=== PATIENT | female | born 1940 | race American Indian/Alaskan Native ===

== ENCOUNTER 2017-11-15 15:38 | Inpatient (IN) | payer MEDICARE ==
--- NOTE | 2017-11-15 16:57 | Emergency Department Report ---
ED General Adult HPI - General Chief complaint: Tube Replacement Stated complaint: DAMAGED CENTRAL LINE Time Seen by Provider: 11/15/17 16:44 Source: patient, family, EMS (ems notes not available at time of chart dictation), RN notes reviewed Mode of arrival: Ambulatory Limitations: Altered Mental Status, Physical Limitation, Other (patient is demented. Patient is a poor historian) - History of Present Illness Initial comments: This is a 77-year-old female who was previously unknown to this provider, apparently gets dialysis Saturday, Saturday, Saturday, also has a history of dementia, sent to the ER by her instrumental music teacher, Dr. Simental, for malfunctioning right-sided thoracic permacath. As for her instrumental music teacher, patient received 2 hours of dialysis today, and then the permacath began to bleed from the arterial port. It was clamped and tied off. It is currently not bleeding. The patient is demented and cannot offer any additional history. No additional information is available at this time. Patient is demented, and can therefore not describe exacerbating or relieving factors, radiation oncology of symptoms. -: Sudden Severity scale (0 -10): 0 Quality: other Improves with: other Worsens with: other Associated Symptoms: other - Related Data Home Medications Medication Instructions Recorded Confirmed Last Taken Amlodipine Besylate/Benazepril 1 PO DAILY 06/22/14 06/22/14 06/22/14 [amLODIPine-Benazepril 5/40 mg] Aspirin EC [Aspirin Enteric Coated 325 mg PO DAILY 06/22/14 06/22/14 06/22/14 TAB] Cyproheptadine [Periactin] 4 mg PO TID 06/22/14 06/22/14 Unknown Sennosides/Docusate Sodium [Stool PRN 06/22/14 06/22/14 Unknown Softener Tablet] Vit A and D3 in Cod Liver Oil [Cod 1 PO DAILY 06/22/14 06/22/14 06/22/14 Liver Oil Softgel] glipiZIDE [glipiZIDE ER] 5 mg PO QAM 06/22/14 06/22/14 Unknown Allergies Allergy/AdvReac Type Severity Reaction Status Date / Time No Known Allergies Allergy Unverified 06/22/14 16:57 ED Review of Systems ROS: Stated complaint: DAMAGED CENTRAL LINE Other details as noted in HPI Comment: Unobtainable due to pts medical conditions ED Past Medical Hx - Past Medical History Previous Medical History?: Yes Hx Hypertension: Yes Hx CVA: No Hx Heart Attack/AMI: No Hx Congestive Heart Failure: No Hx Diabetes: Yes Hx Deep Vein Thrombosis: No Hx Pulmonary Embolism: No Hx GERD: No Hx Liver Disease: No Hx Renal Disease: No Hx of Cancer: No Hx Sickle Cell Disease: No Hx Arthritis: No Hx Headaches / Migraines: No Hx Seizures: No Hx Kidney Stones: No Hx Psychiatric Treatment: No Hx Asthma: No Hx COPD: No Hx Tuberculosis: No Hx Dementia: No (Daughter in law states possibly) Hx HIV: No - Surgical History Past Surgical History?: Yes Hx Coronary Stent: No Hx Open Heart Surgery: No Hx Pacemaker: No Hx Internal Defibrillator: No Hx Cholecystectomy: No Hx Appendectomy: No Hx Breast Surgery: No Additional Surgical History: Hysterectomy - Social History Smoking Status: Never Smoker Substance Use Type: None - Medications Home Medications: Home Medications Medication Instructions Recorded Confirmed Last Taken Type Amlodipine Besylate/Benazepril 1 PO DAILY 06/22/14 06/22/14 06/22/14 History [amLODIPine-Benazepril 5/40 mg] Aspirin EC [Aspirin Enteric Coated 325 mg PO DAILY 06/22/14 06/22/14 06/22/14 History TAB] Cyproheptadine [Periactin] 4 mg PO TID 06/22/14 06/22/14 Unknown History Sennosides/Docusate Sodium [Stool PRN 06/22/14 06/22/14 Unknown History Softener Tablet] Vit A and D3 in Cod Liver Oil [Cod 1 PO DAILY 06/22/14 06/22/14 06/22/14 History Liver Oil Softgel] glipiZIDE [glipiZIDE ER] 5 mg PO QAM 06/22/14 06/22/14 Unknown History ED Physical Exam - General Limitations: Other (patient is demented. Patient is a poor historian) General appearance: alert, in no apparent distress - Head Head exam: Present: atraumatic, normocephalic - Eye Eye exam: Present: normal appearance - ENT ENT exam: Present: normal exam, mucous membranes moist - Neck Neck exam: Present: normal inspection, full ROM. Absent: tenderness, meningismus - Respiratory Respiratory exam: Present: normal lung sounds bilaterally, other (there is right sided thoracic wall permacath noted. There is no redness, pus or streaking. There is no active bleeding at this time). Absent: respiratory distress, chest wall tenderness - Cardiovascular Cardiovascular Exam: Present: normal rhythm, tachycardia, normal heart sounds. Absent: bradycardia, irregular rhythm, systolic murmur, diastolic murmur, rubs, gallop - GI/Abdominal GI/Abdominal exam: Present: soft, normal bowel sounds. Absent: distended, tenderness, guarding, rebound, rigid, pulsatile mass - Extremities Exam Extremities exam: Present: normal inspection, pedal edema. Absent: calf tenderness - Back Exam Back exam: Present: normal inspection, full ROM. Absent: tenderness, CVA tenderness (R), paraspinal tenderness, vertebral tenderness - Neurological Exam Neurological exam: Present: alert, other (Extraocular movements intact. Tongue midline. No facial droop. Facial sensation intact to light touch in the V1, V2 , V3 distribution bilaterally. 5 and 5 strength in 4 extremities.. Sensation is intact to light touch in 4 extremities.). Absent: motor sensory deficit - Psychiatric Psychiatric exam: Present: normal affect, normal mood - Skin Skin exam: Present: warm, dry, intact, normal color. Absent: rash ED Course Vital Signs 11/15/17 11/15/17 11/15/17 15:55 17:20 17:30 Temperature 98.5 F Pulse Rate 104 H 92 H 97 H Respiratory 18 22 19 Rate Blood Pressure 159/75 171/75 Blood Pressure 159/75 [Right] O2 Sat by Pulse 98 81 L 100 Oximetry 11/15/17 11/15/17 11/15/17 19:00 19:30 19:36 Temperature 98.1 F Pulse Rate 100 H 103 H 98 H Respiratory 18 23 16 Rate Blood Pressure 167/71 179/64 Blood Pressure 179/64 [Right] O2 Sat by Pulse 99 100 99 Oximetry 11/15/17 11/15/17 11/15/17 20:00 20:30 21:00 Temperature Pulse Rate 105 H 106 H 105 H Respiratory 19 20 26 H Rate Blood Pressure 171/55 171/55 170/71 Blood Pressure [Right] O2 Sat by Pulse 99 97 98 Oximetry - Reevaluation(s) Reevaluation #1: 11/15/17 17:26 Differential diagnosis, including not limited to: Malfunctioning permacath, vascular access malfunction, end-stage renal disease Assessment and plan: 77-year-old female who was sent to the ER for evaluation of malfunctioning permacath. Discussed with Dr. Simental, she will follow in consultation. Discussed with Dr. Tavera of vascular surgery, his group will see the patient in the morning. Patient will be nothing by mouth after midnight. We will check basic laboratory studies, EKG. Extensive discussion had with family. Patient is demented, and may require sedation, for her protection and for staff protection, family has verbally consented to. They are also amenable to soft restraints if necessary. Reevaluation #2: 11/15/17 21:35 Dr. Tomas accepted the patient to the medical service. ED Medical Decision Making - Lab Data Result diagrams: 11/15/17 17:28 11/15/17 17:28 Vital Signs 11/15/17 15:55 Temperature 98.5 F Pulse Rate 104 H Respiratory 18 Rate Blood Pressure 159/75 Blood Pressure 159/75 [Right] O2 Sat by Pulse 98 Oximetry - EKG Data -: EKG Interpreted by Me EKG shows normal: sinus rhythm - EKG Data When compared to previous EKG there are: previous EKG unavailable 11/15/17 17:44 Normal sinus, 95 bpm, left axis deviation, left anterior fascicular block, abnormal EKG, QTC prolonged, not morphologically consistent with a STEMI - Radiology Data Radiology results: image reviewed interpreted by me: X-ray of the chest, interpreted by me: No acute disease, calcified aortic arch, right-sided vascular access catheter noted, cardiomegaly Critical care attestation.: If time is entered above; I have spent that time in minutes in the direct care of this critically ill patient, excluding procedure time. ED Disposition Clinical Impression: Hemodialysis catheter malfunction, End stage renal disease Disposition: OP ADMIT IP TO THIS HOSP Is pt being admited?: Yes Condition: Good
[2017-11-15 17:35] LABS: Hematocrit 30.9 % (30.3-42.9); Hemoglobin 9.9 gm/dl (10.1-14.3); Mean Corpuscular HGB Conc 32 % (30-34); Mean Corpuscular Hemoglobin 29 pg (28-32); Mean Corpuscular Volume 92 fl (79-97); Platelet Count 345 K/mm3 (140-440); Red Blood Count 3.38 M/mm3 (3.65-5.03); Red Cell Distribution Width 17.3 % (13.2-15.2)
[2017-11-15 17:46] LABS: Calcium 8.2 mg/dL (8.4-10.2); INR 0.89 (0.87-1.13)
--- NOTE | 2017-11-15 18:34 | XRay Report ---
FINAL REPORT PROCEDURE: XR CHEST 1V AP TECHNIQUE: A portable AP chest radiograph was obtained at 11/15/2017 20:57 (GMT) . CPT 83658 HISTORY: Vascular access. Catheter malfunction. COMPARISON: No prior studies are available for comparison. FINDINGS: Heart: Mild cardiomegaly. Mediastinum/Vessels: Aortic calcification and tortuosity. Right hilar prominence due to patient rotation. Lungs/Pleural space: Left lower lobe linear opacities. Bony thorax: Mild osteopenia. Mild multilevel degenerative changes of the spine and shoulders. Right 4th and 7th rib fractures. Life support devices: Dialysis catheter tip at the cavoatrial junction. IMPRESSION: Dialysis catheter tip at the cavoatrial junction. No pneumothorax on limited portable exam. Mild cardiomegaly. Aortic calcification and tortuosity. Left lower lobe linear opacities, likely scarring/atelectasis.
--- NOTE | 2017-11-15 23:24 | History and Physical Report ---
History of Present Illness Date of examination: 11/15/17 History of present illness: 77-year-old woman with a history of dementia, end-stage renal disease on dialysis Saturday and Saturday was sent to the emergency room from dialysis because his per permacath started bleeding from the arterial site. The patient is unable to give a history, unable to reach family, review of system is unobtainable PAST MEDICAL HISTORY: dementia, end-stage renal disease on dialysis PAST SURGICAL HISTORY: Unknown SOCIAL HISTORY: Unknown FAMILY HISTORY: Unknown Medications and Allergies Allergies Allergy/AdvReac Type Severity Reaction Status Date / Time No Known Allergies Allergy Unverified 06/22/14 16:57 Home Medications Medication Instructions Recorded Confirmed Last Taken Type Amlodipine Besylate/Benazepril 1 PO DAILY 06/22/14 06/22/14 06/22/14 History [amLODIPine-Benazepril 5/40 mg] Aspirin EC [Aspirin Enteric Coated 325 mg PO DAILY 06/22/14 06/22/14 06/22/14 History TAB] Cyproheptadine [Periactin] 4 mg PO TID 06/22/14 06/22/14 Unknown History Sennosides/Docusate Sodium [Stool PRN 06/22/14 06/22/14 Unknown History Softener Tablet] Vit A and D3 in Cod Liver Oil [Cod 1 PO DAILY 06/22/14 06/22/14 06/22/14 History Liver Oil Softgel] glipiZIDE [glipiZIDE ER] 5 mg PO QAM 06/22/14 06/22/14 Unknown History Exam - Physical Exam Narrative exam: Gen. appearance: Patient lying in bed, no apparent distress HEENT: Normocephalic, atraumatic, pupils equally round and reactive to light, extraocular movement intact, and no sclericterus,. No JVD or thyromegaly or nodule,neck supple, no carotid bruit ,mucous membranes moist, no exudate or erythema Heart: S1, S2, regular rate and rhythm Lungs: Clear to auscultation bilaterally, breathing comfortable Abdomen: Positive bowel sounds, nontender, nondistended, no organomegaly Extremity: No edema, cyanosis, clubbing Skin: No rash, nodules, warm, dry Neuro: Oriented 3, cranial nerves II-12 intact, speech is fluent, motor and sensory intact - Constitutional Vitals: Temp Pulse Resp BP Pulse Ox 98.1 F 102 H 14 170/70 99 11/15/17 19:36 11/15/17 21:42 11/15/17 21:42 11/15/17 21:42 11/15/17 21:42 Results - Labs CBC & Chem 7: 11/15/17 17:28 11/15/17 17:28 Labs: Abnormal lab results 11/15/17 11/15/17 Range/Units 17:28 17:28 RBC 3.38 L (3.65-5.03) M/mm3 Hgb 9.9 L (10.1-14.3) gm/dl RDW 17.3 H (13.2-15.2) % Sodium 131 L (137-145) mmol/L Potassium 3.4 L (3.6-5.0) mmol/L Chloride 93.2 L (98-107) mmol/L Creatinine 2.8 H (0.7-1.2) mg/dL Glucose 213 H (65-100) mg/dL Calcium 8.2 L (8.4-10.2) mg/dL - Imaging and Cardiology EKG: image reviewed Chest x-ray: image reviewed Assessment and Plan Assessment Malfunction of permacath for dialysis End-stage renal disease on dialysis Dementia Plan Admit to medicine Consult vascular, renal DVT prophylaxis
[2017-11-15] MEDS ORDERED: ZOFRAN IV PRN (23:47)
[2017-11-15] MEDS ORDERED: TYLENOL PO PRN (23:47)
[2017-11-15] MEDS ORDERED: SODIUM CHLORIDE FLUSH SYRINGE 10 ML IV PRN (23:47)
[2017-11-16] MEDS: SODIUM CHLORIDE FLUSH SYRINGE 10 ML IV SCH ×2 (09:32→22:54)
[2017-11-16 09:51] LABS: Calcium 8.6 mg/dL (8.4-10.2)
--- NOTE | 2017-11-16 10:39 | Progress Note ---
Assessment and Plan Assessment and plan: 77-year-old woman with a history of dementia, end-stage renal disease on dialysis Saturday and Saturday was sent to the emergency room from dialysis because his per permacath started bleeding from the arterial site. The patient is unable to give a history, unable to reach family, review of system is unobtainable Assessment/Plan Malfunction of permacath for dialysis; vasc sx consulted for replacement End-stage renal disease on dialysis; HD per nephrology Dementia; supportive care htn urgency; resume home meds, hydralazine prn DM; resume glipizide, SSI, check a1c History Interval history: Review of systems Constitutional: No fevers, no malaise, no joint pains CVS: No chest pain, no orthopnea, no dyspnea on exertion, no pedal edema GI: No abdominal pain, no diarrhea, no vomiting, no constipation Respiratory: No shortness of breath, no wheezing, no coughing Hospitalist Physical - Physical exam Narrative exam: General.: Appears well, no distress, nontoxic HEENT: Moist mucous membranes, extraocular muscles intact, no lymphadenopathy Neck: supple Cardiac: S1-S2 heard Lungs: clear to auscultation bilaterally Abdomen: soft , nontender, nondistended, bowel sounds positive Extremities: no edema clubbing or cyanosis Skin: no rash or lesions Neurologic: no gross focal deficits, oriented to person, knows she in a hospital , thinks its 2021; Psych: appropriate behavior, appropriate mood, demented - Constitutional Vitals: Temp Pulse Resp BP Pulse Ox 98.0 F 97 H 18 172/80 98 11/16/17 07:32 11/16/17 07:32 11/16/17 07:32 11/16/17 07:32 11/16/17 07:32 Results - Labs CBC & Chem 7: 11/15/17 17:28 11/16/17 06:54 Labs: Laboratory Last Values WBC 8.9 K/mm3 (4.5-11.0) 11/15/17 17:28 RBC 3.38 M/mm3 (3.65-5.03) L 11/15/17 17:28 Hgb 9.9 gm/dl (10.1-14.3) L 11/15/17 17:28 Hct 30.9 % (30.3-42.9) 11/15/17 17:28 MCV 92 fl (79-97) 11/15/17 17:28 MCH 29 pg (28-32) 11/15/17 17:28 MCHC 32 % (30-34) 11/15/17 17:28 RDW 17.3 % (13.2-15.2) H 11/15/17 17:28 Plt Count 345 K/mm3 (140-440) 11/15/17 17:28 PT 12.5 Sec. (12.2-14.9) 11/15/17 17:28 INR 0.89 (0.87-1.13) 11/15/17 17:28 Sodium 136 mmol/L (137-145) L 11/16/17 06:54 Potassium 3.9 mmol/L (3.6-5.0) 11/16/17 06:54 Chloride 97.6 mmol/L (98-107) L 11/16/17 06:54 Carbon Dioxide 23 mmol/L (22-30) 11/16/17 06:54 Anion Gap 19 mmol/L 11/16/17 06:54 BUN 18 mg/dL (7-17) H 11/16/17 06:54 Creatinine 3.7 mg/dL (0.7-1.2) H 11/16/17 06:54 Estimated GFR 14 ml/min 11/16/17 06:54 BUN/Creatinine Ratio 5 % 11/16/17 06:54 Glucose 186 mg/dL (65-100) H 11/16/17 06:54 Calcium 8.6 mg/dL (8.4-10.2) 11/16/17 06:54
[2017-11-16] MEDS ORDERED: D50W (25GM) Syringe IV PRN (10:40)
[2017-11-16] MEDS ORDERED: APRESOLINE IV PRN (10:40)
--- NOTE | 2017-11-16 11:40 | Consultation ---
History of Present Illness - Reason for Consult Consult date: 11/16/17 Permcath malfunction - History of Present Illness 77-year-old -Chinese female with end-stage renal disease, dementia, diabetes, and hypertension who presents with right internal jugular tunneled dialysis catheter malfunction. I contacted Dr. Simental who told me that the catheter was oozing from a puncture in the arterial port. This occurred after being on dialysis for 2 hours. The patient is pleasantly demented and denies any acute distress. She denies any bleeding overnight. She cannot tell me how long she has been on dialysis, but is right handed and has never had a graft or fistula attempted. Physical exam demonstrates a right internal jugular tunneled hemodialysis catheter with some blood in the tubing with midportion clamps. I adjusted the clamps to make them as proximal as possible. No bleeding. Past History Past Medical History: diabetes, dialysis, ESRD, hypertension, other (dementia) Past Surgical History: Other (unknown, patient cannot report surgical history) Social history: other (unknown, patient cannot report social history) Family history: other (unknown, patient cannot report family history) Medications and Allergies Allergies Allergy/AdvReac Type Severity Reaction Status Date / Time No Known Allergies Allergy Unverified 06/22/14 16:57 Home Medications Medication Instructions Recorded Confirmed Last Taken Type Amlodipine Besylate/Benazepril 1 mg PO DAILY 06/22/14 11/16/17 06/22/14 History [amLODIPine-Benazepril 5/40 mg] Aspirin EC [Aspirin Enteric Coated 325 mg PO DAILY 06/22/14 11/16/17 06/22/14 History TAB] Cyproheptadine [Periactin] 4 mg PO TID 06/22/14 11/16/17 Unknown History Sennosides/Docusate Sodium [Stool 10 mg PO PRN PRN 06/22/14 11/16/17 Unknown History Softener Tablet] Vit A and D3 in Cod Liver Oil [Cod 1 mg PO DAILY 06/22/14 11/16/17 06/22/14 History Liver Oil Softgel] glipiZIDE [glipiZIDE ER] 5 mg PO QAM 06/22/14 11/16/17 Unknown History Active Meds: Active Medications Acetaminophen (Tylenol) 650 mg PO Q4H PRN PRN Reason: Pain MILD(1-3)/Fever >100.5/LEDEZMA Amlodipine Besylate (Norvasc) 5 mg PO QDAY [facility] Aspirin (Ecotrin) 325 mg PO DAILY [facility] Cyproheptadine HCl (Periactin) 4 mg PO TID [facility] Dextrose (D50w (25gm) Syringe) 50 ml IV PRN PRN PRN Reason: Hypoglycemia Glipizide (Glucotrol Xl) 5 mg PO QAMDIAB [facility] Hydralazine HCl (Apresoline) 10 mg IV Q4HR PRN PRN Reason: BP >160/100 Insulin Human Lispro (Humalog) 0 unit SUB-Q ACHS [facility]; Protocol Lisinopril (Zestril) 40 mg PO QDAY [facility] Ondansetron HCl (Zofran) 4 mg IV Q8H PRN PRN Reason: Nausea And Vomiting Senna/Docusate Sodium (Senokot S) 1 tab PO PRN PRN PRN Reason: constipation Sodium Chloride (Sodium Chloride Flush Syringe 10 Ml) 10 ml IV BID [facility] Last Admin: 11/16/17 09:32 Dose: 10 ml Sodium Chloride (Sodium Chloride Flush Syringe 10 Ml) 10 ml IV PRN PRN PRN Reason: LINE FLUSH Review of Systems ROS unobtainable: due to mental status (demented) Exam - Constitutional Vitals: Temp Pulse Resp BP Pulse Ox 98.0 F 97 H 18 172/80 98 11/16/17 07:32 18 07:32 11/16/17 07:32 11/16/17 07:32 11/16/17 11:07 General appearance: Present: no acute distress - EENT Eyes: Present: EOM intact ENT: hearing intact - Neck Neck: Present: other (please see history of present illness for catheter exam) - Respiratory Respiratory effort: normal - Extremities Extremities: normal temperature, normal color - Abdominal General gastrointestinal: Present: soft - Psychiatric Psychiatric: no memory intact, cooperative, other (pleasantly demented) - Neurologic Neurologic: moves all extremities Results - Labs CBC & Chem 7: 11/15/17 17:28 11/16/17 06:54 Labs: Abnormal lab results 11/15/17 11/15/17 11/16/17 Range/Units 17:28 17:28 06:54 RBC 3.38 L (3.65-5.03) M/mm3 Hgb 9.9 L (10.1-14.3) gm/dl RDW 17.3 H (13.2-15.2) % Sodium 131 L 136 L (137-145) mmol/L Potassium 3.4 L (3.6-5.0) mmol/L Chloride 93.2 L 97.6 L (98-107) mmol/L BUN 18 H (7-17) mg/dL Creatinine 2.8 H 3.7 H (0.7-1.2) mg/dL Glucose 213 H 186 H (65-100) mg/dL Calcium 8.2 L (8.4-10.2) mg/dL Assessment and Plan 77-year-old female with end-stage renal disease who presents with catheter malfunction. The catheter is not bleeding currently, and the patient is in no acute distress, nor is she hyperkalemic. Plan for permcath exchange on Saturday. Vein mapping. Follow-up in clinic for probable graft placement. Avoid venipunctures, blood pressure cuffs, and IVs in the left upper extremity.
[2017-11-16] MEDS ORDERED: SENOKOT S PO PRN (12:00)
[2017-11-16] MEDS: HumaLOG SUB-Q SCH ×3 (12:30→23:31)
[2017-11-16] MEDS ORDERED: NACL 0.9% 100 ML IV PRN (13:13)
[2017-11-16] MEDS ORDERED: PROCRIT IV PRN (13:13)
[2017-11-16] MEDS ORDERED: HEPARIN IV PRN (13:13)
[2017-11-16] MEDS ORDERED: HEPARIN 10,000 UNITS/10 ML IV PRN (13:13)
--- NOTE | 2017-11-16 13:17 | Consultation ---
History of Present Illness - Reason for Consult Consult date: 11/16/17 end stage renal disease - History of Present Illness Patient is a 77yo with ESRD on HD MWF who was sent to the ED from her outpatient dialysis clinic due to malfunctioning permcath. Per dialysis clinic , appx 2 hours into her treatment, patient was noted to have a hole in her arterial port. Treatment was discontinued. Patient recently transferred to [facility] from [facility]. She has yet to establish care with a vascular surgeon. Past History Past Medical History: diabetes, dialysis, ESRD, hypertension, other (dementia) Past Surgical History: Other (unknown, patient cannot report surgical history) Social history: other (unknown, patient cannot report social history) Family history: other (unknown, patient cannot report family history) Medications and Allergies Allergies Allergy/AdvReac Type Severity Reaction Status Date / Time No Known Allergies Allergy Unverified 06/22/14 16:57 Home Medications Medication Instructions Recorded Confirmed Last Taken Type Amlodipine Besylate/Benazepril 1 mg PO DAILY 06/22/14 11/16/17 06/22/14 History [amLODIPine-Benazepril 5/40 mg] Aspirin EC [Aspirin Enteric Coated 325 mg PO DAILY 06/22/14 11/16/17 06/22/14 History TAB] Cyproheptadine [Periactin] 4 mg PO TID 06/22/14 11/16/17 Unknown History Sennosides/Docusate Sodium [Stool 10 mg PO PRN PRN 06/22/14 11/16/17 Unknown History Softener Tablet] Vit A and D3 in Cod Liver Oil [Cod 1 mg PO DAILY 06/22/14 11/16/17 06/22/14 History Liver Oil Softgel] glipiZIDE [glipiZIDE ER] 5 mg PO QAM 06/22/14 11/16/17 Unknown History Active Meds: Active Medications Acetaminophen (Tylenol) 650 mg PO Q4H PRN PRN Reason: Pain MILD(1-3)/Fever >100.5/LEDEZMA Amlodipine Besylate (Norvasc) 5 mg PO QDAY [facility] Aspirin (Ecotrin) 325 mg PO DAILY [facility] Cyproheptadine HCl (Periactin) 4 mg PO TID [facility] Dextrose (D50w (25gm) Syringe) 50 ml IV PRN PRN PRN Reason: Hypoglycemia Glipizide (Glucotrol Xl) 5 mg PO QAMDIAB [facility] Hydralazine HCl (Apresoline) 10 mg IV Q4HR PRN PRN Reason: BP >160/100 Insulin Human Lispro (Humalog) 0 unit SUB-Q ACHS [facility]; Protocol Last Admin: 11/16/17 12:30 Dose: 1 unit Lisinopril (Zestril) 40 mg PO QDAY [facility] Ondansetron HCl (Zofran) 4 mg IV Q8H PRN PRN Reason: Nausea And Vomiting Senna/Docusate Sodium (Senokot S) 1 tab PO PRN PRN PRN Reason: constipation Sodium Chloride (Sodium Chloride Flush Syringe 10 Ml) 10 ml IV BID [facility] Last Admin: 11/16/17 09:32 Dose: 10 ml Sodium Chloride (Sodium Chloride Flush Syringe 10 Ml) 10 ml IV PRN PRN PRN Reason: LINE FLUSH Review of Systems All systems: negative Exam - Vital Signs Vital signs: Vital Signs Temp Pulse Resp BP Pulse Ox 98.5 F 104 H 18 159/75 98 11/15/17 15:55 11/15/17 15:55 11/15/17 15:55 11/15/17 15:55 11/15/17 15:55 - General Appearance General appearance: well-developed, well-nourished EENT: ATNC Neck: Present: Other (RIJ permcath bandaged) Respiratory: Clear to Ascultation Heart: regular, S1S2 Gastrointestinal: Present: normal. 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 No acute indication for HD today * Will plan for dialysis on Saturday following permcath exchange * IR following * Continue antiHTN medications * Glycemic control per primary team * Renal diet * Epogen TIW prn
[2017-11-16] MEDS: PERIACTIN PO SCH ×2 (14:40→22:54)
[2017-11-17] MEDS: HumaLOG SUB-Q SCH ×4 (08:47→22:50)
[2017-11-17] MEDS: PERIACTIN PO SCH ×3 (09:00→20:44)
[2017-11-17] MEDS: GLUCOTROL XL PO SCH (09:00)
[2017-11-17] MEDS: ZESTRIL PO SCH (09:01)
[2017-11-17] MEDS: ECOTRIN PO SCH (09:01)
[2017-11-17] MEDS: NORVASC PO SCH (09:02)
[2017-11-17] MEDS: SODIUM CHLORIDE FLUSH SYRINGE 10 ML IV SCH ×2 (09:02→22:51)
[2017-11-17] MEDS ORDERED: AMLODIPINE BESYLATE PO SCH (10:00)
[2017-11-17] MEDS ORDERED: BENAZEPRIL PO SCH (10:00)
--- NOTE | 2017-11-17 10:43 | Progress Note ---
Assessment and Plan Impression: * End stage renal disease on HD MWF * Malfunctioning permcath * Anemia secondary to ESRD * Dementia * Hypertension * Type II DM * Hx of MRSA discitis * Hx of PE/DVT, previously on anticoagulation Plan: * Patient is s/p partial dialysis on Saturday. No acute indication for HD today * Will plan for dialysis on Saturday following permcath exchange * IR following * Continue antiHTN medications * Glycemic control per primary team * Renal diet * Epogen TIW prn Subjective Date of service: 11/17/17 Interval history: No acute events overnight. Patient resting comfortably. Objective - Vital Signs Vital signs: Vital Signs - 12hr 11/16/17 11/17/17 11/17/17 22:46 02:39 07:00 Temperature 99.2 F 99.0 F 98.4 F Pulse Rate 102 H 102 H 91 H Respiratory 20 20 20 Rate Blood Pressure 158/76 157/76 Blood Pressure 150/67 [Right] O2 Sat by Pulse 98 98 98 Oximetry 11/17/17 11/17/17 09:01 09:02 Temperature Pulse Rate 91 H 91 H Respiratory Rate Blood Pressure 150/67 150/67 Blood Pressure [Right] O2 Sat by Pulse Oximetry - General Appearance General appearance: well-developed, well-nourished EENT: ATNC Respiratory: Present: Clear to Ascultation Cardiology: regular, S1S2 Gastrointestinal: normal, no tenderness, no distended Musculoskeletal: other (no edema) Psychiatric: cooperative - Lab 11/15/17 17:28 11/16/17 06:54 Most recent lab results Calcium 8.6 mg/dL (8.4-10.2) 11/16/17 06:54
--- NOTE | 2017-11-17 13:39 | Progress Note ---
Assessment and Plan Assessment and plan: 77-year-old woman with a history of dementia, end-stage renal disease on dialysis Saturday and Saturday was sent to the emergency room from dialysis because his per permacath started bleeding from the arterial site. Assessment/Plan Malfunction of permacath for dialysis; vasc sx consulted for replacement End-stage renal disease on dialysis; HD per nephrology Dementia; supportive care htn urgency; resume home meds, hydralazine prn DM; resume glipizide, SSI, check a1c History Interval history: Review of systems Constitutional: No fevers, no malaise, no joint pains CVS: No chest pain, no orthopnea, no dyspnea on exertion, no pedal edema GI: No abdominal pain, no diarrhea, no vomiting, no constipation Respiratory: No shortness of breath, no wheezing, no coughing Hospitalist Physical - Physical exam Narrative exam: General.: Appears well, no distress, nontoxic HEENT: Moist mucous membranes, extraocular muscles intact, no lymphadenopathy Neck: supple Cardiac: S1-S2 heard Lungs: clear to auscultation bilaterally Abdomen: soft , nontender, nondistended, bowel sounds positive Extremities: no edema clubbing or cyanosis Skin: no rash or lesions Neurologic: no gross focal deficits, oriented to person, knows she in a hospital , thinks its 2021; Psych: appropriate behavior, appropriate mood, demented - Constitutional Vitals: Temp Pulse Resp BP Pulse Ox 98.4 F 91 H 20 150/67 98 11/17/17 07:00 11/17/17 09:02 11/17/17 07:00 11/17/17 09:02 11/17/17 07:00 General appearance: Present: no acute distress Results - Labs CBC & Chem 7: 11/19/17 05:37 11/19/17 05:37 Labs: Laboratory Last Values WBC 8.9 K/mm3 (4.5-11.0) 11/15/17 17:28 RBC 3.38 M/mm3 (3.65-5.03) L 11/15/17 17:28 Hgb 9.9 gm/dl (10.1-14.3) L 11/15/17 17:28 Hct 30.9 % (30.3-42.9) 11/15/17 17:28 MCV 92 fl (79-97) 11/15/17 17:28 MCH 29 pg (28-32) 11/15/17 17:28 MCHC 32 % (30-34) 11/15/17 17:28 RDW 17.3 % (13.2-15.2) H 11/15/17 17:28 Plt Count 345 K/mm3 (140-440) 11/15/17 17:28 PT 12.5 Sec. (12.2-14.9) 11/15/17 17:28 INR 0.89 (0.87-1.13) 11/15/17 17:28 Sodium 136 mmol/L (137-145) L 11/16/17 06:54 Potassium 3.9 mmol/L (3.6-5.0) 11/16/17 06:54 Chloride 97.6 mmol/L (98-107) L 11/16/17 06:54 Carbon Dioxide 23 mmol/L (22-30) 11/16/17 06:54 Anion Gap 19 mmol/L 11/16/17 06:54 BUN 18 mg/dL (7-17) H 11/16/17 06:54 Creatinine 3.7 mg/dL (0.7-1.2) H 11/16/17 06:54 Estimated GFR 14 ml/min 11/16/17 06:54 BUN/Creatinine Ratio 5 % 11/16/17 06:54 Glucose 186 mg/dL (65-100) H 11/16/17 06:54 POC Glucose 148 (70-105) H 11/17/17 11:49 Hemoglobin A1c 5.5 % (4-6) 11/17/17 05:01 Calcium 8.6 mg/dL (8.4-10.2) 11/16/17 06:54
[2017-11-18] MEDS ORDERED: DULCOLAX PR PRN (02:11)
[2017-11-18] MEDS: HumaLOG SUB-Q SCH ×3 (07:30→17:06)
[2017-11-18 07:54] LABS: Calcium 8.1 mg/dL (8.4-10.2)
[2017-11-18] MEDS ORDERED: HEPARIN 10,000 UNITS/10 ML ONE (08:13)
[2017-11-18] MEDS ORDERED: HEPARIN/NS 5000 UNIT/500ML(CATH LAB) 500 ML IR ONE (08:13)
[2017-11-18] MEDS ORDERED: SUBLIMAZE ONE (08:14)
[2017-11-18] MEDS ORDERED: XYLOCAINE 2% INFILTRATI ONE ×2 (08:14→08:48)
[2017-11-18] MEDS ORDERED: VERSED ONE (08:14)
[2017-11-18] MEDS ORDERED: NACL 0.9% 250ML 250 ML ONE (08:37)
[2017-11-18] MEDS ORDERED: VERSED IV ONE (08:40)
[2017-11-18] MEDS ORDERED: HEPARIN 10,000 UNITS/10 ML 2,000 UNIT in NACL 0.9% 500 ML 500 ML IR ONE (08:40)
[2017-11-18] MEDS ORDERED: SUBLIMAZE IV ONE (08:40)
[2017-11-18] MEDS ORDERED: HEPARIN 10,000 UNITS/10 ML IV ONE (08:56)
--- NOTE | 2017-11-18 09:01 | Operative Report ---
Operative Report Operative Report: EXAM: FLUOROSCOPIC GUIDED TUNNELED HEMODIALYSIS CATHETER EXCHANGE CLINICAL INDICATION: PATIENT WITH NONFUNCTIONING HEMODIALYSIS CATHETER DATE: 11/18/2017 PROCEDURE: Following an explanation of the risks, benefits and alternatives; written informed consent was obtained from the patient's next of kin. Patient was brought to the injury graphic suite placed in supine position on the examination table. Initial fluoroscopic images demonstrated appropriate positioning of the previous placed tunneled hemodialysis catheter. A blood was noted to be in the arterial port secondary to catheter Ms. function. The patient's right chest wall and indwelling catheter were prepped and draped in the usual sterile fashion. 1% lidocaine was used for anesthesia at the catheter exit site and along the tunnel tract. Using a combination of sharp and blunt dissection, the catheter cuff was freed. A stiff Glidewire was advanced through the venous lumen and advanced into the IVC under fluoroscopy to document intravenous positioning and to anchor the catheter. The catheter was then removed intact. A new 19 cm glidepath tunneled hemodialysis catheter was then advanced over the guidewire and position with the tip in the proximal right atrium. The guidewire and trocar were removed. Both ports flushed and aspirated easily and were then locked with appropriate volumes of heparin. The catheter exit site was approximated using 3-0 Vicryl suture. A sterile dressing was then applied. The patient tolerated the procedure well. There were no immediate post procedure complications. Conscious sedation was performed under the guidance of radiologic nursing. Continuous cardiopulmonary monitoring was utilized. IMPRESSION: 1) Fluoroscopic guided exchange of tunneled hemodialysis catheter
[2017-11-18 09:13] LABS: Hematocrit 30.4 % (30.3-42.9); Lymphocytes % (Auto) 12.9 % (13.4-35.0); Mean Corpuscular HGB Conc 33 % (30-34); Mean Corpuscular Hemoglobin 30 pg (28-32); Mean Corpuscular Volume 93 fl (79-97); Monocytes % (Auto) 7.6 % (0.0-7.3); Platelet Count 343 K/mm3 (140-440); Red Blood Count 3.29 M/mm3 (3.65-5.03)
[2017-11-18 09:14] LABS: Basophils # (Auto) 0.1 K/mm3 (0.0-0.1); Eosinophils # (Auto) 0.2 K/mm3 (0.0-0.4); Eosinophils % (Auto) 1.7 % (0.0-4.3); Lymphocytes # (Auto) 1.3 K/mm3 (1.2-5.4); Monocytes # (Auto) 0.8 K/mm3 (0.0-0.8)
--- NOTE | 2017-11-18 09:15 | Progress Note ---
Assessment and Plan Assessment and plan: 77-year-old woman with a history of dementia, end-stage renal disease on dialysis Saturday and Saturday was sent to the emergency room from dialysis because his per permacath started bleeding from the arterial site. Assessment/Plan Malfunction of permacath for dialysis; vasc sx consulted for replacement End-stage renal disease on dialysis; HD per nephrology Dementia; supportive care htn urgency; resume home meds, hydralazine prn DM; resume glipizide, SSI, check a1c History Interval history: Review of systems Constitutional: No fevers, no malaise, no joint pains CVS: No chest pain, no orthopnea, no dyspnea on exertion, no pedal edema GI: No abdominal pain, no diarrhea, no vomiting, no constipation Respiratory: No shortness of breath, no wheezing, no coughing Hospitalist Physical - Physical exam Narrative exam: General.: Appears well, no distress, nontoxic HEENT: Moist mucous membranes, extraocular muscles intact, no lymphadenopathy Neck: supple Cardiac: S1-S2 heard Lungs: clear to auscultation bilaterally Abdomen: soft , nontender, nondistended, bowel sounds positive Extremities: no edema clubbing or cyanosis Skin: no rash or lesions Neurologic: no gross focal deficits, oriented to person, knows she in a hospital , thinks its 2021; Psych: appropriate behavior, appropriate mood, demented - Constitutional Vitals: Temp Pulse Resp BP Pulse Ox 98.7 F 110 H 20 145/73 98 11/18/17 07:17 11/18/17 07:17 11/18/17 07:17 11/18/17 07:17 11/18/17 08:19 General appearance: Present: no acute distress Results - Labs CBC & Chem 7: 11/19/17 05:37 11/19/17 05:37 Labs: Laboratory Last Values WBC 10.2 K/mm3 (4.5-11.0) 11/18/17 07:53 RBC 3.29 M/mm3 (3.65-5.03) L 11/18/17 07:53 Hgb 10.0 gm/dl (10.1-14.3) L 11/18/17 07:53 Hct 30.4 % (30.3-42.9) 11/18/17 07:53 MCV 93 fl (79-97) 11/18/17 07:53 MCH 30 pg (28-32) 11/18/17 07:53 MCHC 33 % (30-34) 11/18/17 07:53 RDW 18.0 % (13.2-15.2) H 11/18/17 07:53 Plt Count 343 K/mm3 (140-440) 11/18/17 07:53 Lymph % (Auto) 12.9 % (13.4-35.0) L 11/18/17 07:53 Pitkin % (Auto) 7.6 % (0.0-7.3) H 11/18/17 07:53 Eos % (Auto) 1.7 % (0.0-4.3) 11/18/17 07:53 Baso % (Auto) 1.0 % (0.0-1.8) 11/18/17 07:53 Lymph # 1.3 K/mm3 (1.2-5.4) 11/18/17 07:53 Pitkin # 0.8 K/mm3 (0.0-0.8) 11/18/17 07:53 Eos # 0.2 K/mm3 (0.0-0.4) 11/18/17 07:53 Baso # 0.1 K/mm3 (0.0-0.1) 11/18/17 07:53 Seg Neutrophils % 76.8 % (40.0-70.0) H 11/18/17 07:53 Seg Neutrophils # 7.8 K/mm3 (1.8-7.7) H 11/18/17 07:53 PT 12.5 Sec. (12.2-14.9) 11/15/17 17:28 INR 0.89 (0.87-1.13) 11/15/17 17:28 Sodium 136 mmol/L (137-145) L 11/18/17 07:35 Potassium 5.3 mmol/L (3.6-5.0) H D 11/18/17 07:35 Chloride 99.8 mmol/L (98-107) 11/18/17 07:35 Carbon Dioxide 21 mmol/L (22-30) L 11/18/17 07:35 Anion Gap 21 mmol/L 11/18/17 07:35 BUN 44 mg/dL (7-17) H 11/18/17 07:35 Creatinine 5.5 mg/dL (0.7-1.2) H 11/18/17 07:35 Estimated GFR 9 ml/min 11/18/17 07:35 BUN/Creatinine Ratio 8 % 11/18/17 07:35 Glucose 184 mg/dL (65-100) H 11/18/17 07:35 POC Glucose 237 (70-105) H 11/18/17 06:22 Hemoglobin A1c 5.5 % (4-6) 11/17/17 05:01 Calcium 8.1 mg/dL (8.4-10.2) L 11/18/17 07:35
[2017-11-18] MEDS ORDERED: NACL 0.9 (PRIMING MACHINE ONLY DIALYSIS) MC ONE (10:07)
[2017-11-18] MEDS ORDERED: NACL 0.9% 100 ML IV PRN (11:00)
[2017-11-18 13:21] LABS: Hepatitis A Antibody IgM Non-Reactive (NonReactive); Hepatitis B Core IgM Non-Reactive (NonReactive); Hepatitis B Surface Antigen Non-Reactive (Negative); Hepatitis C Virus Antibody Non-Reactive (NonReactive)
--- NOTE | 2017-11-18 16:29 | Progress Note ---
Subjective Interval history: Patient was seen today for follow-up, on many renal related issues Patient currently denies having any symptoms of chest pain pressure shortness of breath patient underwent permacath exchange today Better aware about renal related issues Interdisciplinary notes were reviewed Vitals labs intake and output medications were reviewed from today Allergies: Reviewed Social history: Reviewed Family history: Reviewed Physical examination HEENT: Oral mucosa moist no pharyngeal erythema Neck: Supple no JVD Chest: Clear to auscultation no crackles rales or wheezes Heart: Regular rate and rhythm S1-S2 heard no S3-S4 Abdomen: Soft nontender no renal bruit no CVA tenderness no suprapubic fullness Extremity: Mild edema dry skin no peripheral cyanosis pulses palpable Neurological: Alert awake Musculoskeletal: No joint effusion noted Assessment and plan End-stage renal disease patient is currently on maintenance hemodialysis 3 times per week, patient will continue to receive her hemodialysis through her catheter Permacath malfunction currently status post exchange/ admitted with bleeding from the arterial port/currently being followed by vascular surgery Anemia and end-stage renal disease currently on erythropoietin 10,000 units with hemodialysis Hypertension: Goal systolic blood pressure under 150 currently on Zestril as well as amlodipine Mild hyponatremia: To follow History of MRSA discitis, DVT and pulmonary embolism used to be on anticoagulation Dementia appears to be moderate Multiple other comorbidities including diabetes, hypertension, dementia Will continue to follow and make recommendation from renal standpoint Objective - Vital Signs Vital signs: Vital Signs - 12hr 11/18/17 11/18/17 11/18/17 07:17 08:19 09:30 Temperature 98.7 F 97.8 F Pulse Rate 110 H 100 H Respiratory 20 16 Rate Blood Pressure 145/73 140/86 O2 Sat by Pulse 100 98 Oximetry 11/18/17 11/18/17 11/18/17 09:38 09:45 10:00 Temperature Pulse Rate 95 H 96 H 100 H Respiratory Rate Blood Pressure 138/70 131/74 122/73 O2 Sat by Pulse Oximetry 11/18/17 11/18/17 11/18/17 10:15 10:30 10:45 Temperature Pulse Rate 100 H 101 H 104 H Respiratory Rate Blood Pressure 143/73 133/74 134/72 O2 Sat by Pulse Oximetry 11/18/17 11/18/17 11/18/17 11:00 11:15 11:30 Temperature Pulse Rate 99 H 102 H 109 H Respiratory Rate Blood Pressure 144/78 136/73 117/69 O2 Sat by Pulse Oximetry 11/18/17 11/18/17 11/18/17 11:45 12:00 12:15 Temperature Pulse Rate 107 H 81 56 L Respiratory Rate Blood Pressure 122/66 116/67 65/40 O2 Sat by Pulse Oximetry 11/18/17 11/18/17 11/18/17 12:19 12:30 12:45 Temperature Pulse Rate 103 H 96 H 101 H Respiratory Rate Blood Pressure 167/90 148/75 142/73 O2 Sat by Pulse Oximetry 11/18/17 11/18/17 11/18/17 13:00 13:13 13:49 Temperature 97.6 F Pulse Rate 97 H 91 H 95 H Respiratory 18 Rate Blood Pressure 132/73 131/70 134/62 O2 Sat by Pulse Oximetry - Lab 11/18/17 07:53 11/18/17 07:35 Most recent lab results Calcium 8.1 mg/dL (8.4-10.2) L 11/18/17 07:35
[2017-11-18] MEDS: PERIACTIN PO SCH ×3 (17:06→21:57)
[2017-11-18] MEDS: NORVASC PO SCH (18:14)
[2017-11-18] MEDS: ECOTRIN PO SCH (18:14)
[2017-11-18] MEDS: ZESTRIL PO SCH (18:14)
[2017-11-18] MEDS: GLUCOTROL XL PO SCH (18:14)
[2017-11-18] MEDS: SODIUM CHLORIDE FLUSH SYRINGE 10 ML IV SCH ×2 (20:44→21:59)
[2017-11-19] MEDS: HumaLOG SUB-Q SCH ×2 (00:48→14:15)
[2017-11-19 06:13] LABS: Basophils # (Auto) 0.1 K/mm3 (0.0-0.1); Basophils % (Auto) 1.4 % (0.0-1.8); Eosinophils # (Auto) 0.3 K/mm3 (0.0-0.4); Eosinophils % (Auto) 3.9 % (0.0-4.3); Hematocrit 30.1 % (30.3-42.9); Lymphocytes # (Auto) 2.2 K/mm3 (1.2-5.4); Lymphocytes % (Auto) 24.9 % (13.4-35.0); Mean Corpuscular HGB Conc 33 % (30-34); Mean Corpuscular Hemoglobin 30 pg (28-32); Mean Corpuscular Volume 91 fl (79-97); Monocytes # (Auto) 0.8 K/mm3 (0.0-0.8); Monocytes % (Auto) 9.4 % (0.0-7.3); Platelet Count 289 K/mm3 (140-440); Red Blood Count 3.31 M/mm3 (3.65-5.03)
[2017-11-19 06:41] LABS: Calcium 8.2 mg/dL (8.4-10.2)
--- NOTE | 2017-11-19 09:19 | Progress Note ---
Subjective Interval history: Patient was seen today for follow-up, on many renal related issues Patient is feeling better no acute complaints today Interdisciplinary notes were reviewed Vitals labs intake and output medications were reviewed from today Allergies: Reviewed Social history: Reviewed Family history: Reviewed Physical examination HEENT: Oral mucosa moist no pharyngeal erythema Neck: Supple no JVD Chest: Clear to auscultation no crackles rales or wheezes Heart: Regular rate and rhythm S1-S2 heard no S3-S4 Abdomen: Soft nontender no renal bruit no CVA tenderness no suprapubic fullness Extremity: Mild edema dry skin no peripheral cyanosis pulses palpable Neurological: Alert awake Musculoskeletal: No joint effusion noted Assessment and plan End-stage renal disease: Patient will continue with hemodialysis 3 times per week Anemia in end-stage renal disease current hemoglobin stable at 10 to monitor and follow erythropoietin subcutaneous would be preferred for better response Hyperkalemia: Potassium is currently 4.0 Diabetes mellitus type 2 poorly controlled needs diet lifestyle changes adjustment of medication Hypertension: Currently stable continue the current medication Tachycardia mild reduce lisinopril introduce beta teresa Status post-permacath exchange/due to bleeding from the arterial port Will monitor dialysis related labs Secondary hyperparathyroidism will check phosphorus and PTH Overall patient is stable from renal standpoint History of MRSA discitis, DVT and pulmonary embolism used to be on anticoagulation Dementia appears to be moderate Multiple other comorbidities including diabetes, hypertension, dementia Will continue to follow and make recommendation from renal standpoint Objective - Vital Signs Vital signs: Vital Signs - 12hr 11/18/17 21:35 Temperature 98.2 F Pulse Rate 109 H Respiratory 18 Rate Blood Pressure 135/58 [Right] O2 Sat by Pulse 97 Oximetry - Lab 11/19/17 05:37 11/19/17 05:37 Most recent lab results Calcium 8.2 mg/dL (8.4-10.2) L 11/19/17 05:37
[2017-11-19] MEDS: ECOTRIN PO SCH (09:46)
[2017-11-19] MEDS: PERIACTIN PO SCH ×2 (09:46→14:16)
[2017-11-19] MEDS: ZESTRIL PO SCH (09:48)
[2017-11-19] MEDS: NORVASC PO SCH (09:48)
[2017-11-19] MEDS: SODIUM CHLORIDE FLUSH SYRINGE 10 ML IV SCH (10:00)
--- NOTE | 2017-11-19 10:59 | Discharge Summary ---
Providers - Providers Date of Admission: 11/15/17 23:47 Date of discharge: 11/19/17 Attending physician: SAUD NAPIER 11/15/17 16:49 Consult to Physician [CONS] Urgent Comment: Dr. Snyder spoke with Dr. Simental Consulting Provider: TEAGAN SIMENTAL Physician Instructions: Reason For Exam: end-stage renal disease, malfunctioning dialysis c 11/15/17 16:56 Consult to Physician [CONS] Urgent Comment: Dr. Snyder spoke with Dr. Galindo Consulting Provider: EDER GALINDO Physician Instructions: Reason For Exam: vas cath replacement Primary care physician: COLE LOPEZ Hospitalization Condition: Good Hospital course: 77-year-old woman with a history of dementia, end-stage renal disease on dialysis Saturday and Saturday was sent to the emergency room from dialysis because his per permacath started bleeding from the arterial site. Patient was admitted to the hospital, vascular surgery was consulted for replacement of the permcath. She tolerated HD well with the new permcath. She was then discharged back to SNF in stable condition. Discharge diagnosis and management: Malfunction of permacath for dialysis; - vasc sx consulted for replacement and procedure was done on 11/18 End-stage renal disease on dialysis; - HD per nephrology, tolerated well with new perm cath Dementia; provided supportive care HTN urgency; resumed home meds and was better controlled, given hydralazine prn if SBP >180, stopped ACEI b/o hyperkalemia and replaced with coreg Hyperkalemia, improved with HD DM; resumed glipizide along with SSI, check a1c 5.5 Hospitalist Physical General.: Appears well, no distress, nontoxic HEENT: Moist mucous membranes, extraocular muscles intact, no lymphadenopathy Neck: supple Cardiac: S1-S2 heard Lungs: clear to auscultation bilaterally Abdomen: soft , nontender, nondistended, bowel sounds positive Extremities: no edema clubbing or cyanosis Skin: no rash or lesions Neurologic: no gross focal deficits, oriented to person, knows she in a hospital , thinks its 2021; Psych: appropriate behavior, appropriate mood, demented Disposition: DC/[place]-03 [facility] Time spent for discharge: 32 minutes Core Measure Documentation - Palliative Care Palliative Care/ Comfort Measures: Not Applicable - Core Measures Any of the following diagnoses?: none Exam - Constitutional Vitals: Temp Pulse Resp BP Pulse Ox 98.7 F 91 H 18 148/70 98 11/19/17 07:45 11/19/17 07:45 11/19/17 07:45 11/19/17 07:45 11/19/17 07:45 Plan Activity: advance as tolerated Weight Bearing Status: Non-Weight Bearing Diet: renal Follow up with: COLE LOPEZ MD [Primary Care Provider] - 3-5 Days Prescriptions: amLODIPine [Norvasc] 10 mg PO QDAY #30 tablet Carvedilol [Coreg] 3.125 mg PO BID #60 tablet
[2017-11-19] MEDS ORDERED: COREG PO SCH (14:00)
[2017-11-19 15:14] VITALS: BP 129/70
--- NOTE | 2017-11-20 15:02 | Vascular Lab Report ---
Upper extremity vein mapping Reason for exam: Preoperative evaluation for hemodialysis access Comments: On the right, the cephalic vein is too small for use from wrist to shoulder. The basilic vein is of marginal caliber of the upper. The brachial and radial arteries are patent. The radial artery is of normal caliber. The right jugular vein is thrombosed. On the left, the cephalic vein is too small for use from wrist to shoulder. The basilic vein is marginal for use in the upper arm. The brachial and radial arteries are patent. The radial artery is of normal caliber. Impression: The right internal jugular vein is thrombosed. Cephalic presentation small for use bilaterally. The basilic veins are potentially usable in the upper arms of the bilateral upper extremities.
== END 2017-11-19 15:00 | disposition home or self-care (01) | DRG 314 ==
LOC: ED 15:38 → 2B-ACE 23:47
PROVIDERS: ADMIT Internal Medicine; ATTEND Internal Medicine
PROC: 02HV33Z Insertion of Infusion Device into Superior Vena Cava, Percutaneous Approach (ICD-10-PCS; principal; 2017-11-18)
PROC: 02PY33Z Removal of Infusion Device from Great Vessel, Percutaneous Approach (ICD-10-PCS; 2017-11-18)
PROC: B5181ZA Fluoroscopy of Superior Vena Cava using Low Osmolar Contrast, Guidance (ICD-10-PCS; 2017-11-18)
PROC: 5A1D70Z Performance of Urinary Filtration, Intermittent, Less than 6 Hours Per Day (ICD-10-PCS; 2017-11-18)
DX: T82.41XA Breakdown (mechanical) of vascular dialysis catheter, initial encounter (principal); N18.6 End stage renal disease; I12.0 Hypertensive chronic kidney disease with stage 5 chronic kidney disease or end stage renal disease; E87.1 Hypo-osmolality and hyponatremia; N25.81 Secondary hyperparathyroidism of renal origin; F03.90 Unspecified dementia, unspecified severity, without behavioral disturbance, psychotic disturbance, mood disturbance, and anxiety; Z79.82 Long term (current) use of aspirin; E11.22 Type 2 diabetes mellitus with diabetic chronic kidney disease; Z99.2 Dependence on renal dialysis; Z90.710 Acquired absence of both cervix and uterus; Y83.8 Other surgical procedures as the cause of abnormal reaction of the patient, or of later complication, without mention of misadventure at the time of the procedure; Y92.89 Other specified places as the place of occurrence of the external cause; I16.0 Hypertensive urgency; D63.1 Anemia in chronic kidney disease; Z86.711 Personal history of pulmonary embolism; E87.5 Hyperkalemia; R00.0 Tachycardia, unspecified
CPT/HCPCS: 36415; 36581; 71045; 77001; 80048; 80074; 82962; 83036; 85025; 85027; 85610; 93005; 93010; 94760; C1750; C1769; J0885; J1644; J1815; J2250; J3010; J7030; J7040; J7050

== ENCOUNTER 2018-08-22 08:13 | Day surgery (SDC) | payer MEDICARE ==
[~2018-08-22 08:13] MED LIST: ANCEF/STERILE WATER 2 GM/20 ML 2 GM/20 ML SYRINGE IV NR; GELFOAM TP ONE; HEPARIN 10,000 UNITS/10 ML ONE; MARCAINE-EPI 0.5%-1:200,000 INFILTRATI ONE; NACL 0.9% 1000 ML 1,000 ML IV SCH; NACL 0.9% 500 ML 500 ML ONE; NITROGLYCERIN SYRINGE 3 ML ONE; PAPAVERINE ONE; PROTAMINE SULFATE ONE; SODIUM BICARBONATE ONE; THROMBIN (BOVINE) TP ONE; XYLOCAINE 1%/ EPI 1:100,000 INFILTRATI ONE
[2018-08-22] MEDS ORDERED: SUBLIMAZE IV PRN (09:36)
[2018-08-22] MEDS ORDERED: ZOFRAN IV PRN (09:36)
--- NOTE | 2018-08-22 09:37 | Anesthesia Day of Surgery ---
Anesthesia Day of Surgery - Day of Surgery Patient Examined: Yes Patient H&P Reviewed: Yes Patient is NPO: Yes Beta Blockers: Yes
--- NOTE | 2018-08-22 09:42 | Anesthesia Consultation ---
Anesthesia Consult and Med Hx Date of service: 08/22/18 - Airway Anesthetic Teeth Evaluation: Edentulous ROM Head & Neck: Adequate Mental/Hyoid Distance: Adequate Mallampati Class: Class I Intubation Access Assessment: Good - Pre-Operative Health Status ASA Pre-Surgery Classification: ASA3 Proposed Anesthetic Plan: General - Pulmonary Hx Asthma: No COPD: No - Cardiovascular System Hx Hypertension: Yes Hx Heart Attack/AMI: No Hx Pacemaker: No Hx Internal Defibrillator: No - Central Nervous System Hx Seizures: No CVA: Yes Hx Psychiatric Problems: No - Endocrine Hx Renal Disease: Yes Hx End Stage Renal Disease: Yes (MWF HD via Perma-cath; last HD Sat) Hx Liver Disease: No - Hematic Hx Sickle Cell Disease: No - Other Systems Hx Alcohol Use: No Hx Cancer: No
[2018-08-22] MEDS ORDERED: NACL 0.9% 1000 ML 1,000 ML IV SCH (10:00)
[2018-08-22] MEDS ORDERED: COREG PO ONE (10:18)
[2018-08-22] MEDS ORDERED: SUBLIMAZE ONE (10:23)
[2018-08-22] MEDS ORDERED: DIPRIVAN 10 MG/ML IV ONE (10:24)
[2018-08-22] MEDS ORDERED: NORVASC PO NR (10:30)
[2018-08-22] MEDS ORDERED: PROTONIX PO SCH (11:00)
[2018-08-22] MEDS ORDERED: COREG PO NR (11:00)
[2018-08-22] MEDS ORDERED: MARCAINE-EPI 0.5%-1:200,000 INFILTRATI ONE (13:24)
[2018-08-22] MEDS ORDERED: THROMBIN (BOVINE) TP ONE (13:24)
[2018-08-22] MEDS ORDERED: NACL 0.9% IR ONE (13:24)
[2018-08-22] MEDS ORDERED: GELFOAM TP ONE (13:25)
[2018-08-22] MEDS ORDERED: HEPARIN 10,000 UNITS/10 ML IV ONE (13:25)
[2018-08-22] MEDS ORDERED: NACL 0.9% 500 ML IRRIGATION ONE (13:26)
[2018-08-22] MEDS ORDERED: NITROGLYCERIN SYRINGE UD ONE (13:31)
--- NOTE | 2018-08-22 14:53 | Short Stay Summary ---
Short Stay Documentation Date of service: 08/22/18 - History H&P: obtained from office - Allergies and Medications Current Medications: Allergies No Known Allergies Allergy (Unverified 06/22/14 16:57) Home Medications Medication Instructions Recorded Confirmed Last Taken Type Cyproheptadine [Periactin] 4 mg PO TID 06/22/14 03/08/18 Unknown History Acetaminophen 650 mg PO Q4H PRN 02/26/18 03/08/18 Unknown History Amlodipine Besylate/Benazepril 1 cap PO QDAY 02/26/18 03/08/18 Unknown History [Lotrel 5-40 mg] AtorvaSTATin [Lipitor] 20 mg PO QHS 02/26/18 03/08/18 Unknown History Benzonatate 200 mg PO Q8H PRN 02/26/18 03/08/18 Unknown History Carvedilol [Coreg] 6.25 mg PO BID 02/26/18 03/08/18 Unknown History Clobetasol Propionate [Clobetasol 1 dose TP Q12H PRN 02/26/18 03/08/18 Unknown History Propionate 0.05%] Docusate Sodium [Colace CAP] 100 mg PO BID 02/26/18 03/08/18 Unknown History Ergocalciferol (Vitamin D2) 50,000 unit PO QWEEK 02/26/18 03/08/18 Unknown History [Drisdol] Ferrous Sulfate [Iron] 325 mg PO BID 02/26/18 03/08/18 Unknown History Magnesium Hydroxide [Milk of 2,400 mg PO QHS 02/26/18 03/08/18 Unknown History Magnesia] Polyethylene Glycol 3350 [Miralax 17 gm PO QDAY PRN 02/26/18 03/08/18 Unknown History 3350] Sennosides [Senna] 2 tab PO QHS 02/26/18 03/08/18 Unknown History Sevelamer Carbonate 1,600 mg PO TID 02/26/18 03/08/18 Unknown History Vit B Comp No.3/Folic/C/Biotin 1 each PO QDAY 02/26/18 03/08/18 Unknown History [Niyah-Jose F Rx Tablet] Cephalexin [Keflex] 500 mg PO BID #12 capsule 03/08/18 03/08/18 Unknown Rx Insulin Regular, Human [Novolin R] 1 dose SQ ACHS PRN #1 vial 03/08/18 Unknown Rx Active Medications Fentanyl (Sublimaze) 50 mcg IV Q5MIN PRN PRN Reason: Pain , Severe (7-10) Stop: 08/22/18 20:00 Cefazolin Sodium (Ancef/Sterile Water 2 Gm/20 Ml) 2 gm in 20 mls @ 80 mls/hr IV PREOP NR; Protocol Stop: 08/22/18 23:00 Sodium Chloride (Nacl 0.9% 1000 Ml) 1,000 mls @ 42 mls/hr IV DIRECT DESHAUN Last Admin: 08/22/18 10:40 Dose: 42 mls/hr Documented by: Ondansetron HCl (Zofran) 4 mg IV ONCE PRN PRN Reason: Nausea And Vomiting Stop: 08/22/18 16:00 - Brief post op/procedure progress note Date of procedure: 08/22/18 Pre-op diagnosis: end-stage renal disease, need for hemodialysis access Post-op diagnosis: same Procedure: Left upper extremity brachial artery to axillary vein bridge graft using 5 mm bovine Banding of left upper extremity arteriovenous graft Anesthesia: other (Gen. with local supplementation using half percent Marcaine with epinephrine) Findings: Vessels were generally small throughout. I had dissected high into the axilla to find a vein of adequate caliber for outflow. The brachial artery was about a 4-5 mm vessel at best. Surgeon: ALFONSO SAUCEDA Medical Staff Specialist: ASHANTI VEGAS Estimated blood loss: 50-100ml Pathology: none Condition: stable - Hospital course Hospital course: Benign - Disposition Condition at discharge: Good Short Stay Discharge Plan Activity: advance as tolerated Diet: advance as tolerated Wound: per your surgeon's advice Follow up with: ALFONSO SAUCEDA MD [Staff Physician] - 14 Days Prescriptions: HYDROcodone/APAP 5-325 [[place] 5/325] 1 each PO Q6HR PRN #30 tablet PRN Reason: Pain
--- NOTE | 2018-08-22 14:57 | Operative Report ---
Operative Report Operative Report: Date of procedure: 08/22/2018 Pre-operative diagnosis: End-stage renal failure Post-operative diagnosis: Same Procedure name(s): Left upper extremity brachial artery to axillary vein bridge graft using 5 mm bovine graft; graft banded with silk during the procedure Surgeon: Jann Virgen MD Informatics Spec: [Eagle Youssef PA-C] Anesthesia: Gen. with local supplementation using half percent Marcaine with epinephrine EBL: Less than 50 mL Operative indication: Patient is a 78-year-old woman with end-stage renal failure and need for long-term hemodialysis access. She has mild contractures involving the left upper extremity Findings: Good thrill in the arteriovenous graft at the end of the procedure. 2+ left radial pulse. Procedure: The patient was placed on the table in the supine position. The arm was prepped with ChloraPrep solution and draped in the usual sterile fashion. Ultrasound interrogation was done of the upper arm. The brachial artery was identified. There was no evidence of a high origin of the radial artery. The brachial artery was small at about 4 mm. The axillary vein was patent and the more proximal aspect of the axilla. The decision was made to proceed with the placement of the graft. Under local anesthesia, an incision was made just above the elbow. Dissection was carried out to identify the brachial artery. The brachial artery was surrounded with Vesseloops proximally and distally. The brachial artery was approximately 4 mm in diameter. A second incision was made in the axilla and dissection was carried out to identify the axillary vein. This vein was largest at about 7 mm in diameter and the most proximal portion of the axilla. Vessel loops were placed proximally and distally. I should note that the wounds were infiltrated with half percent Marcaine and epinephrine prior to incision. The bovine graft was prepped according to the IFU. A tunnel was created in the upper arm between the 2 incisions using a Luana-Wick tunneler. The graft was placed in the tunnel. The graft was anastomosed to the axillary vein in an end to side fashion using running 6-0 Prolene. The arterial anastomosis was completed in an end-to-side fashion. The arteriotomy was approximate 5 mm in length. A Arlyn catheter was used to break the spasm in the brachial artery proximally and distally to the anastomosis. The anastomosis is completed and flow was started into the arteriovenous graft with the development of an immediate and excellent thrill along the body of the graft. The left radial pulse was initially not palpable palpable. Banding was done of the arterial side of the graft just above the arterial anastomosis using 2-0 silk ties. The ties were approximated until there was still a thrill in the graft and a 1-2+ left radial pulse. Meticulous hemostasis was obtained. Closure was done with 3-0 Vicryl on the subcutaneous tissues tissue and 4-0 Monocryl on the subcuticular tissue. Sterile dressings were applied. The patient tolerated the procedure well. There was an easily palpable left radial pulse at the end of the procedure. There was a good thrill in the graft at the end of the procedure. Sponge, needle, and instrument counts were reported as correct. The patient was taken from the operating room to the juni very room in stable condition.
[2018-08-22] MEDS ORDERED: RIFADIN ONE (15:23)
[2018-08-22] MEDS ORDERED: NACL P/F VIAL (10 ML) 10 ML ONE (15:24)
--- NOTE | 2018-08-22 15:37 | Post Anesthesia Evaluation ---
- Post Anesthesia Evaluation Patient Participated: Yes Airway Patent: Yes Stable Respiratory Function: Yes Nausea/Vomiting: No Temp > 96.8F: Yes Pain Manageable: Yes Adequeate Hydration: Yes Anesthesia Complications: No Block Receding Appropriately: Not Applicable Patient on Ventilator: No
[2018-08-22 17:10] VITALS: BP 124/61
== END 2018-08-22 17:35 ==
LOC: OR 08:13
PROVIDERS: ATTEND Surgery Vascular Surgery
DX: I12.0 Hypertensive chronic kidney disease with stage 5 chronic kidney disease or end stage renal disease (principal); N18.6 End stage renal disease; Z79.899 Other long term (current) drug therapy; Z79.4 Long term (current) use of insulin; Z86.73 Personal history of transient ischemic attack (TIA), and cerebral infarction without residual deficits; Z83.3 Family history of diabetes mellitus
CPT/HCPCS: 36830; 82803; 82962; A4649; C1757; C1768; J0690; J1644; J2704; J3010; J3490; J7030; J7040; J2440; J2720

== ENCOUNTER 2018-10-17 10:45 | Day surgery (SDC) | payer MEDICARE ==
[~2018-10-17 10:45] MED LIST changes: -GELFOAM TP ONE; -HEPARIN 10,000 UNITS/10 ML ONE; -MARCAINE-EPI 0.5%-1:200,000 INFILTRATI ONE; -NACL 0.9% 500 ML 500 ML ONE; -NITROGLYCERIN SYRINGE 3 ML ONE; -PAPAVERINE ONE; -PROTAMINE SULFATE ONE; -SODIUM BICARBONATE ONE; -THROMBIN (BOVINE) TP ONE; -XYLOCAINE 1%/ EPI 1:100,000 INFILTRATI ONE
== END 2018-10-17 13:10 ==
LOC: OR 10:45
PROVIDERS: ATTEND Surgery Vascular Surgery
DX: I12.0 Hypertensive chronic kidney disease with stage 5 chronic kidney disease or end stage renal disease (principal); N18.6 End stage renal disease; Z53.8 Procedure and treatment not carried out for other reasons; Z79.899 Other long term (current) drug therapy; Z79.4 Long term (current) use of insulin; Z87.440 Personal history of urinary (tract) infections; Z99.2 Dependence on renal dialysis; Z98.890 Other specified postprocedural states; Z83.3 Family history of diabetes mellitus; Z86.73 Personal history of transient ischemic attack (TIA), and cerebral infarction without residual deficits
CPT/HCPCS: J0690; J7030

== ENCOUNTER 2018-12-09 06:07 | Day surgery (SDC) | payer MEDICARE ==
[2018-12-09] MEDS ORDERED: PROTAMINE SULFATE ONE (07:27)
[2018-12-09] MEDS ORDERED: MARCAINE-EPI 0.5%-1:200,000 INFILTRATI ONE ×3 (07:27→08:51)
[2018-12-09] MEDS ORDERED: XYLOCAINE 1%/ EPI 1:100,000 INFILTRATI ONE (07:28)
[2018-12-09] MEDS ORDERED: NACL P/F VIAL (10 ML) 10 ML ONE (07:28)
[2018-12-09] MEDS ORDERED: HEPARIN 10,000 UNITS/10 ML ONE (07:28)
[2018-12-09] MEDS ORDERED: NACL 0.9% 500 ML 500 ML ONE (07:28)
[2018-12-09] MEDS ORDERED: RIFADIN ONE (07:28)
[2018-12-09] MEDS ORDERED: DIPRIVAN 10 MG/ML IV ONE (07:28)
[2018-12-09] MEDS ORDERED: SUBLIMAZE ONE (07:29)
--- NOTE | 2018-12-09 07:45 | Anesthesia Day of Surgery ---
Anesthesia Day of Surgery - Day of Surgery Patient Examined: Yes Patient H&P Reviewed: Yes Patient is NPO: Yes
--- NOTE | 2018-12-09 07:45 | Anesthesia Consultation ---
Anesthesia Consult and Med Hx Date of service: 12/09/18 - Airway Anesthetic Teeth Evaluation: Edentulous ROM Head & Neck: Adequate Mental/Hyoid Distance: Adequate Mallampati Class: Class III Intubation Access Assessment: Probably Good - Pulmonary Exam CTA: Yes - Cardiac Exam Cardiac Exam: RRR - Pre-Operative Health Status ASA Pre-Surgery Classification: ASA3 Proposed Anesthetic Plan: General (HX of ESRD, HTN, DM , Dementia, right arm swollen and patient too agitated for iv attempt , will access port .) - Cardiovascular System Hx Hypertension: Yes - Central Nervous System CVA: Yes Hx Psychiatric Problems: No - Endocrine Hx Renal Disease: Yes Hx End Stage Renal Disease: Yes - Other Systems Hx Cancer: No
[2018-12-09] MEDS ORDERED: ZOFRAN IV PRN (07:46)
[2018-12-09] MEDS ORDERED: SUBLIMAZE IV PRN (07:46)
[2018-12-09] MEDS ORDERED: NEO SYNEPHRINE/NS Syringe(OR USE) IV ONE (08:22)
[2018-12-09] MEDS ORDERED: XYLOCAINE MPF 2% ONE (08:22)
[2018-12-09] MEDS ORDERED: ZOFRAN ONE (08:22)
[2018-12-09] MEDS ORDERED: NACL 0.9% 250ML 250 ML ONE (08:34)
[2018-12-09] MEDS ORDERED: NACL 0.9% IR ONE (08:55)
[2018-12-09] MEDS ORDERED: HEPARIN 10,000 UNITS/10 ML IV ONE ×2 (08:55→09:10)
[2018-12-09] MEDS ORDERED: ANCEF/STERILE WATER 2 GM/20 ML IV NR (09:00)
[2018-12-09] MEDS ORDERED: NITROGLYCERIN SYRINGE 0 ML ONE (09:02)
[2018-12-09] MEDS ORDERED: RIFADIN IV ONE (09:20)
[2018-12-09] MEDS ORDERED: NITROGLYCERIN SYRINGE UD ONE (09:55)
--- NOTE | 2018-12-09 10:31 | Short Stay Summary ---
Short Stay Documentation Date of service: 12/09/18 - History H&P: obtained from office - Allergies and Medications Current Medications: Allergies No Known Allergies Allergy (Unverified 11/24/18 08:06) Home Medications Medication Instructions Recorded Confirmed Last Taken Type Cyproheptadine [Periactin] 4 mg PO TID 06/22/14 11/24/18 Unknown History Acetaminophen 650 mg PO Q4H PRN 02/26/18 11/24/18 Unknown History Amlodipine Besylate/Benazepril 1 cap PO QDAY 02/26/18 11/24/18 Unknown History [Lotrel 5-40 mg] AtorvaSTATin [Lipitor] 20 mg PO QHS 02/26/18 11/24/18 Unknown History Benzonatate 200 mg PO Q8H PRN 02/26/18 11/24/18 Unknown History Carvedilol [Coreg] 6.25 mg PO BID 02/26/18 11/24/18 Unknown History Clobetasol Propionate [Clobetasol 1 dose TP Q12H PRN 02/26/18 11/24/18 Unknown History Propionate 0.05%] Docusate Sodium [Colace CAP] 100 mg PO BID 02/26/18 11/24/18 Unknown History Ergocalciferol (Vitamin D2) 50,000 unit PO QWEEK 02/26/18 11/24/18 Unknown History [Drisdol] Ferrous Sulfate [Iron 325 MG] 325 mg PO BID 02/26/18 11/24/18 Unknown History Magnesium Hydroxide [Milk of 2,400 mg PO QHS 02/26/18 11/24/18 Unknown History Magnesia] Polyethylene Glycol 3350 [Miralax 17 gm PO QDAY PRN 02/26/18 11/24/18 Unknown History 3350] Sennosides [Senna] 2 tab PO QHS 02/26/18 11/24/18 Unknown History Sevelamer Carbonate 1,600 mg PO TID 02/26/18 11/24/18 Unknown History Vit B Comp No.3/Folic/C/Biotin 1 each PO QDAY 02/26/18 11/24/18 Unknown History [Niyah-Jose F Rx Tablet] Insulin Regular, Human [Novolin R] 1 dose SQ ACHS PRN #1 vial 03/08/18 11/24/18 Unknown Rx HYDROcodone/APAP 5-325 [[place] 1 each PO Q6HR PRN #30 tablet 08/22/18 11/24/18 Unknown Rx 5/325] Active Medications Cefazolin Sodium (Ancef/Sterile Water 2 Gm/20 Ml) 2 gm IV PREOP NR Stop: 12/09/18 20:00 Fentanyl (Sublimaze) 50 mcg IV Q5MIN PRN PRN Reason: Pain , Severe (7-10) Stop: 12/09/18 20:00 Sodium Chloride (Nacl 0.9% 1000 Ml) 1,000 mls @ 42 mls/hr IV DIRECT DESHAUN Last Admin: 12/09/18 07:45 Dose: 42 mls/hr Documented by: Ondansetron HCl (Zofran) 4 mg IV ONCE PRN PRN Reason: Nausea And Vomiting Stop: 12/09/18 20:00 - Brief post op/procedure progress note Date of procedure: 12/09/18 Pre-op diagnosis: ESRD Post-op diagnosis: same Procedure: Left upper arm axillary artery to axillary vein loop graft using 5 mm bovine graft Anesthesia: GETA, local Findings: Good thrill at the end of the case. 2+ left radial pulse. Surgeon: ALFONSO SAUCEDA Frame Fixer: ASHANTI VEGAS Estimated blood loss: minimal Pathology: none Condition: stable - Hospital course Hospital course: Benign - Disposition Condition at discharge: Good Disposition: DC-01 TO HOME OR SELFCARE Short Stay Discharge Plan Activity: advance as tolerated Diet: advance as tolerated Wound: per your surgeon's advice Follow up with: ALFONSO SAUCEDA MD [Staff Physician] - 14 Days Prescriptions: HYDROcodone/APAP 5-325 [[place] 5/325] 1 each PO Q6HR PRN #30 tablet PRN Reason: Pain
--- NOTE | 2018-12-09 10:43 | Operative Report ---
Operative Report Operative Report: LEFT UPPER EXTREMITY AXILLARY ARTERY TO AXILLARY VEIN LOOP GRAFT Date of procedure: 12/09/2018 Pre-operative diagnosis: End-stage renal failure Post-operative diagnosis: Same Procedure name(s): Left upper extremity axillary artery to axillary vein Loop graft using 5 mm bovine graft Surgeon: Jann Virgen MD, FACS, [facility] [employer] Adviser: GLENN Asencio Anesthesia: Local MAC EBL: Less than 50 mL Operative indication: Patient is a 78 yo woman with end-stage renal failure and need for long-term hemodialysis access. Findings: Excellent thrill in the arteriovenous graft at the end of the procedure. And 2+ left radial pulse. Procedure: The patient was placed on the table in the supine position. The arm was prepped with ChloraPrep solution and draped in the usual sterile fashion. Real-time ultrasound guidance was used to identify the axillary artery and axillary vein. Both vessels appeared to be patent and of good caliber. The area over these vessels was infiltrated with half percent Marcaine with epinephrine. A linear incision was made in the axilla and dissection was carried out to identify the axillary artery and the axillary vein. These vessels were surrounded with Vesseloops proximally and distally. A second incision was made distally in the arm just above the antecubital fossa. Dissection was done around the area to make a space for the loop configuration. The Luana-Morgan tunneler was then used to make a tunnel around the upper arm and a 5 mm bovine graft was tunneled through this area. The tunnel area had been anesthetized with half percent Marcaine with epinephrine. The patient was given 2000 units of intravenous heparin at 3 minutes were allowed to pass. The vein was occluded. A venotomy was made of about 12 mm in length. The venous end of the graft which is toward the lateral side of the arm was anastomosed to the vein using running 6-0 Prolene. The anastomosis was not completed at this time. The medial side of the graft was tailored appropriately and anastomosed to the axillary artery. The axillary arteriotomy was about 4-5 mm in length. 6-0 Prolene was used. All vessels were flushed and vented to remove any air or debris. Nitroglycerin had been placed inside the artery prior to the anastomosis. A 2 Arlyn was used to break the spasm around the loops prior to completing the anastomosis. Flow started into the graft with the development of immediate and excellent thrill over the body of the graft. The left radial pulse remained 2+ and palpable. The venous anastomosis was completed. Meticulous hemostasis was obtained. Closure was done of each incision using 3-0 Vicryl subcutaneously and 4-0 subcuticular Monocryl. Sterile dressings were applied. The patient tolerated the procedure well. There was an easily palpable left radial pulse at the end of the procedure. There was a good thrill in the graft at the end of the procedure. Sponge, needle, and instrument counts were reported as correct. The patient was taken from the operating room to the recovery room in stable condition.
[2018-12-09] MEDS ORDERED: NITROGLYCERIN SYRINGE 3 ML ONE (11:01)
[2018-12-09 11:06] VITALS: BP 144/67
[2018-12-09] MEDS ORDERED: HEPARIN ONE (11:42)
[2018-12-09] MEDS ORDERED: FLUSH HEPARIN IV ONE (11:44)
[2018-12-09] MEDS ORDERED: HEPARIN IV PRN (11:50)
== END 2018-12-09 06:08 | disposition home or self-care (01) ==
LOC: OR 06:07
PROVIDERS: ATTEND Surgery Vascular Surgery
DX: I12.0 Hypertensive chronic kidney disease with stage 5 chronic kidney disease or end stage renal disease (principal); N18.6 End stage renal disease; E11.22 Type 2 diabetes mellitus with diabetic chronic kidney disease; Z79.899 Other long term (current) drug therapy; Z87.440 Personal history of urinary (tract) infections; Z98.890 Other specified postprocedural states; Z83.3 Family history of diabetes mellitus; Z79.4 Long term (current) use of insulin; Z86.73 Personal history of transient ischemic attack (TIA), and cerebral infarction without residual deficits
CPT/HCPCS: 36830; 82803; 82962; C1757; C1768; J0690; J1644; J2370; J2405; J2704; J3010; J3490; J7030; J7040; J7050; J2720

== ENCOUNTER 2019-05-14 13:06 | Outpatient (CLI) | payer MEDICARE ==
--- NOTE | 2019-05-14 15:19 | Ultrasound Report ---
COMPLETE RIGHT BREAST ULTRASOUND HISTORY: Palpable right breast mass. Instructions are to evaluate the entire right breast and biopsy the palpable mass and a lymph node if possible. COMPARISON: None. FINDINGS: Complete sonographic evaluation including imaging of the four quadrants and subareolar aspe ct of the right breast demonstrates a solid heterogeneous hypoechoic mass with an irregular margin at 1:00 6 cm from the nipple measuring 5.1 x 3.9 x 5.3 cm. The mass is very near the skin and it correl ates with the palpable mass. No other breast mass identified. Ultrasound of the right axilla demonstr ated several lymph nodes with mild cortical thickening. IMPRESSION: A highly suspicious superficial 5 cm palpable right breast mass at 1:00 6 cm from the nipple. Suspici ous right axillary lymph nodes. BIRADS 5: Highly suggestive of malignancy Signer Name: Irving Garcia MD Signed: 05/14/2019 3:15 PM Workstation Name: [id number]
--- NOTE | 2019-05-14 15:23 | Ultrasound Report ---
ULTRASOUND-GUIDED NEEDLE CORE BIOPSY RIGHT BREAST WITH CLIP PLACEMENT and ULTRASOUND-GUIDED NEEDLE CO RE BIOPSY RIGHT AXILLARY LYMPH NODE WITH CLIP PLACEMENT CLINICAL: A palpable 5 cm right breast mass. FINDINGS: Consent for the procedure was obtained from a relative since the patient is demented. Ultrasound demonstrated the previously identified 5 cm mass at 1:00. I marked the breast with a felt tip marker and a timeout was called. The skin was prepped with Chloro -Prep and anesthetized with 1% lidocaine. A core biopsy of a right axillary lymph node was performed using 1% lidocaine for local anesthesia an d an 18-gauge coaxial Achieve biopsy device. 2 cores were obtained and placed in formalin. A clip was deployed within the lymph node. Needle core biopsy of the palpable 5 cm mass at 1:00 was performed through small dermatotomy using ul trasound guidance, 2% lidocaine with epinephrine for deep anesthesia and a 14-gauge Achieve biopsy de vice. 3 cores were obtained and placed in formalin. A clip was deployed within the mass. The patient tolerated the procedure well and there were no apparent complications. Hemostasis was ach ieved with minimal effort and a sterile dressing was applied. A post procedure mammogram was not performed. The patient left the department by stretcher and instru ctions for wound care and follow-up were given to her gun mechanic. IMPRESSION: Uncomplicated ultrasound guided needle core biopsies with clip placement right breast and right axillary lymph node. Signer Name: Irving Garcia MD Signed: 05/14/2019 3:19 PM Workstation Name: [id number]
== END 2019-05-14 13:07 | disposition home or self-care (01) ==
LOC: SPVWC 13:06
PROVIDERS: ATTEND Surgery
DX: N63.10 Unspecified lump in the right breast, unspecified quadrant (principal); C50.211 Malignant neoplasm of upper-inner quadrant of right female breast; I89.8 Other specified noninfective disorders of lymphatic vessels and lymph nodes; I12.0 Hypertensive chronic kidney disease with stage 5 chronic kidney disease or end stage renal disease; E11.22 Type 2 diabetes mellitus with diabetic chronic kidney disease; N18.6 End stage renal disease; Z87.440 Personal history of urinary (tract) infections; Z79.899 Other long term (current) drug therapy; Z79.4 Long term (current) use of insulin; Z99.2 Dependence on renal dialysis; Z83.3 Family history of diabetes mellitus; Z86.73 Personal history of transient ischemic attack (TIA), and cerebral infarction without residual deficits
CPT/HCPCS: 19083; 38505; 76641; 76942; 88305; 88341; 88342; A4648

== ENCOUNTER 2019-06-09 15:28 | Inpatient (IN) | payer MEDICARE ==
[2019-06-09] MEDS ORDERED: SODIUM CHLORIDE 0.9% 1000 ML 1,000 ML IV SCH ×2 (16:45→19:59)
[2019-06-09] MEDS ORDERED: ACETAMINOPHEN 325 MG TAB PO PRN ×3 (17:54→18:55)
[2019-06-09] MEDS ORDERED: POLYETHYLENE GLYCOL 3350 17 GM POWDER PO PRN (17:54)
[2019-06-09] MEDS ORDERED: HYDROcodone/ACETAMINOPHEN 5-325 MG TAB PO PRN (17:54)
[2019-06-09] MEDS ORDERED: CLOBETASOL PROPIONATE TP PRN (17:54)
[2019-06-09] MEDS ORDERED: BENZONATATE 200 MG PO PRN (17:54)
[2019-06-09] MEDS ORDERED: [UNRECOGNIZED DRUG - REMARK] PO SCH (18:00)
[2019-06-09] MEDS ORDERED: AMLODIPINE BESYLATE PO SCH ×3 (18:00→18:30)
[2019-06-09] MEDS ORDERED: BENAZEPRIL PO SCH ×3 (18:00→18:30)
[2019-06-09] MEDS ORDERED: ONDANSETRON 4 MG/2 ML INJ IV PRN ×2 (18:07→18:55)
[2019-06-09] MEDS ORDERED: oxyCODONE /ACETAMINOPHEN 5-325MG TAB PO PRN (18:07)
[2019-06-09] MEDS ORDERED: HYDROmorphone 1 MG/1 ML INJ IV PRN (18:07)
[2019-06-09 19:05] LABS: Basophils # (Auto) 0.1 K/mm3 (0.0-0.1); Basophils % (Auto) 0.8 % (0.0-1.8); Eosinophils # (Auto) 0.5 K/mm3 (0.0-0.4); Eosinophils % (Auto) 5.7 % (0.0-4.3); Hematocrit 35.3 % (30.3-42.9); Hemoglobin 11.7 gm/dl (10.1-14.3); Lymphocytes # (Auto) 1.2 K/mm3 (1.2-5.4); Lymphocytes % (Auto) 13.5 % (13.4-35.0); Mean Corpuscular HGB Conc 33 % (30-34); Mean Corpuscular Volume 98 fl (79-97); Monocytes # (Auto) 0.9 K/mm3 (0.0-0.8); Monocytes % (Auto) 9.5 % (0.0-7.3); Platelet Count 204 K/mm3 (140-440); Red Blood Count 3.61 M/mm3 (3.65-5.03); Red Cell Distribution Width 15.2 % (13.2-15.2)
[2019-06-09 19:27] LABS: Albumin 3.5 g/dL (3.9-5); Calcium 8.5 mg/dL (8.4-10.2)
--- NOTE | 2019-06-09 19:32 | History and Physical Report ---
History of Present Illness Date of examination: 06/09/19 Date of admission: 06/09/19 16:22 Chief complaint: Chest pain for 3 days History of present illness: 79-year-old -[place] female resident of [facility] sent in for chest pain of 3 days' duration. No shortness of breath. Patient is a very poor historian. Patient also has a right breast mass. Patient has a history of insulin-dependent diabetes moderate dementia dysphagia and severe disease on dialysis. Chest pain is retrosternal and nonradiating. No diaphoresis. No shortness of breath. No recent travel. 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), diabetes (insulin-dependent diabetes), dialysis (end-stage renal disease on hemodialysis), DVT, hypertension (, cataract, history of falling), hyperlipidemia, other (dementia, dysphagia) Past Surgical History: Other (AV fistula, axillary lymph node biopsy on the right side breast biopsy on the right side) Medications and Allergies Allergies Allergy/AdvReac Type Severity Reaction Status Date / Time No Known Allergies Allergy Unverified 11/24/18 08:06 Home Medications Medication Instructions Recorded Confirmed Last Taken Type Cyproheptadine [Periactin] 4 mg PO TID 06/22/14 12/09/18 12/08/18 17:00 History Acetaminophen 650 mg PO Q4H PRN 02/26/18 11/24/18 Unknown History Amlodipine Besylate/Benazepril 1 cap PO QDAY 02/26/18 12/09/18 12/08/18 09:00 History [Lotrel 5-40 mg] AtorvaSTATin [Lipitor] 20 mg PO QHS 02/26/18 12/09/18 12/08/18 19:00 History Benzonatate 200 mg PO Q8H PRN 02/26/18 11/24/18 Unknown History Clobetasol Propionate [Clobetasol 1 dose TP Q12H PRN 02/26/18 11/24/18 Unknown History Propionate 0.05%] Docusate Sodium [Colace CAP] 100 mg PO BID 02/26/18 12/09/18 12/08/18 17:00 History Ergocalciferol (Vitamin D2) 50,000 unit PO QWEEK 08/12/09/18 12/08/18 09:00 History [Drisdol] Ferrous Sulfate [Iron 325 MG] 325 mg PO BID 02/26/18 12/09/18 12/08/18 17:00 History Magnesium Hydroxide [Milk of 2,400 mg PO QHS 02/26/18 12/09/18 12/08/18 19:00 History Magnesia] Polyethylene Glycol 3350 [Miralax 17 gm PO QDAY PRN 02/26/18 11/24/18 Unknown History 3350] Sennosides [Senna] 2 tab PO QHS 02/26/18 12/09/18 12/08/18 19:00 History Sevelamer Carbonate 1,600 mg PO TID 02/26/18 12/09/18 12/08/18 17:00 History Vit B Comp No.3/Folic/C/Biotin 1 each PO QDAY 02/26/18 12/09/18 12/08/18 09:00 History [Niyah-Jose F Rx Tablet] carvediloL [Coreg] 6.25 mg PO BID 02/26/18 12/09/18 12/08/18 17:00 History Insulin Regular, Human [Novolin R] 1 dose SQ ACHS PRN #1 vial 03/08/18 11/24/18 Unknown Rx HYDROcodone/APAP 5-325 [[place] 1 each PO Q6HR PRN #30 tablet 08/22/18 11/24/18 Unknown Rx 5-325 mg TAB] HYDROcodone/APAP 5-325 [[place] 1 each PO Q6HR PRN #30 tablet 12/09/18 Unknown Rx 5/325] Active Meds: Active Medications Acetaminophen (Tylenol) 650 mg PO Q4H PRN PRN Reason: Pain, Moderate (4-6) Acetaminophen (Tylenol) 650 mg PO Q4H PRN PRN Reason: Pain MILD(1-3)/Fever >100.5/LEDEZMA Acetaminophen (Tylenol) 650 mg PO Q4H PRN PRN Reason: Pain MILD(1-3)/Fever >100.5/LEDEZMA Acetaminophen/Hydrocodone Bitart ([place] 5/325) 1 each PO Q6HR PRN PRN Reason: PAIN Atorvastatin Calcium (Lipitor) 20 mg PO QHS DESHAUN Benzonatate (Tessalon Perles) 200 mg PO Q8HR [facility] Carvedilol (Coreg) 6.25 mg PO BID [facility] Clobetasol Propionate (Temovate) 1 applic TP Q12H [facility] Cyproheptadine HCl (Periactin) 4 mg PO TID [facility] Docusate Sodium (Colace) 100 mg PO BID [facility] Ergocalciferol (Vitamin D2) 50,000 unit PO QWEEK [facility] Famotidine (Pepcid) 20 mg PO BID [facility] Ferrous Sulfate (Feosol) 325 mg PO BID [facility] Hydromorphone HCl (Dilaudid) 0.25 mg IV Q3H PRN PRN Reason: Pain, Moderate (4-6) Sodium Chloride (Nacl 0.9% 1000 Ml) 1,000 mls @ 42 mls/hr IV DIRECT [facility] Stop: 06/10/19 11:00 Insulin Human Lispro (Humalog) 0 unit SUB-Q ACHS [facility]; Protocol Magnesium Hydroxide (Milk Of Magnesia) ml PO QHS [facility] Miscellaneous Medication (Amlodipine Besylate/Benazepril [Lotrel 5-40 Mg]) 1 cap PO QDAY [facility] Multivit/Ca Carb/B Cmplx/FA/Prenat (Renal Caps) 1 cap PO QDAY [facility] Ondansetron HCl (Zofran) 4 mg IV Q8H PRN PRN Reason: Nausea And Vomiting Ondansetron HCl (Zofran) 4 mg IV Q8H PRN PRN Reason: Nausea And Vomiting Oxycodone/Acetaminophen (Percocet 5/325) 1 tab PO Q6H PRN PRN Reason: Pain, Moderate (4-6) Polyethylene Glycol (Miralax 3350) 17 gm PO QDAY PRN PRN Reason: Constipation Senna (Senokot) mg PO QHS [facility] Sevelamer Carbonate (Renvela) 1,600 mg PO TID [facility] Sodium Chloride (Sodium Chloride Flush Syringe 10 Ml) 10 ml IV BID [facility] Sodium Chloride (Sodium Chloride Flush Syringe 10 Ml) 10 ml IV PRN PRN PRN Reason: LINE FLUSH Sodium Chloride (Sodium Chloride Flush Syringe 10 Ml) 10 ml IV BID [facility] Sodium Chloride (Sodium Chloride Flush Syringe 10 Ml) 10 ml IV PRN PRN PRN Reason: LINE FLUSH Review of Systems All systems: negative Constitutional: no weight loss, no weight gain, no fever, no chills, no sweats, no night sweats Ears, nose, mouth and throat: no ear pain, no ear discharge, no tinnitis, no decreased hearing, no nose pain, no nasal congestion, no nasal discharge, no sinus pressure, no sinus pain (dose.) Cardiovascular: chest pain, no orthopnea, no palpitations, no rapid/irregular heart beat, no edema, no syncope, no lightheadedness, no shortness of breath Respiratory: no cough, no cough with sputum, no excessive sputum, no hemoptysis, no shortness of breath, no dyspnea on exertion Gastrointestinal: no abdominal pain, no nausea, no vomiting, no diarrhea, no constipation, no change in bowel habits, no hematemesis, no coffee ground emesis Menstruation: ammenorrhea Integumentary: rash (severe eczematous rash on both extremities on the dorsal aspect of the arm extending from mid arm to middle forearm), no pruritis, no redness, no sores, no wounds, no jaundice, no boils, no blisters Neurological: no seizures, no syncope Psychiatric: memory loss, no anxiety, no change in sleep habits Endocrine: no cold intolerance, no heat intolerance, no polyphagia, no excessive thirst, no polydipsia, no polyuria, no nocturia, no excessive sweating, no flushing, no weight change Hematologic/Lymphatic: no easy bruising, no easy bleeding Allergic/Immunologic: no urticaria, no allergic rhinitis, no wheezing Exam - Constitutional Vitals: Temp Pulse Resp BP Pulse Ox 60 132/41 91 06/09/19 16:51 06/09/19 16:51 06/09/19 16:51 General appearance: Present: no acute distress, well-nourished - EENT Eyes: Present: PERRL ENT: hearing intact, clear oral mucosa - Neck Neck: Present: supple, normal ROM - Respiratory Respiratory effort: normal Respiratory: bilateral: CTA - Cardiovascular Heart rate: 78 Rhythm: regular Heart Sounds: Present: S1 & S2. Absent: rub, click - Extremities Extremities: no ischemia, pulses intact, pulses symmetrical, No edema, abnormal (eczematous rash on both arms on dorsal aspect extending from mid arm to mid forearm) Peripheral Pulses: within normal limits - Abdominal General gastrointestinal: Present: soft, non-tender, non-distended, normal bowel sounds Female genitourinary: Present: normal - Integumentary Integumentary: Present: clear, warm, dry - Musculoskeletal Musculoskeletal: gait normal, strength equal bilaterally - Psychiatric Psychiatric: appropriate mood/affect, intact judgment & insight - Neurologic Neurologic: CNII-XII intact, moves all extremities Results - Labs CBC & Chem 7: 06/09/19 18:34 06/09/19 18:34 Labs: Laboratory Last Values WBC 9.0 K/mm3 (4.5-11.0) 06/09/19 18:34 RBC 3.61 M/mm3 (3.65-5.03) L 06/09/19 18:34 Hgb 11.7 gm/dl (10.1-14.3) 06/09/19 18:34 Hct 35.3 % (30.3-42.9) 06/09/19 18:34 MCV 98 fl (79-97) H 06/09/19 18:34 MCH 33 pg (28-32) H 06/09/19 18:34 MCHC 33 % (30-34) 06/09/19 18:34 RDW 15.2 % (13.2-15.2) 06/09/19 18:34 Plt Count 204 K/mm3 (140-440) 06/09/19 18:34 Lymph % (Auto) 13.5 % (13.4-35.0) 06/09/19 18:34 [place] % (Auto) 9.5 % (0.0-7.3) H 06/09/19 18:34 Eos % (Auto) 5.7 % (0.0-4.3) H 06/09/19 18:34 Baso % (Auto) 0.8 % (0.0-1.8) 06/09/19 18:34 Lymph # 1.2 K/mm3 (1.2-5.4) 06/09/19 18:34 [place] # 0.9 K/mm3 (0.0-0.8) H 06/09/19 18:34 Eos # 0.5 K/mm3 (0.0-0.4) H 06/09/19 18:34 Baso # 0.1 K/mm3 (0.0-0.1) 06/09/19 18:34 Seg Neutrophils % 70.5 % (40.0-70.0) H 06/09/19 18:34 Seg Neutrophils # 6.4 K/mm3 (1.8-7.7) 06/09/19 18:34 - Imaging and Cardiology EKG: report reviewed Chest x-ray: report reviewed Assessment and Plan Advance Directives: Yes (full code) VTE prophylaxis?: Chemical Plan of care discussed with patient/family: Yes - Patient Problems (1) Chest pain, rule out acute myocardial infarction Current Visit: Yes Status: Acute Plan to address problem: Chest pain protocol Serial troponins Cardiac clearance Cardiology consulted Lexiscan in the morning if okay with cardiology (2) Breast mass, right Current Visit: Yes Status: Acute Plan to address problem: Consistent with breast cance .needs PET scan as per primary care We will defer the PET scan to breast surgeon Breast surgeon consulted August report showed invasive mammary carcinoma with ductal and lobular features and necrosis carcinoma measures 20 mm in greatest damage and and involves all cold fragments lymphovascular invasion identified. Axillary lymph nodes on the right side biopsied negative for malignancy in submitted tissue (3) ESRD needing dialysis Current Visit: Yes Status: Chronic Plan to address problem: Nephrology consulted (4) Insulin dependent diabetes mellitus Current Visit: Yes Status: Chronic Plan to address problem: Continue home insulin and coverage Check hemoglobin A1c (5) Hypertension Current Visit: Yes Status: Chronic Qualifiers: Hypertension type: essential hypertension Qualified Code(s): I10 - Essential (primary) hypertension Plan to address problem: Continue antihypertensives Adjust blood pressure medications as necessary (6) Psoriasis Current Visit: Yes Status: Chronic Plan to address problem: Severe Patient has scaly lesions on the right elbow and left elbow extending from mid arm to mid forearm Triamcinolone cream initiated (7) Severe disability Current Visit: Yes Status: Chronic Plan to address problem: Physical therapy and physical therapy in the correction (8) Malnutrition Current Visit: Yes Status: Chronic Qualifiers: Protein-calorie malnutrition severity: mild Plan to address problem: Albumin 3.5 Supplements ordered (9) DVT prophylaxis Current Visit: Yes Status: Acute Plan to address problem: On heparin and GI prophylaxis
[2019-06-09] MEDS ORDERED: FAMOTIDINE 20 MG TAB PO SCH (22:00)
[2019-06-09] MEDS: FOLIC ACID/VIT B COMP W-C 1 MG (RENAL CAPS) PO SCH (23:05)
[2019-06-09] MEDS: FERROUS SULFATE 325 MG TAB PO SCH (23:05)
[2019-06-09] MEDS: BENZONATATE 100 MG CAP PO SCH (23:06)
[2019-06-09] MEDS: CYPROHEPTADINE 4 MG TAB PO SCH (23:06)
[2019-06-09] MEDS: SEVELAMER CARBONATE 800 MG TAB PO SCH (23:06)
[2019-06-09] MEDS: SENNOSIDES 8.6 MG TAB PO SCH (23:06)
[2019-06-09] MEDS: carvediloL 3.125 MG TAB PO SCH (23:06)
[2019-06-09] MEDS: DOCUSATE SODIUM 100 MG CAP PO SCH (23:07)
[2019-06-09] MEDS: INSULIN LISPRO 100 UNIT/ML SUB-Q SCH (23:07)
[2019-06-09] MEDS: MAGNESIUM HYDROXIDE (MOM) ORAL LIQD UDC PO SCH (23:08)
[2019-06-09] MEDS: CLOBETASOL 0.05% CREAM 15 GM TP SCH (23:17)
[2019-06-10] MEDS: BENZONATATE 100 MG CAP PO SCH ×3 (06:07→21:58)
[2019-06-10] MEDS: DOCUSATE SODIUM 100 MG CAP PO SCH ×2 (09:27→22:00)
[2019-06-10] MEDS: CLOBETASOL 0.05% CREAM 15 GM TP SCH ×2 (09:27→22:00)
[2019-06-10] MEDS: CYPROHEPTADINE 4 MG TAB PO SCH ×3 (09:27→21:58)
[2019-06-10] MEDS: carvediloL 3.125 MG TAB PO SCH (09:27)
[2019-06-10] MEDS: FERROUS SULFATE 325 MG TAB PO SCH ×2 (09:27→21:58)
[2019-06-10] MEDS: SEVELAMER CARBONATE 800 MG TAB PO SCH ×3 (09:28→21:58)
[2019-06-10] MEDS: FAMOTIDINE 20 MG TAB PO SCH (09:28)
[2019-06-10] MEDS: FOLIC ACID/VIT B COMP W-C 1 MG (RENAL CAPS) PO SCH (09:28)
[2019-06-10] MEDS: INSULIN LISPRO 100 UNIT/ML SUB-Q SCH ×4 (09:28→21:59)
--- NOTE | 2019-06-10 11:09 | Consultation ---
History of Present Illness Consult date: 06/10/19 Requesting physician: MARIANELA LOOMIS Consult reason: chest pain History of present illness: The pt is a 79-year-old female resident of [facility] with a past medical history of HTN, DM, ESRD on HD, dementia, right breast mass - biopsy done 05/14/2019 showed invasive mammary carcinoma. She is previously unknown to our practice. She is a rather poor historian. Per the chart, pt was [facility] from her [facility] for evaluation of chest pain which was present for 3 days prior to arrival. However, pt denies any occurrence of chest pain. She states that she has been "itching all over" and that is why she came to the hospital. sent in for chest pain of 3 days' duration. She denies any other complaints. She denies any known prior cardiac history, including CAD, AMI or HF. Echo done 02/2018 showed EF 40-45%, LV mildly dilated, mild-mod anterior wall hypokinesis, mild MR, ? bicuspid aortic valve, mild AR. 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), diabetes (insulin-dependent diabetes), dialysis (end-stage renal disease on hemodialysis), DVT, hypertension (, cataract, history of falling), hyperlipidemia, other (dementia, dysphagia) Past Surgical History: Other (AV fistula, axillary lymph node biopsy on the right side breast biopsy on the right side) Medications and Allergies Allergies Allergy/AdvReac Type Severity Reaction Status Date / Time No Known Allergies Allergy Unverified 11/24/18 08:06 Home Medications Medication Instructions Recorded Confirmed Last Taken Type Cyproheptadine [Periactin] 4 mg PO TID 06/22/14 12/09/18 12/08/18 17:00 History Acetaminophen 650 mg PO Q4H PRN 02/26/18 11/24/18 Unknown History Amlodipine Besylate/Benazepril 1 cap PO QDAY 02/26/18 12/09/18 12/08/18 09:00 History [Lotrel 5-40 mg] AtorvaSTATin [Lipitor] 20 mg PO QHS 02/26/18 12/09/18 12/08/18 19:00 History Benzonatate 200 mg PO Q8H PRN 02/26/18 11/24/18 Unknown History Clobetasol Propionate [Clobetasol 1 dose TP Q12H PRN 02/26/18 11/24/18 Unknown History Propionate 0.05%] Docusate Sodium [Colace CAP] 100 mg PO BID 02/26/18 12/09/18 12/08/18 17:00 History Ergocalciferol (Vitamin D2) 50,000 unit PO QWEEK 02/26/18 12/09/18 12/08/18 09:00 History [Drisdol] Ferrous Sulfate [Iron 325 MG] 325 mg PO BID 02/26/18 12/09/18 12/08/18 17:00 History Magnesium Hydroxide [Milk of 2,400 mg PO QHS 02/26/18 12/09/18 12/08/18 19:00 History Magnesia] Polyethylene Glycol 3350 [Miralax 17 gm PO QDAY PRN 02/26/18 11/24/18 Unknown History 3350] Sennosides [Senna] 2 tab PO QHS 02/26/18 12/09/18 12/08/18 19:00 History Sevelamer Carbonate 1,600 mg PO TID 02/26/18 12/09/18 12/08/18 17:00 History Vit B Comp No.3/Folic/C/Biotin 1 each PO QDAY 02/26/18 12/09/18 12/08/18 09:00 History [Niyah-Jose F Rx Tablet] carvediloL [Coreg] 6.25 mg PO BID 02/26/18 12/09/18 12/08/18 17:00 History Insulin Regular, Human [Novolin R] 1 dose SQ ACHS PRN #1 vial 03/08/18 11/24/18 Unknown Rx HYDROcodone/APAP 5-325 [[place] 1 each PO Q6HR PRN #30 tablet 08/22/18 11/24/18 Unknown Rx 5-325 mg TAB] HYDROcodone/APAP 5-325 [[place] 1 each PO Q6HR PRN #30 tablet 12/09/18 Unknown Rx 5/325] Active Meds: Active Medications Acetaminophen (Tylenol) 650 mg PO Q4H PRN PRN Reason: Pain MILD(1-3)/Fever >100.5/LEDEZMA Atorvastatin Calcium (Lipitor) 20 mg PO QHS [facility]HA[facility] Last Admin: 06/09/19 23:07 Dose: 20 mg Documented by: Benzonatate (Tessalon Perles) 200 mg PO Q8HR [facility] Last Admin: 06/10/19 06:07 Dose: 200 mg Documented by: Carvedilol (Coreg) 6.25 mg PO BID [facility] Clobetasol Propionate (Temovate) 1 applic TP Q12H [facility] Last Admin: 06/10/19 09:27 Dose: 1 applic Documented by: Cyproheptadine HCl (Periactin) 4 mg PO TID [facility] Last Admin: 06/10/19 09:27 Dose: 4 mg Documented by: Docusate Sodium (Colace) 100 mg PO BID [facility] Last Admin: 06/10/19 09:27 Dose: 100 mg Documented by: Ergocalciferol (Vitamin D2) 50,000 unit PO Tu [facility] Famotidine (Pepcid) 20 mg PO QDAY [facility] Last Admin: 06/10/19 09:28 Dose: 20 mg Documented by: Ferrous Sulfate (Feosol) 325 mg PO BID [facility] Last Admin: 06/10/19 09:27 Dose: 325 mg Documented by: Hydromorphone HCl (Dilaudid) 0.25 mg IV Q3H PRN PRN Reason: Pain, Moderate (4-6) Sodium Chloride (Nacl 0.9% 1000 Ml) 1,000 mls @ 42 mls/hr IV DIRECT [facility] Stop: 06/10/19 19:58 Insulin Human Lispro (Humalog) 0 unit SUB-Q ACHS [facility]; Protocol Last Admin: 06/10/19 09:28 Dose: 2 unit Documented by: Magnesium Hydroxide (Milk Of Magnesia) 30 ml PO QHS [facility] Last Admin: 06/09/19 23:08 Dose: Not Given Documented by: Multivit/Ca Carb/B Cmplx/FA/Prenat (Renal Caps) 1 cap PO QDAY [facility] Last Admin: 06/10/19 09:28 Dose: 1 cap Documented by: Ondansetron HCl (Zofran) 4 mg IV Q8H PRN PRN Reason: Nausea And Vomiting Oxycodone/Acetaminophen (Percocet 5/325) 1 tab PO Q6H PRN PRN Reason: Pain, Moderate (4-6) Polyethylene Glycol (Miralax 3350) 17 gm PO QDAY PRN PRN Reason: Constipation Senna (Senokot) 8.6 mg PO QHS [facility] Last Admin: 06/09/19 23:06 Dose: 8.6 mg Documented by: Sevelamer Carbonate (Renvela) 1,600 mg PO TID [facility] Last Admin: 06/10/19 09:28 Dose: 1,600 mg Documented by: Sodium Chloride (Sodium Chloride Flush Syringe 10 Ml) 10 ml IV BID [facility] Last Admin: 06/09/19 23:08 Dose: 10 ml Documented by: Sodium Chloride (Sodium Chloride Flush Syringe 10 Ml) 10 ml IV PRN PRN PRN Reason: LINE FLUSH Review of Systems Constitutional: other ("itching all over"), no weight loss, no weight gain, no fever, no chills, no sweats Ears, nose, mouth and throat: no ear pain, no nose pain, no sinus pressure, no sinus pain Cardiovascular: high blood pressure, no chest pain, no orthopnea, no palpitations, no rapid/irregular heart beat, no edema, no syncope, no lightheadedness, no shortness of breath, no dyspnea on exertion Respiratory: no cough, no shortness of breath, no dyspnea on exertion, no congestion, no wheezing, no pain on inspiration Gastrointestinal: no abdominal pain, no nausea, no vomiting, no diarrhea, no constipation, no change in bowel habits Genitourinary Female: no pelvic pain, no flank pain, no dysuria, no urinary frequency, no urgency Musculoskeletal: no neck stiffness, no neck pain, no shooting arm pain, no arm numbness/tingling, no low back pain, no shooting leg pain Integumentary: no rash, no pruritis, no redness, no sores, no wounds Neurological: no head injury, no paralysis, no weakness, no parathesias, no numbness, no tingling, no seizures, no syncope Psychiatric: no anxiety Endocrine: no cold intolerance, no heat intolerance Hematologic/Lymphatic: no easy bruising, no easy bleeding Allergic/Immunologic: no urticaria, no wheezing Physical Examination Vital Signs Pulse BP Pulse Ox 60 132/41 91 06/09/19 16:51 06/09/19 16:51 06/09/19 16:51 General appearance: no acute distress HEENT: Positive: PERRL, Normocephaly, Mucus Membranes Moist Neck: Positive: neck supple, trachea midline Cardiac: Positive: Reg Rate and Rhythm, S1/S2 Lungs: Positive: Decreased Breath Sounds Neuro: Positive: Grossly Intact Abdomen: Negative: Tender Skin: Positive: Other (BLE chronic skin changes) Extremities: Present: +2 Edema (BLE) Results 06/09/19 18:34 06/09/19 18:34 Cardiac Enzymes 06/09/19 Range/Units 18:34 AST 22 (5-40) units/L CBC 06/09/19 Range/Units 18:34 WBC 9.0 (4.5-11.0) K/mm3 RBC 3.61 L (3.65-5.03) M/mm3 Hgb 11.7 (10.1-14.3) gm/dl Hct 35.3 (30.3-42.9) % Plt Count 204 (140-440) K/mm3 Lymph # 1.2 (1.2-5.4) K/mm3 [place] # 0.9 H (0.0-0.8) K/mm3 Eos # 0.5 H (0.0-0.4) K/mm3 Baso # 0.1 (0.0-0.1) K/mm3 Comprehensive Metabolic Panel 06/09/19 Range/Units 18:34 Sodium 134 L (137-145) mmol/L Potassium 4.6 (3.6-5.0) mmol/L Chloride 95.0 L (98-107) mmol/L Carbon Dioxide 17 L (22-30) mmol/L BUN 45 H (7-17) mg/dL Creatinine 5.9 H (0.7-1.2) mg/dL Glucose 132 H (65-100) mg/dL Calcium 8.5 (8.4-10.2) mg/dL AST 22 (5-40) units/L ALT 20 (7-56) units/L Alkaline Phosphatase 144 H (35-129) units/L Total Protein 7.1 (6.3-8.2) g/dL Albumin 3.5 L (3.9-5) g/dL - Imaging and Cardiology Echo: report reviewed (02/2018 showed EF 40-45%, LV mildly dilated, mild-mod anterior wall hypokinesis, mild MR, ? bicuspid aortic valve, mild AR.) EKG: report reviewed, image reviewed EKG interpretations - Telemetry EKG Rhythm: Sinus Rhythm - EKG Sinus rhythms and dysrhythmias: sinus rhythm Assessment and Plan ECG with [facility]. Campbell pending. Pt denies any occurrence of chest pain. Obtain echo. The patient has been seen in conjunction with Dr. Griffin Story who agrees with the assessment and plan of care. - Patient Problems (1) Breast cancer Current Visit: Yes Status: Suspected (2) ESRD on dialysis Current Visit: Yes Status: Chronic (3) Hypertension Current Visit: Yes Status: Chronic Qualifiers: Hypertension type: essential hypertension Qualified Code(s): I10 - Essential (primary) hypertension (4) Diabetes Current Visit: Yes Status: Chronic (5) Elevated TSH Current Visit: Yes Status: Chronic (6) Dementia Current Visit: Yes Status: Chronic (7) Debility Current Visit: Yes Status: Chronic
--- NOTE | 2019-06-10 12:26 | Consultation ---
History of Present Illness - Reason for Consult Consult date: 06/10/19 end stage renal disease - History of Present Illness Patient is a poor historian. History obtained primarily from medical records. She is a 79yo [facility] resident who presented to the ED with a 3day history of chest pain. 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), diabetes (insulin-dependent diabetes), dialysis (end-stage renal disease on hemodialysis), DVT, hypertension (, cataract, history of falling), hyperlipidemia, other (dementia, dysphagia) Past Surgical History: Other (AV fistula, axillary lymph node biopsy on the righ t side breast biopsy on the right side) Medications and Allergies Allergies Allergy/AdvReac Type Severity Reaction Status Date / Time No Known Allergies Allergy Unverified 11/24/18 08:06 Home Medications Medication Instructions Recorded Confirmed Last Taken Type Acetaminophen 650 mg PO Q4H PRN 02/26/18 06/10/19 Unknown History AtorvaSTATin [Lipitor] 20 mg PO QHS 02/26/18 06/10/19 12/08/18 19:00 History Benzonatate 200 mg PO Q8H PRN 02/26/18 06/10/19 Unknown History Clobetasol Propionate [Clobetasol 1 dose TP Q12H PRN 02/26/18 06/10/19 Unknown History Propionate 0.05%] Docusate Sodium [Colace CAP] 100 mg PO BID 02/26/18 06/10/19 12/08/18 17:00 History Ergocalciferol (Vitamin D2) 50,000 unit PO QWEEK 02/26/18 06/10/19 12/08/18 09:00 History [Drisdol] Polyethylene Glycol 3350 [Miralax 17 gm PO QDAY PRN 02/26/18 06/10/19 Unknown History 3350] Sennosides [Senna] 2 tab PO QHS 02/26/18 06/10/19 12/08/18 19:00 History carvediloL [Coreg] 25 mg PO BID 02/26/18 06/10/19 12/08/18 17:00 History Insulin Regular, Human [Novolin R] 1 dose SQ ACHS PRN #1 vial 03/08/18 06/10/19 Unknown Rx Amlodipine Besylate/Benazepril 1 each PO QDAY 06/10/19 06/10/19 Unknown History [Lotrel 10-40 mg] Ergocalciferol (Vitamin D2) 50,000 unit PO DAILY 06/10/19 06/10/19 Unknown Histo ry [Drisdol] Insulin Glargine [Lantus VIAL] 20 unit SUB-Q QHS 06/10/19 06/10/19 Unknown Hist ory Omeprazole 20 mg PO DAILY 06/10/19 06/10/19 Unknown History Ondansetron [Zofran Odt] 4 mg PO Q8HR 06/10/19 06/10/19 Unknown History Potassium Chloride [Klor-Con 50 meq PO DAILY 06/10/19 06/10/19 Unknown History Sprinkle] Vit B Comp No.3/Folic/C/Biotin 1 each PO DAILY 06/10/19 06/10/19 Unknown History [Niyah-Jose F Rx Tablet] Active Meds: Active Medications Acetaminophen (Tylenol) 650 mg PO Q4H PRN PRN Reason: Pain MILD(1-3)/Fever >100.5/LEDEZMA Atorvastatin Calcium (Lipitor) 20 mg PO QHS [facility] Last Admin: 06/09/19 23:07 Dose: 20 mg Documented by: Benzonatate (Tessalon Perles) 200 mg PO Q8HR [facility] Last Admin: 06/10/19 06:07 Dose: 200 mg Documented by: Carvedilol (Coreg) 6.25 mg PO BID [facility] Clobetasol Propionate (Temovate) 1 applic TP Q12H [facility] Last Admin: 06/10/19 09:27 Dose: 1 applic Documented by: Cyproheptadine HCl (Periactin) 4 mg PO TID [facility] Last Admin: 06/10/19 09:27 Dose: 4 mg Documented by: Docusate Sodium (Colace) 100 mg PO BID [facility] Last Admin: 06/10/19 09:27 Dose: 100 mg Documented by: Ergocalciferol (Vitamin D2) 50,000 unit PO Tu [facility] Famotidine (Pepcid) 20 mg PO QDAY [facility] Last Admin: 06/10/19 09:28 Dose: 20 mg Documented by: Ferrous Sulfate (Feosol) 325 mg PO BID [facility] Last Admin: 06/10/19 09:27 Dose: 325 mg Documented by: Hydromorphone HCl (Dilaudid) 0.25 mg IV Q3H PRN PRN Reason: Pain, Moderate (4-6) Hydrophilic Ointment (Aquaphor) 1 applic TP Q12H [facility] Sodium Chloride (Nacl 0.9% 1000 Ml) 1,000 mls @ 42 mls/hr IV DIRECT [facility] Stop: 06/10/19 19:58 Insulin Human Lispro (Humalog) 0 unit SUB-Q ACHS [facility]; Protocol Last Admin: 06/10/19 09:28 Dose: 2 unit Documented by: Magnesium Hydroxide (Milk Of Magnesia) 30 ml PO QHS [facility] Last Admin: 06/09/19 23:08 Dose: Not Given Documented by: Multivit/Ca Carb/B Cmplx/FA/Prenat (Renal Caps) 1 cap PO QDAY [facility] Last Admin: 06/10/19 09:28 Dose: 1 cap Documented by: Ondansetron HCl (Zofran) 4 mg IV Q8H PRN PRN Reason: Nausea And Vomiting Oxycodone/Acetaminophen (Percocet 5/325) 1 tab PO Q6H PRN PRN Reason: Pain, Moderate (4-6) Polyethylene Glycol (Miralax 3350) 17 gm PO QDAY PRN PRN Reason: Constipation Senna (Senokot) 8.6 mg PO QHS [facility] Last Admin: 06/09/19 23:06 Dose: 8.6 mg Documented by: Sevelamer Carbonate (Renvela) 1,600 mg PO TID [facility] Last Admin: 06/10/19 09:28 Dose: 1,600 mg Documented by: Sodium Chloride (Sodium Chloride Flush Syringe 10 Ml) 10 ml IV BID [facility] Last Admin: 06/09/19 23:08 Dose: 10 ml Documented by: Sodium Chloride (Sodium Chloride Flush Syringe 10 Ml) 10 ml IV PRN PRN PRN Reason: LINE FLUSH Review of Systems All systems: negative Exam - Vital Signs Vital signs: Vital Signs Pulse BP Pulse Ox 60 132/41 91 06/09/19 16:51 06/09/19 16:51 06/09/19 16:51 - General Appearance General appearance: well-developed, well-nourished EENT: ATNC Respiratory: Clear to Ascultation Heart: regular, S1S2 Gastrointestinal: Present: normal. Absent: tenderness, distended Integumentary: hyperkeratosis (scaly patches, erythematous, nontender), other (bilateral LE) Neurologic: no focal deficit Psychiatric: cooperative Results - Lab Results 06/09/19 18:34 06/09/19 18:34 Most recent lab results Calcium 8.5 mg/dL (8.4-10.2) 06/09/19 18:34 Assessment and Plan Impression: * End stage renal disease on hemodialysis * Chest pain * Breast cancer, right * Hypertension * Type II DM * Hyponatremia * Metabolic acidosis * Anemia secondary to ESRD * Secondary hyperparathyroidism Plan: * Hemodialysis today * UF as tolerated * Continue MWF schedule * Cardiology following - work up in progress * Epogen TIW prn * Renal diet
[2019-06-10] MEDS ORDERED: SODIUM CHLORIDE 0.9% 100 ML IV PRN (13:26)
[2019-06-10 16:37] LABS: Hepatitis B Surface Antigen Non-Reactive (Negative); Hepatitis C Virus Antibody Non-Reactive (NonReactive)
[2019-06-10] MEDS: AQUAPHOR OINTMENT TP SCH (18:24)
--- NOTE | 2019-06-10 18:26 | Progress Note ---
Assessment and Plan Assessment and plan: End stage renal disease on hemodialysis. Cont, HD per Nephrology Chest pain. ECG with NAF. Campbell pending. Pt denies any occurrence of chest pain. Obtain echo. Breast cancer, right. Breast surgery consult pending Hypertension. Resume antihypertensive meds Type II DM. Tight glycemic control, accuchecks and SSRI Hyponatremia. IVF recheck BMP Anemia secondary to ESRD. Transfuse hgb < 7.0 LUE edema. Check Doppler History Interval history: Pt with LUE swelling Hospitalist Physical - Constitutional Vitals: Temp Pulse Resp BP Pulse Ox 97.2 F L 96 H 18 119/57 99 06/10/19 16:50 06/10/19 16:53 06/10/19 16:50 06/10/19 16:53 06/10/19 03:41 General appearance: Present: no acute distress - EENT Eyes: Present: PERRL, EOM intact ENT: hearing intact, clear oral mucosa, dentition normal - Neck Neck: Present: supple, normal ROM - Respiratory Respiratory effort: normal Respiratory: bilateral: CTA - Cardiovascular Rhythm: regular Heart Sounds: Present: S1 & S2. Absent: gallop, rub - Extremities Extremities: no ischemia, No edema, Full ROM - Abdominal General gastrointestinal: soft, non-tender, non-distended, normal bowel sounds - Integumentary Integumentary: Present: clear, warm, dry - Neurologic Neurologic: CNII-XII intact, moves all extremities Results - Labs CBC & Chem 7: 06/09/19 18:34 06/09/19 18:34 Labs: Laboratory Last Values WBC 9.0 K/mm3 (4.5-11.0) 06/09/19 18:34 RBC 3.61 M/mm3 (3.65-5.03) L 06/09/19 18:34 Hgb 11.7 gm/dl (10.1-14.3) 06/09/19 18:34 Hct 35.3 % (30.3-42.9) 06/09/19 18:34 MCV 98 fl (79-97) H 06/09/19 18:34 MCH 33 pg (28-32) H 06/09/19 18:34 MCHC 33 % (30-34) 06/09/19 18:34 RDW 15.2 % (13.2-15.2) 06/09/19 18:34 Plt Count 204 K/mm3 (140-440) 06/09/19 18:34 Lymph % (Auto) 13.5 % (13.4-35.0) 06/09/19 18:34 [place] % (Auto) 9.5 % (0.0-7.3) H 06/09/19 18:34 Eos % (Auto) 5.7 % (0.0-4.3) H 06/09/19 18:34 Baso % (Auto) 0.8 % (0.0-1.8) 06/09/19 18:34 Lymph # 1.2 K/mm3 (1.2-5.4) 06/09/19 18:34 [place] # 0.9 K/mm3 (0.0-0.8) H 06/09/19 18:34 Eos # 0.5 K/mm3 (0.0-0.4) H 06/09/19 18:34 Baso # 0.1 K/mm3 (0.0-0.1) 06/09/19 18:34 Seg Neutrophils % 70.5 % (40.0-70.0) H 06/09/19 18:34 Seg Neutrophils # 6.4 K/mm3 (1.8-7.7) 06/09/19 18:34 Sodium 134 mmol/L (137-145) L 06/09/19 18:34 Potassium 4.6 mmol/L (3.6-5.0) 06/09/19 18:34 Chloride 95.0 mmol/L (98-107) L 06/09/19 18:34 Carbon Dioxide 17 mmol/L (22-30) L 06/09/19 18:34 Anion Gap 27 mmol/L 06/09/19 18:34 BUN 45 mg/dL (7-17) H 06/09/19 18:34 Creatinine 5.9 mg/dL (0.7-1.2) H 06/09/19 18:34 Estimated GFR 8 ml/min 06/09/19 18:34 BUN/Creatinine Ratio 8 % 06/09/19 18:34 Glucose 132 mg/dL (65-100) H 06/09/19 18:34 POC Glucose 127 (70-105) H 06/10/19 11:57 Hemoglobin A1c 6.4 % (4-6) H 06/09/19 18:34 Calcium 8.5 mg/dL (8.4-10.2) 06/09/19 18:34 Total Bilirubin 0.30 mg/dL (0.1-1.2) 06/09/19 18:34 AST 22 units/L (5-40) 06/09/19 18:34 ALT 20 units/L (7-56) 06/09/19 18:34 Alkaline Phosphatase 144 units/L (35-129) H 06/09/19 18:34 Total Protein 7.1 g/dL (6.3-8.2) 06/09/19 18:34 Albumin 3.5 g/dL (3.9-5) L 06/09/19 18:34 Albumin/Globulin Ratio 1.0 % 06/09/19 18:34 TSH 5.830 mlU/mL (0.270-4.200) H 06/09/19 18:34 Hepatitis A IgM Ab Non-reactive (NonReactive) 06/10/19 16:00 Hep Bs Antigen Non-reactive (Negative) 06/10/19 16:00 Hep B Core IgM Ab Non-reactive (NonReactive) 06/10/19 16:00 Hepatitis C Antibody Non-reactive (NonReactive) 06/10/19 16:00 Active Medications - Current Medications Current Medications: Generic Name Dose Route Start Last Admin Trade Name Freq PRN Reason Stop Dose Admin Acetaminophen 650 mg 06/09/19 18:55 Tylenol PO Q4H PRN Pain MILD(1-3)/Fever >100.5/LEDEZMA Atorvastatin Calcium 20 mg 06/09/19 22:00 06/09/19 23:07 Lipitor PO 20 mg QHS [facility] Administration Benzonatate 200 mg 06/09/19 22:00 06/10/19 06:07 Tessalon Perles PO 200 mg Q8HR [facility] Administration Carvedilol 6.25 mg 06/10/19 22:00 Coreg PO BID [facility] Clobetasol Propionate 1 applic 06/09/19 19:00 06/10/19 09:27 Temovate TP 1 applic Q12H [facility] Administration Cyproheptadine HCl 4 mg 06/09/19 20:00 06/10/19 09:27 Periactin PO 4 mg TID [facility] Administration Docusate Sodium 100 mg 06/09/19 22:00 06/10/19 09:27 Colace PO 100 mg BID [facility] Administration Ergocalciferol 50,000 unit 06/15/19 10:00 Vitamin D2 PO Tu [facility] Famotidine 20 mg 06/10/19 10:00 06/10/19 09:28 Pepcid PO 20 mg QDAY [facility] Administration Ferrous Sulfate 325 mg 06/09/19 22:00 06/10/19 09:27 Feosol PO 325 mg BID [facility] Administration Hydromorphone HCl 0.25 mg 06/09/19 18:07 Dilaudid IV Q3H PRN Pain, Moderate (4-6) Hydrophilic Ointment 1 applic 06/10/19 12:00 Aquaphor TP Q12H [facility] Sodium Chloride 1,000 mls @ 42 mls/hr 06/09/19 19:59 Nacl 0.9% 1000 Ml IV 06/10/19 19:58 DIRECT [facility] Sodium Chloride 100 mls @ 999 mls/hr 06/10/19 13:26 Nacl 0.9% IV CHRIS PRN Hypotension Insulin Human Lispro 0 unit 06/09/19 22:00 06/10/19 13:06 Humalog SUB-Q Not Given ACHS [facility] Protocol Magnesium Hydroxide 30 ml 06/09/19 22:00 06/09/19 23:08 Milk Of Magnesia PO Not Given QHS [facility] Multivit/Ca Carb/B Cmplx/FA/Prenat 1 cap 06/09/19 18:30 06/10/19 09:28 Renal Caps PO 1 cap QDAY [facility] Administration Ondansetron HCl 4 mg 06/09/19 18:55 Zofran IV Q8H PRN Nausea And Vomiting Oxycodone/Acetaminophen 1 tab 06/09/19 18:07 Percocet 5/325 PO Q6H PRN Pain, Moderate (4-6) Polyethylene Glycol 17 gm 06/09/19 17:54 Miralax 3350 PO QDAY PRN Constipation Senna 8.6 mg 06/09/19 22:00 06/09/19 23:06 Senokot PO 8.6 mg QHS [facility] Administration Sevelamer Carbonate 1,600 mg 06/09/19 20:00 06/10/19 09:28 Renvela PO 1,600 mg TID [facility] Administration Sodium Chloride 10 ml 06/09/19 22:00 06/10/19 13:06 Sodium Chloride Flush Syringe 10 Ml IV Not Given BID [facility] Sodium Chloride 10 ml 06/09/19 18:07 Sodium Chloride Flush Syringe 10 Ml IV PRN PRN LINE FLUSH Nutrition/Malnutrition Assess - Dietary Evaluation Nutrition/Malnutrition Findings: Nutrition Notes Start: 06/10/19 12:37 Freq: Status: Active Protocol: Document 06/10/19 12:37 CT (Rec: 06/10/19 12:53 CT [id number]) Co-Sign 06/10/19 12:37 LP Nutrition Notes 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 Pt was easily woken, but fell asleep toward the end of the visit. Pt states that she has issues chewing and swallowing, and was offered a mechanical soft diet. Pt report of eating breakfast. Pt stated her UBW is 130-140lbs and noted weight loss but was unsure of how much or a time frame. Pt was asked if she had received education on a renal diet at [facility], she said no and refused any education or handout that was offered. Pt accepted Nepro. Noted temporal wasting. Per Physical Assessment, pt has bilat bus analyst strength weakness. Suggest FINE ARTS INSTRUCTOR consult Burn Absent Trauma Absent GI Symptoms None Difficulty In Swallowing,Chewing Food Allergy No Current % PO Poor (25-49%) Minimum of two criteria Yes Energy Intake (severe) < or equal to 50% Estimated Energy Requirement > or equal to 5 days Muscle Mass Moderate Depletion (severe) Reduced Route Inspector Strength Measurably Reduced (severe) #2 Nutrition Diagnosis Food and nutrition-related knowledge deficit Etiology no prior knowledge on renal diet As Evidenced by Signs and Symptoms refusal of all diet education and handouts #1 Nutrition Diagnosis Malnutrition Etiology Dementia, Carcinoma As Evidenced by Signs and Symptoms 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 No Is Patient Ambulatory and/or Out of Bed No REE-([place]-. Windy-confined to bed) [phone] Calculation Used for Recommendations [place] Additional Notes Protein:50-62 g/kg/day (1.2-1. 5 g/kg/day AdBW 41.5 kg) Fluid: 2457-6694 ml/day Nutrition Intervention Change Diet Order: Change to Renal with mechanical soft and consistent CHO modifications Add Supplement/Snack (indicate name/kcal Nepro Vanilla Daily /protein ) Provides kCal: 425 Provides Protein (gm) 20 Goal #1 Meet >75% of energy and protein needs Goal #2 FINE ARTS INSTRUCTOR consult recommendations Anticipated Discharge Needs: Renal Consistent CHO Mechanical Soft Follow-Up By: 06/12/19 Additional Comments Follow up for PO intake, ONS tolerance, and additional ONS need. FINE ARTS INSTRUCTOR recommendations
--- NOTE | 2019-06-10 19:02 | Consultation ---
History of Present Illness - Reason for Consult Consult date: 06/10/19 Right Breast Cancer Requesting physician: MARIANELA LOOMIS - History of Present Illness Ms. Juliette Hurd is a 79 year old, postmenopausal, senior care resident at [facility] with multiple medical conditions, recently admitted. Patient was first seen in [facility] on 04/23/2019 for a large right breast mass that was noticed at the senior care during manipulation of her dialysis catheter. Patient was brought in on a stretcher and noted to not be mobile, awake and alert x 2 (oriented to person and place, but not to time). As per family, she had not had a mammogram since possibly 2013. Physical exam was limited secondary to patient body habitus and minimal movement of upper extremities. She underwent an ultrasound on 05/14/2019 which showed a highly suspicious mass at the 1:00 position, 6 cm from the nipple measuring 5.1 x 3.9 x 5.3 cm. The mass is very near the skin...no other breast mass is identified. Right axilla demonstrated several lymph nodes with mild cortical thickening. BI- RADS 5. 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 Lymph node biopsy was negative. 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), diabetes (insulin-dependent diabetes), dialysis (end-stage renal disease on hemodialysis), DVT, GERD, hypertension (, cataract, history of falling), hyperlipidemia, other (dementia, dysphagia, unspecified hearing loss) Past Surgical History: Other (AV fistula, axillary lymph node biopsy on the right side breast biopsy on the right side) Medications and Allergies Allergies Allergy/AdvReac Type Severity Reaction Status Date / Time No Known Allergies Allergy Unverified 11/24/18 08:06 Home Medications Medication Instructions Recorded Confirmed Last Taken Type Acetaminophen 650 mg PO Q4H PRN 02/26/18 06/10/19 Unknown History AtorvaSTATin [Lipitor] 20 mg PO QHS 02/26/18 06/10/19 12/08/18 19:00 History Benzonatate 200 mg PO Q8H PRN 02/26/18 06/10/19 Unknown History Clobetasol Propionate [Clobetasol 1 dose TP Q12H PRN 02/26/18 06/10/19 Unknown History Propionate 0.05%] Docusate Sodium [Colace CAP] 100 mg PO BID 02/26/18 06/10/19 12/08/18 17:00 History Ergocalciferol (Vitamin D2) 50,000 unit PO QWEEK 02/26/18 06/10/19 12/08/18 09:00 History [Drisdol] Polyethylene Glycol 3350 [Miralax 17 gm PO QDAY PRN 02/26/18 06/10/19 Unknown History 3350] Sennosides [Senna] 2 tab PO QHS 02/26/18 06/10/19 12/08/18 19:00 History carvediloL [Coreg] 25 mg PO BID 02/26/18 06/10/19 12/08/18 17:00 History Insulin Regular, Human [Novolin R] 1 dose SQ ACHS PRN #1 vial 03/08/18 06/10/19 Unknown Rx Amlodipine Besylate/Benazepril 1 each PO QDAY 06/10/19 06/10/19 Unknown History [Lotrel 10-40 mg] Ergocalciferol (Vitamin D2) 50,000 unit PO DAILY 06/10/19 06/10/19 Unknown History [Drisdol] Insulin Glargine [Lantus VIAL] 20 unit SUB-Q QHS 06/10/19 06/10/19 Unknown History Omeprazole 20 mg PO DAILY 06/10/19 06/10/19 Unknown History Ondansetron [Zofran Odt] 4 mg PO Q8HR 06/10/19 06/10/19 Unknown History Potassium Chloride [Klor-Con 50 meq PO DAILY 06/10/19 06/10/19 Unknown History Sprinkle] Vit B Comp No.3/Folic/C/Biotin 1 each PO DAILY 06/10/19 06/10/19 Unknown History [Niyah-Jose F Rx Tablet] Active Meds: Active Medications Acetaminophen (Tylenol) 650 mg PO Q4H PRN PRN Reason: Pain MILD(1-3)/Fever >100.5/LEDEZMA Atorvastatin Calcium (Lipitor) 20 mg PO QHS DESHAUN Last Admin: 06/09/19 23:07 Dose: 20 mg Documented by: Benzonatate (Tessalon Perles) 200 mg PO Q8HR [facility] Last Admin: 06/10/19 06:07 Dose: 200 mg Documented by: Carvedilol (Coreg) 6.25 mg PO BID [facility] Clobetasol Propionate (Temovate) 1 applic TP Q12H [facility] Last Admin: 06/10/19 09:27 Dose: 1 applic Documented by: Cyproheptadine HCl (Periactin) 4 mg PO TID [facility] Last Admin: 06/10/19 09:27 Dose: 4 mg Documented by: Docusate Sodium (Colace) 100 mg PO BID [facility] Last Admin: 06/10/19 09:27 Dose: 100 mg Documented by: Ergocalciferol (Vitamin D2) 50,000 unit PO Tu [facility] Famotidine (Pepcid) 20 mg PO QDAY [facility] Last Admin: 06/10/19 09:28 Dose: 20 mg Documented by: Ferrous Sulfate (Feosol) 325 mg PO BID [facility] Last Admin: 06/10/19 09:27 Dose: 325 mg Documented by: Hydromorphone HCl (Dilaudid) 0.25 mg IV Q3H PRN PRN Reason: Pain, Moderate (4-6) Hydrophilic Ointment (Aquaphor) 1 applic TP Q12H [facility] Sodium Chloride (Nacl 0.9% 1000 Ml) 1,000 mls @ 42 mls/hr IV DIRECT [facility] Stop: 06/10/19 19:58 Sodium Chloride (Nacl 0.9%) 100 mls @ 999 mls/hr IV CHRIS PRN PRN Reason: Hypotension Insulin Human Lispro (Humalog) 0 unit SUB-Q ACHS [facility]; Protocol Last Admin: 06/10/19 13:06 Dose: Not Given Documented by: Magnesium Hydroxide (Milk Of Magnesia) 30 ml PO QHS [facility] Last Admin: 06/09/19 23:08 Dose: Not Given Documented by: Multivit/Ca Carb/B Cmplx/FA/Prenat (Renal Caps) 1 cap PO QDAY [facility] Last Admin: 06/10/19 09:28 Dose: 1 cap Documented by: Ondansetron HCl (Zofran) 4 mg IV Q8H PRN PRN Reason: Nausea And Vomiting Oxycodone/Acetaminophen (Percocet 5/325) 1 tab PO Q6H PRN PRN Reason: Pain, Moderate (4-6) Polyethylene Glycol (Miralax 3350) 17 gm PO QDAY PRN PRN Reason: Constipation Senna (Senokot) 8.6 mg PO QHS [facility] Last Admin: 06/09/19 23:06 Dose: 8.6 mg Documented by: Sevelamer Carbonate (Renvela) 1,600 mg PO TID [facility] Last Admin: 06/10/19 09:28 Dose: 1,600 mg Documented by: Sodium Chloride (Sodium Chloride Flush Syringe 10 Ml) 10 ml IV BID [facility] Last Admin: 06/10/19 13:06 Dose: Not Given Documented by: Sodium Chloride (Sodium Chloride Flush Syringe 10 Ml) 10 ml IV PRN PRN PRN Reason: LINE FLUSH Review of Systems ROS unobtainable: due to mental status (Patient is not a good historian. Some information noted from senior care and admission records) Breasts: mass Cardiovascular: edema Menstruation: postmenopausal Neurological: weakness Psychiatric: memory loss Exam - Physical Exam Narrative exam: Limited secondary to body habitus Right breast, no rash, no nipple inversion or discharge, positive large, firm mass right breast, very superficial, >5 cm grossly, in upper inner and outer quadrants. Left breast does not appear to have palpable masses, no skin changes, no nipple inversion or discharge. Limited axillary exam did not show enlarged lymph nodes. - Constitutional Vitals: Temp Pulse Resp BP Pulse Ox 97.2 F L 96 H 18 119/57 99 06/10/19 16:50 06/10/19 16:53 06/10/19 16:50 06/10/19 16:53 06/10/19 03:41 General appearance: Present: no acute distress - EENT Eyes: Present: PERRL, EOM intact - Neck Neck: Present: supple - Respiratory Respiratory effort: normal - Extremities Extremities: normal temperature Extremity abnormal: edema - Abdominal General gastrointestinal: Present: deferred - Rectal Rectal Exam: deferred Results - Labs CBC & Chem 7: 06/09/19 18:34 06/09/19 18:34 Labs: Abnormal lab results 06/09/19 06/09/19 06/09/19 Range/Units 18:34 18:34 18:34 RBC 3.61 L (3.65-5.03) M/mm3 MCV 98 H (79-97) fl MCH 33 H (28-32) pg [place] % (Auto) 9.5 H (0.0-7.3) % Eos % (Auto) 5.7 H (0.0-4.3) % [place] # 0.9 H (0.0-0.8) K/mm3 Eos # 0.5 H (0.0-0.4) K/mm3 Seg Neutrophils % 70.5 H (40.0-70.0) % Sodium 134 L (137-145) mmol/L Chloride 95.0 L (98-107) mmol/L Carbon Dioxide 17 L (22-30) mmol/L BUN 45 H (7-17) mg/dL Creatinine 5.9 H (0.7-1.2) mg/dL Glucose 132 H (65-100) mg/dL POC Glucose (70-105) Hemoglobin A1c (4-6) % Alkaline Phosphatase 144 H (35-129) units/L Albumin 3.5 L (3.9-5) g/dL TSH 5.830 H (0.270-4.200) mlU/mL 06/09/19 06/09/19 06/10/19 Range/Units 18:34 21:19 08:04 RBC (3.65-5.03) M/mm3 MCV (79-97) fl MCH (28-32) pg [place] % (Auto) (0.0-7.3) % Eos % (Auto) (0.0-4.3) % [place] # (0.0-0.8) K/mm3 Eos # (0.0-0.4) K/mm3 Seg Neutrophils % (40.0-70.0) % Sodium (137-145) mmol/L Chloride (98-107) mmol/L Carbon Dioxide (22-30) mmol/L BUN (7-17) mg/dL Creatinine (0.7-1.2) mg/dL Glucose (65-100) mg/dL POC Glucose 136 H 150 H (70-105) Hemoglobin A1c 6.4 H (4-6) % Alkaline Phosphatase (35-129) units/L Albumin (3.9-5) g/dL TSH (0.270-4.200) mlU/mL 06/10/19 Range/Units 11:57 RBC (3.65-5.03) M/mm3 MCV (79-97) fl MCH (28-32) pg [place] % (Auto) (0.0-7.3) % Eos % (Auto) (0.0-4.3) % [place] # (0.0-0.8) K/mm3 Eos # (0.0-0.4) K/mm3 Seg Neutrophils % (40.0-70.0) % Sodium (137-145) mmol/L Chloride (98-107) mmol/L Carbon Dioxide (22-30) mmol/L BUN (7-17) mg/dL Creatinine (0.7-1.2) mg/dL Glucose (65-100) mg/dL POC Glucose 127 H (70-105) Hemoglobin A1c (4-6) % Alkaline Phosphatase (35-129) units/L Albumin (3.9-5) g/dL TSH (0.270-4.200) mlU/mL Assessment and Plan 79 year old lady with right breast 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 Pathology results were discussed in great detail with the patient present, her son Robbi Hurd, and son's Linda Hurd who were both present with the patient at every office visit. I discussed the multimodal treatment for breast cancer based on the National Comprehensive Cancer Network (NCCN) guidelines to include surgery, medical and radiation therapy. Patient was seen by Medical Oncologist Dr. Sheffield, who stated that with the patient's multitude of medical conditions, she would not be a good candidate for chemotherapy. Patient was presented at our Multi-disciplinary Tumor Board Conference where recommendation was made that if patient could be cleared for surgery, a partial mastectomy vs total mastectomy would benefit the patient at this time. If she is not cleared, then she may benefit from radiation therapy. Discussed with the family that at this point, because the tumor is so close to her skin, and the aggressive nature of the tumor biology, her cancer was going to grow and likely break through her skin. The risks, benefits and alternatives of the surgery were explained to the Robbi and Linda, including but not limited to bleeding, infection, pain, comestic deformity of her breast, and possible . Also explained the aggressive nature of the triple negative breast cancer, and the fact that Ms. Juliette Hurd will not be able to undergo the standard of care treatment for her type of breast cancer because she would not be able to tolerate it. The family were given ample opportunity to ask questions which were answered. They verbalized understanding. We will await results of her clearance work-up. - Patient Problems (1) Right breast cancer with T3 tumor, >5 cm in greatest dimension Current Visit: Yes Status: Acute Plan to address problem: Possible surgery
[2019-06-10] MEDS: MAGNESIUM HYDROXIDE (MOM) ORAL LIQD UDC PO SCH (21:57)
[2019-06-10] MEDS: carvediloL 6.25 MG TAB PO SCH (21:57)
[2019-06-10] MEDS: SENNOSIDES 8.6 MG TAB PO SCH (21:59)
[2019-06-11] MEDS: AQUAPHOR OINTMENT TP SCH ×2 (00:16→12:36)
[2019-06-11] MEDS: BENZONATATE 100 MG CAP PO SCH ×3 (06:27→21:46)
[2019-06-11 07:40] LABS: Chol/HDL Ratio 2.7 %
[2019-06-11] MEDS: INSULIN LISPRO 100 UNIT/ML SUB-Q SCH ×4 (08:43→23:00)
[2019-06-11] MEDS: CYPROHEPTADINE 4 MG TAB PO SCH ×3 (08:44→21:49)
[2019-06-11] MEDS: SEVELAMER CARBONATE 800 MG TAB PO SCH ×3 (08:44→21:46)
[2019-06-11] MEDS: CLOBETASOL 0.05% CREAM 15 GM TP SCH ×2 (08:54→18:18)
[2019-06-11] MEDS: FOLIC ACID/VIT B COMP W-C 1 MG (RENAL CAPS) PO SCH (10:31)
[2019-06-11] MEDS: FERROUS SULFATE 325 MG TAB PO SCH ×2 (10:31→21:46)
[2019-06-11] MEDS: DOCUSATE SODIUM 100 MG CAP PO SCH ×2 (10:31→21:46)
[2019-06-11] MEDS: FAMOTIDINE 20 MG TAB PO SCH (10:31)
[2019-06-11] MEDS: carvediloL 6.25 MG TAB PO SCH ×2 (10:31→21:48)
--- NOTE | 2019-06-11 10:35 | Progress Note ---
Assessment and Plan Impression: * End stage renal disease on hemodialysis * Chest pain * Breast cancer, right * Hypertension * Type II DM * Hyponatremia * Metabolic acidosis * Anemia secondary to ESRD * Secondary hyperparathyroidism Plan: * Patient is s/p hemodialysis yesterday. No acute indication for HD today * Continue MWF schedule * UF as tolerated * Breast surgeon recommendations noted * Cardiology following * Epogen TIW prn * Renal diet * AM labs tomorrow Subjective Date of service: 06/11/19 Interval history: No acute events overnight Objective - Vital Signs Vital signs: Vital Signs - 12hr 06/10/19 06/11/19 06/11/19 23:31 04:41 10:31 Temperature 98.6 F 97.6 F Pulse Rate 113 H 99 H 99 H Respiratory 16 18 Rate Blood Pressure 138/114 119/51 Blood Pressure 120/46 [Right] O2 Sat by Pulse 98 97 Oximetry - General Appearance General appearance: well-developed, well-nourished EENT: ATNC Respiratory: Present: Clear to Ascultation Cardiology: regular, S1S2 Gastrointestinal: normal, no tenderness, no distended Integumentary: no rash, warm and dry Psychiatric: cooperative - Lab 06/09/19 18:34 06/09/19 18:34 Most recent lab results Calcium 8.5 mg/dL (8.4-10.2) 06/09/19 18:34 Medications & Allergies - Medications Allergies/Adverse Reactions: Allergies No Known Allergies Allergy (Unverified 11/24/18 08:06) Home Medications: Home Medications Medication Instructions Recorded Confirmed Last Taken Type Acetaminophen 650 mg PO Q4H PRN 02/26/18 06/10/19 Unknown History AtorvaSTATin [Lipitor] 20 mg PO QHS 02/26/18 06/10/19 12/08/18 19:00 History Benzonatate 200 mg PO Q8H PRN 02/26/18 06/10/19 Unknown History Clobetasol Propionate [Clobetasol 1 dose TP Q12H PRN 02/26/18 06/10/19 Unknown History Propionate 0.05%] Docusate Sodium [Colace CAP] 100 mg PO BID 02/26/18 06/10/19 12/08/18 17:00 History Ergocalciferol (Vitamin D2) 50,000 unit PO QWEEK 02/26/18 06/10/19 12/08/18 09:00 History [Drisdol] Polyethylene Glycol 3350 [Miralax 17 gm PO QDAY PRN 02/26/18 06/10/19 Unknown History 3350] Sennosides [Senna] 2 tab PO QHS 02/26/18 06/10/19 12/08/18 19:00 History carvediloL [Coreg] 25 mg PO BID 02/26/18 06/10/19 12/08/18 17:00 History Insulin Regular, Human [Novolin R] 1 dose SQ ACHS PRN #1 vial 03/08/18 06/10/19 Unknown Rx Amlodipine Besylate/Benazepril 1 each PO QDAY 06/10/19 06/10/19 Unknown History [Lotrel 10-40 mg] Ergocalciferol (Vitamin D2) 50,000 unit PO DAILY 06/10/19 06/10/19 Unknown History [Drisdol] Insulin Glargine [Lantus VIAL] 20 unit SUB-Q QHS 06/10/19 06/10/19 Unknown History Omeprazole 20 mg PO DAILY 06/10/19 06/10/19 Unknown History Ondansetron [Zofran Odt] 4 mg PO Q8HR 06/10/19 06/10/19 Unknown History Potassium Chloride [Klor-Con 50 meq PO DAILY 06/10/19 06/10/19 Unknown History Sprinkle] Vit B Comp No.3/Folic/C/Biotin 1 each PO DAILY 06/10/19 06/10/19 Unknown History [Niyah-Jose F Rx Tablet] Active Medications: Generic Name Dose Route Start Last Admin Trade Name Freq PRN Reason Stop Dose Admin Acetaminophen 650 mg 06/09/19 18:55 Tylenol PO Q4H PRN Pain MILD(1-3)/Fever >100.5/LEDEZMA Atorvastatin Calcium 20 mg 06/09/19 22:00 06/10/19 21:57 Lipitor PO 20 mg QHS DESHAUN Administration Benzonatate 200 mg 06/09/19 22:00 06/11/19 06:27 Tessalon Perles PO 200 mg Q8HR [facility] Administration Carvedilol 6.25 mg 06/10/19 22:00 06/11/19 10:31 Coreg PO 6.25 mg BID [facility] Administration Clobetasol Propionate 1 applic 06/09/19 19:00 06/11/19 08:54 Temovate TP 1 applic Q12H [facility] Administration Cyproheptadine HCl 4 mg 06/09/19 20:00 06/11/19 08:44 Periactin PO 4 mg TID [facility] Administration Docusate Sodium 100 mg 06/09/19 22:00 06/11/19 10:31 Colace PO 100 mg BID [facility] Administration Ergocalciferol 50,000 unit 06/15/19 10:00 Vitamin D2 PO Tu [facility] Famotidine 20 mg 06/10/19 10:00 06/11/19 10:31 Pepcid PO 20 mg QDAY [facility] Administration Ferrous Sulfate 325 mg 06/09/19 22:00 06/11/19 10:31 Feosol PO 325 mg BID [facility] Administration Hydromorphone HCl 0.25 mg 06/09/19 18:07 Dilaudid IV Q3H PRN Pain, Moderate (4-6) Hydrophilic Ointment 1 applic 06/10/19 12:00 06/11/19 00:16 Aquaphor TP 1 applic Q12H [facility] Administration Sodium Chloride 100 mls @ 999 mls/hr 06/10/19 13:26 Nacl 0.9% IV [facility] PRN Hypotension Insulin Human Lispro 0 unit 06/09/19 22:00 06/11/19 08:43 Humalog SUB-Q Not Given [facility] Protocol Magnesium Hydroxide 30 ml 06/09/19 22:00 06/10/19 21:57 Milk Of Magnesia PO 30 ml QHS [facility] Administration Multivit/Ca Carb/B Cmplx/FA/Prenat 1 cap 06/09/19 18:30 06/11/19 10:31 Renal Caps PO 1 cap QDAY [facility] Administration Ondansetron HCl 4 mg 06/09/19 18:55 Zofran IV Q8H PRN Nausea And Vomiting Oxycodone/Acetaminophen 1 tab 06/09/19 18:07 Percocet 5/325 PO Q6H PRN Pain, Moderate (4-6) Polyethylene Glycol 17 gm 06/09/19 17:54 Miralax 3350 PO QDAY PRN Constipation Senna 8.6 mg 06/09/19 22:00 06/10/19 21:59 Senokot PO Not Given QHS [facility] Sevelamer Carbonate 1,600 mg 06/09/19 20:00 06/11/19 08:44 Renvela PO 1,600 mg TID [facility] Administration Sodium Chloride 10 ml 06/09/19 22:00 06/10/19 21:59 Sodium Chloride Flush Syringe 10 Ml IV 10 ml BID [facility] Administration Sodium Chloride 10 ml 06/09/19 18:07 Sodium Chloride Flush Syringe 10 Ml IV PRN PRN LINE FLUSH
--- NOTE | 2019-06-11 12:46 | Vascular Lab Report ---
LEFT UPPER EXTREMITY VENOUS DOPPLER ULTRASOUND HISTORY: Left upper extremity edema for 2 months COMPARISON: None. TECHNIQUE: Grayscale, color and spectral Doppler imaging of the venous system of the left upper extre mity was performed. FINDINGS: Internal Jugular Vein: Normal grayscale appearance and flow. Subclavian Vein: Normal grayscale appearance and flow. Axillary Vein: Normal venous flow, compressibility and augmentation. Brachial vein: Normal venous flow, compressibility and augmentation. Radial vein: Normal venous flow, compressibility and augmentation. Ulnar vein: Normal venous flow, compressibility and augmentation. Additional Findings: The cephalic and basilic veins are patent. IMPRESSION: 1. No sonographic evidence of deep venous thrombosis in the left upper extremity. Signer Name: Dg Noel Jr, MD Signed: 06/11/2019 12:42 PM Workstation Name: [id number]
--- NOTE | 2019-06-11 15:10 | Anesthesia Consultation ---
<LAKE DUNLAP - Last Filed: 06/11/19 15:07> Anesthesia Consult and Med Hx Date of service: 06/11/19 - Airway Anesthetic Teeth Evaluation: Poor ROM Head & Neck: Adequate Mental/Hyoid Distance: Adequate Mallampati Class: Class II Intubation Access Assessment: Probably Good - Pre-Operative Health Status ASA Pre-Surgery Classification: ASA4 Proposed Anesthetic Plan: General - Pulmonary Hx Smoking: No Hx Asthma: No Hx Respiratory Symptoms: No SOB: No COPD: No Home Oxygen Therapy: No Hx Pneumonia: No Hx Sleep Apnea: No - Cardiovascular System Hx Hypertension: Yes Hx Coronary Artery Disease: Yes (EF 40-45% ) Hx Heart Attack/AMI: No Hx Angina: No Hx Percutaneous Transluminal Coronary Angioplasty (PTCA): No Hx Cardia Arrhythmia: No Hx Pacemaker: No Hx Internal Defibrillator: No Hx Valvular Heart Disease: No Hx Heart Murmur: No Hx Peripheral Vascular Disease: No - Central Nervous System Hx Neuromuscular Disorder: No Hx Seizures: No CVA: Yes Hx Back Pain: No Hx Psychiatric Problems: No (Dementia ) - Gastrointestinal Hx Ulcer: No Hx Gastroesophageal Reflux Disease: No (dysphagia ) - Endocrine Hx Renal Disease: Yes Hx End Stage Renal Disease: Yes Hx Cirrhosis: No Hx Liver Disease: No Hx Insulin Dependent Diabetes: Yes Hx Non-Insulin Dependent Diabetes: No Hx Thyroid Disease: No Hx Hypothyroidism: No Hx Hyperthyroidism: No - Hematic Hx Anemia: No Hx Sickle Cell Disease: No - Other Systems Hx Alcohol Use: No Hx Substance Use: No Hx Cancer: Yes (rt breast) Hx Obesity: Yes <NATALY JURADO - Last Filed: 06/11/19 17:00> Anesthesia Consult and Med Hx - Additional Comments Anesthesia Medical History Comments: Per chart review, patient presented initially with report of chest pain. EF 55-60%, mild AR, no wall motion abnormalities on most recent TTE. Cardiology following. Will await further cardiology recommendations prior to planned surgical procedure.
--- NOTE | 2019-06-11 16:47 | Progress Note ---
Assessment and Plan Assessment and plan: End stage renal disease on hemodialysis. Cont, HD per Nephrology Chest pain. ECG with NAF. Campbell pending. Pt denies any occurrence of chest pain. Breast cancer, right. Breast surgery in am. Cardiology to eval for risk stratification Hypertension. Resume antihypertensive meds Type II DM. Tight glycemic control, accuchecks and SSRI Hyponatremia. IVF recheck BMP Anemia secondary to ESRD. Transfuse hgb < 7.0 LUE edema. Doppler negative History Interval history: Pt with no new complaints Hospitalist Physical - Constitutional Vitals: Temp Pulse Resp BP Pulse Ox 98.4 F 96 H 16 100/43 96 06/11/19 16:40 06/11/19 16:40 06/11/19 16:40 06/11/19 16:40 06/11/19 16:40 General appearance: Present: no acute distress - EENT Eyes: Present: PERRL, EOM intact ENT: hearing intact, clear oral mucosa, dentition normal - Neck Neck: Present: supple, normal ROM - Respiratory Respiratory effort: normal Respiratory: bilateral: CTA - Cardiovascular Rhythm: regular Heart Sounds: Present: S1 & S2. Absent: gallop, rub - Extremities Extremities: no ischemia, No edema, Full ROM - Abdominal General gastrointestinal: soft, non-tender, non-distended, normal bowel sounds - Integumentary Integumentary: Present: clear, warm, dry - Neurologic Neurologic: CNII-XII intact, moves all extremities Results - Labs CBC & Chem 7: 06/09/19 18:34 06/09/19 18:34 Labs: Laboratory Last Values WBC 9.0 K/mm3 (4.5-11.0) 06/09/19 18:34 RBC 3.61 M/mm3 (3.65-5.03) L 06/09/19 18:34 Hgb 11.7 gm/dl (10.1-14.3) 06/09/19 18:34 Hct 35.3 % (30.3-42.9) 06/09/19 18:34 MCV 98 fl (79-97) H 06/09/19 18:34 MCH 33 pg (28-32) H 06/09/19 18:34 MCHC 33 % (30-34) 06/09/19 18:34 RDW 15.2 % (13.2-15.2) 06/09/19 18:34 Plt Count 204 K/mm3 (140-440) 06/09/19 18:34 Lymph % (Auto) 13.5 % (13.4-35.0) 06/09/19 18:34 [place] % (Auto) 9.5 % (0.0-7.3) H 06/09/19 18:34 Eos % (Auto) 5.7 % (0.0-4.3) H 06/09/19 18:34 Baso % (Auto) 0.8 % (0.0-1.8) 06/09/19 18:34 Lymph # 1.2 K/mm3 (1.2-5.4) 06/09/19 18:34 [place] # 0.9 K/mm3 (0.0-0.8) H 06/09/19 18:34 Eos # 0.5 K/mm3 (0.0-0.4) H 06/09/19 18:34 Baso # 0.1 K/mm3 (0.0-0.1) 06/09/19 18:34 Seg Neutrophils % 70.5 % (40.0-70.0) H 06/09/19 18:34 Seg Neutrophils # 6.4 K/mm3 (1.8-7.7) 06/09/19 18:34 Sodium 134 mmol/L (137-145) L 06/09/19 18:34 Potassium 4.6 mmol/L (3.6-5.0) 06/09/19 18:34 Chloride 95.0 mmol/L (98-107) L 06/09/19 18:34 Carbon Dioxide 17 mmol/L (22-30) L 06/09/19 18:34 Anion Gap 27 mmol/L 06/09/19 18:34 BUN 45 mg/dL (7-17) H 06/09/19 18:34 Creatinine 5.9 mg/dL (0.7-1.2) H 06/09/19 18:34 Estimated GFR 8 ml/min 06/09/19 18:34 BUN/Creatinine Ratio 8 % 06/09/19 18:34 Glucose 132 mg/dL (65-100) H 06/09/19 18:34 POC Glucose < 40 (70-105) L 06/11/19 16:41 Hemoglobin A1c 6.4 % (4-6) H 06/09/19 18:34 Calcium 8.5 mg/dL (8.4-10.2) 06/09/19 18:34 Total Bilirubin 0.30 mg/dL (0.1-1.2) 06/09/19 18:34 AST 22 units/L (5-40) 06/09/19 18:34 ALT 20 units/L (7-56) 06/09/19 18:34 Alkaline Phosphatase 144 units/L (35-129) H 06/09/19 18:34 Troponin T 0.248 ng/mL (0.00-0.029) H* 06/11/19 06:07 Total Protein 7.1 g/dL (6.3-8.2) 06/09/19 18:34 Albumin 3.5 g/dL (3.9-5) L 06/09/19 18:34 Albumin/Globulin Ratio 1.0 % 06/09/19 18:34 Triglycerides 87 mg/dL (2-149) 06/11/19 06:07 Cholesterol 108 mg/dL (50-199) 06/11/19 06:07 LDL Cholesterol Direct 61 mg/dL (50-130) 06/11/19 06:07 HDL Cholesterol 40 mg/dL (40-59) 06/11/19 06:07 Cholesterol/HDL Ratio 2.70 % 06/11/19 06:07 TSH 5.830 mlU/mL (0.270-4.200) H 06/09/19 18:34 Hepatitis A IgM Ab Non-reactive (NonReactive) 06/10/19 16:00 Hep Bs Antigen Non-reactive (Negative) 06/10/19 16:00 Hep B Core IgM Ab Non-reactive (NonReactive) 06/10/19 16:00 Hepatitis C Antibody Non-reactive (NonReactive) 06/10/19 16:00 Active Medications - Current Medications Current Medications: Generic Name Dose Route Start Last Admin Trade Name Freq PRN Reason Stop Dose Admin Acetaminophen 650 mg 06/09/19 18:55 Tylenol PO Q4H PRN Pain MILD(1-3)/Fever >100.5/LEDEZMA Atorvastatin Calcium 20 mg 06/09/19 22:00 06/10/19 21:57 Lipitor PO 20 mg QHS DESHAUN Administration Benzonatate 200 mg 06/09/19 22:00 06/11/19 13:42 Tessalon Perles PO 200 mg Q8HR DESHAUN Administration Carvedilol 6.25 mg 06/10/19 22:00 06/11/19 10:31 Coreg PO 6.25 mg BID DESHAUN Administration Clobetasol Propionate 1 applic 06/09/19 19:00 06/11/19 08:54 Temovate TP 1 applic Q12H DESHAUN Administration Cyproheptadine HCl 4 mg 06/09/19 20:00 06/11/19 13:40 Periactin PO 4 mg TID [facility] Administration Docusate Sodium 100 mg 06/09/19 22:00 06/11/19 10:31 Colace PO 100 mg BID [facility] Administration Ergocalciferol 50,000 unit 06/15/19 10:00 Vitamin D2 PO Tu [facility] Famotidine 20 mg 06/10/19 10:00 06/11/19 10:31 Pepcid PO 20 mg QDAY [facility] Administration Ferrous Sulfate 325 mg 06/09/19 22:00 06/11/19 10:31 Feosol PO 325 mg BID [facility] Administration Hydromorphone HCl 0.25 mg 06/09/19 18:07 Dilaudid IV Q3H PRN Pain, Moderate (4-6) Hydrophilic Ointment 1 applic 06/10/19 12:00 06/11/19 12:36 Aquaphor TP 1 applic Q12H DESHAUN Administration Sodium Chloride 100 mls @ 999 mls/hr 06/10/19 13:26 Nacl 0.9% IV CHRIS PRN Hypotension Insulin Human Lispro 0 unit 06/09/19 22:00 06/11/19 12:00 Humalog SUB-Q 3 unit ACHS [facility] Administration Protocol Magnesium Hydroxide 30 ml 06/09/19 22:00 06/10/19 21:57 Milk Of Magnesia PO 30 ml QHS [facility] Administration Multivit/Ca Carb/B Cmplx/FA/Prenat 1 cap 06/09/19 18:30 06/11/19 10:31 Renal Caps PO 1 cap QDAY [facility] Administration Ondansetron HCl 4 mg 06/09/19 18:55 Zofran IV Q8H PRN Nausea And Vomiting Oxycodone/Acetaminophen 1 tab 06/09/19 18:07 Percocet 5/325 PO Q6H PRN Pain, Moderate (4-6) Polyethylene Glycol 17 gm 06/09/19 17:54 Miralax 3350 PO QDAY PRN Constipation Senna 8.6 mg 06/09/19 22:00 06/10/19 21:59 Senokot PO Not Given QHS DESHAUN Sevelamer Carbonate 1,600 mg 06/09/19 20:00 06/11/19 13:40 Renvela PO 1,600 mg TID DESHAUN Administration Sodium Chloride 10 ml 06/09/19 22:00 06/11/19 10:32 Sodium Chloride Flush Syringe 10 Ml IV 10 ml BID DESHAUN Administration Sodium Chloride 10 ml 06/09/19 18:07 Sodium Chloride Flush Syringe 10 Ml IV PRN PRN LINE FLUSH Nutrition/Malnutrition Assess - Dietary Evaluation Nutrition/Malnutrition Findings: Nutrition Notes Start: 06/10/19 12:37 Freq: Status: Active Protocol: Document 06/10/19 12:37 CT (Rec: 06/10/19 12:53 CT [id number]) Co-Sign 06/10/19 12:37 LP Nutrition Notes Need for Assessment generated from: buffing and sueding machine operator Initial or Follow up Assessment Current Diagnosis Diabetes,Hypertension, Hyperlipidemia Other Pertinent Diagnosis Dementia, dysphagia, Carcinoma , ESRD on HD, DVT, Psoriasis, Current Diet Renal Labs/Tests POC Glu 150 A1c 6.4 BUN 45 Creatinine 5.9 Pertinent Medications Humalog Lipitor NS 42 ml/hr Height 4 ft 2 in Weight 60.3 kg Usual Body Weight 61.235 kg [place] Body Weight (kg) 22.72 BMI 37.3 Intake Prior to Admission Poor Subjective/Other Information Consult for Skin Risk of 13. Pt was easily woken, but fell asleep toward the end of the visit. Pt states that she has issues chewing and swallowing, and was offered a mechanical soft diet. Pt report of eating breakfast. Pt stated her UBW is 130-140lbs and noted weight loss but was unsure of how much or a time frame. Pt was asked if she had received education on a renal diet at [facility] dialysis [place], she said no and refused any education or handout that was offered. Pt accepted Nepro. Noted temporal wasting. Per Physical Assessment, pt has bilat retail special event associate strength weakness. Suggest CHIEF SUPPLY CHAIN OFFICER consult Burn Absent Trauma Absent GI Symptoms None Difficulty In Swallowing,Chewing Food Allergy No Current % PO Poor (25-49%) Minimum of two criteria Yes Energy Intake (severe) < or equal to 50% Estimated Energy Requirement > or equal to 5 days Muscle Mass Moderate Depletion (severe) Reduced Unstacker Strength Measurably Reduced (severe) #2 Nutrition Diagnosis Food and nutrition-related knowledge deficit Etiology no prior knowledge on renal diet As Evidenced by Signs and Symptoms refusal of all diet education and handouts #1 Nutrition Diagnosis Malnutrition Etiology Dementia, Carcinoma As Evidenced by Signs and Symptoms Pt not eating well DIRECTOR OF PHILANTHROPY, 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 No Is Patient Ambulatory and/or Out of Bed No REE-([facility]-confined to bed) [phone] Calculation Used for Recommendations [place] Additional Notes Protein:50-62 g/kg/day (1.2-1. 5 g/kg/day AdBW 41.5 kg) Fluid: 6852-4679 ml/day Nutrition Intervention Change Diet Order: Change to Renal with mechanical soft and consistent CHO modifications Add Supplement/Snack (indicate name/kcal Nepro Vanilla Daily /protein ) Provides kCal: 425 Provides Protein (gm) 20 Goal #1 Meet >75% of energy and protein needs Goal #2 CHIEF SUPPLY CHAIN OFFICER consult recommendations Anticipated Discharge Needs: Renal Consistent CHO Mechanical Soft Follow-Up By: 06/12/19 Additional Comments Follow up for PO intake, ONS tolerance, and additional ONS need. CHIEF SUPPLY CHAIN OFFICER recommendations
[2019-06-11] MEDS: MAGNESIUM HYDROXIDE (MOM) ORAL LIQD UDC PO SCH (21:46)
[2019-06-12] MEDS: AQUAPHOR OINTMENT TP SCH ×2 (00:15→12:50)
[2019-06-12] MEDS: BENZONATATE 100 MG CAP PO SCH ×3 (05:26→22:15)
[2019-06-12] MEDS: SENNOSIDES 8.6 MG TAB PO SCH ×2 (05:38→22:14)
[2019-06-12] MEDS: CYPROHEPTADINE 4 MG TAB PO SCH ×3 (08:00→22:19)
[2019-06-12] MEDS: CLOBETASOL 0.05% CREAM 15 GM TP SCH ×2 (08:00→18:13)
[2019-06-12] MEDS: SEVELAMER CARBONATE 800 MG TAB PO SCH ×3 (08:00→22:26)
[2019-06-12] MEDS: INSULIN LISPRO 100 UNIT/ML SUB-Q SCH ×4 (08:01→22:11)
[2019-06-12] MEDS: FOLIC ACID/VIT B COMP W-C 1 MG (RENAL CAPS) PO SCH (09:17)
[2019-06-12] MEDS: DOCUSATE SODIUM 100 MG CAP PO SCH ×2 (09:17→22:13)
[2019-06-12] MEDS: FAMOTIDINE 20 MG TAB PO SCH (09:17)
[2019-06-12] MEDS: FERROUS SULFATE 325 MG TAB PO SCH ×2 (09:18→22:15)
[2019-06-12] MEDS: carvediloL 6.25 MG TAB PO SCH ×2 (09:19→23:26)
--- NOTE | 2019-06-12 11:44 | Progress Note ---
Assessment and Plan Assessment and plan: End stage renal disease on hemodialysis. Cont, HD per Nephrology Chest pain. ECG with NAF. Campbell pending. Patient still complains of chest pain. Await cardiology decision for evaluation. Patient with elevated troponin. Breast cancer, right. Breast surgery with him next week. Patient will be disch arged and to follow-up as an outpatient. Hypertension. Resume antihypertensive meds Type II DM. Tight glycemic control, accuchecks and SSRI Hyponatremia. IVF recheck BMP Anemia secondary to ESRD. Transfuse hgb < 7.0 LUE edema. Doppler negative History Interval history: Pt still complains of chest pain. Hospitalist Physical - Constitutional Vitals: Temp Pulse Resp BP Pulse Ox 98.6 F 97 H 18 123/63 97 06/12/19 10:03 06/12/19 11:30 06/12/19 10:03 06/12/19 11:30 06/12/19 07:59 General appearance: Present: no acute distress - EENT Eyes: Present: PERRL, EOM intact ENT: hearing intact, clear oral mucosa, dentition normal - Neck Neck: Present: supple, normal ROM - Respiratory Respiratory effort: normal Respiratory: bilateral: CTA - Cardiovascular Rhythm: regular Heart Sounds: Present: S1 & S2. Absent: gallop, rub - Extremities Extremities: no ischemia, No edema, Full ROM - Abdominal General gastrointestinal: soft, non-tender, non-distended, normal bowel sounds - Integumentary Integumentary: Present: clear, warm, dry - Neurologic Neurologic: CNII-XII intact, moves all extremities Results - Labs CBC & Chem 7: 06/09/19 18:34 06/09/19 18:34 Labs: Laboratory Last Values WBC 9.0 K/mm3 (4.5-11.0) 06/09/19 18:34 RBC 3.61 M/mm3 (3.65-5.03) L 06/09/19 18:34 Hgb 11.7 gm/dl (10.1-14.3) 06/09/19 18:34 Hct 35.3 % (30.3-42.9) 06/09/19 18:34 MCV 98 fl (79-97) H 06/09/19 18:34 MCH 33 pg (28-32) H 06/09/19 18:34 MCHC 33 % (30-34) 06/09/19 18:34 RDW 15.2 % (13.2-15.2) 06/09/19 18:34 Plt Count 204 K/mm3 (140-440) 06/09/19 18:34 Lymph % (Auto) 13.5 % (13.4-35.0) 06/09/19 18:34 [place] % (Auto) 9.5 % (0.0-7.3) H 06/09/19 18:34 Eos % (Auto) 5.7 % (0.0-4.3) H 06/09/19 18:34 Baso % (Auto) 0.8 % (0.0-1.8) 06/09/19 18:34 Lymph # 1.2 K/mm3 (1.2-5.4) 06/09/19 18:34 [place] # 0.9 K/mm3 (0.0-0.8) H 06/09/19 18:34 Eos # 0.5 K/mm3 (0.0-0.4) H 06/09/19 18:34 Baso # 0.1 K/mm3 (0.0-0.1) 06/09/19 18:34 Seg Neutrophils % 70.5 % (40.0-70.0) H 06/09/19 18:34 Seg Neutrophils # 6.4 K/mm3 (1.8-7.7) 06/09/19 18:34 Sodium 134 mmol/L (137-145) L 06/09/19 18:34 Potassium 4.6 mmol/L (3.6-5.0) 06/09/19 18:34 Chloride 95.0 mmol/L (98-107) L 06/09/19 18:34 Carbon Dioxide 17 mmol/L (22-30) L 06/09/19 18:34 Anion Gap 27 mmol/L 06/09/19 18:34 BUN 45 mg/dL (7-17) H 06/09/19 18:34 Creatinine 5.9 mg/dL (0.7-1.2) H 06/09/19 18:34 Estimated GFR 8 ml/min 06/09/19 18:34 BUN/Creatinine Ratio 8 % 06/09/19 18:34 Glucose 132 mg/dL (65-100) H 06/09/19 18:34 POC Glucose 129 (70-105) H 06/12/19 08:07 Hemoglobin A1c 6.4 % (4-6) H 06/09/19 18:34 Calcium 8.5 mg/dL (8.4-10.2) 06/09/19 18:34 Total Bilirubin 0.30 mg/dL (0.1-1.2) 06/09/19 18:34 AST 22 units/L (5-40) 06/09/19 18:34 ALT 20 units/L (7-56) 06/09/19 18:34 Alkaline Phosphatase 144 units/L (35-129) H 06/09/19 18:34 Troponin T 0.248 ng/mL (0.00-0.029) H* 06/11/19 06:07 Total Protein 7.1 g/dL (6.3-8.2) 06/09/19 18:34 Albumin 3.5 g/dL (3.9-5) L 06/09/19 18:34 Albumin/Globulin Ratio 1.0 % 06/09/19 18:34 Triglycerides 87 mg/dL (2-149) 06/11/19 06:07 Cholesterol 108 mg/dL (50-199) 06/11/19 06:07 LDL Cholesterol Direct 61 mg/dL (50-130) 06/11/19 06:07 HDL Cholesterol 40 mg/dL (40-59) 06/11/19 06:07 Cholesterol/HDL Ratio 2.70 % 06/11/19 06:07 TSH 5.830 mlU/mL (0.270-4.200) H 06/09/19 18:34 Hepatitis A IgM Ab Non-reactive (NonReactive) 06/10/19 16:00 Hep Bs Antigen Non-reactive (Negative) 06/10/19 16:00 Hep B Core IgM Ab Non-reactive (NonReactive) 06/10/19 16:00 Hepatitis C Antibody Non-reactive (NonReactive) 06/10/19 16:00 Active Medications - Current Medications Current Medications: Generic Name Dose Route Start Last Admin Trade Name Freq PRN Reason Stop Dose Admin Acetaminophen 650 mg 06/09/19 18:55 Tylenol PO Q4H PRN Pain MILD(1-3)/Fever >100.5/LEDEZMA Atorvastatin Calcium 20 mg 06/09/19 22:00 06/11/19 21:47 Lipitor PO 20 mg QHS DESHAUN Administration Benzonatate 200 mg 06/09/19 22:00 06/12/19 05:26 Tessalon Perles PO 200 mg Q8HR DESHAUN Administration Carvedilol 6.25 mg 06/10/19 22:00 06/12/19 09:19 Coreg PO Not Given BID [facility] Clobetasol Propionate 1 applic 06/09/19 19:00 06/12/19 08:00 Temovate TP 1 applic Q12H DESHAUN Administration Cyproheptadine HCl 4 mg 06/09/19 20:00 06/12/19 08:00 Periactin PO 4 mg TID [facility] Administration Docusate Sodium 100 mg 06/09/19 22:00 06/12/19 09:17 Colace PO 100 mg BID [facility] Administration Ergocalciferol 50,000 unit 06/15/19 10:00 Vitamin D2 PO Tu [facility] Famotidine 20 mg 06/10/19 10:00 06/12/19 09:17 Pepcid PO 20 mg QDAY DESHAUN Administration Ferrous Sulfate 325 mg 06/09/19 22:00 06/12/19 09:18 Feosol PO 325 mg BID DESHAUN Administration Hydromorphone HCl 0.25 mg 06/09/19 18:07 Dilaudid IV Q3H PRN Pain, Moderate (4-6) Hydrophilic Ointment 1 applic 06/10/19 12:00 06/12/19 00:15 Aquaphor TP 1 applic Q12H DESHAUN Administration Sodium Chloride 100 mls @ 999 mls/hr 06/10/19 13:26 Nacl 0.9% IV CHRIS PRN Hypotension Insulin Human Lispro 0 unit 06/09/19 22:00 06/12/19 08:01 Humalog SUB-Q Not Given ACHS [facility] Protocol Magnesium Hydroxide 30 ml 06/09/19 22:00 06/11/19 21:46 Milk Of Magnesia PO 30 ml QHS [facility] Administration Multivit/Ca Carb/B Cmplx/FA/Prenat 1 cap 06/09/19 18:30 06/12/19 09:17 Renal Caps PO 1 cap QDAY DESHAUN Administration Ondansetron HCl 4 mg 06/09/19 18:55 Zofran IV Q8H PRN Nausea And Vomiting Oxycodone/Acetaminophen 1 tab 06/09/19 18:07 Percocet 5/325 PO Q6H PRN Pain, Moderate (4-6) Polyethylene Glycol 17 gm 06/09/19 17:54 Miralax 3350 PO QDAY PRN Constipation Senna 8.6 mg 06/09/19 22:00 06/12/19 05:38 Senokot PO Not Given QHS DESHAUN Sevelamer Carbonate 1,600 mg 06/09/19 20:00 06/12/19 08:00 Renvela PO 1,600 mg TID DESHAUN Administration Sodium Chloride 10 ml 06/09/19 22:00 06/12/19 09:18 Sodium Chloride Flush Syringe 10 Ml IV 10 ml BID DESHAUN Administration Sodium Chloride 10 ml 06/09/19 18:07 Sodium Chloride Flush Syringe 10 Ml IV PRN PRN LINE FLUSH Nutrition/Malnutrition Assess - Dietary Evaluation Nutrition/Malnutrition Findings: Nutrition Notes Start: 06/10/19 12:37 Freq: Status: Active Protocol: Document 06/10/19 12:37 CT (Rec: 06/10/19 12:53 CT [id number]) Co-Sign 06/10/19 12:37 LP Nutrition Notes Need for Assessment generated from: instructional technology coach Initial or Follow up Assessment Current Diagnosis Diabetes,Hypertension, Hyperlipidemia Other Pertinent Diagnosis Dementia, dysphagia, Carcinoma , ESRD on HD, DVT, Psoriasis, Current Diet Renal Labs/Tests POC Glu 150 A1c 6.4 BUN 45 Creatinine 5.9 Pertinent Medications Humalog Lipitor NS 42 ml/hr Height 4 ft 2 in Weight 60.3 kg Usual Body Weight 61.235 kg [place] Body Weight (kg) 22.72 BMI 37.3 Intake Prior to Admission Poor Subjective/Other Information Consult for Skin Risk of 13. Pt was easily woken, but fell asleep toward the end of the visit. Pt states that she has issues chewing and swallowing, and was offered a mechanical soft diet. Pt report of eating breakfast. Pt stated her UBW is 130-140lbs and noted weight loss but was unsure of how much or a time frame. Pt was asked if she had received education on a renal diet at [facility] dialysis [place], she said no and refused any education or handout that was offered. Pt accepted Nepro. Noted temporal wasting. Per Physical Assessment, pt has bilat blade aligner strength weakness. Suggest SHERIFFS DETECTIVE consult Burn Absent Trauma Absent GI Symptoms None Difficulty In Swallowing,Chewing Food Allergy No Current % PO Poor (25-49%) Minimum of two criteria Yes Energy Intake (severe) < or equal to 50% Estimated Energy Requirement > or equal to 5 days Muscle Mass Moderate Depletion (severe) Reduced Chronograph Operator Strength Measurably Reduced (severe) #2 Nutrition Diagnosis Food and nutrition-related knowledge deficit Etiology no prior knowledge on renal diet As Evidenced by Signs and Symptoms refusal of all diet education and handouts #1 Nutrition Diagnosis Malnutrition Etiology Dementia, Carcinoma As Evidenced by Signs and Symptoms Pt not eating well TRAINING DEVELOPMENT SPECIALIST, 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 No Is Patient Ambulatory and/or Out of Bed No REE-([facility]-confined to bed) 1027.572 Calculation Used for Recommendations [facility] Additional Notes Protein:50-62 g/kg/day (1.2-1. 5 g/kg/day AdBW 41.5 kg) Fluid: 6601-1675 ml/day Nutrition Intervention Change Diet Order: Change to Renal with mechanical soft and consistent CHO modifications Add Supplement/Snack (indicate name/kcal Nepro Vanilla Daily /protein ) Provides kCal: 425 Provides Protein (gm) 20 Goal #1 Meet >75% of energy and protein needs Goal #2 SHERIFFS DETECTIVE consult recommendations Anticipated Discharge Needs: Renal Consistent CHO Mechanical Soft Follow-Up By: 06/12/19 Additional Comments Follow up for PO intake, ONS tolerance, and additional ONS need. SHERIFFS DETECTIVE recommendations
--- NOTE | 2019-06-12 12:02 | Progress Note ---
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 Patient was scheduled for surgery this morning. Runs of V-tach noted from overnight. She has been rescheduled to next week Saturday. This was discussed with Dr. Bolaños. Will follow-up with cardiology. - Patient Problems (1) Right breast cancer with T3 tumor, >5 cm in greatest dimension Current Visit: Yes Status: Acute Subjective Date of service: 06/12/19 Interval history: 79 year old postmenopausal lady with known diagnosis of right breast Invasive mammary carcinoma, grade 3, ER/NJ/Her2 negative, Ki-67 90-100%. Patient being evaluated for chest pain. Patient was seen and examined at the bedside in no acute distress. Overnight patient had runs of V-tach. She had been scheduled for surgery this morning for her right breast cancer. Objective - Exam Narrative Exam: Limited secondary to body habitus Right breast, no rash, no nipple inversion or discharge, positive large, firm mass right breast, very superficial, >5 cm grossly, in upper inner and outer quadrants. Left breast does not appear to have palpable masses, no skin changes, no nipple inversion or discharge. Limited axillary exam did not show enlarged lymph nodes. - Constitutional Vitals: Vital Signs - 12hr 06/12/19 06/12/19 06/12/19 00:03 02:40 03:16 Temperature 98.4 F 98.4 F Pulse Rate 101 H 112 H 94 H Respiratory 20 17 Rate Blood Pressure 115/46 Blood Pressure 118/52 [Right] O2 Sat by Pulse 98 92 Oximetry 06/12/19 06/12/19 06/12/19 04:16 06:03 07:59 Temperature 98.2 F 99.5 F Pulse Rate 97 H 101 H 99 H Respiratory 18 18 Rate Blood Pressure 126/55 126/60 Blood Pressure [Right] O2 Sat by Pulse 97 97 Oximetry 06/12/19 06/12/19 06/12/19 10:03 10:06 10:15 Temperature 98.6 F Pulse Rate 95 H 95 H 91 H Respiratory 18 Rate Blood Pressure 146/70 147/74 154/73 Blood Pressure [Right] O2 Sat by Pulse Oximetry 06/12/19 06/12/19 06/12/19 10:30 10:53 11:00 Temperature Pulse Rate 91 H 87 98 H Respiratory Rate Blood Pressure 140/71 153/71 118/63 Blood Pressure [Right] O2 Sat by Pulse Oximetry 06/12/19 06/12/19 11:15 11:30 Temperature Pulse Rate 97 H 97 H Respiratory Rate Blood Pressure 118/59 123/63 Blood Pressure [Right] O2 Sat by Pulse Oximetry General appearance: Present: no acute distress - EENT Eyes: PERRL, EOM intact - Neck Neck: supple - Respiratory Respiratory effort: normal - Breasts Breasts: mass Extremity abnormal: edema - Gastrointestinal General gastrointestinal: Present: deferred Rectal Exam: deferred - Genitourinary Female genitourinary: deferred - Integumentary Integumentary: warm - Psychiatric Psychiatric: cooperative - Labs CBC & Chem 7: 06/09/19 18:34 06/09/19 18:34 Labs: Abnormal lab results 06/11/19 06/11/19 06/11/19 Range/Units 11:24 16:41 21:16 POC Glucose 207 H < 40 L 247 H (70-105) 06/12/19 Range/Units 08:07 POC Glucose 129 H (70-105) Medications & Allergies - Medications Allergies/Adverse Reactions: Allergies No Known Allergies Allergy (Unverified 11/24/18 08:06) Home Medications: Home Medications Medication Instructions Recorded Confirmed Last Taken Type Acetaminophen 650 mg PO Q4H PRN 02/26/18 06/10/19 Unknown History AtorvaSTATin [Lipitor] 20 mg PO QHS 02/26/18 06/10/19 12/08/18 19:00 History Benzonatate 200 mg PO Q8H PRN 02/26/18 06/10/19 Unknown History Clobetasol Propionate [Clobetasol 1 dose TP Q12H PRN 02/26/18 06/10/19 Unknown History Propionate 0.05%] Docusate Sodium [Colace CAP] 100 mg PO BID 02/26/18 06/10/19 12/08/18 17:00 History Ergocalciferol (Vitamin D2) 50,000 unit PO QWEEK 02/26/18 06/10/19 12/08/18 09:00 History [Drisdol] Polyethylene Glycol 3350 [Miralax 17 gm PO QDAY PRN 02/26/18 06/10/19 Unknown History 3350] Sennosides [Senna] 2 tab PO QHS 02/26/18 06/10/19 12/08/18 19:00 History carvediloL [Coreg] 25 mg PO BID 02/26/18 06/10/19 12/08/18 17:00 History Insulin Regular, Human [Novolin R] 1 dose SQ ACHS PRN #1 vial 03/08/18 06/10/19 Unknown Rx Amlodipine Besylate/Benazepril 1 each PO QDAY 06/10/19 06/10/19 Unknown History [Lotrel 10-40 mg] Ergocalciferol (Vitamin D2) 50,000 unit PO DAILY 06/10/19 06/10/19 Unknown History [Drisdol] Insulin Glargine [Lantus VIAL] 20 unit SUB-Q QHS 06/10/19 06/10/19 Unknown History Omeprazole 20 mg PO DAILY 06/10/19 06/10/19 Unknown History Ondansetron [Zofran Odt] 4 mg PO Q8HR 06/10/19 06/10/19 Unknown History Potassium Chloride [Klor-Con 50 meq PO DAILY 06/10/19 06/10/19 Unknown History Sprinkle] Vit B Comp No.3/Folic/C/Biotin 1 each PO DAILY 06/10/19 06/10/19 Unknown History [Niyah-Jose F Rx Tablet] Active Medications: Generic Name Dose Route Start Last Admin Trade Name Freq PRN Reason Stop Dose Admin Acetaminophen 650 mg 06/09/19 18:55 Tylenol PO Q4H PRN Pain MILD(1-3)/Fever >100.5/LEDEZMA Atorvastatin Calcium 20 mg 06/09/19 22:00 06/11/19 21:47 Lipitor PO 20 mg QHS DESHAUN Administration Benzonatate 200 mg 06/09/19 22:00 06/12/19 05:26 Tessalon Perles PO 200 mg Q8HR DESHAUN Administration Carvedilol 6.25 mg 06/10/19 22:00 06/12/19 09:19 Coreg PO Not Given BID DESHAUN Clobetasol Propionate 1 applic 06/09/19 19:00 06/12/19 08:00 Temovate TP 1 applic Q12H DESHAUN Administration Cyproheptadine HCl 4 mg 06/09/19 20:00 06/12/19 08:00 Periactin PO 4 mg TID [facility] Administration Docusate Sodium 100 mg 06/09/19 22:00 06/12/19 09:17 Colace PO 100 mg BID DESHAUN Administration Ergocalciferol 50,000 unit 06/15/19 10:00 Vitamin D2 PO Tu [facility] Famotidine 20 mg 06/10/19 10:00 06/12/19 09:17 Pepcid PO 20 mg QDAY [facility] Administration Ferrous Sulfate 325 mg 06/09/19 22:00 06/12/19 09:18 Feosol PO 325 mg BID [facility] Administration Hydromorphone HCl 0.25 mg 06/09/19 18:07 Dilaudid IV Q3H PRN Pain, Moderate (4-6) Hydrophilic Ointment 1 applic 06/10/19 12:00 06/12/19 00:15 Aquaphor TP 1 applic Q12H DESHAUN Administration Sodium Chloride 100 mls @ 999 mls/hr 06/10/19 13:26 Nacl 0.9% IV CHRIS PRN Hypotension Insulin Human Lispro 0 unit 06/09/19 22:00 06/12/19 08:01 Humalog SUB-Q Not Given ACHS [facility] Protocol Magnesium Hydroxide 30 ml 06/09/19 22:00 06/11/19 21:46 Milk Of Magnesia PO 30 ml QHS [facility] Administration Multivit/Ca Carb/B Cmplx/FA/Prenat 1 cap 06/09/19 18:30 06/12/19 09:17 Renal Caps PO 1 cap QDAY [facility] Administration Ondansetron HCl 4 mg 06/09/19 18:55 Zofran IV Q8H PRN Nausea And Vomiting Oxycodone/Acetaminophen 1 tab 06/09/19 18:07 Percocet 5/325 PO Q6H PRN Pain, Moderate (4-6) Polyethylene Glycol 17 gm 06/09/19 17:54 Miralax 3350 PO QDAY PRN Constipation Senna 8.6 mg 06/09/19 22:00 06/12/19 05:38 Senokot PO Not Given QHS [facility] Sevelamer Carbonate 1,600 mg 06/09/19 20:00 06/12/19 08:00 Renvela PO 1,600 mg TID [facility] Administration Sodium Chloride 10 ml 06/09/19 22:00 06/12/19 09:18 Sodium Chloride Flush Syringe 10 Ml IV 10 ml BID DESHAUN Administration Sodium Chloride 10 ml 06/09/19 18:07 Sodium Chloride Flush Syringe 10 Ml IV PRN PRN LINE FLUSH
--- NOTE | 2019-06-12 16:00 | Progress Note ---
Assessment and Plan Echo reviewed - EF 55-60%, impaired relaxation, mild AR. Pt denies any occurrence of chest pain. ECG with NAF. CE elevation appears c/w NSTEMI type II. Will continue with conservative cardiac management. Pt is at moderate cardiovascular risk for contemplated breast surgery. There are no immediate cardiac contraindications to proceeding with contemplated surgery at this time. Will follow peripherally over the weekend. The patient has been seen in conjunction with Dr. Griffin Story who agrees with the assessment and plan of care. - Patient Problems (1) Breast cancer Current Visit: Yes Status: Suspected (2) ESRD on dialysis Current Visit: Yes Status: Chronic (3) Hypertension Current Visit: Yes Status: Chronic Qualifiers: Hypertension type: essential hypertension Qualified Code(s): I10 - Essential (primary) hypertension (4) Diabetes Current Visit: Yes Status: Chronic (5) Elevated TSH Current Visit: Yes Status: Chronic (6) Dementia Current Visit: Yes Status: Chronic (7) Debility Current Visit: Yes Status: Chronic (8) NSTEMI (non-ST elevated myocardial infarction) Current Visit: Yes Status: Acute Plan to address problem: type II Subjective Date of service: 06/12/19 Principal diagnosis: breast CA Interval history: pt resting in bed, no current complaints. asking for cigarettes. in SR. Objective Last Vital Signs Temp 98.6 F 06/12/19 10:03 Pulse 99 H 06/12/19 13:00 Resp 18 06/12/19 10:03 BP 117/56 06/12/19 13:00 Pulse Ox 98 06/12/19 10:00 - Physical Examination General: No Apparent Distress HEENT: Positive: PERRL, Normocephaly, Mucus Membranes Moist Neck: Positive: neck supple, trachea midline Cardiac: Positive: Reg Rate and Rhythm, S1/S2 Lungs: Positive: Decreased Breath Sounds Neuro: Positive: Grossly Intact Abdomen: Negative: Tender Skin: Positive: Other (BLE chronic skin changes) Extremities: Present: +2 Edema (BLE) - Imaging and Cardiology EKG: report reviewed, image reviewed Echo: report reviewed (02/2018 showed EF 40-45%, LV mildly dilated, mild-mod an terior wall hypokinesis, mild MR, ? bicuspid aortic valve, mild AR.) - EKG Sinus rhythms and dysrhythmias: sinus rhythm
--- NOTE | 2019-06-12 16:44 | Progress Note ---
Assessment and Plan Impression: * End stage renal disease on hemodialysis * Chest pain * Breast cancer, right * Hypertension * Type II DM * Hyponatremia * Metabolic acidosis * Anemia secondary to ESRD * Secondary hyperparathyroidism Plan: * Continue MWF schedule - HD today * UF as tolerated * Breast surgeon recommendations noted * Cardiology following * Epogen TIW prn * Renal diet * AM labs ordered Subjective Date of service: 06/12/19 Principal diagnosis: breast CA Interval history: No acute events overnight Objective - Vital Signs Vital signs: Vital Signs - 12hr 06/12/19 06/12/19 06/12/19 06:03 07:59 10:00 Temperature 99.5 F Pulse Rate 101 H 99 H Pulse Rate [ 99 H Apical] Pulse Rate [ 99 H Left Radial] Pulse Rate [ 99 H Right Radial] Respiratory 18 19 Rate Blood Pressure 126/60 O2 Sat by Pulse 97 98 Oximetry 06/12/19 06/12/19 06/12/19 10:03 10:06 10:15 Temperature 98.6 F Pulse Rate 95 H 95 H 91 H Pulse Rate [ Apical] Pulse Rate [ Left Radial] Pulse Rate [ Right Radial] Respiratory 18 Rate Blood Pressure 146/70 147/74 154/73 O2 Sat by Pulse Oximetry 06/12/19 06/12/19 06/12/19 10:30 10:53 11:00 Temperature Pulse Rate 91 H 87 98 H Pulse Rate [ Apical] Pulse Rate [ Left Radial] Pulse Rate [ Right Radial] Respiratory Rate Blood Pressure 140/71 153/71 118/63 O2 Sat by Pulse Oximetry 06/12/19 06/12/19 06/12/19 11:15 11:30 11:45 Temperature Pulse Rate 97 H 97 H 95 H Pulse Rate [ Apical] Pulse Rate [ Left Radial] Pulse Rate [ Right Radial] Respiratory Rate Blood Pressure 118/59 123/63 121/64 O2 Sat by Pulse Oximetry 06/12/19 06/12/19 06/12/19 12:00 12:15 12:30 Temperature Pulse Rate 95 H 101 H 98 H Pulse Rate [ Apical] Pulse Rate [ Left Radial] Pulse Rate [ Right Radial] Respiratory Rate Blood Pressure 126/62 113/51 112/57 O2 Sat by Pulse Oximetry 06/12/19 06/12/19 12:45 13:00 Temperature Pulse Rate 101 H 99 H Pulse Rate [ Apical] Pulse Rate [ Left Radial] Pulse Rate [ Right Radial] Respiratory Rate Blood Pressure 116/52 117/56 O2 Sat by Pulse Oximetry - General Appearance General appearance: well-developed, well-nourished EENT: ATNC Respiratory: Present: Clear to Ascultation Cardiology: regular, S1S2 Gastrointestinal: normal Neurologic: no focal deficit Psychiatric: cooperative - Lab 06/09/19 18:34 06/09/19 18:34 Most recent lab results Calcium 8.5 mg/dL (8.4-10.2) 06/09/19 18:34 Medications & Allergies - Medications Allergies/Adverse Reactions: Allergies No Known Allergies Allergy (Unverified 11/24/18 08:06) Home Medications: Home Medications Medication Instructions Recorded Confirmed Last Taken Type Acetaminophen 650 mg PO Q4H PRN 02/26/18 06/10/19 Unknown History AtorvaSTATin [Lipitor] 20 mg PO QHS 02/26/18 06/10/19 12/08/18 19:00 History Benzonatate 200 mg PO Q8H PRN 02/26/18 06/10/19 Unknown History Clobetasol Propionate [Clobetasol 1 dose TP Q12H PRN 02/26/18 06/10/19 Unknown History Propionate 0.05%] Docusate Sodium [Colace CAP] 100 mg PO BID 02/26/18 06/10/19 12/08/18 17:00 History Ergocalciferol (Vitamin D2) 50,000 unit PO QWEEK 02/26/18 06/10/19 12/08/18 09:00 History [Drisdol] Polyethylene Glycol 3350 [Miralax 17 gm PO QDAY PRN 02/26/18 06/10/19 Unknown History 3350] Sennosides [Senna] 2 tab PO QHS 02/26/18 06/10/19 12/08/18 19:00 History carvediloL [Coreg] 25 mg PO BID 02/26/18 06/10/19 12/08/18 17:00 History Insulin Regular, Human [Novolin R] 1 dose SQ ACHS PRN #1 vial 03/08/18 06/10/19 Unknown Rx Amlodipine Besylate/Benazepril 1 each PO QDAY 06/10/19 06/10/19 Unknown History [Lotrel 10-40 mg] Ergocalciferol (Vitamin D2) 50,000 unit PO DAILY 06/10/19 06/10/19 Unknown History [Drisdol] Insulin Glargine [Lantus VIAL] 20 unit SUB-Q QHS 06/10/19 06/10/19 Unknown History Omeprazole 20 mg PO DAILY 06/10/19 06/10/19 Unknown History Ondansetron [Zofran Odt] 4 mg PO Q8HR 06/10/19 06/10/19 Unknown History Potassium Chloride [Klor-Con 50 meq PO DAILY 06/10/19 06/10/19 Unknown History Sprinkle] Vit B Comp No.3/Folic/C/Biotin 1 each PO DAILY 06/10/19 06/10/19 Unknown History [Niyah-Jose F Rx Tablet] Active Medications: Generic Name Dose Route Start Last Admin Trade Name Freq PRN Reason Stop Dose Admin Acetaminophen 650 mg 06/09/19 18:55 Tylenol PO Q4H PRN Pain MILD(1-3)/Fever >100.5/LEDEMZA Atorvastatin Calcium 20 mg 06/09/19 22:00 06/11/19 21:47 Lipitor PO 20 mg QHS DESHAUN Administration Benzonatate 200 mg 06/09/19 22:00 06/12/19 15:00 Tessalon Perles PO 200 mg Q8HR DESHAUN Administration Carvedilol 6.25 mg 06/10/19 22:00 06/12/19 09:19 Coreg PO Not Given BID DESHAUN Clobetasol Propionate 1 applic 06/09/19 19:00 06/12/19 08:00 Temovate TP 1 applic Q12H DESHAUN Administration Cyproheptadine HCl 4 mg 06/09/19 20:00 06/12/19 15:03 Periactin PO 4 mg TID DESHAUN Administration Docusate Sodium 100 mg 06/09/19 22:00 06/12/19 09:17 Colace PO 100 mg BID DESHAUN Administration Ergocalciferol 50,000 unit 06/15/19 10:00 Vitamin D2 PO Tu DESHAUN Famotidine 20 mg 06/10/19 10:00 06/12/19 09:17 Pepcid PO 20 mg QDAY DESHAUN Administration Ferrous Sulfate 325 mg 06/09/19 22:00 06/12/19 09:18 Feosol PO 325 mg BID DESHAUN Administration Hydromorphone HCl 0.25 mg 06/09/19 18:07 Dilaudid IV Q3H PRN Pain, Moderate (4-6) Hydrophilic Ointment 1 applic 06/10/19 12:00 06/12/19 12:50 Aquaphor TP Not Given Q12H [facility] Sodium Chloride 100 mls @ 999 mls/hr 06/10/19 13:26 Nacl 0.9% IV CHRIS PRN Hypotension Insulin Human Lispro 0 unit 06/09/19 22:00 06/12/19 12:50 Humalog SUB-Q Not Given ACHS [facility] Protocol Magnesium Hydroxide 30 ml 06/09/19 22:00 06/11/19 21:46 Milk Of Magnesia PO 30 ml QHS [facility] Administration Multivit/Ca Carb/B Cmplx/FA/Prenat 1 cap 06/09/19 18:30 06/12/19 09:17 Renal Caps PO 1 cap QDAY DESHAUN Administration Ondansetron HCl 4 mg 06/09/19 18:55 Zofran IV Q8H PRN Nausea And Vomiting Oxycodone/Acetaminophen 1 tab 06/09/19 18:07 Percocet 5/325 PO Q6H PRN Pain, Moderate (4-6) Polyethylene Glycol 17 gm 06/09/19 17:54 Miralax 3350 PO QDAY PRN Constipation Senna 8.6 mg 06/09/19 22:00 06/12/19 05:38 Senokot PO Not Given QHS [facility] Sevelamer Carbonate 1,600 mg 06/09/19 20:00 06/12/19 15:03 Renvela PO 1,600 mg TID DESHAUN Administration Sodium Chloride 10 ml 06/09/19 22:00 06/12/19 09:18 Sodium Chloride Flush Syringe 10 Ml IV 10 ml BID DESHAUN Administration Sodium Chloride 10 ml 06/09/19 18:07 Sodium Chloride Flush Syringe 10 Ml IV PRN PRN LINE FLUSH
[2019-06-12 17:03] LABS: Basophils % (Auto) 0.6 % (0.0-1.8); Eosinophils # (Auto) 0.3 K/mm3 (0.0-0.4); Eosinophils % (Auto) 3.7 % (0.0-4.3); Hematocrit 35.5 % (30.3-42.9); Hemoglobin 11.7 gm/dl (10.1-14.3); Mean Corpuscular HGB Conc 33 % (30-34); Mean Corpuscular Volume 99 fl (79-97); Monocytes # (Auto) 0.6 K/mm3 (0.0-0.8); Monocytes % (Auto) 8.6 % (0.0-7.3); Platelet Count 208 K/mm3 (140-440); Red Cell Distribution Width 15.1 % (13.2-15.2)
[2019-06-12 17:22] LABS: Calcium 8.7 mg/dL (8.4-10.2)
[2019-06-12] MEDS: MAGNESIUM HYDROXIDE (MOM) ORAL LIQD UDC PO SCH (22:14)
[2019-06-13] MEDS: AQUAPHOR OINTMENT TP SCH ×2 (00:23→12:05)
[2019-06-13] MEDS: BENZONATATE 100 MG CAP PO SCH ×3 (06:14→22:14)
[2019-06-13 07:00] LABS: Basophils # (Auto) 0.1 K/mm3 (0.0-0.1); Eosinophils # (Auto) 0.5 K/mm3 (0.0-0.4); Eosinophils % (Auto) 5.7 % (0.0-4.3); Hematocrit 30.9 % (30.3-42.9); Hemoglobin 10.3 gm/dl (10.1-14.3); Lymphocytes # (Auto) 1.3 K/mm3 (1.2-5.4); Lymphocytes % (Auto) 16.6 % (13.4-35.0); Mean Corpuscular HGB Conc 33 % (30-34); Mean Corpuscular Volume 98 fl (79-97); Monocytes # (Auto) 0.9 K/mm3 (0.0-0.8); Monocytes % (Auto) 10.8 % (0.0-7.3); Platelet Count 209 K/mm3 (140-440); Red Blood Count 3.16 M/mm3 (3.65-5.03); Red Cell Distribution Width 14.9 % (13.2-15.2)
[2019-06-13 07:17] LABS: Calcium 8.6 mg/dL (8.4-10.2)
[2019-06-13] MEDS: SEVELAMER CARBONATE 800 MG TAB PO SCH ×3 (08:27→22:14)
[2019-06-13] MEDS: INSULIN LISPRO 100 UNIT/ML SUB-Q SCH ×4 (09:19→22:17)
[2019-06-13] MEDS: FERROUS SULFATE 325 MG TAB PO SCH ×2 (09:27→22:15)
[2019-06-13] MEDS: DOCUSATE SODIUM 100 MG CAP PO SCH ×2 (09:28→22:15)
[2019-06-13] MEDS: FAMOTIDINE 20 MG TAB PO SCH (09:28)
[2019-06-13] MEDS: FOLIC ACID/VIT B COMP W-C 1 MG (RENAL CAPS) PO SCH (09:28)
[2019-06-13] MEDS: CLOBETASOL 0.05% CREAM 15 GM TP SCH ×2 (09:46→22:17)
[2019-06-13] MEDS: CYPROHEPTADINE 4 MG TAB PO SCH ×3 (09:47→22:32)
[2019-06-13] MEDS: carvediloL 6.25 MG TAB PO SCH ×2 (09:56→22:14)
--- NOTE | 2019-06-13 12:37 | Progress Note ---
Assessment and Plan Impression: * End stage renal disease on hemodialysis * Chest pain * Breast cancer, right * Hypertension * Type II DM * Hyponatremia * Metabolic acidosis * Anemia secondary to ESRD * Secondary hyperparathyroidism Plan: * No acute need for HD today. Continue MWF schedule * UF as tolerated * Breast surgeon recommendations noted * Cardiology following * Epogen TIW prn * Renal diet * AM labs ordered Subjective Date of service: 06/13/19 Principal diagnosis: breast CA Interval history: Patient has no complaints today Objective - Vital Signs Vital signs: Vital Signs - 12hr 06/13/19 06/13/19 06/13/19 01:00 01:29 05:15 Temperature 98.9 F 98.3 F Pulse Rate 107 H 99 H Pulse Rate [ 102 H Apical] Pulse Rate [ 102 H Left Radial] Pulse Rate [ 102 H Right Radial] Respiratory 17 20 20 Rate Blood Pressure 108/46 Blood Pressure 155/52 [Right] O2 Sat by Pulse 98 97 99 Oximetry 06/13/19 06/13/19 09:56 10:00 Temperature Pulse Rate 95 H 95 H Pulse Rate [ Apical] Pulse Rate [ Left Radial] Pulse Rate [ Right Radial] Respiratory 18 Rate Blood Pressure 121/50 Blood Pressure [Right] O2 Sat by Pulse 98 Oximetry - General Appearance General appearance: well-developed, well-nourished EENT: ATNC Respiratory: Present: Clear to Ascultation Cardiology: regular, S1S2 Gastrointestinal: normal, no tenderness, no distended Psychiatric: cooperative - Lab 06/13/19 06:24 06/13/19 06:24 Most recent lab results Calcium 8.6 mg/dL (8.4-10.2) 06/13/19 06:24 Medications & Allergies - Medications Allergies/Adverse Reactions: Allergies No Known Allergies Allergy (Unverified 11/24/18 08:06) Home Medications: Home Medications Medication Instructions Recorded Confirmed Last Taken Type Acetaminophen 650 mg PO Q4H PRN 02/26/18 06/10/19 Unknown History AtorvaSTATin [Lipitor] 20 mg PO QHS 02/26/18 06/10/19 12/08/18 19:00 History Benzonatate 200 mg PO Q8H PRN 02/26/18 06/10/19 Unknown History Clobetasol Propionate [Clobetasol 1 dose TP Q12H PRN 02/26/18 06/10/19 Unknown History Propionate 0.05%] Docusate Sodium [Colace CAP] 100 mg PO BID 02/26/18 06/10/19 12/08/18 17:00 History Ergocalciferol (Vitamin D2) 50,000 unit PO QWEEK 02/26/18 06/10/19 12/08/18 09:00 History [Drisdol] Polyethylene Glycol 3350 [Miralax 17 gm PO QDAY PRN 02/26/18 06/10/19 Unknown History 3350] Sennosides [Senna] 2 tab PO QHS 02/26/18 06/10/19 12/08/18 19:00 History Insulin Regular, Human [Novolin R] 1 dose SQ ACHS PRN #1 vial 03/08/18 06/10/19 Unknown Rx Amlodipine Besylate/Benazepril 1 each PO QDAY 06/10/19 06/10/19 Unknown History [Lotrel 10-40 mg] Ergocalciferol (Vitamin D2) 50,000 unit PO DAILY 06/10/19 06/10/19 Unknown History [Drisdol] Insulin Glargine [Lantus VIAL] 20 unit SUB-Q QHS 06/10/19 06/10/19 Unknown History Omeprazole 20 mg PO DAILY 06/10/19 06/10/19 Unknown History Ondansetron [Zofran ODT TAB] 4 mg PO Q8HR 06/10/19 06/10/19 Unknown History Vit B Comp No.3/Folic/C/Biotin 1 each PO DAILY 06/10/19 06/10/19 Unknown History [Niyah-Jose F Rx Tablet] Clobetasol 0.05% [Temovate] 1 applic TP Q12H tube 06/13/19 Unknown Rx Cyproheptadine [Periactin] 4 mg PO TID tablet 06/13/19 Unknown Rx Famotidine [Pepcid] 20 mg PO QDAY #30 tablet 06/13/19 Unknown Rx Ferrous Sulfate [Feosol 325 MG tab] 325 mg PO BID tablet 06/13/19 Unknown Rx Folic Acid/Vit B Comp W-C [Renal 1 cap PO QDAY capsule 06/13/19 Unknown Rx Caps] Sevelamer Carbonate [Renvela] 1,600 mg PO TID tablet 06/13/19 Unknown Rx Skin Emollient [Aquaphor] 1 applic TP Q12H tube 06/13/19 Unknown Rx carvediloL [Coreg] 6.25 mg PO BID #60 tablet 06/13/19 Unknown Rx Active Medications: Generic Name Dose Route Start Last Admin Trade Name Freq PRN Reason Stop Dose Admin Acetaminophen 650 mg 06/09/19 18:55 Tylenol PO Q4H PRN Pain MILD(1-3)/Fever >100.5/LEDEZMA Atorvastatin Calcium 20 mg 06/09/19 22:00 06/12/19 22:13 Lipitor PO 20 mg QHS DESHAUN Administration Benzonatate 200 mg 06/09/19 22:00 06/13/19 06:14 Tessalon Perles PO 200 mg Q8HR DESHAUN Administration Carvedilol 6.25 mg 06/10/19 22:00 06/13/19 09:56 Coreg PO 6.25 mg BID DESHAUN Administration Clobetasol Propionate 1 applic 06/09/19 19:00 06/13/19 09:46 Temovate TP 1 applic Q12H DESHAUN Administration Cyproheptadine HCl 4 mg 06/09/19 20:00 06/13/19 09:47 Periactin PO 4 mg TID DESHAUN Administration Docusate Sodium 100 mg 06/09/19 22:00 06/13/19 09:28 Colace PO 100 mg BID DESHAUN Administration Ergocalciferol 50,000 unit 06/15/19 10:00 Vitamin D2 PO Tu DESHAUN Famotidine 20 mg 06/10/19 10:00 06/13/19 09:28 Pepcid PO 20 mg QDAY DESHAUN Administration Ferrous Sulfate 325 mg 06/09/19 22:00 06/13/19 09:27 Feosol PO 325 mg BID DESHAUN Administration Hydromorphone HCl 0.25 mg 06/09/19 18:07 Dilaudid IV Q3H PRN Pain, Moderate (4-6) Hydrophilic Ointment 1 applic 06/10/19 12:00 06/13/19 00:23 Aquaphor TP 1 applic Q12H DESHAUN Administration Sodium Chloride 100 mls @ 999 mls/hr 06/10/19 13:26 Nacl 0.9% IV CHRIS PRN Hypotension Insulin Human Lispro 0 unit 06/09/19 22:00 06/13/19 09:19 Humalog SUB-Q Not Given ACHS [facility] Protocol Magnesium Hydroxide 30 ml 06/09/19 22:00 06/12/19 22:14 Milk Of Magnesia PO 30 ml QHS DESHAUN Administration Multivit/Ca Carb/B Cmplx/FA/Prenat 1 cap 06/09/19 18:30 06/13/19 09:28 Renal Caps PO 1 cap QDAY DESHAUN Administration Ondansetron HCl 4 mg 06/09/19 18:55 Zofran IV Q8H PRN Nausea And Vomiting Oxycodone/Acetaminophen 1 tab 06/09/19 18:07 Percocet 5/325 PO Q6H PRN Pain, Moderate (4-6) Polyethylene Glycol 17 gm 06/09/19 17:54 Miralax 3350 PO QDAY PRN Constipation Senna 8.6 mg 06/09/19 22:00 06/12/19 22:14 Senokot PO 8.6 mg QHS DESHAUN Administration Sevelamer Carbonate 1,600 mg 06/09/19 20:00 06/13/19 08:27 Renvela PO 1,600 mg TID DESHAUN Administration Sodium Chloride 10 ml 06/09/19 22:00 06/13/19 09:36 Sodium Chloride Flush Syringe 10 Ml IV 10 ml BID DESHAUN Administration Sodium Chloride 10 ml 06/09/19 18:07 Sodium Chloride Flush Syringe 10 Ml IV PRN PRN LINE FLUSH
--- NOTE | 2019-06-13 12:55 | Discharge Summary ---
Providers - Providers Date of Admission: 06/09/19 16:22 Date of discharge: 06/13/19 Attending physician: DALE ENGLAND 06/09/19 18:55 Consult to Physician [CONS] Routine Comment: Consulting Provider: STELLA SHIPLEY Physician Instructions: Reason For Exam: right breast mass 06/09/19 18:57 Consult to Physician [CONS] Routine Comment: Consulting Provider: COLE LOPEZ Physician Instructions: Reason For Exam: end-stage renal disease 06/09/19 19:03 Consult to Physician [CONS] Routine Comment: Consulting Provider: KANDI WALLER Physician Instructions: Reason For Exam: chest pain 06/10/19 00:42 Consult to Wound/ET Nurse [CONS] Routine Reason For Exam: wound eval - BUE and BLE skin Primary care physician: SHARDA BRISCOE Hospitalization Condition: Fair Hospital course: Patient is 79-year-old -Polish female resident [facility] sn[facility] sent in for chest pain of 3 days' duration. No shortness of breath. Patient is a very poor historian. Patient also has a right breast mass. Patient has a history of insulin-dependent diabetes, dementia dysphagia, ESRD on dialysis. End stage renal disease on hemodialysis. Cont, HD per Nephrology Chest pain. ECG with NAF. Follow up with cardiology as outpatient Breast cancer, right. Breast surgery for Wed. Patient will be discharged and re-admit for surgery as per Surgeon Hypertension. Resume antihypertensive meds Type II DM. Tight glycemic control, accuchecks and SSRI Hyponatremia. Now resolved Anemia secondary to ESRD. Transfuse hgb < 7.0 LUE edema. Doppler negative Totaltime spent on discharge, 34 mins Disposition: DC/[place]-[address] [facility] - Discharge Diagnoses (1) Type 2 AMI (acute myocardial infarction) Status: Acute Comment: NSTEMI Type 2 (2) Breast mass, right Status: Acute (3) ESRD (end stage renal disease) Status: Acute (4) Nausea & vomiting Status: Acute Qualifiers: Vomiting type: unspecified Vomiting Intractability: non-intractable Qualified Code(s): R11.2 - Nausea with vomiting, unspecified (5) Dementia Status: Chronic Qualifiers: Dementia behavioral disturbance: without behavioral disturbance (6) Diabetes Status: Chronic (7) ESRD needing dialysis Status: Chronic (8) Hypertension Status: Chronic Qualifiers: Hypertension type: essential hypertension Qualified Code(s): I10 - Essential (primary) hypertension (9) Breast cancer Status: Suspected Core Measure Documentation - Palliative Care Palliative Care/ Comfort Measures: Not Applicable - Core Measures Any of the following diagnoses?: none Exam - Constitutional Vitals: Temp Pulse Resp BP Pulse Ox 98.3 F 95 H 18 121/50 98 06/13/19 05:15 06/13/19 10:00 06/13/19 10:00 06/13/19 09:56 06/13/19 10:00 Plan Activity: advance as tolerated Diet: low fat, low cholesterol, low salt, renal, other (Mechanical soft) Plan of Treatment: 1. Call office of Dr. Shipley Celina 06/16/19 2.To return For Breast surgery Sat06/17/19 3.Continue routine hemodialysis as scheduled Follow up with: SHARDA BRISCOE MD [Primary Care Provider] - 7 Days Prescriptions: carvediloL [Coreg] 6.25 mg PO BID #60 tablet
[2019-06-13] MEDS: SENNOSIDES 8.6 MG TAB PO SCH (22:16)
[2019-06-13] MEDS: MAGNESIUM HYDROXIDE (MOM) ORAL LIQD UDC PO SCH (22:32)
[2019-06-14] MEDS: BENZONATATE 100 MG CAP PO SCH (05:04)
[2019-06-14] MEDS: INSULIN LISPRO 100 UNIT/ML SUB-Q SCH ×2 (07:53→11:25)
[2019-06-14] MEDS: SEVELAMER CARBONATE 800 MG TAB PO SCH (08:02)
[2019-06-14] MEDS: CYPROHEPTADINE 4 MG TAB PO SCH (08:02)
[2019-06-14] MEDS: CLOBETASOL 0.05% CREAM 15 GM TP SCH (08:03)
[2019-06-14 08:49] VITALS: BP 135/62
[2019-06-14] MEDS: FOLIC ACID/VIT B COMP W-C 1 MG (RENAL CAPS) PO SCH (09:28)
[2019-06-14] MEDS: FERROUS SULFATE 325 MG TAB PO SCH (09:28)
[2019-06-14] MEDS: DOCUSATE SODIUM 100 MG CAP PO SCH (09:28)
[2019-06-14] MEDS: FAMOTIDINE 20 MG TAB PO SCH (09:28)
[2019-06-14] MEDS: carvediloL 6.25 MG TAB PO SCH (09:28)
--- NOTE | 2019-06-14 10:20 | Event Note ---
Date: 06/14/19 Patient stable to discharge to SNF. I have seen and examined her.
[2019-06-14] MEDS: AQUAPHOR OINTMENT TP SCH ×2 (11:14)
--- NOTE | 2019-06-14 12:34 | Progress Note ---
Assessment and Plan Assessment and plan: End stage renal disease on hemodialysis. Cont, HD per Nephrology Chest pain. ECG with NAF. Follow up with cardiology as outpatient Breast cancer, right. Breast surgery for Wed. Patient will be discharged and re-admit for surg. Hypertension. Resume antihypertensive meds Type II DM. Tight glycemic control, accuchecks and SSRI Hyponatremia. IVF recheck BMP Anemia secondary to ESRD. Transfuse hgb < 7.0 LUE edema. Doppler negative Discharge orders put in today but did not go. History Interval history: Feels better No chest pain Hospitalist Physical - Physical exam Narrative exam: Gen: Not in acute distress, lying in bed HEENT: Normocephalic, atraumatic Neck: supple, no JVD Heart: S1 and S2 reg, no murmurs, rubs or gallop Lungs: Clear to auscultation bilaterally, Abd: soft, non tender, non distended, normal BS, Ext: No edema, no clubbing, no cyanosis Neuro: Awake, alert, oriented X 3, No focal neurological signs - Constitutional Vitals: Temp Pulse Resp BP Pulse Ox 96.2 F L 91 H 18 135/62 98 06/14/19 07:27 06/14/19 10:00 06/14/19 10:00 06/14/19 09:28 06/14/19 10:00 General appearance: Present: no acute distress Results - Labs CBC & Chem 7: 06/13/19 06:24 06/13/19 06:24 Labs: Laboratory Last Values WBC 7.9 K/mm3 (4.5-11.0) 06/13/19 06:24 RBC 3.16 M/mm3 (3.65-5.03) L 06/13/19 06:24 Hgb 10.3 gm/dl (10.1-14.3) 06/13/19 06:24 Hct 30.9 % (30.3-42.9) 06/13/19 06:24 MCV 98 fl (79-97) H 06/13/19 06:24 MCH 33 pg (28-32) H 06/13/19 06:24 MCHC 33 % (30-34) 06/13/19 06:24 RDW 14.9 % (13.2-15.2) 06/13/19 06:24 Plt Count 209 K/mm3 (140-440) 06/13/19 06:24 Lymph % (Auto) 16.6 % (13.4-35.0) 06/13/19 06:24 Wise % (Auto) 10.8 % (0.0-7.3) H 06/13/19 06:24 Eos % (Auto) 5.7 % (0.0-4.3) H 06/13/19 06:24 Baso % (Auto) 1.0 % (0.0-1.8) 06/13/19 06:24 Lymph # 1.3 K/mm3 (1.2-5.4) 06/13/19 06:24 Wise # 0.9 K/mm3 (0.0-0.8) H 06/13/19 06:24 Eos # 0.5 K/mm3 (0.0-0.4) H 06/13/19 06:24 Baso # 0.1 K/mm3 (0.0-0.1) 06/13/19 06:24 Seg Neutrophils % 65.9 % (40.0-70.0) 06/13/19 06:24 Seg Neutrophils # 5.2 K/mm3 (1.8-7.7) 06/13/19 06:24 Sodium 137 mmol/L (137-145) 06/13/19 06:24 Potassium 4.2 mmol/L (3.6-5.0) 06/13/19 06:24 Chloride 97.7 mmol/L (98-107) L 06/13/19 06:24 Carbon Dioxide 28 mmol/L (22-30) 06/13/19 06:24 Anion Gap 16 mmol/L 06/13/19 06:24 BUN 15 mg/dL (7-17) 06/13/19 06:24 Creatinine 3.7 mg/dL (0.7-1.2) H D 06/13/19 06:24 Estimated GFR 14 ml/min 06/13/19 06:24 BUN/Creatinine Ratio 4 % 06/13/19 06:24 Glucose 119 mg/dL (65-100) H 06/13/19 06:24 POC Glucose 134 (70-105) H 06/14/19 11:33 Hemoglobin A1c 6.4 % (4-6) H 06/09/19 18:34 Calcium 8.6 mg/dL (8.4-10.2) 06/13/19 06:24 Total Bilirubin 0.30 mg/dL (0.1-1.2) 06/09/19 18:34 AST 22 units/L (5-40) 06/09/19 18:34 ALT 20 units/L (7-56) 06/09/19 18:34 Alkaline Phosphatase 144 units/L (35-129) H 06/09/19 18:34 Troponin T 0.225 ng/mL (0.00-0.029) H* 06/12/19 16:30 Total Protein 7.1 g/dL (6.3-8.2) 06/09/19 18:34 Albumin 3.5 g/dL (3.9-5) L 06/09/19 18:34 Albumin/Globulin Ratio 1.0 % 06/09/19 18:34 Triglycerides 87 mg/dL (2-149) 06/11/19 06:07 Cholesterol 108 mg/dL (50-199) 06/11/19 06:07 LDL Cholesterol Direct 61 mg/dL (50-130) 06/11/19 06:07 HDL Cholesterol 40 mg/dL (40-59) 06/11/19 06:07 Cholesterol/HDL Ratio 2.70 % 06/11/19 06:07 TSH 5.830 mlU/mL (0.270-4.200) H 06/09/19 18:34 Hepatitis A IgM Ab Non-reactive (NonReactive) 06/10/19 16:00 Hep Bs Antigen Non-reactive (Negative) 06/10/19 16:00 Hep B Core IgM Ab Non-reactive (NonReactive) 06/10/19 16:00 Hepatitis C Antibody Non-reactive (NonReactive) 06/10/19 16:00 Active Medications - Current Medications Current Medications: Generic Name Dose Route Start Last Admin Trade Name Freq PRN Reason Stop Dose Admin Acetaminophen 650 mg 06/09/19 18:55 Tylenol PO Q4H PRN Pain MILD(1-3)/Fever >100.5/LEDEZMA Atorvastatin Calcium 20 mg 06/09/19 22:00 06/13/19 22:15 Lipitor PO 20 mg QHS DESHAUN Administration Benzonatate 200 mg 06/09/19 22:00 06/14/19 05:04 Tessalon Perles PO 200 mg Q8HR DESHAUN Administration Carvedilol 6.25 mg 06/10/19 22:00 06/14/19 09:28 Coreg PO 6.25 mg BID DESHAUN Administration Clobetasol Propionate 1 applic 06/09/19 19:00 06/14/19 08:03 Temovate TP 1 applic Q12H DESHAUN Administration Cyproheptadine HCl 4 mg 06/09/19 20:00 06/14/19 08:02 Periactin PO 4 mg TID [facility] Administration Docusate Sodium 100 mg 06/09/19 22:00 06/14/19 09:28 Colace PO 100 mg BID [facility] Administration Ergocalciferol 50,000 unit 06/15/19 10:00 Vitamin D2 PO Tu [facility] Famotidine 20 mg 06/10/19 10:00 06/14/19 09:28 Pepcid PO 20 mg QDAY [facility] Administration Ferrous Sulfate 325 mg 06/09/19 22:00 06/14/19 09:28 Feosol PO 325 mg BID [facility] Administration Hydromorphone HCl 0.25 mg 06/09/19 18:07 Dilaudid IV Q3H PRN Pain, Moderate (4-6) Hydrophilic Ointment 1 applic 06/10/19 12:00 06/14/19 11:14 Aquaphor TP 1 applic Q12H DESHAUN Administration Sodium Chloride 100 mls @ 999 mls/hr 06/10/19 13:26 Nacl 0.9% IV CHRIS PRN Hypotension Insulin Human Lispro 0 unit 06/09/19 22:00 06/14/19 11:25 Humalog SUB-Q Not Given ACHS [facility] Protocol Magnesium Hydroxide 30 ml 06/09/19 22:00 06/13/19 22:32 Milk Of Magnesia PO 30 ml QHS [facility] Administration Multivit/Ca Carb/B Cmplx/FA/Prenat 1 cap 06/09/19 18:30 06/14/19 09:28 Renal Caps PO 1 cap QDAY [facility] Administration Ondansetron HCl 4 mg 06/09/19 18:55 Zofran IV Q8H PRN Nausea And Vomiting Oxycodone/Acetaminophen 1 tab 06/09/19 18:07 Percocet 5/325 PO Q6H PRN Pain, Moderate (4-6) Polyethylene Glycol 17 gm 06/09/19 17:54 Miralax 3350 PO QDAY PRN Constipation Senna 8.6 mg 06/09/19 22:00 06/13/19 22:16 Senokot PO 8.6 mg QHS DESHAUN Administration Sevelamer Carbonate 1,600 mg 06/09/19 20:00 06/14/19 08:02 Renvela PO 1,600 mg TID DESHAUN Administration Sodium Chloride 10 ml 06/09/19 22:00 06/14/19 09:29 Sodium Chloride Flush Syringe 10 Ml IV 10 ml BID DESHANU Administration Sodium Chloride 10 ml 06/09/19 18:07 Sodium Chloride Flush Syringe 10 Ml IV PRN PRN LINE FLUSH Nutrition/Malnutrition Assess - Dietary Evaluation Nutrition/Malnutrition Findings: Nutrition Notes Start: 06/10/19 12:37 Freq: Status: Active Protocol: Document 06/13/19 09:20 LP (Rec: 06/13/19 09:25 LP [id number]) Nutrition Notes Initial or Follow up Reassessment Current Diagnosis CKD (stage V CKD),Diabetes, Hypertension,Hyperlipidemia Other Pertinent Diagnosis on HD Dementia, dysphagia, Carcinoma, DVT, Psoriasis, Current Diet Mechanical soft renal Labs/Tests Reviewed Pertinent Medications Reviewed Height 4 ft 2 in Weight 60.1 kg [place] Body Weight (kg) 22.72 BMI 37.2 Subjective/Other Information Pt consuming 75-100% of meals. 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 Percent of energy/protein needs met: 100%/100% Burn Absent Trauma Absent Minimum of two criteria Yes Energy Intake (severe) < or equal to 50% Estimated Energy Requirement > or equal to 5 days Muscle Mass Moderate Depletion (severe) Reduced Stave Inspector Strength Measurably Reduced (severe) #2 Nutrition Diagnosis Food and nutrition-related knowledge deficit Diagnosis Progress(for reassessment Continues documentation) #1 Nutrition Diagnosis Malnutrition Diagnosis Progress(for reassessment Continues documentation) Is patient on ventilator? No Is Patient Ambulatory and/or Out of Bed No REE-([facility]-confined to bed) 1025.172 Calculation Used for Recommendations [facility] Additional Notes Protein:50-62 g/kg/day (1.2-1. 5 g/kg/day AdBW 41.5 kg) Fluid: 3609-8787 ml/day Nutrition Intervention Change Diet Order: Mechanical soft renal consistent CHO Add Supplement/Snack (indicate name/kcal Nepro Vanilla Daily /protein ) Provides kCal: 425 Provides Protein (gm) 20 Goal #1 Meet >75% of energy and protein needs Anticipated Discharge Needs: Mechanical soft renal consistent CHO diet with ONS as needed Follow-Up By: 06/17/19 Additional Comments Follow for stable intakes
[2019-06-15] MEDS ORDERED: ERGOCALCIFEROL (VIT D2) 50,000 UNIT CAP PO SCH (10:00)
== END 2019-06-14 12:00 | DRG 280 ==
LOC: 4A 15:28 → UNDOADMIN 15:28 → 4A 16:22
PROVIDERS: ADMIT Internal Medicine; ATTEND Internal Medicine
PROC: 5A1D70Z Performance of Urinary Filtration, Intermittent, Less than 6 Hours Per Day (ICD-10-PCS; principal; 2019-06-10)
PROC: 5A1D70Z Performance of Urinary Filtration, Intermittent, Less than 6 Hours Per Day (ICD-10-PCS; 2019-06-12)
DX: I21.A1 Myocardial infarction type 2 (principal); N18.6 End stage renal disease; E87.1 Hypo-osmolality and hyponatremia; E44.1 Mild protein-calorie malnutrition; I12.0 Hypertensive chronic kidney disease with stage 5 chronic kidney disease or end stage renal disease; E87.2 Acidosis; N25.81 Secondary hyperparathyroidism of renal origin; C50.911 Malignant neoplasm of unspecified site of right female breast; L40.9 Psoriasis, unspecified; I25.10 Atherosclerotic heart disease of native coronary artery without angina pectoris; E11.22 Type 2 diabetes mellitus with diabetic chronic kidney disease; E66.9 Obesity, unspecified; K21.9 Gastro-esophageal reflux disease without esophagitis; D63.1 Anemia in chronic kidney disease; F03.90 Unspecified dementia, unspecified severity, without behavioral disturbance, psychotic disturbance, mood disturbance, and anxiety; Z86.73 Personal history of transient ischemic attack (TIA), and cerebral infarction without residual deficits; Z68.38 Body mass index [BMI] 38.0-38.9, adult; Z86.718 Personal history of other venous thrombosis and embolism; Z79.899 Other long term (current) drug therapy; Z79.4 Long term (current) use of insulin
CPT/HCPCS: 36415; 80048; 80053; 80061; 80074; 82962; 83036; 84443; 84484; 85025; 93005; 93010; 93306; G0378; A9270-GY; J1815; J3246

== ENCOUNTER 2019-06-17 09:25 | Inpatient (IN) | payer MEDICARE ==
[2019-06-17] MEDS ORDERED: fentaNYL 100 MCG/2 ML INJ IV PRN (09:40)
[2019-06-17] MEDS ORDERED: ONDANSETRON 4 MG/2 ML INJ IV PRN (09:40)
--- NOTE | 2019-06-17 10:12 | Anesthesia Day of Surgery ---
Anesthesia Day of Surgery - Day of Surgery Patient Examined: Yes Patient H&P Reviewed: Yes Patient is NPO: Yes Beta Blockers: Yes
--- NOTE | 2019-06-17 10:16 | Anesthesia Consultation ---
Anesthesia Consult and Med Hx Date of service: 06/17/19 - Airway Anesthetic Teeth Evaluation: Edentulous ROM Head & Neck: Adequate Mental/Hyoid Distance: Adequate Mallampati Class: Class II Intubation Access Assessment: Good - Pre-Operative Health Status ASA Pre-Surgery Classification: ASA3 Proposed Anesthetic Plan: General - Pulmonary Hx Smoking: No Hx Asthma: No Hx Respiratory Symptoms: No SOB: No COPD: No Hx Pneumonia: No Hx Sleep Apnea: No - Cardiovascular System Hx Hypertension: Yes Hx Coronary Artery Disease: Yes (EF 40-45% ) Hx Heart Attack/AMI: Yes Hx Angina: No Hx Percutaneous Transluminal Coronary Angioplasty (PTCA): No Hx Cardia Arrhythmia: No Hx Pacemaker: No Hx Internal Defibrillator: No Hx Valvular Heart Disease: Yes (Mild AR) Hx Heart Murmur: No Hx Peripheral Vascular Disease: No - Central Nervous System Hx Neuromuscular Disorder: No Hx Seizures: No CVA: Yes Hx Back Pain: No Hx Psychiatric Problems: No (Dementia ) - Gastrointestinal Hx Ulcer: No Hx Gastroesophageal Reflux Disease: No (dysphagia ) - Endocrine Hx Renal Disease: Yes Hx End Stage Renal Disease: Yes Hx Cirrhosis: No Hx Liver Disease: No Hx Insulin Dependent Diabetes: Yes Hx Non-Insulin Dependent Diabetes: No Hx Thyroid Disease: Yes Hx Hypothyroidism: No Hx Hyperthyroidism: No - Hematic Hx Anemia: No Hx Sickle Cell Disease: No - Other Systems Hx Alcohol Use: No Hx Substance Use: No Hx Cancer: Yes (rt breast) Hx Obesity: Yes - Additional Comments Anesthesia Medical History Comments: senior care resident. +Cardiac clearance- moderate risk
[2019-06-17] MEDS ORDERED: HYDROmorphone 1 MG/1 ML INJ ONE (10:22)
[2019-06-17] MEDS ORDERED: PROPOFOL 200 MG/20 ML VIAL IV ONE ×2 (10:22→18:37)
[2019-06-17] MEDS ORDERED: LIDOCAINE MPF (2%) 20 MG/1 ML VIAL 5 ML ONE (10:23)
[2019-06-17 10:44] LABS: Basophils # (Auto) 0.1 K/mm3 (0.0-0.1); Basophils % (Auto) 0.8 % (0.0-1.8); Eosinophils # (Auto) 0.5 K/mm3 (0.0-0.4); Eosinophils % (Auto) 5.2 % (0.0-4.3); Hematocrit 30.3 % (30.3-42.9); Hemoglobin 10.5 gm/dl (10.1-14.3); Lymphocytes # (Auto) 1.4 K/mm3 (1.2-5.4); Lymphocytes % (Auto) 14.5 % (13.4-35.0); Mean Corpuscular HGB Conc 35 % (30-34); Mean Corpuscular Volume 97 fl (79-97); Monocytes # (Auto) 0.8 K/mm3 (0.0-0.8); Monocytes % (Auto) 8.2 % (0.0-7.3); Platelet Count 220 K/mm3 (140-440); Red Blood Count 3.14 M/mm3 (3.65-5.03); Red Cell Distribution Width 14.4 % (13.2-15.2)
[2019-06-17] MEDS ORDERED: MIDAZOLAM 2 MG/2 ML INJ IV NR (11:00)
[2019-06-17] MEDS ORDERED: carvediloL 6.25 MG TAB PO ONE (11:00)
[2019-06-17] MEDS ORDERED: SODIUM CHLORIDE 0.9% 1000 ML 1,000 ML IV SCH (11:00)
[2019-06-17] MEDS ORDERED: ceFAZolin/STERILE WATER 2 GM/20 ML SYRINGE IV NR (16:28)
--- NOTE | 2019-06-17 18:00 | Operative Report ---
Operative Report Operative Report: Date of Service: June 17, 2019 Preoperative diagnosis: Right breast cancer of the upper outer and inner qu adrants Postoperative diagnosis: Same Procedure: Right total mastectomy Surgeon: Tessy Shipley M.D. Emergency Management Coordinator: Flor Badillo M.D. Anesthesia: Gen. 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 Patient has multiple medical conditions including ESRD on hemodialysis. Patient was seen by Medical Oncology and deemed not a good candidate for chemotherapy. She was also evaluated by Radiation Oncology. Due to the fact that she is not a candidate for chemotherapy, her multiple medical conditions and that she has a very aggressive cancer which is growing closer and closer to her skin, decision was made to perform a mastectomy. This was all discussed with her son Robbi and [id number]. Procedure in detail: The patient was taken to the operating room and was placed supine on the operating table. General anesthesia was administered. The right chest and axilla were prepped and draped in the normal sterile operative fashion. A timeout was performed where the name of the patient, intended operation and side were confirmed. An angled elliptical mastectomy incision marking was made to encompass the nipple areola complex as well as the mass. The superior flap was raised first to the level of the clavicle superiorly, avoiding her dialysis catheter. Followed by raising of the medial flap to the level of the sternum and posteriorly to the pectoralis muscle. Followed by raising of the lateral flap to the level of the latissimus dorsi muscle and taken down posteriorly. Followed by raising of the inferior flap to the level of the inframammary fold taken posterior to the pectoralis muscle. The breast was then removed from medial to lateral off of the pectoralis muscle without incident. The specimen was appropriately marked and sent to pathology. Hemostasis was obtained. A 19 Fr drain was left in the cavity bed and secured to her skin. A Amanda dressing was placed. Patient tolerated the procedure well.
[2019-06-17] MEDS ORDERED: NEOSTIGMINE 10MG/10 ML INJ MDV ONE (18:17)
[2019-06-17] MEDS ORDERED: ROCURONIUM 50 MG/5 ML INJ IV ONE ×2 (18:17→18:37)
[2019-06-17] MEDS ORDERED: dexAMETHasone 20 MG/5 ML VIAL ONE (18:17)
[2019-06-17] MEDS ORDERED: PHENYLEPHRINE/NS 1,000 MCG/10 ML SYRINGE (OR USE) IV ONE (18:17)
[2019-06-17] MEDS ORDERED: ONDANSETRON 4 MG/2 ML INJ ONE (18:17)
[2019-06-17] MEDS ORDERED: GLYCOPYRROLATE 0.4 MG/2 ML INJ ONE (18:17)
[2019-06-17] MEDS ORDERED: fentaNYL 250 MCG/5 ML INJ ONE (18:37)
[2019-06-17] MEDS ORDERED: BACITRACIN ZINC OINT 28.4 GM TP ONE ×2 (21:12→21:30)
--- NOTE | 2019-06-17 22:18 | Post Operative Note ---
Pre-op diagnosis: Right Breast Cancer Post-op diagnosis: same Procedure: Right Total Mastectomy Anesthesia: EDITHA Surgeon: STELLA TRONCOSO Electrical Mechanical Technician: REA SOLOMON Estimated blood loss: minimal (50 ml) Pathology: list Specimen disposition: to lab Condition: stable Disposition: PACU (Patient admitted by Hospitalist Dr. Oh)
--- NOTE | 2019-06-17 22:55 | History and Physical Report ---
Medications and Allergies Allergies Allergy/AdvReac Type Severity Reaction Status Date / Time No Known Allergies Allergy Unverified 11/24/18 08:06 Home Medications Medication Instructions Recorded Confirmed Last Taken Type Acetaminophen 650 mg PO Q4H PRN 02/26/18 06/17/19 Unknown History AtorvaSTATin [Lipitor] 20 mg PO QHS 02/26/18 06/17/19 06/16/19 History Benzonatate 200 mg PO Q8H PRN 02/26/18 06/17/19 06/16/19 History Clobetasol Propionate [Clobetasol 1 dose TP Q12H PRN 02/26/18 06/17/19 Unknown History Propionate 0.05%] Docusate Sodium [Colace CAP] 100 mg PO BID 02/26/18 06/17/19 06/16/19 History Ergocalciferol (Vitamin D2) 50,000 unit PO QWEEK 02/26/18 06/17/19 12/08/18 09:00 History [Drisdol] Polyethylene Glycol 3350 [Miralax 17 gm PO QDAY PRN 02/26/18 06/17/19 06/16/19 History 3350] Sennosides [Senna] 2 tab PO QHS 02/26/18 06/17/19 06/16/19 History Insulin Regular, Human [Novolin R] 1 dose SQ ACHS PRN #1 vial 03/08/18 06/17/19 06/16/19 Rx Amlodipine Besylate/Benazepril 1 each PO QDAY 06/10/19 06/17/19 06/16/19 History [Lotrel 10-40 mg] Ergocalciferol (Vitamin D2) 50,000 unit PO DAILY 06/10/19 06/17/19 06/16/19 History [Drisdol] Insulin Glargine [Lantus VIAL] 20 unit SUB-Q QHS 06/10/19 06/17/19 06/16/19 History Omeprazole 20 mg PO DAILY 06/10/19 06/17/19 06/16/19 History Ondansetron [Zofran ODT TAB] 4 mg PO Q8HR 06/10/19 06/17/19 06/16/19 History Vit B Comp No.3/Folic/C/Biotin 1 each PO DAILY 12/10/2406/17/19 06/16/19 History [Niyah-Jose F Rx Tablet] Clobetasol 0.05% [Temovate] 1 applic TP Q12H tube 06/13/19 06/17/19 06/16/19 Rx Cyproheptadine [Periactin] 4 mg PO TID tablet 06/13/19 06/17/19 06/16/19 Rx Famotidine [Pepcid] 20 mg PO QDAY #30 tablet 06/13/19 06/17/19 06/16/19 Rx Ferrous Sulfate [Feosol 325 MG tab] 325 mg PO BID tablet 06/13/19 06/17/19 06/16/19 Rx Folic Acid/Vit B Comp W-C [Renal 1 cap PO QDAY capsule 06/13/19 06/17/19 06/16/19 Rx Caps] Sevelamer Carbonate [Renvela] 1,600 mg PO TID tablet 06/13/19 06/17/19 06/16/19 Rx Skin Emollient [Aquaphor] 1 applic TP Q12H tube 06/13/19 06/17/19 06/16/19 Rx carvediloL [Coreg] 6.25 mg PO BID #60 tablet 06/13/19 06/17/19 06/17/19 10:45 Rx Active Meds: Active Medications Cefazolin Sodium (Ancef/Sterile Water 2 Gm/20 Ml) 2 gm IV PREOP NR Stop: 06/17/19 23:59 Fentanyl (Sublimaze) 50 mcg IV Q5MIN PRN PRN Reason: Pain , Severe (7-10) Stop: 06/17/19 23:00 Sodium Chloride (Nacl 0.9% 1000 Ml) 1,000 mls @ 42 mls/hr IV DIRECT DESHAUN Last Admin: 06/17/19 10:30 Dose: 42 mls/hr Documented by: Midazolam HCl (Versed) 2 mg IV PREOP NR Stop: 06/17/19 23:59 Last Admin: 06/17/19 10:45 Dose: 2 mg Documented by: Exam - Constitutional Vitals: Temp Pulse Resp BP Pulse Ox 97.1 F L 81 12 118/63 100 06/17/19 21:53 06/17/19 22:30 06/17/19 22:30 06/17/19 22:30 06/17/19 22:30 Results - Labs CBC & Chem 7: 06/17/19 10:30 06/17/19 10:30 Labs: Abnormal lab results 06/17/19 06/17/19 Range/Units 10:30 10:30 RBC 3.14 L (3.65-5.03) M/mm3 MCH 33 H (28-32) pg MCHC 35 H (30-34) % [place] % (Auto) 8.2 H (0.0-7.3) % Eos % (Auto) 5.2 H (0.0-4.3) % Eos # 0.5 H (0.0-0.4) K/mm3 Seg Neutrophils % 71.3 H (40.0-70.0) % Sodium 133 L (137-145) mmol/L Chloride 95.3 L (98-107) mmol/L BUN 30 H (7-17) mg/dL Creatinine 3.5 H (0.7-1.2) mg/dL Glucose 101 H (65-100) mg/dL
[2019-06-17] MEDS ORDERED: CLOBETASOL PROPIONATE TP PRN (23:01)
[2019-06-17] MEDS ORDERED: POLYETHYLENE GLYCOL 3350 17 GM POWDER PO PRN (23:01)
[2019-06-17] MEDS ORDERED: ACETAMINOPHEN 325 MG TAB PO PRN (23:01)
[2019-06-17] MEDS ORDERED: BENZONATATE 200 MG PO PRN (23:01)
[2019-06-17] MEDS ORDERED: BENZONATATE 100 MG CAP PO PRN (23:25)
[2019-06-18] MEDS: CLOBETASOL 0.05% CREAM 15 GM TP SCH ×3 (01:54→22:46)
[2019-06-18] MEDS: AQUAPHOR OINTMENT TP SCH ×3 (01:54→22:23)
[2019-06-18] MEDS: ONDANSETRON 4 MG ODT TAB PO SCH ×3 (06:40→22:44)
--- NOTE | 2019-06-18 08:57 | Progress Note ---
Assessment and Plan 79 year old lady s/p Right pallliative mastectomy for right breast cancer. Deemed not a good candidate for chemotherapy by Medical Oncology. She is followed as an outpatient by Dr. Sheffield. Patient to be evaluated for pain control. Amanda dressing to stay on patient until follow-up [facility]. From surgical stand point, patient is cleared for discharge. - Patient Problems (1) Breast mass, right Current Visit: No Status: Acute Subjective Date of service: 06/18/19 Principal diagnosis: Right Breast Cancer, s/p Right Mastectomy Interval history: Patient seen and examined at the bedside in no acute distress, asking for breakfast. No acute events overnight. Amanda dressing in place and functioning. CHEMA drain in place and functioning with 90 ml of sanguinous fluid emptied by Nurse Aram this morning. Objective - Constitutional Vitals: Vital Signs - 12hr 06/17/19 06/17/19 06/17/19 21:53 21:58 22:03 Temperature 97.1 F L Pulse Rate 80 81 88 Respiratory 12 12 12 Rate Blood Pressure 94/34 98/34 100/56 Blood Pressure [Left] O2 Sat by Pulse 100 100 100 Oximetry 06/17/19 06/17/19 06/17/19 22:08 22:23 22:30 Temperature 97.3 F L Pulse Rate 89 89 81 Respiratory 12 12 12 Rate Blood Pressure 122/63 116/62 118/63 Blood Pressure [Left] O2 Sat by Pulse 100 100 100 Oximetry 06/17/19 06/17/19 06/17/19 22:45 23:00 23:30 Temperature Pulse Rate 76 84 80 Respiratory 12 14 15 Rate Blood Pressure 130/64 137/63 132/64 Blood Pressure [Left] O2 Sat by Pulse 100 100 100 Oximetry 06/17/19 06/18/19 06/18/19 23:59 00:20 05:51 Temperature 97.5 F L Pulse Rate 70 89 Respiratory 16 17 20 Rate Blood Pressure 130/61 Blood Pressure 148/60 [Left] O2 Sat by Pulse 99 100 Oximetry 06/18/19 07:47 Temperature 97.4 F L Pulse Rate 75 Respiratory 20 Rate Blood Pressure 143/63 Blood Pressure [Left] O2 Sat by Pulse 97 Oximetry General appearance: Present: no acute distress - EENT Eyes: PERRL, EOM intact - Respiratory Respiratory effort: normal - Breasts Breasts: other (S/p Right mastectomy, CHEMA drain in place and functioning, Amanda dressing in place and functioning) Extremity abnormal: edema - Gastrointestinal General gastrointestinal: Present: deferred Rectal Exam: deferred - Genitourinary Female genitourinary: deferred - Integumentary Integumentary: warm, dry - Musculoskeletal Musculoskeletal: generalized weakness - Psychiatric Psychiatric: cooperative - Labs CBC & Chem 7: 06/17/19 10:30 06/17/19 10:30 Labs: Abnormal lab results 06/17/19 06/17/19 Range/Units 10:30 10:30 RBC 3.14 L (3.65-5.03) M/mm3 MCH 33 H (28-32) pg MCHC 35 H (30-34) % [place] % (Auto) 8.2 H (0.0-7.3) % Eos % (Auto) 5.2 H (0.0-4.3) % Eos # 0.5 H (0.0-0.4) K/mm3 Seg Neutrophils % 71.3 H (40.0-70.0) % Sodium 133 L (137-145) mmol/L Chloride 95.3 L (98-107) mmol/L BUN 30 H (7-17) mg/dL Creatinine 3.5 H (0.7-1.2) mg/dL Glucose 101 H (65-100) mg/dL Medications & Allergies - Medications Allergies/Adverse Reactions: Allergies No Known Allergies Allergy (Unverified 11/24/18 08:06) Home Medications: Home Medications Medication Instructions Recorded Confirmed Last Taken Type Acetaminophen 650 mg PO Q4H PRN 02/26/18 06/17/19 Unknown History AtorvaSTATin [Lipitor] 20 mg PO QHS 02/26/18 06/17/19 06/16/19 History Benzonatate 200 mg PO Q8H PRN 02/26/18 06/17/19 06/16/19 History Clobetasol Propionate [Clobetasol 1 dose TP Q12H PRN 02/26/18 06/17/19 Unknown History Propionate 0.05%] Docusate Sodium [Colace CAP] 100 mg PO BID 02/26/18 06/17/19 06/16/19 History Ergocalciferol (Vitamin D2) 50,000 unit PO QWEEK 02/26/18 06/17/19 12/08/18 09:00 History [Drisdol] Polyethylene Glycol 3350 [Miralax 17 gm PO QDAY PRN 02/26/18 06/17/19 06/16/19 History 3350] Sennosides [Senna] 2 tab PO QHS 02/26/18 06/17/19 06/16/19 History Insulin Regular, Human [Novolin R] 1 dose SQ ACHS PRN #1 vial 03/08/18 06/17/19 06/16/19 Rx Amlodipine Besylate/Benazepril 1 each PO QDAY 06/10/19 06/17/19 06/16/19 History [Lotrel 10-40 mg] Ergocalciferol (Vitamin D2) 50,000 unit PO DAILY 06/10/19 06/17/19 06/16/19 History [Drisdol] Insulin Glargine [Lantus VIAL] 20 unit SUB-Q QHS 06/10/19 06/17/19 06/16/19 History Omeprazole 20 mg PO DAILY 06/10/19 06/17/19 06/16/19 History Ondansetron [Zofran ODT TAB] 4 mg PO Q8HR 06/10/19 06/17/19 06/16/19 History Vit B Comp No.3/Folic/C/Biotin 1 each PO DAILY 06/10/19 06/17/19 06/16/19 Hi story [Niyah-Jose F Rx Tablet] Clobetasol 0.05% [Temovate] 1 applic TP Q12H tube 06/13/19 06/17/19 06/16/19 Rx Cyproheptadine [Periactin] 4 mg PO TID tablet 06/13/19 06/17/19 06/16/19 Rx Famotidine [Pepcid] 20 mg PO QDAY #30 tablet 06/13/19 06/17/19 06/16/19 Rx Ferrous Sulfate [Feosol 325 MG tab] 325 mg PO BID tablet 06/13/19 06/17/19 06/16/19 Rx Folic Acid/Vit B Comp W-C [Renal 1 cap PO QDAY capsule 06/13/19 06/17/19 06/16/19 Rx Caps] Sevelamer Carbonate [Renvela] 1,600 mg PO TID tablet 06/13/19 06/17/19 06/16/19 Rx Skin Emollient [Aquaphor] 1 applic TP Q12H tube 06/13/19 06/17/19 06/16/19 Rx carvediloL [Coreg] 6.25 mg PO BID #60 tablet 06/13/19 06/17/19 06/17/19 10:45 Rx Active Medications: Generic Name Dose Route Start Last Admin Trade Name Freq PRN Reason Stop Dose Admin Acetaminophen 650 mg 06/17/19 23:01 Tylenol PO Q4H PRN Pain, Moderate (4-6) Amlodipine Besylate 10 mg 06/18/19 10:00 Amlodipine PO QDAY [facility] Atorvastatin Calcium 20 mg 06/18/19 22:00 Lipitor PO QHS [facility] Benzonatate 200 mg 06/17/19 23:25 Tessalon Perles PO Q8HR PRN Cough Carvedilol 6.25 mg 06/18/19 10:00 Coreg PO BID [facility] Clobetasol Propionate 1 applic 06/17/19 23:45 06/18/19 01:54 Temovate TP Not Given Q12HR [facility] Cyproheptadine HCl 4 mg 06/18/19 08:00 Periactin PO TID [facility] Docusate Sodium 100 mg 06/18/19 10:00 Colace PO BID [facility] Ergocalciferol 50,000 unit 06/18/19 10:00 Vitamin D2 PO Th [facility] Ferrous Sulfate 325 mg 06/18/19 10:00 Feosol PO BID [facility] Hydrophilic Ointment 1 applic 06/17/19 23:45 06/18/19 01:54 Aquaphor TP Not Given Q12HR [facility] Sodium Chloride 1,000 mls @ 42 mls/hr 06/17/19 11:00 06/17/19 10:30 Nacl 0.9% 1000 Ml IV 42 mls/hr DIRECT [facility] Administration Insulin Glargine 20 units 06/18/19 22:00 Lantus SUB-Q QHS [facility] Lisinopril 40 mg 06/18/19 10:00 Zestril PO QDAY [facility] Multivit/Ca Carb/B Cmplx/FA/Prenat 1 cap 06/18/19 10:00 Renal Caps PO QDAY [facility] Ondansetron HCl 4 mg 06/18/19 06:00 06/18/19 06:40 Zofran Odt PO Not Given Q8HR DESHA[facility] Pantoprazole Sodium 20 mg 06/18/19 10:00 Protonix PO QDAY [facility] Polyethylene Glycol 17 gm 06/17/19 23:01 Miralax 3350 PO QDAY PRN Constipation Senna 17.2 mg 06/18/19 22:00 Senokot PO QHS [facility] Sevelamer Carbonate 1,600 mg 06/18/19 08:00 Renvela PO TIDWM DESHAUN
[2019-06-18] MEDS: amLODIPine 10 MG TAB PO SCH (09:43)
[2019-06-18] MEDS: carvediloL 6.25 MG TAB PO SCH ×2 (09:43→22:20)
[2019-06-18] MEDS: SEVELAMER CARBONATE 800 MG TAB PO SCH ×3 (09:43→16:48)
[2019-06-18] MEDS: LISINOPRIL 40 MG TAB PO SCH (09:43)
[2019-06-18] MEDS: DOCUSATE SODIUM 100 MG CAP PO SCH ×2 (09:43→22:19)
[2019-06-18] MEDS: PANTOPRAZOLE 20 MG TAB PO SCH (09:44)
[2019-06-18] MEDS: FERROUS SULFATE 325 MG TAB PO SCH ×2 (09:44→22:20)
[2019-06-18] MEDS: FOLIC ACID/VIT B COMP W-C 1 MG (RENAL CAPS) PO SCH (09:44)
[2019-06-18] MEDS ORDERED: [UNRECOGNIZED DRUG - REMARK] PO SCH (10:00)
[2019-06-18] MEDS ORDERED: BENAZEPRIL PO SCH (10:00)
[2019-06-18] MEDS ORDERED: AMLODIPINE BESYLATE PO SCH (10:00)
[2019-06-18] MEDS ORDERED: FAMOTIDINE 20 MG TAB PO SCH (10:00)
[2019-06-18] MEDS ORDERED: ERGOCALCIFEROL (VIT D2) 50,000 UNIT CAP PO SCH ×2 (10:00)
[2019-06-18] MEDS ORDERED: NON-FORMULARY EACH (Omeprazole [Omeprazole] 20 MG) PO SCH (10:00)
[2019-06-18] MEDS: CYPROHEPTADINE 4 MG TAB PO SCH ×3 (11:25→22:32)
[2019-06-18] MEDS ORDERED: oxyCODONE /ACETAMINOPHEN 5-325MG TAB PO PRN (12:01)
--- NOTE | 2019-06-18 12:23 | History and Physical Report ---
History of Present Illness Chief complaint: breast mass History of present illness: 79 YO Female [facility] Facility Resident at [facility] with ESRD on HD, DM, HTN, HLD, Dementia, Dysphagia admitted directly at the request of Dr. Shipley for ESRD S/P Right Mastectomy. Pt admitted to [facility]. Pt seen and evaluated upon arrival to her room. Pt is in mild distress. Pt is lethargic. Pt has ESRD and is in need of dialysis. Nephrology consulted. No reports of fever, chills, CP, Palpitations, NVD, Trauma, productive cough, skin rash or recent ill contacts. Past History Past Medical History: other (see HPI) Past Surgical History: mastectomy, Other (AV fistula) Social history: single. denies: smoking, alcohol abuse, prescription drug abuse Family history: diabetes, hypertension Medications and Allergies Allergies Allergy/AdvReac Type Severity Reaction Status Date / Time No Known Allergies Allergy Unverified 11/24/18 08:06 Home Medications Medication Instructions Recorded Confirmed Last Taken Type Acetaminophen 650 mg PO Q4H PRN 02/26/18 06/17/19 Unknown History AtorvaSTATin [Lipitor] 20 mg PO QHS 02/26/18 06/17/19 06/16/19 History Benzonatate 200 mg PO Q8H PRN 02/26/18 06/17/19 06/16/19 History Clobetasol Propionate [Clobetasol 1 dose TP Q12H PRN 02/26/18 06/17/19 Unknown History Propionate 0.05%] Docusate Sodium [Colace CAP] 100 mg PO BID 02/26/18 06/17/19 06/16/19 History Ergocalciferol (Vitamin D2) 50,000 unit PO QWEEK 02/26/18 06/17/19 12/08/18 09:00 History [Drisdol] Polyethylene Glycol 3350 [Miralax 17 gm PO QDAY PRN 02/26/18 06/17/19 06/16/19 History 3350] Sennosides [Senna] 2 tab PO QHS 02/26/18 06/17/19 06/16/19 History Insulin Regular, Human [Novolin R] 1 dose SQ ACHS PRN #1 vial 03/08/18 06/17/19 06/16/19 Rx Amlodipine Besylate/Benazepril 1 each PO QDAY 06/10/19 06/17/19 06/16/19 History [Lotrel 10-40 mg] Ergocalciferol (Vitamin D2) 50,000 unit PO DAILY 06/10/19 06/17/19 06/16/19 History [Drisdol] Insulin Glargine [Lantus VIAL] 20 unit SUB-Q QHS 06/10/19 06/17/19 06/16/19 History Omeprazole 20 mg PO DAILY 06/10/19 06/17/19 06/16/19 History Ondansetron [Zofran ODT TAB] 4 mg PO Q8HR 06/10/19 06/17/19 06/16/19 History Vit B Comp No.3/Folic/C/Biotin 1 each PO DAILY 06/10/19 06/17/19 06/16/19 H istory [Niyah-Jose F Rx Tablet] Clobetasol 0.05% [Temovate] 1 applic TP Q12H tube 06/13/19 06/17/19 06/16/19 Rx Cyproheptadine [Periactin] 4 mg PO TID tablet 06/13/19 06/17/19 06/16/19 Rx Famotidine [Pepcid] 20 mg PO QDAY #30 tablet 06/13/19 06/17/19 06/16/19 Rx Ferrous Sulfate [Feosol 325 MG tab] 325 mg PO BID tablet 06/13/19 06/17/19 06/16/19 Rx Folic Acid/Vit B Comp W-C [Renal 1 cap PO QDAY capsule 06/13/19 06/17/19 06/16/19 Rx Caps] Sevelamer Carbonate [Renvela] 1,600 mg PO TID tablet 06/13/19 06/17/19 06/16/19 Rx Skin Emollient [Aquaphor] 1 applic TP Q12H tube 06/13/19 06/17/19 06/16/19 Rx carvediloL [Coreg] 6.25 mg PO BID #60 tablet 06/13/19 06/17/19 06/17/19 10:45 Rx oxyCODONE /ACETAMINOPHEN [Percocet 1 tab PO Q6H PRN #12 tablet 06/19/19 Unknown Rx 5/325 mg] Exam - Constitutional General appearance: Present: mild distress, well-nourished - EENT Eyes: Present: PERRL ENT: hearing intact, clear oral mucosa - Neck Neck: Present: supple, normal ROM - Respiratory Respiratory effort: normal Respiratory: bilateral: CTA - Cardiovascular Heart Sounds: Present: S1 & S2. Absent: rub, click - Extremities Extremities: pulses symmetrical, No edema Peripheral Pulses: within normal limits - Abdominal General gastrointestinal: Present: soft, non-tender, non-distended, normal bowel sounds Female genitourinary: Present: normal - Integumentary Integumentary: Present: clear, warm, dry - Musculoskeletal Musculoskeletal: gait normal, strength equal bilaterally - Psychiatric Psychiatric: appropriate mood/affect, intact judgment & insight - Neurologic Neurologic: CNII-XII intact, moves all extremities Results - Labs CBC & Chem 7: 06/17/19 10:30 06/17/19 10:30 Assessment and Plan - Patient Problems (1) ESRD (end stage renal disease) Status: Acute Plan to address problem: Nephrology consulted, dialysis as per renal team, serum potassium normal at 4.7, no EKG changes (2) Hypertension Status: Chronic Qualifiers: Hypertension type: essential hypertension Qualified Code(s): I10 - Essential (primary) hypertension Plan to address problem: monitor bp q shift, continue medical management (3) Dementia Status: Chronic Qualifiers: Dementia behavioral disturbance: without behavioral disturbance Plan to address problem: supportive care, continue current therapy. (4) Breast cancer Status: Acute Plan to address problem: S/P Mastectomy, Breast surgery consulted, supportive care, pain control. (5) Diabetes Status: Chronic Plan to address problem: ADA diet, insulin ,accu check, hypoglycemia protocol (6) DVT prophylaxis Status: Acute Plan to address problem: SCD to BLE while in bed.
--- NOTE | 2019-06-18 14:36 | Consultation ---
History of Present Illness - Reason for Consult end stage renal disease - History of Present Illness 79-year-old lady with medical history of breast cancer admitted for mastectomy, also end-stage renal disease on hemodialysis Saturday and Saturday via a right hemodialysis catheter. Patient seen today appears confused denies any orthopnea. She denies any fevers. Denies any abdominal pain denies any nausea or vomiting she denies any new headaches she is unsure when her last dialysis was Past History Past Medical History: other (see HPI) Past Surgical History: mastectomy, Other (AV fistula) Social history: single. denies: smoking, alcohol abuse, prescription drug abuse Family history: diabetes, hypertension Medications and Allergies Allergies Allergy/AdvReac Type Severity Reaction Status Date / Time No Known Allergies Allergy Unverified 11/24/18 08:06 Home Medications Medication Instructions Recorded Confirmed Last Taken Type Acetaminophen 650 mg PO Q4H PRN 02/26/18 06/17/19 Unknown History AtorvaSTATin [Lipitor] 20 mg PO QHS 02/26/18 06/17/19 06/16/19 History Benzonatate 200 mg PO Q8H PRN 02/26/18 06/17/19 06/16/19 History Clobetasol Propionate [Clobetasol 1 dose TP Q12H PRN 02/26/18 06/17/19 Unknown History Propionate 0.05%] Docusate Sodium [Colace CAP] 100 mg PO BID 02/26/18 06/17/19 06/16/19 History Ergocalciferol (Vitamin D2) 50,000 unit PO QWEEK 02/26/18 06/17/19 12/08/18 09:00 History [Drisdol] Polyethylene Glycol 3350 [Miralax 17 gm PO QDAY PRN 02/26/18 06/17/19 06/16/19 History 3350] Sennosides [Senna] 2 tab PO QHS 02/26/18 06/17/19 06/16/19 History Insulin Regular, Human [Novolin R] 1 dose SQ ACHS PRN #1 vial 03/08/18 06/17/19 06/16/19 Rx Amlodipine Besylate/Benazepril 1 each PO QDAY 06/10/19 06/17/19 06/16/19 History [Lotrel 10-40 mg] Ergocalciferol (Vitamin D2) 50,000 unit PO DAILY 06/10/19 06/17/19 06/16/19 H istory [Drisdol] Insulin Glargine [Lantus VIAL] 20 unit SUB-Q QHS 06/10/19 06/17/19 06/16/19 History Omeprazole 20 mg PO DAILY 06/10/19 06/17/19 06/16/19 History Ondansetron [Zofran ODT TAB] 4 mg PO Q8HR 06/10/19 06/17/19 06/16/19 History Vit B Comp No.3/Folic/C/Biotin 1 each PO DAILY 06/10/19 06/17/19 06/16/19 History [Niyah-Jose F Rx Tablet] Clobetasol 0.05% [Temovate] 1 applic TP Q12H tube 06/13/19 06/17/19 06/16/19 Rx Cyproheptadine [Periactin] 4 mg PO TID tablet 06/13/19 06/17/19 06/16/19 Rx Famotidine [Pepcid] 20 mg PO QDAY #30 tablet 06/13/19 06/17/19 06/16/19 Rx Ferrous Sulfate [Feosol 325 MG tab] 325 mg PO BID tablet 06/13/19 06/17/19 06/16/19 Rx Folic Acid/Vit B Comp W-C [Renal 1 cap PO QDAY capsule 06/13/19 06/17/19 06/16/19 Rx Caps] Sevelamer Carbonate [Renvela] 1,600 mg PO TID tablet 06/13/19 06/17/19 06/16/19 Rx Skin Emollient [Aquaphor] 1 applic TP Q12H tube 06/13/19 06/17/19 06/16/19 Rx carvediloL [Coreg] 6.25 mg PO BID #60 tablet 06/13/19 06/17/19 06/17/19 10:45 Rx Active Meds: Active Medications Acetaminophen (Tylenol) 650 mg PO Q4H PRN PRN Reason: Pain, Moderate (4-6) Amlodipine Besylate (Amlodipine) 10 mg PO QDAY [facility] Last Admin: 06/18/19 09:43 Dose: 10 mg Documented by: Atorvastatin Calcium (Lipitor) 20 mg PO QHS [facility] Benzonatate (Tessalon Perles) 200 mg PO Q8HR PRN PRN Reason: Cough Carvedilol (Coreg) 6.25 mg PO BID [facility] Last Admin: 06/18/19 09:43 Dose: 6.25 mg Documented by: Clobetasol Propionate (Temovate) 1 applic TP Q12HR [facility] Last Admin: 06/18/19 11:56 Dose: 1 applic Documented by: Cyproheptadine HCl (Periactin) 4 mg PO TID [facility] Last Admin: 06/18/19 11:25 Dose: 4 mg Documented by: Docusate Sodium (Colace) 100 mg PO BID [facility] Last Admin: 06/18/19 09:43 Dose: 100 mg Documented by: Ergocalciferol (Vitamin D2) 50,000 unit PO Th [facility] Last Admin: 06/18/19 11:26 Dose: 50,000 unit Documented by: Ferrous Sulfate (Feosol) 325 mg PO BID [facility] Last Admin: 06/18/19 09:44 Dose: 325 mg Documented by: Hydrophilic Ointment (Aquaphor) 1 applic TP Q12HR [facility] Last Admin: 06/18/19 11:26 Dose: 1 applic Documented by: Sodium Chloride (Nacl 0.9% 1000 Ml) 1,000 mls @ 42 mls/hr IV DIRECT [facility] Last Admin: 06/17/19 10:30 Dose: 42 mls/hr Documented by: Insulin Glargine (Lantus) 20 units SUB-Q QHS [facility] Lisinopril (Zestril) 40 mg PO QDAY [facility] Last Admin: 06/18/19 09:43 Dose: 40 mg Documented by: Multivit/Ca Carb/B Cmplx/FA/Prenat (Renal Caps) 1 cap PO QDAY [facility] Last Admin: 06/18/19 09:44 Dose: 1 cap Documented by: Ondansetron HCl (Zofran Odt) 4 mg PO Q8HR [facility] Last Admin: 06/18/19 06:40 Dose: Not Given Documented by: Oxycodone/Acetaminophen (Percocet 5/325) 1 tab PO Q6H PRN PRN Reason: Pain, Moderate (4-6) Pantoprazole Sodium (Protonix) 20 mg PO QDAY [facility] Last Admin: 12/12/19 09:44 Dose: 20 mg Documented by: Polyethylene Glycol (Miralax 3350) 17 gm PO QDAY PRN PRN Reason: Constipation Senna (Senokot) 17.2 mg PO QHS [facility] Sevelamer Carbonate (Renvela) 1,600 mg PO TIDWM [facility] Last Admin: 06/18/19 13:09 Dose: 1,600 mg Documented by: Sodium Chloride (Sodium Chloride Flush Syringe 10 Ml) 10 ml IV BID [facility] Sodium Chloride (Sodium Chloride Flush Syringe 10 Ml) 10 ml IV PRN PRN PRN Reason: LINE FLUSH Review of Systems Constitutional: no weight loss, no weight gain Ears, nose, mouth and throat: no ear pain, no ear discharge, no tinnitis, no decreased hearing Breasts: no deferred Cardiovascular: no chest pain, no orthopnea, no palpitations Respiratory: no cough, no cough with sputum Gastrointestinal: no abdominal pain, no nausea, no vomiting Genitourinary Female: no dyspareunia, no dysmenorrhea Rectal: no pain, no incontinence Musculoskeletal: no neck stiffness, no neck pain Integumentary: no deferred, no rash, no pruritis Neurological: no head injury, no transient paralysis Psychiatric: no anxiety, no memory loss Endocrine: no cold intolerance, no heat intolerance Exam - Vital Signs Vital signs: Vital Signs Temp Pulse Resp BP Pulse Ox 97.2 F L 81 16 130/54 100 06/17/19 09:50 06/17/19 09:50 06/17/19 09:50 06/17/19 09:50 06/17/19 09:50 - General Appearance General appearance: well-developed, well-nourished EENT: ATNC, PERRL Neck: Present: neck supple Respiratory: Clear to Ascultation Heart: regular, S1S2 Gastrointestinal: Present: normal, normoactive bowel sounds Integumentary: no rash Neurologic: confused Musculoskeletal: Present: other (right chest wall with drsesing. ) Psychiatric: depressed Results - Lab Results 06/17/19 10:30 06/17/19 10:30 Most recent lab results Calcium 9.0 mg/dL (8.4-10.2) 06/17/19 10:30 Assessment and Plan - Patient Problems (1) ESRD (end stage renal disease) Current Visit: No Status: Acute Plan to address problem: End-stage renal disease on dialysis We'll initiate dialysis Saturday Access right PermCath (2) Right breast cancer with T3 tumor, >5 cm in greatest dimension Current Visit: No Status: Acute Plan to address problem: Right breast cancer Status post mastectomy Follow-up by oncology (3) Diabetes Current Visit: No Status: Chronic Plan to address problem: diabetes mellitus Continue medications Monitor fingerstick (4) Hypertension Current Visit: No Status: Chronic Qualifiers: Hypertension type: essential hypertension Qualified Code(s): I10 - Essential (primary) hypertension Plan to address problem: Hypertension controlled Continue current medications
--- NOTE | 2019-06-18 16:16 | Progress Note ---
Assessment and Plan Assessment and plan: -- Breast cancer Current Visit: No Status: Acute S/P Mastectomy, Breast surgery consulted, supportive care, pain control. --ESRD (end stage renal disease) Current Visit: No Status: Acute Nephrology consulted, dialysis as per renal team, serum potassium normal at 4.7, no EKG changes -- Hypertension monitor bp q shift, continue medical management -- Diabetes Current Visit: No Status: Chronic ADA diet, insulin ,accu check, hypoglycemia protocol --Dementia Current Visit: No Status: Chronic supportive care, continue current therapy. -- DVT prophylaxis Current Visit: No Status: Acute SCD to BLE while in bed. Monitor closely and asjust the management as needed History Interval history: Patient seen and examined Sleeping easily awakens Patient has no new complaints Hospitalist Physical - Constitutional Vitals: Temp Pulse Resp BP Pulse Ox 98.0 F 79 20 129/57 100 06/18/19 11:39 06/18/19 11:39 06/18/19 07:47 06/18/19 11:39 06/18/19 11:39 General appearance: Present: mild distress, well-nourished - EENT Eyes: Present: PERRL, EOM intact - Neck Neck: Present: supple, normal ROM - Respiratory Respiratory effort: normal, other (chest wall surgical dressing intact) Respiratory: bilateral: diminished, negative: rales, rhonchi, wheezing - Cardiovascular Rhythm: regular Heart Sounds: Present: S1 & S2 - Extremities Extremities: no ischemia, No edema - Abdominal General gastrointestinal: soft, non-tender, non-distended, normal bowel sounds - Integumentary Integumentary: Present: clear, warm - Psychiatric Psychiatric: cooperative - Neurologic Neurologic: moves all extremities Results - Labs CBC & Chem 7: 06/17/19 10:30 06/17/19 10:30 Labs: Laboratory Last Values WBC 9.6 K/mm3 (4.5-11.0) 06/17/19 10:30 RBC 3.14 M/mm3 (3.65-5.03) L 06/17/19 10:30 Hgb 10.5 gm/dl (10.1-14.3) 06/17/19 10:30 Hct 30.3 % (30.3-42.9) 06/17/19 10:30 MCV 97 fl (79-97) 06/17/19 10:30 MCH 33 pg (28-32) H 06/17/19 10:30 MCHC 35 % (30-34) H 06/17/19 10:30 RDW 14.4 % (13.2-15.2) 06/17/19 10:30 Plt Count 220 K/mm3 (140-440) 06/17/19 10:30 Lymph % (Auto) 14.5 % (13.4-35.0) 06/17/19 10:30 Russell % (Auto) 8.2 % (0.0-7.3) H 06/17/19 10:30 Eos % (Auto) 5.2 % (0.0-4.3) H 06/17/19 10:30 Baso % (Auto) 0.8 % (0.0-1.8) 06/17/19 10:30 Lymph # 1.4 K/mm3 (1.2-5.4) 06/17/19 10:30 Russell # 0.8 K/mm3 (0.0-0.8) 06/17/19 10:30 Eos # 0.5 K/mm3 (0.0-0.4) H 06/17/19 10:30 Baso # 0.1 K/mm3 (0.0-0.1) 06/17/19 10:30 Seg Neutrophils % 71.3 % (40.0-70.0) H 06/17/19 10:30 Seg Neutrophils # 6.8 K/mm3 (1.8-7.7) 06/17/19 10:30 Sodium 133 mmol/L (137-145) L 06/17/19 10:30 Potassium 4.7 mmol/L (3.6-5.0) 06/17/19 10:30 Chloride 95.3 mmol/L (98-107) L 06/17/19 10:30 Carbon Dioxide 25 mmol/L (22-30) 06/17/19 10:30 Anion Gap 17 mmol/L 06/17/19 10:30 BUN 30 mg/dL (7-17) H 06/17/19 10:30 Creatinine 3.5 mg/dL (0.7-1.2) H 06/17/19 10:30 Estimated GFR 15 ml/min 06/17/19 10:30 BUN/Creatinine Ratio 9 % 06/17/19 10:30 Glucose 101 mg/dL (65-100) H 06/17/19 10:30 POC Glucose 142 (70-105) H 06/18/19 11:47 Calcium 9.0 mg/dL (8.4-10.2) 06/17/19 10:30 Active Medications - Current Medications Current Medications: Generic Name Dose Route Start Last Admin Trade Name Freq PRN Reason Stop Dose Admin Acetaminophen 650 mg 06/17/19 23:01 Tylenol PO Q4H PRN Pain, Moderate (4-6) Amlodipine Besylate 10 mg 06/18/19 10:00 06/18/19 09:43 Amlodipine PO 10 mg QDAY DESHAUN Administration Atorvastatin Calcium 20 mg 06/18/19 22:00 Lipitor PO QHS DESHAUN Benzonatate 200 mg 06/17/19 23:25 Tessalon Perles PO Q8HR PRN Cough Carvedilol 6.25 mg 06/18/19 10:00 06/18/19 09:43 Coreg PO 6.25 mg BID DESHAUN Administration Clobetasol Propionate 1 applic 06/17/19 23:45 06/18/19 11:56 Temovate TP 1 applic Q12HR DESHAUN Administration Cyproheptadine HCl 4 mg 06/18/19 08:00 06/18/19 15:05 Periactin PO 4 mg TID DESHAUN Administration Docusate Sodium 100 mg 06/18/19 10:00 06/18/19 09:43 Colace PO 100 mg BID DESHAUN Administration Ergocalciferol 50,000 unit 06/18/19 10:00 06/18/19 11:26 Vitamin D2 PO 50,000 unit Th DESHAUN Administration Ferrous Sulfate 325 mg 06/18/19 10:00 06/18/19 09:44 Feosol PO 325 mg BID DESHAUN Administration Hydrophilic Ointment 1 applic 06/17/19 23:45 06/18/19 11:26 Aquaphor TP 1 applic Q12HR DESHAUN Administration Sodium Chloride 1,000 mls @ 42 mls/hr 06/17/19 11:00 06/17/19 10:30 Nacl 0.9% 1000 Ml IV 42 mls/hr DIRECT DESHAUN Administration Insulin Glargine 20 units 06/18/19 22:00 Lantus SUB-Q QHS DESHAUN Lisinopril 40 mg 06/18/19 10:00 06/18/19 09:43 Zestril PO 40 mg QDAY DESHAUN Administration Multivit/Ca Carb/B Cmplx/FA/Prenat 1 cap 06/18/19 10:00 06/18/19 09:44 Renal Caps PO 1 cap QDAY DESHAUN Administration Ondansetron HCl 4 mg 06/18/19 06:00 06/18/19 15:05 Zofran Odt PO 4 mg Q8HR DESHAUN Administration Oxycodone/Acetaminophen 1 tab 06/18/19 12:01 Percocet 5/325 PO Q6H PRN Pain, Moderate (4-6) Pantoprazole Sodium 20 mg 06/18/19 10:00 06/18/19 09:44 Protonix PO 20 mg QDAY DESHAUN Administration Polyethylene Glycol 17 gm 06/17/19 23:01 Miralax 3350 PO QDAY PRN Constipation Senna 17.2 mg 06/18/19 22:00 Senokot PO QHS DESHAUN Sevelamer Carbonate 1,600 mg 06/18/19 08:00 06/18/19 13:09 Renvela PO 1,600 mg TIDWM DESHAUN Administration Sodium Chloride 10 ml 06/18/19 12:01 Sodium Chloride Flush Syringe 10 Ml IV BID DESHAUN Sodium Chloride 10 ml 06/18/19 12:01 Sodium Chloride Flush Syringe 10 Ml IV PRN PRN LINE FLUSH
[2019-06-18] MEDS ORDERED: INSULIN GLARGINE 100 UNITS/ML SUB-Q SCH (22:00)
[2019-06-18] MEDS ORDERED: SENNOSIDES 8.6 MG TAB PO SCH (22:00)
[2019-06-19] MEDS: ONDANSETRON 4 MG ODT TAB PO SCH ×2 (07:48→15:01)
[2019-06-19] MEDS: CYPROHEPTADINE 4 MG TAB PO SCH ×2 (08:30→15:01)
[2019-06-19] MEDS: SEVELAMER CARBONATE 800 MG TAB PO SCH ×2 (08:31→14:57)
--- NOTE | 2019-06-19 11:07 | Progress Note ---
Assessment and Plan 79 year old lady s/p Right palliative total mastectomy, POD #2. Progressing well. Dressing in place and functioning. CHEMA drain output decreasing and becoming more serous and less sanguinous. 1) Continue with pain management, CHEMA drain monitoring 2) From surgical standpoint, patient is cleared for discharge 3) Patient has follow-up visit next week, discussed with son Robbi and [id number] Linda Hurd - Patient Problems (1) Breast mass, right Status: Acute Subjective Date of service: 06/19/19 Principal diagnosis: Right Breast Cancer, s/p Right Mastectomy Interval history: 79 year old lady s/p Right palliative total mastectomy, POD #2. Patient seen and examined at bedside in no acute distress. No acute events overnight. CHEMA drain with 50 ml serosanguinous fluid emptied from overnight shift. Minimal fluid noted in bulb at this time. Binder in place, Amanda dressing in place and functi oning. Objective - Constitutional Vitals: Vital Signs - 12hr 06/19/19 06/19/19 03:59 07:09 Temperature 98.2 F 97.7 F Pulse Rate 89 88 Respiratory 18 18 Rate Blood Pressure 109/52 140/56 O2 Sat by Pulse 100 100 Oximetry General appearance: Present: no acute distress - EENT Eyes: PERRL, EOM intact - Neck Neck: supple - Respiratory Respiratory effort: normal - Breasts Breasts: other (S/p Right Total Mastectomy, wound Amanda dressing in place, binder replaced) Extremity abnormal: edema - Gastrointestinal General gastrointestinal: Present: deferred Rectal Exam: deferred - Genitourinary Female genitourinary: deferred - Integumentary Integumentary: warm, dry - Musculoskeletal Musculoskeletal: generalized weakness - Psychiatric Psychiatric: cooperative - Labs CBC & Chem 7: 06/17/19 10:30 06/17/19 10:30 Labs: Abnormal lab results 06/18/19 06/18/19 06/18/19 Range/Units 11:47 16:45 21:22 POC Glucose 142 H 188 H 158 H (70-105) 06/19/19 Range/Units 07:20 POC Glucose 64 L (70-105) Medications & Allergies - Medications Allergies/Adverse Reactions: Allergies No Known Allergies Allergy (Unverified 11/24/18 08:06) Home Medications: Home Medications Medication Instructions Recorded Confirmed Last Taken Type Acetaminophen 650 mg PO Q4H PRN 02/26/18 06/17/19 Unknown History AtorvaSTATin [Lipitor] 20 mg PO QHS 02/26/18 06/17/19 06/16/19 History Benzonatate 200 mg PO Q8H PRN 02/26/18 06/17/19 06/16/19 History Clobetasol Propionate [Clobetasol 1 dose TP Q12H PRN 02/26/18 06/17/19 Unknown History Propionate 0.05%] Docusate Sodium [Colace CAP] 100 mg PO BID 02/26/18 06/17/19 06/16/19 History Ergocalciferol (Vitamin D2) 50,000 unit PO QWEEK 02/26/18 06/17/19 12/08/18 09:00 History [Drisdol] Polyethylene Glycol 3350 [Miralax 17 gm PO QDAY PRN 02/26/18 06/17/19 06/16/19 History 3350] Sennosides [Senna] 2 tab PO QHS 02/26/18 06/17/19 06/16/19 History Insulin Regular, Human [Novolin R] 1 dose SQ ACHS PRN #1 vial 03/08/18 06/17/19 06/16/19 Rx Amlodipine Besylate/Benazepril 1 each PO QDAY 06/10/19 06/17/19 06/16/19 History [Lotrel 10-40 mg] Ergocalciferol (Vitamin D2) 50,000 unit PO DAILY 06/10/19 06/17/19 06/16/19 History [Drisdol] Insulin Glargine [Lantus VIAL] 20 unit SUB-Q QHS 06/10/19 06/17/19 06/16/19 History Omeprazole 20 mg PO DAILY 06/10/19 06/17/19 06/16/19 History Ondansetron [Zofran ODT TAB] 4 mg PO Q8HR 06/10/19 06/17/19 06/16/19 History Vit B Comp No.3/Folic/C/Biotin 1 each PO DAILY 06/10/19 06/17/19 06/16/19 History [Niyah-Jose F Rx Tablet] Clobetasol 0.05% [Temovate] 1 applic TP Q12H tube 06/13/19 06/17/19 06/16/19 Rx Cyproheptadine [Periactin] 4 mg PO TID tablet 06/13/19 06/17/19 06/16/19 Rx Famotidine [Pepcid] 20 mg PO QDAY #30 tablet 06/13/19 06/17/19 06/16/19 Rx Ferrous Sulfate [Feosol 325 MG tab] 325 mg PO BID tablet 06/13/19 06/17/19 06/16/19 Rx Folic Acid/Vit B Comp W-C [Renal 1 cap PO QDAY capsule 06/13/19 06/17/19 06/16/19 Rx Caps] Sevelamer Carbonate [Renvela] 1,600 mg PO TID tablet 06/13/19 06/17/19 06/16/19 Rx Skin Emollient [Aquaphor] 1 applic TP Q12H tube 06/13/19 06/17/19 06/16/19 Rx carvediloL [Coreg] 6.25 mg PO BID #60 tablet 06/13/19 06/17/19 06/17/19 10:45 Rx oxyCODONE /ACETAMINOPHEN [Percocet 1 tab PO Q6H PRN #12 tablet 06/19/19 Unknown Rx 5/325 mg] Active Medications: Generic Name Dose Route Start Last Admin Trade Name Freq PRN Reason Stop Dose Admin Acetaminophen 650 mg 06/17/19 23:01 Tylenol PO Q4H PRN Pain, Moderate (4-6) Amlodipine Besylate 10 mg 06/18/19 10:00 06/18/19 09:43 Amlodipine PO 10 mg QDAY DESHAUN Administration Atorvastatin Calcium 20 mg 06/18/19 22:00 06/18/19 22:20 Lipitor PO 20 mg QHS DESHAUN Administration Benzonatate 200 mg 06/17/19 23:25 Tessalon Perles PO Q8HR PRN Cough Carvedilol 6.25 mg 06/18/19 10:00 06/18/19 22:20 Coreg PO 6.25 mg BID DESHAUN Administration Clobetasol Propionate 1 applic 06/17/19 23:45 06/18/19 22:46 Temovate TP 1 applic Q12HR DESHAUN Administration Cyproheptadine HCl 4 mg 06/18/19 08:00 06/19/19 08:30 Periactin PO 4 mg TID DESHAUN Administration Docusate Sodium 100 mg 06/18/19 10:00 06/18/19 22:19 Colace PO 100 mg BID DESHAUN Administration Ergocalciferol 50,000 unit 06/18/19 10:00 06/18/19 11:26 Vitamin D2 PO 50,000 unit Th DESHAUN Administration Ferrous Sulfate 325 mg 06/18/19 10:00 06/18/19 22:20 Feosol PO 325 mg BID DESHAUN Administration Hydrophilic Ointment 1 applic 06/17/19 23:45 06/18/19 22:23 Aquaphor TP 1 applic Q12HR DESHAUN Administration Sodium Chloride 1,000 mls @ 42 mls/hr 06/17/19 11:00 06/18/19 22:41 Nacl 0.9% 1000 Ml IV Infused DIRECT DESHAUN Infusion Insulin Glargine 20 units 06/18/19 22:00 06/18/19 22:20 Lantus SUB-Q 20 units QHS DESHAUN Administration Lisinopril 40 mg 06/18/19 10:00 06/18/19 09:43 Zestril PO 40 mg QDAY DESHAUN Administration Multivit/Ca Carb/B Cmplx/FA/Prenat 1 cap 06/18/19 10:00 06/18/19 09:44 Renal Caps PO 1 cap QDAY DESHAUN Administration Ondansetron HCl 4 mg 06/18/19 06:00 06/19/19 07:48 Zofran Odt PO 4 mg Q8HR DESHAUN Administration Oxycodone/Acetaminophen 1 tab 06/18/19 12:01 06/18/19 22:19 Percocet 5/325 PO 1 tab Q6H PRN Administration Pain, Moderate (4-6) Pantoprazole Sodium 20 mg 06/18/19 10:00 06/18/19 09:44 Protonix PO 20 mg QDAY DESHAUN Administration Polyethylene Glycol 17 gm 06/17/19 23:01 Miralax 3350 PO QDAY PRN Constipation Senna 17.2 mg 06/18/19 22:00 06/18/19 22:20 Senokot PO 17.2 mg QHS DESHAUN Administration Sevelamer Carbonate 1,600 mg 06/18/19 08:00 06/19/19 08:31 Renvela PO 1,600 mg TIDWM DESHAUN Administration Sodium Chloride 10 ml 06/18/19 12:01 06/18/19 22:21 Sodium Chloride Flush Syringe 10 Ml IV 10 ml BID DESHAUN Administration Sodium Chloride 10 ml 06/18/19 12:01 Sodium Chloride Flush Syringe 10 Ml IV PRN PRN LINE FLUSH
--- NOTE | 2019-06-19 13:09 | Progress Note ---
Subjective Principal diagnosis: Right Breast Cancer, s/p Right Mastectomy Interval history: Patient was seen today for follow-up on multiple renal related issues Events of this hospitalization were noted she is well known to me from dialysis center Interdisciplinary notes were also reviewed Vitals intake output medications were reviewed Past medical history: Reviewed Family, social history: Reviewed Allergies: Reviewed Physical examination General: No acute distress Vitals: Reviewed HEENT: Oral mucosa moist no icterus Neck: Supple no thyromegaly nodular mass or JVD does have a central venous catheter Chest: Clear to auscultation anteriorly Heart: Regular rate and rhythm S1-S2 heard no S3-S4 Abdomen: Soft nontender no suprapubic masses no organomegaly Extremity: Dry skin less than 1+ edema has a good functioning fistula Psych: No evidence of any agitation and aggression noted Derm: No petechial rash Assessment and plan: End-stage renal disease: Patient is currently on maintenance hemodialysis and will need to continue with hemodialysis treatment 3 times per week she is currently being dialyzed at [place] does have a functioning fistula but would not let us use she is currently ordered to have hemodialysis Saturday and Saturday Currently her hemoglobin is 10.5 potassium 4.7 BUN 30 creatinine 3.5 and calcium is 9.0 Patient does need to see a dietitian to follow a proper dialysis diet her protein intake should be about 80 g per day All renal related issues were discussed with the patient, patient does exhibit good understanding, lab results were also discussed with patient in simple E nglish Prognosis: Guarded, due to dialysis status We'll continue to follow and make recommendation from renal standpoint Objective - Vital Signs Vital signs: Vital Signs - 12hr 06/19/19 06/19/19 03:59 07:09 Temperature 98.2 F 97.7 F Pulse Rate 89 88 Respiratory 18 18 Rate Blood Pressure 109/52 140/56 O2 Sat by Pulse 100 100 Oximetry - Lab 06/17/19 10:30 06/17/19 10:30 Most recent lab results Calcium 9.0 mg/dL (8.4-10.2) 06/17/19 10:30 Medications & Allergies - Medications Allergies/Adverse Reactions: Allergies No Known Allergies Allergy (Unverified 11/24/18 08:06) Home Medications: Home Medications Medication Instructions Recorded Confirmed Last Taken Type Acetaminophen 650 mg PO Q4H PRN 02/26/18 06/17/19 Unknown History AtorvaSTATin [Lipitor] 20 mg PO QHS 02/26/18 06/17/19 06/16/19 History Benzonatate 200 mg PO Q8H PRN 02/26/18 06/17/19 06/16/19 History Clobetasol Propionate [Clobetasol 1 dose TP Q12H PRN 02/26/18 06/17/19 Unknown History Propionate 0.05%] Docusate Sodium [Colace CAP] 100 mg PO BID 02/26/18 06/17/19 06/16/19 History Ergocalciferol (Vitamin D2) 50,000 unit PO QWEEK 02/26/18 06/17/19 12/08/18 09: 00 History [Drisdol] Polyethylene Glycol 3350 [Miralax 17 gm PO QDAY PRN 02/26/18 06/17/19 06/16/19 History 3350] Sennosides [Senna] 2 tab PO QHS 02/26/18 06/17/19 06/16/19 History Insulin Regular, Human [Novolin R] 1 dose SQ ACHS PRN #1 vial 03/08/18 06/17/19 06/16/19 Rx Amlodipine Besylate/Benazepril 1 each PO QDAY 06/10/19 06/17/19 06/16/19 History [Lotrel 10-40 mg] Ergocalciferol (Vitamin D2) 50,000 unit PO DAILY 06/10/19 06/17/19 06/16/19 History [Drisdol] Insulin Glargine [Lantus VIAL] 20 unit SUB-Q QHS 06/10/19 06/17/19 06/16/19 History Omeprazole 20 mg PO DAILY 06/10/19 06/17/19 06/16/19 History Ondansetron [Zofran ODT TAB] 4 mg PO Q8HR 06/10/19 06/17/19 06/16/19 History Vit B Comp No.3/Folic/C/Biotin 1 each PO DAILY 06/10/19 06/17/19 06/16/19 History [Niyah-Jose F Rx Tablet] Clobetasol 0.05% [Temovate] 1 applic TP Q12H tube 06/13/19 06/17/19 06/16/19 Rx Cyproheptadine [Periactin] 4 mg PO TID tablet 06/13/19 06/17/19 06/16/19 Rx Famotidine [Pepcid] 20 mg PO QDAY #30 tablet 06/13/19 06/17/19 06/16/19 Rx Ferrous Sulfate [Feosol 325 MG tab] 325 mg PO BID tablet 06/13/19 06/17/19 06/16/19 Rx Folic Acid/Vit B Comp W-C [Renal 1 cap PO QDAY capsule 06/13/19 06/17/19 06/16/19 Rx Caps] Sevelamer Carbonate [Renvela] 1,600 mg PO TID tablet 06/13/19 06/17/19 06/16/19 Rx Skin Emollient [Aquaphor] 1 applic TP Q12H tube 06/13/19 06/17/19 06/16/19 Rx carvediloL [Coreg] 6.25 mg PO BID #60 tablet 06/13/19 06/17/19 06/17/19 10:45 Rx Active Medications: Generic Name Dose Route Start Last Admin Trade Name Freq PRN Reason Stop Dose Admin Acetaminophen 650 mg 06/17/19 23:01 Tylenol PO Q4H PRN Pain, Moderate (4-6) Amlodipine Besylate 10 mg 06/18/19 10:00 06/18/19 09:43 Amlodipine PO 10 mg QDAY DESHAUN Administration Atorvastatin Calcium 20 mg 06/18/19 22:00 06/18/19 22:20 Lipitor PO 20 mg QHS DESHAUN Administration Benzonatate 200 mg 06/17/19 23:25 Tessalon Perles PO Q8HR PRN Cough Carvedilol 6.25 mg 06/18/19 10:00 06/18/19 22:20 Coreg PO 6.25 mg BID DESHAUN Administration Clobetasol Propionate 1 applic 06/17/19 23:45 06/18/19 22:46 Temovate TP 1 applic Q12HR DESHAUN Administration Cyproheptadine HCl 4 mg 06/18/19 08:00 06/19/19 08:30 Periactin PO 4 mg TID DESHAUN Administration Docusate Sodium 100 mg 06/18/19 10:00 06/18/19 22:19 Colace PO 100 mg BID DESHAUN Administration Ergocalciferol 50,000 unit 06/18/19 10:00 06/18/19 11:26 Vitamin D2 PO 50,000 unit Th DESHAUN Administration Ferrous Sulfate 325 mg 06/18/19 10:00 06/18/19 22:20 Feosol PO 325 mg BID DESHAUN Administration Hydrophilic Ointment 1 applic 06/17/19 23:45 06/18/19 22:23 Aquaphor TP 1 applic Q12HR DESHAUN Administration Sodium Chloride 1,000 mls @ 42 mls/hr 06/17/19 11:00 06/18/19 22:41 Nacl 0.9% 1000 Ml IV Infused DIRECT DESHAUN Infusion Insulin Glargine 20 units 06/18/19 22:00 06/18/19 22:20 Lantus SUB-Q 20 units QHS DESHAUN Administration Lisinopril 40 mg 06/18/19 10:00 06/18/19 09:43 Zestril PO 40 mg QDAY DESHAUN Administration Multivit/Ca Carb/B Cmplx/FA/Prenat 1 cap 06/18/19 10:00 06/18/19 09:44 Renal Caps PO 1 cap QDAY DESHAUN Administration Ondansetron HCl 4 mg 06/18/19 06:00 06/19/19 07:48 Zofran Odt PO 4 mg Q8HR DESHAUN Administration Oxycodone/Acetaminophen 1 tab 06/18/19 12:01 06/18/19 22:19 Percocet 5/325 PO 1 tab Q6H PRN Administration Pain, Moderate (4-6) Pantoprazole Sodium 20 mg 06/18/19 10:00 06/18/19 09:44 Protonix PO 20 mg QDAY DESHAUN Administration Polyethylene Glycol 17 gm 06/17/19 23:01 Miralax 3350 PO QDAY PRN Constipation Senna 17.2 mg 06/18/19 22:00 06/18/19 22:20 Senokot PO 17.2 mg QHS DESHAUN Administration Sevelamer Carbonate 1,600 mg 06/18/19 08:00 06/19/19 08:31 Renvela PO 1,600 mg TIDWM DESHAUN Administration Sodium Chloride 10 ml 06/18/19 12:01 06/18/19 22:21 Sodium Chloride Flush Syringe 10 Ml IV 10 ml BID DESHAUN Administration Sodium Chloride 10 ml 06/18/19 12:01 Sodium Chloride Flush Syringe 10 Ml IV PRN PRN LINE FLUSH
[2019-06-19] MEDS: FOLIC ACID/VIT B COMP W-C 1 MG (RENAL CAPS) PO SCH (14:52)
[2019-06-19] MEDS: amLODIPine 10 MG TAB PO SCH (14:53)
[2019-06-19] MEDS: DOCUSATE SODIUM 100 MG CAP PO SCH (14:53)
[2019-06-19] MEDS: PANTOPRAZOLE 20 MG TAB PO SCH (14:54)
[2019-06-19] MEDS: carvediloL 6.25 MG TAB PO SCH (14:54)
[2019-06-19] MEDS: FERROUS SULFATE 325 MG TAB PO SCH (14:54)
[2019-06-19] MEDS: CLOBETASOL 0.05% CREAM 15 GM TP SCH (14:55)
[2019-06-19] MEDS: AQUAPHOR OINTMENT TP SCH (14:55)
[2019-06-19] MEDS: LISINOPRIL 40 MG TAB PO SCH (15:00)
--- NOTE | 2019-06-19 15:38 | Discharge Summary ---
Providers - Providers Date of Admission: 06/19/19 08:51 Date of discharge: 06/19/19 Attending physician: ALBERTO JURADO 06/17/19 23:00 Consult to Physician [CONS] Routine Comment: Consulting Provider: TEAGAN RAPP Physician Instructions: Reason For Exam: esrd Primary care physician: SHARDA BRISCOE Hospitalization Reason for admission: Breast cancer status post mastectomy Condition: Stable Procedures: Hemo dialysis per schedule Hospital course: 79 YO Female [facility] Facility Resident at [facility] with ESRD on HD, DM, HTN, HLD, Dementia, Dysphagia admitted directly at the request of Dr. Shipley for ESRD S/P Right Mastectomy. Patient received postoperative care, evaluated by nephrology received an hemodialysis per schedule The patient is comfortable no new complaints vital signs stable Cleared by surgery and nephrology for discharge back to SNF Patient is stable at discharge Discharge Diagnosis: -- Breast cancer Current Visit: No Status: Acute S/P Mastectomy, Breast surgery consulted, supportive care, pain control. --ESRD (end stage renal disease) Current Visit: No Status: Acute Nephrology consulted, dialysis as per renal team, serum potassium normal at 4.7, no EKG changes -- Hypertension monitor bp q shift, continue medical management -- Diabetes Current Visit: No Status: Chronic ADA diet, insulin ,accu check, hypoglycemia protocol --Dementia Current Visit: No Status: Chronic supportive care, continue current therapy. -- DVT prophylaxis Current Visit: No Status: Acute SCD to BLE while in bed. Monitor closely and adjust the management as needed Disposition: [id number] [facility] Time spent for discharge: 35 min Core Measure Documentation - Palliative Care Palliative Care/ Comfort Measures: Not Applicable - Core Measures Any of the following diagnoses?: none Exam - Constitutional Vitals: Temp Pulse Resp BP Pulse Ox 98.2 F 90 18 134/60 100 06/19/19 13:20 06/19/19 15:00 06/19/19 13:20 06/19/19 15:00 06/19/19 07:09 General appearance: Present: no acute distress, well-nourished - EENT Eyes: Present: PERRL, EOM intact - Neck Neck: Present: supple, normal ROM - Respiratory Respiratory effort: normal Respiratory: bilateral: diminished, negative: rales, rhonchi, wheezing - Cardiovascular Rhythm: regular Heart Sounds: Present: S1 & S2 - Extremities Extremities: no ischemia, No edema - Abdominal General gastrointestinal: Present: soft, non-tender, non-distended, normal bowel sounds - Integumentary Integumentary: Present: clear, warm - Musculoskeletal Musculoskeletal: strength equal bilaterally - Psychiatric Psychiatric: appropriate mood/affect, cooperative - Neurologic Neurologic: moves all extremities Plan Activity: advance as tolerated, fall precautions Diet: renal Wound: per wound nurse instructions Additional Instructions: Follow-up with breast clinic in 1 week. Follow renal and hemodialysis per schedule Follow up with: SHARDA BRISCOE MD [Primary Care Provider] - 7 Days STELLA SHIPLEY MD [Staff Physician] - 7 Days COLE LOPEZ MD [Staff Physician] - 7 Days Prescriptions: oxyCODONE /ACETAMINOPHEN [Percocet 5/325 mg] 1 tab PO Q6H PRN #12 tablet PRN Reason: Pain, Moderate (4-6)
[2019-06-19] MEDS ORDERED: SODIUM CHLORIDE*PRIMING MACHINE ONLY FOR DIALYSIS MC ONE (17:00)
[2019-06-19 17:37] VITALS: BP 124/52
== END 2019-06-19 17:20 | DRG 582 ==
LOC: OR 09:25 → 3B-SURG 22:48 → OBSVTOIN 06-19 08:51
PROVIDERS: ADMIT Internal Medicine; ATTEND Internal Medicine
PROC: 0HTT0ZZ Resection of Right Breast, Open Approach (ICD-10-PCS; principal; 2019-06-17)
PROC: 5A1D70Z Performance of Urinary Filtration, Intermittent, Less than 6 Hours Per Day (ICD-10-PCS; 2019-06-19)
DX: C50.411 Malignant neoplasm of upper-outer quadrant of right female breast (principal); N18.6 End stage renal disease; E87.2 Acidosis; E11.22 Type 2 diabetes mellitus with diabetic chronic kidney disease; F03.90 Unspecified dementia, unspecified severity, without behavioral disturbance, psychotic disturbance, mood disturbance, and anxiety; E78.5 Hyperlipidemia, unspecified; E66.9 Obesity, unspecified; C50.211 Malignant neoplasm of upper-inner quadrant of right female breast; E21.3 Hyperparathyroidism, unspecified; Z82.49 Family history of ischemic heart disease and other diseases of the circulatory system; Z83.3 Family history of diabetes mellitus; Z90.11 Acquired absence of right breast and nipple; Z99.2 Dependence on renal dialysis; Z79.4 Long term (current) use of insulin; Z79.899 Other long term (current) drug therapy; Z86.73 Personal history of transient ischemic attack (TIA), and cerebral infarction without residual deficits; Z68.24 Body mass index [BMI] 24.0-24.9, adult
CPT/HCPCS: 36415; 78800; 80048; 82962; 85025; 88307; 88309; G0378; A9270-GY; A9541; J1100; J1170; J1642; J1815; J2250; J2370; J2405; J2704; J2710; J3010; J7030; Q0162

== ENCOUNTER 2019-06-24 16:35 | Inpatient (IN) | payer MEDICARE ==
--- NOTE | 2019-06-24 17:26 | Emergency Department Report ---
<FREEDOM HENRIQUEZ A - Last Filed: 06/24/19 17:52> ED General Adult HPI - General Stated complaint: LT HAND SWOLLEN Time Seen by Provider: 06/24/19 17:31 Source: patient, RN/MD, EMS Mode of arrival: Stretcher Limitations: No Limitations - History of Present Illness Initial comments: PT IS A 79 YO AA FEMALE WHO COMES TO ER FROM [facility] AFTER HAVING AN ULTRASOUND OF THE LUE FOR SWELLING THAT POS FOR DVT. SEE REPORT SENT WITH PT- THE DVT EXTENDS UP TO AXILLA. PT WAS ADMITTED TO [facility] 06-17 AND DC 06-24. DURING THIS STAY SHE HAD A R MASCECTOMY FOR BREAST CA. SHE IS NOT A CHEMO CANDIDATE. SHE WAS SUBSEQUENTLY DC TO [facility]. PT HAS ESRD AND IS ON HD. SHE HAS AV SHUT FOR HD IN THE RUE. SHE STATES SHE NEVER HAD A SHUNT IN THE LUE. SHE DENIES TRAUMA TO ARM. MED REC REVIEWED- NO BLOOD THINNERS. CYPROHEPTADIN COLACE PEPCID FE COREG SEVELAMER TYLENOL STATIN D3 K LOSARTAN INSULIN OMEPRAZOLE PERCOCET ISMAEL SAVITA SENNA CREAMS FOR DERM PMH ESRD ON HD IDDM GERD HTN HPLD A/C ANEMIA OBESITY BREAST CA -: Gradual, hour(s) Associated Symptoms: denies other symptoms - Related Data Home Medications Medication Instructions Recorded Confirmed Last Taken AtorvaSTATin [Lipitor] 20 mg PO QHS 02/26/18 06/24/19 06/16/19 Amlodipine Besylate/Benazepril 1 each PO QDAY 06/10/19 06/24/19 06/16/19 [Lotrel 10-40 mg] Ergocalciferol (Vitamin D2) 50,000 unit PO DAILY 06/10/19 06/24/19 06/16/19 [Drisdol] Insulin Glargine [Lantus VIAL] 20 unit SUB-Q QHS 06/10/19 06/24/19 06/16/19 Omeprazole 20 mg PO DAILY 06/10/19 06/24/19 06/16/19 Vit B Comp No.3/Folic/C/Biotin 1 each PO DAILY 06/10/19 06/24/19 06/16/19 [Ismael-Savita Rx Tablet] Previous Rx's Medication Instructions Recorded Last Taken Type Insulin Regular, Human [Novolin R] 1 dose SQ ACHS PRN #1 vial 03/08/18 06/16/19 Rx Clobetasol 0.05% [Temovate] 1 applic TP Q12H tube 06/13/19 06/16/19 Rx Cyproheptadine [Periactin] 4 mg PO TID tablet 06/13/19 06/16/19 Rx Famotidine [Pepcid] 20 mg PO QDAY #30 tablet 06/13/19 06/16/19 Rx Ferrous Sulfate [Feosol 325 MG tab] 325 mg PO BID tablet 06/13/19 06/16/19 Rx Folic Acid/Vit B Comp W-C [Renal 1 cap PO QDAY capsule 06/13/19 06/16/19 Rx Caps] Sevelamer Carbonate [Renvela] 1,600 mg PO TID tablet 06/13/19 06/16/19 Rx carvediloL [Coreg] 6.25 mg PO BID #60 tablet 06/13/19 06/17/19 10:45 Rx Allergies Allergy/AdvReac Type Severity Reaction Status Date / Time No Known Allergies Allergy Unverified 11/24/18 08:06 ED Review of Systems Comment: All other systems reviewed and negative ED Past Medical Hx - Past Medical History Previous Medical History?: Yes Hx Hypertension: Yes Hx CVA: No Hx Heart Attack/AMI: No Hx Congestive Heart Failure: No Hx Diabetes: Yes Hx Deep Vein Thrombosis: Yes Hx Pulmonary Embolism: No Hx Liver Disease: No Hx Renal Disease: No Hx of Cancer: Yes Hx Sickle Cell Disease: No Hx Arthritis: Yes Hx Headaches / Migraines: No Hx Seizures: No Hx Kidney Stones: No Hx Psychiatric Treatment: No Hx Asthma: No Hx COPD: No Hx Tuberculosis: No Hx Dementia: Yes Hx HIV: No Additional medical history: Cognitive communication deficit, MRSA, Dysphagia, Falling, Generalized Muscle Weakness, Abnormal Posture, Constipation, Psoriasis - Surgical History Past Surgical History?: Yes Hx Coronary Stent: No Hx Open Heart Surgery: No Hx Pacemaker: No Hx Internal Defibrillator: No Hx Cholecystectomy: No Hx Appendectomy: No Hx Breast Surgery: No Additional Surgical History: Hysterectomy-MASECTOMY - Family History Family history: no significant - Social History Smoking Status: Former Smoker Substance Use Type: None - Medications Home Medications: Home Medications Medication Instructions Recorded Confirmed Last Taken Type AtorvaSTATin [Lipitor] 20 mg PO QHS 02/26/18 06/24/19 06/16/19 History Insulin Regular, Human [Novolin R] 1 dose SQ ACHS PRN #1 vial 03/08/18 06/24/19 06/16/19 Rx Amlodipine Besylate/Benazepril 1 each PO QDAY 06/10/19 06/24/19 06/16/19 History [Lotrel 10-40 mg] Ergocalciferol (Vitamin D2) 50,000 unit PO DAILY 06/10/19 06/24/19 06/16/19 History [Drisdol] Insulin Glargine [Lantus VIAL] 20 unit SUB-Q QHS 06/10/19 06/24/19 06/16/19 History Omeprazole 20 mg PO DAILY 06/10/19 06/24/19 06/16/19 History Vit B Comp No.3/Folic/C/Biotin 1 each PO DAILY 06/10/19 06/24/19 06/16/19 History [Ismael-Savita Rx Tablet] Clobetasol 0.05% [Temovate] 1 applic TP Q12H tube 06/13/19 06/24/19 06/16/19 Rx Cyproheptadine [Periactin] 4 mg PO TID tablet 06/13/19 06/24/19 06/16/19 Rx Famotidine [Pepcid] 20 mg PO QDAY #30 tablet 06/13/19 06/24/19 06/16/19 Rx Ferrous Sulfate [Feosol 325 MG tab] 325 mg PO BID tablet 06/13/19 06/24/19 06/16/19 Rx Folic Acid/Vit B Comp W-C [Renal 1 cap PO QDAY capsule 06/13/19 06/24/1906/07 Rx Caps] Sevelamer Carbonate [Renvela] 1,600 mg PO TID tablet 06/13/19 06/24/19 06/16/19 Rx carvediloL [Coreg] 6.25 mg PO BID #60 tablet 06/13/19 06/24/19 06/17/19 10:45 Rx ED Physical Exam - General General appearance: alert, in no apparent distress - Head Head exam: Present: atraumatic, normocephalic - Eye Eye exam: Present: normal appearance - ENT ENT exam: Present: mucous membranes moist - Neck Neck exam: Present: normal inspection - Respiratory Respiratory exam: Present: normal lung sounds bilaterally. Absent: respiratory distress - Cardiovascular Cardiovascular Exam: Present: regular rate, normal rhythm. Absent: systolic murmur, diastolic murmur, rubs, gallop - GI/Abdominal GI/Abdominal exam: Present: soft, normal bowel sounds - Expanded Upper Extremity Exam Left General: Present: other (ENTIRE ARM SWOLLEN) Hand Wrist exam: Present: other (RAD AND ULNAR PULSE PLUS 2; PLUS 3 SWELLING L HAND; RAPID CAP REFILL) - Back Exam Back exam: Present: normal inspection - Neurological Exam Neurological exam: Present: alert, oriented X3 - Psychiatric Psychiatric exam: Present: normal affect, normal mood - Skin Skin exam: Present: warm, dry. Absent: rash ED Medical Decision Making - Radiology Data Radiology results: report reviewed, image reviewed - Medical Decision Making KNOWN DVT- IMAGING ON CHART - COMPLETED BY [facility] STAFFED WITH DR THAYER AT 1740 PLAN-- XRAY US LABS AND THEN DISPO Vital Signs 06/24/19 17:29 Temperature 98.5 F Pulse Rate 94 H Respiratory 16 Rate O2 Sat by Pulse 100 Oximetry - Differential Diagnosis DVT ROSALINO SMITH DC ON 06-17 ED Disposition Clinical Impression: ESRD on dialysis, Insulin dependent diabetes mellitus, Right breast cancer with T3 tumor, >5 cm in greatest dimension, End stage renal disease, Left arm pain, Hyperkalemia Left upper extremity deep vein thrombosis Qualifiers: Affected thrombotic vein of extremity: axillary Chronicity: acute Qualified Code(s): I82.A12 - Acute embolism and thrombosis of left axillary vein Disposition: OP ADMIT IP TO THIS HOSP Does the pt Need Aspirin: No Condition: Critical Time of Disposition: 17:38 <FREDDY THAYER III - Last Filed: 06/24/19 23:39> ED Review of Systems ROS: Stated complaint: LT HAND SWOLLEN Other details as noted in HPI ED Course Vital Signs 06/24/19 06/24/19 06/24/19 17:29 19:30 19:31 Temperature 98.5 F 98.3 F Pulse Rate 94 H 107 H 107 H Respiratory 16 18 16 Rate Blood Pressure 128/51 Blood Pressure 122/86 138/51 [Left] O2 Sat by Pulse 100 99 99 Oximetry 06/24/19 06/24/19 06/24/19 20:00 20:11 20:21 Temperature Pulse Rate 107 H 109 H 107 H Respiratory 19 14 20 Rate Blood Pressure 128/59 128/59 130/61 Blood Pressure [Left] O2 Sat by Pulse 96 96 92 Oximetry 06/24/19 06/24/19 06/24/19 20:31 20:40 20:50 Temperature Pulse Rate Respiratory Rate Blood Pressure 130/61 130/61 130/61 Blood Pressure [Left] O2 Sat by Pulse 100 100 100 Oximetry 06/24/19 21:01 Temperature Pulse Rate Respiratory Rate Blood Pressure 130/61 Blood Pressure [Left] O2 Sat by Pulse 100 Oximetry - Reevaluation(s) Reevaluation #1: I discussed all Results with patient. Discussed plan of care with patient. Patient agrees with plan of care. Patient will be admitted to the hospitalist. 06/24/19 18:27 Reevaluation #2: Multiple attempt made to place an IV. Patient's I have a IV in either leg or upper extremities. A left EJ was attempted and unsuccessful. I discussed with nephrology and nephrology recommended accessing the right chest Port-A-Cath. See procedure note 06/24/19 19:26 - Consultations Consultation #1: Hospitalist consultation. Hospitalist to admit patient. 06/24/19 18:26 Consultation #2: Nephrology paged. 06/24/19 18:30 I discussed case with Dr. Nevarez. Dr. Nevarez states to give the patient hyperkalemia meds and admitted to the hospitalist and he will order dialysis. Dr. Nevarez recommends accessing the permacath for the hyperkalemia medications if peripheral IV is not able to be obtained. 06/24/19 18:47 - Procedure Description Procedures done: Right chest permacath accessing:. Port accessed under sterile conditions. Medications placed through permacath. Port clamped and closed. No complications noted. ED Medical Decision Making - Lab Data Result diagrams: 06/24/19 17:26 06/24/19 17:26 - EKG Data -: EKG Interpreted by Me EKG shows normal: sinus rhythm, axis, intervals, QRS complexes, ST-T waves Rate: normal - Radiology Data Radiology results: report reviewed Ultrasound was done at the patient's care home and the report was reviewed. Report shows a left upper extremity DVT. Critical Care Time: Yes Critical care time in (mins) excluding proc time.: 35 Critical care attestation.: If time is entered above; I have spent that time in minutes in the direct care of this critically ill patient, excluding procedure time. Critical Care Time: 35 minutes ED Disposition Is pt being admited?: Yes Does the pt Need Aspirin: No Time of Disposition: 18:17
[2019-06-24 18:05] LABS: Albumin 3.6 g/dL (3.9-5); BUN/Creatinine Ratio 5; Blood Urea Nitrogen 30 mg/dL (7-17); Hemolysis Index 71
[2019-06-24 18:06] LABS: Alanine Aminotransferase < 5 units/L (7-56)
[2019-06-24 18:12] LABS: INR 0.96 (0.87-1.13)
[2019-06-24 18:13] LABS: Partial Thromboplastin Time 31.3 Sec. (24.2-36.6)
[2019-06-24 18:15] LABS: Basophils # (Auto) 0.1 K/mm3 (0.0-0.1); Basophils % (Auto) 0.9 % (0.0-1.8); Eosinophils # (Auto) 0.5 K/mm3 (0.0-0.4); Eosinophils % (Auto) 7.4 % (0.0-4.3); Hematocrit 35.2 % (30.3-42.9); Hemoglobin 11.7 gm/dl (10.1-14.3); Lymphocytes # (Auto) 1.5 K/mm3 (1.2-5.4); Lymphocytes % (Auto) 21.8 % (13.4-35.0); Mean Corpuscular HGB Conc 33 % (30-34); Mean Corpuscular Volume 99 fl (79-97); Monocytes # (Auto) 0.9 K/mm3 (0.0-0.8); Monocytes % (Auto) 13.9 % (0.0-7.3); Platelet Count 241 K/mm3 (140-440); Red Blood Count 3.57 M/mm3 (3.65-5.03); Red Cell Distribution Width 14.4 % (13.2-15.2)
--- NOTE | 2019-06-24 18:18 | XRay Report ---
CHEST 1 VIEW 1738 INDICATION / CLINICAL INFORMATION: PAIN. COMPARISON: 02/26/2018 FINDINGS: SUPPORT DEVICES: Stable HEART / MEDIASTINUM: Mild cardiomegaly LUNGS / PLEURA: Patient is strongly rotated. Patient's chin partially obscures the apices. Mild bibas ilar atelectatic changes are seen. No definite areas consolidation are noted. Mild congestive changes are seen and there may be mild interstitial pulmonary edema. No pneumothorax. ADDITIONAL FINDINGS: No significant additional findings. IMPRESSION: Mild congestion Signer Name: Jayme Bolaños MD Signed: 06/24/2019 6:13 PM Workstation Name: [id number]
[2019-06-24] MEDS ORDERED: INSULIN REGULAR, HUMAN 100 UNITS/1 ML IV ONE (18:28)
[2019-06-24] MEDS ORDERED: CALCIUM CHLORIDE 1,000 MG/10 ML SDV IVP ONE (18:28)
[2019-06-24] MEDS ORDERED: SODIUM POLYSTYRENE 15 GM/60 ML ORAL LIQD PO ONE (18:28)
[2019-06-24] MEDS ORDERED: CALCIUM CHLORIDE 1,000 MG in SODIUM CHLORIDE 0.9% 100 ML IV ONE (19:00)
[2019-06-24] MEDS ORDERED: DEXTROSE 50% IN WATER (25GM) 50 ML SYRINGE IV ONE (19:18)
[2019-06-24] MEDS ORDERED: DEXTROSE 50% IN WATER (25GM) 50 ML VIAL IV ONE (19:28)
[2019-06-24] MEDS ORDERED: ALBUTEROL 2.5 MG/3 ML NEBU IH PRN (20:01)
[2019-06-24] MEDS ORDERED: oxyCODONE /ACETAMINOPHEN 5-325MG TAB PO PRN (20:01)
[2019-06-24] MEDS ORDERED: ONDANSETRON 4 MG/2 ML INJ IV PRN (20:01)
[2019-06-24] MEDS ORDERED: ACETAMINOPHEN 325 MG TAB PO PRN (20:01)
[2019-06-24] MEDS ORDERED: DEXTROSE 50% IN WATER (25GM) 50 ML SYRINGE IV PRN (20:05)
[2019-06-24] MEDS ORDERED: SODIUM CHLORIDE 0.9% 100 ML IV PRN (20:37)
--- NOTE | 2019-06-24 21:51 | History and Physical Report ---
History of Present Illness Date of examination: 06/24/19 Date of admission: 06/24/19 18:25 Chief complaint: LUE DVT History of present illness: 79-year-old -[place] female who is a current resident at [facility] with history of cancer status post right mastectomy, diabetes, hypertension, HLD, ESRD on HD, dementia,cognitive communication deficit was SSI and CT with complaints of left upper swelling and left extremity DVT. Patient is a poor historian . History is provided by son and [id number] who were both present at bedside. Family noticed that pt's left arm looked swollen. They discussed their concerns with medical staff at [facility], who agreed to perform US LUE. Pt had US LUE earlier today which showed LUE DVT. Pt was referred to ED for further evaluation and mgmt. of medical records shows patient was admitted for facility on 06/17/19 during which time she had mastectomy. She was discharged on 06/24/19. She denies pain, n/v/, chest pain, fever, or alterations in mentation. Past History Past Medical History: cancer (breast), diabetes, ESRD (on HD M/W/F), h ypertension, hyperlipidemia, other (Anja, cognitive communication deficit, dysphagia, falls) Past Surgical History: hysterectomy, mastectomy (right breast mastectomy), Other Social history: other (former smoker, resident of [employer]) Family history: no significant family history Medications and Allergies Allergies Allergy/AdvReac Type Severity Reaction Status Date / Time No Known Allergies Allergy Unverified 11/24/18 08:06 Home Medications Medication Instructions Recorded Confirmed Last Taken Type AtorvaSTATin [Lipitor] 20 mg PO QHS 02/26/18 06/24/19 06/16/19 History Insulin Regular, Human [Novolin R] 1 dose SQ ACHS PRN #1 vial 03/08/18 06/24/19 06/16/19 Rx Amlodipine Besylate/Benazepril 1 each PO QDAY 06/10/19 06/24/19 06/16/19 History [Lotrel 10-40 mg] Ergocalciferol (Vitamin D2) 50,000 unit PO DAILY 06/10/19 06/24/19 06/16/19 History [Drisdol] Insulin Glargine [Lantus VIAL] 20 unit SUB-Q QHS 06/10/19 06/24/1906/16/19 History Omeprazole 20 mg PO DAILY 06/10/19 06/24/19 06/16/19 History Vit B Comp No.3/Folic/C/Biotin 1 each PO DAILY 06/10/19 06/24/19 06/16/19 History [Niyah-Jose F Rx Tablet] Clobetasol 0.05% [Temovate] 1 applic TP Q12H tube 06/13/19 06/24/19 06/16/19 Rx Cyproheptadine [Periactin] 4 mg PO TID tablet 06/13/19 06/24/19 06/16/19 Rx Famotidine [Pepcid] 20 mg PO QDAY #30 tablet 06/13/19 06/24/19 06/16/19 Rx Ferrous Sulfate [Feosol 325 MG tab] 325 mg PO BID tablet 06/13/19 06/24/19 06/16/19 Rx Folic Acid/Vit B Comp W-C [Renal 1 cap PO QDAY capsule 06/13/19 06/24/19 06/16/19 Rx Caps] Sevelamer Carbonate [Renvela] 1,600 mg PO TID tablet 06/13/19 06/24/19 06/16/19 Rx carvediloL [Coreg] 6.25 mg PO BID #60 tablet 06/13/19 06/24/19 06/17/19 10:45 Rx Active Meds: Active Medications Acetaminophen (Tylenol) 650 mg PO Q4H PRN PRN Reason: Pain MILD(1-3)/Fever >100.5/LEDEZMA Albuterol (Proventil) 2.5 mg IH Q3HRT PRN PRN Reason: Shortness Of Breath Amlodipine Besylate (Amlodipine) 10 mg PO DAILY DESHAUN Atorvastatin Calcium (Lipitor) 20 mg PO QHS DESHAUN Carvedilol (Coreg) 6.25 mg PO BID [facility] Dextrose (D50w (25gm) Syringe) 50 ml IV Q30MIN PRN; Protocol PRN Reason: Hypoglycemia Docusate Sodium (Colace) 100 mg PO BID DESHAUN Enoxaparin Sodium (Enoxaparin) 70 mg 1 mg/kg (70 mg) SUB-Q Q24H DESHAUN Ergocalciferol (Vitamin D2) 50,000 unit PO DAILY DESHAUN Ferrous Sulfate (Feosol) 325 mg PO BID DESHAUN Sodium Chloride (Nacl 0.9%) 100 mls @ 999 mls/hr IV CHRIS PRN PRN Reason: Hypotension Insulin Human Lispro (Humalog) 0 unit SUB-Q ACHS DESHAUN; Protocol Multivit/Ca Carb/B Cmplx/FA/Prenat (Renal Caps) 1 cap PO QDAY DESHAUN Ondansetron HCl (Zofran) 4 mg IV Q8H PRN PRN Reason: Nausea And Vomiting Oxycodone/Acetaminophen (Percocet 5/325) 1 tab PO Q6H PRN PRN Reason: Pain, Moderate (4-6) Sodium Chloride (Sodium Chloride Flush Syringe 10 Ml) 10 ml IV BID DESHAUN Sodium Chloride (Sodium Chloride Flush Syringe 10 Ml) 10 ml IV PRN PRN PRN Reason: LINE FLUSH Review of Systems All systems: negative Musculoskeletal: other (LUE edema) Exam - Physical Exam Narrative exam: Physical exam General appearance: Present: No acute distress, awake, alert, oriented x2, [place] - EENT Eyes: Present: PERRL, EOM intact ENT: hearing intact, no dentition - Neck Neck: Present: supple, normal ROM - Respiratory Respiratory effort: Non-labored Respiratory: Clear throughout - Cardiovascular Heart rate: 107 (bpm) Rhythm: Sinus tachycardia Heart Sounds: Present: S1 & S2. Absent: rub, click - Extremities Extremities: no ischemia, pulses intact, JUDITH edema, Right mastectomy with CHEMA drain - Peripheral Assessment Peripheral Pulses: within normal limits - Abdominal General gastrointestinal: soft, non-tender, normal bowel sounds - Integumentary Integumentary: Present: warm, dry, - Musculoskeletal Musculoskeletal: Generalized weakness -Neurological Neurological: CN II-XII intact - Psychiatric Psychiatric: cooperative - Constitutional Vitals: Temp Pulse Resp BP Pulse Ox 98.3 F 107 H 19 128/59 96 06/24/19 19:30 06/24/19 20:00 06/24/19 20:00 06/24/19 20:00 06/24/19 20:00 Results - Labs CBC & Chem 7: 06/24/19 17:26 06/24/19 17:26 Labs: Laboratory Last Values WBC 6.8 K/mm3 (4.5-11.0) 06/24/19 17:26 RBC 3.57 M/mm3 (3.65-5.03) L 06/24/19 17:26 Hgb 11.7 gm/dl (10.1-14.3) 06/24/19 17:26 Hct 35.2 % (30.3-42.9) 06/24/19 17:26 MCV 99 fl (79-97) H 06/24/19 17:26 MCH 33 pg (28-32) H 06/24/19 17:26 MCHC 33 % (30-34) 06/24/19 17:26 RDW 14.4 % (13.2-15.2) 06/24/19 17:26 Plt Count 241 K/mm3 (140-440) 06/24/19 17:26 Lymph % (Auto) 21.8 % (13.4-35.0) 06/24/19 17:26 Roosevelt % (Auto) 13.9 % (0.0-7.3) H 06/24/19 17:26 Eos % (Auto) 7.4 % (0.0-4.3) H 06/24/19 17:26 Baso % (Auto) 0.9 % (0.0-1.8) 06/24/19 17:26 Lymph # 1.5 K/mm3 (1.2-5.4) 06/24/19 17:26 Roosevelt # 0.9 K/mm3 (0.0-0.8) H 06/24/19 17:26 Eos # 0.5 K/mm3 (0.0-0.4) H 06/24/19 17:26 Baso # 0.1 K/mm3 (0.0-0.1) 06/24/19 17:26 Seg Neutrophils % 56.0 % (40.0-70.0) 06/24/19 17:26 Seg Neutrophils # 3.8 K/mm3 (1.8-7.7) 06/24/19 17:26 PT 12.9 Sec. (12.2-14.9) 06/24/19 17:26 INR 0.96 (0.87-1.13) 06/24/19 17:26 APTT 31.3 Sec. (24.2-36.6) 06/24/19 17:26 Sodium 135 mmol/L (137-145) L 06/24/19 17:26 Potassium 6.4 mmol/L (3.6-5.0) H* 06/24/19 17:26 Chloride 98.3 mmol/L (98-107) 06/24/19 17:26 Carbon Dioxide 22 mmol/L (22-30) 06/24/19 17:26 Anion Gap 21 mmol/L 06/24/19 17:26 BUN 30 mg/dL (7-17) H 06/24/19 17:26 Creatinine 5.6 mg/dL (0.7-1.2) H 06/24/19 17:26 Estimated GFR 9 ml/min 06/24/19 17:26 BUN/Creatinine Ratio 5 % 06/24/19 17:26 Glucose 147 mg/dL (65-100) H 06/24/19 17:26 Uric Acid 3.8 mg/dL (3.5-7.6) 06/24/19 17:26 Calcium 9.0 mg/dL (8.4-10.2) 06/24/19 17:26 Phosphorus 4.40 mg/dL (2.5-4.5) 06/24/19 17:26 Total Bilirubin 0.20 mg/dL (0.1-1.2) 06/24/19 17:26 AST 18 units/L (5-40) 06/24/19 17:26 ALT < 5 units/L (7-56) L 06/24/19 17:26 Alkaline Phosphatase 152 units/L (35-129) H 06/24/19 17:26 Total Protein 7.7 g/dL (6.3-8.2) 06/24/19 17:26 Albumin 3.6 g/dL (3.9-5) L 06/24/19 17:26 Albumin/Globulin Ratio 0.9 % 06/24/19 17:26 - Imaging and Cardiology Imaging and Cardiology: CXR: FINDINGS: SUPPORT DEVICES: Stable HEART / MEDIASTINUM: Mild cardiomegaly LUNGS / PLEURA: Patient is strongly rotated. Patient's chin partially obscures the apices. Mild bibasilar atelectatic changes are seen. No definite areas consolidation are noted. Mild congestive changes are seen and there may be mild interstitial pulmonary edema. No pneumothorax. ADDITIONAL FINDINGS: No significant additional findings. IMPRESSION: Mild congestion Left Upper Extrmity Doppler ([facility] done at [facility] [place] 06/24/19) Conclusion: Acute DVT left upper extremity. She is left axillary thrombosis Assessment and Plan Assessment and plan: 79-year-old -[place] female who is a current resident at [facility] [place] [facility] with history of cancer status post right mastectomy, diabetes, hypertension, HLD, ESRD on HD, dementia,cognitive communication deficit was SSI and CT with complaints of left upper swelling and left extremity DVT. Upon arrival to our facility pt was found to be hyperkalemic with potassium of 6.4. She was given hyperkalemic cocktail and Kayexalate. Will admit and follow up and repeat potassium labs. Hyperkalemia -on admission 6.4 -Hyperkalemic cocktail and Kayexalate given in ED -Repeat potassium lab pending -Continue to monitor electrolytes LUE Extremity DVT -Seen on outside Facity DVT -US LUE pending -Start on Lovenox 1mg/kg - Will transition to oral AC before discharge, pt will require OP f/u with PCP ESRD on HD -M/W/F -Last dialyzed 06/23 -Avoid nephrotoxic agents -Renal dose all meds -Nephrology consulted HTN -Monitor BP -Resume home hypertensive meds DM -POC BG monitoring -SSI coverage prn -HgbA1C pending Breast CA -s/p Right mastectomy 06/17/19 -Not on chemo DVT PPX -On Lovenox Advance Directives: No VTE prophylaxis?: Chemical Plan of care discussed with patient/family: Yes
[2019-06-24] MEDS ORDERED: ENOXAPARIN 100 MG/1 ML INJ SUB-Q SCH (22:00)
[2019-06-24] MEDS: ENOXAPARIN 100 MG/1 ML INJ SUB-Q SCH (22:42)
[2019-06-24] MEDS: INSULIN LISPRO 100 UNIT/ML SUB-Q SCH (22:47)
[2019-06-24] MEDS: FERROUS SULFATE 325 MG TAB PO SCH (22:47)
[2019-06-24] MEDS: carvediloL 6.25 MG TAB PO SCH (22:47)
[2019-06-24] MEDS: DOCUSATE SODIUM 100 MG CAP PO SCH (22:47)
[2019-06-25 04:03] LABS: Basophils # (Auto) 0.1 K/mm3 (0.0-0.1); Basophils % (Auto) 0.8 % (0.0-1.8); Eosinophils # (Auto) 0.6 K/mm3 (0.0-0.4); Eosinophils % (Auto) 7.2 % (0.0-4.3); Hematocrit 32.9 % (30.3-42.9); Hemoglobin 11.1 gm/dl (10.1-14.3); Lymphocytes # (Auto) 1.3 K/mm3 (1.2-5.4); Mean Corpuscular HGB Conc 34 % (30-34); Mean Corpuscular Volume 98 fl (79-97); Monocytes # (Auto) 0.7 K/mm3 (0.0-0.8); Monocytes % (Auto) 8.8 % (0.0-7.3); Platelet Count 239 K/mm3 (140-440); Red Blood Count 3.37 M/mm3 (3.65-5.03); Red Cell Distribution Width 14.3 % (13.2-15.2)
[2019-06-25 04:23] LABS: Calcium 9.4 mg/dL (8.4-10.2)
[2019-06-25] MEDS ORDERED: INSULIN REGULAR, HUMAN 100 UNITS/1 ML SUB-Q PRN (08:00)
[2019-06-25] MEDS: INSULIN LISPRO 100 UNIT/ML SUB-Q SCH ×3 (08:12→23:25)
[2019-06-25] MEDS ORDERED: hydrALAZINE 20 MG/1 ML INJ IV PRN (09:15)
--- NOTE | 2019-06-25 09:46 | Vascular Lab Report ---
Left upper extremity venous Doppler. 06/25/2019. HISTORY: Upper extremity extremity pain and swelling. FINDINGS: Duplex Doppler evaluation of the deep venous system of the left upper extremity was perform ed with spectral waveform analysis. There is appropriate flow and compressibility. Negative for visua lized thrombus. IMPRESSION: Negative left upper extremity venous Doppler. Signer Name: Rob Pradhan MD Signed: 06/25/2019 9:41 AM Workstation Name: [id number]
[2019-06-25] MEDS ORDERED: AMLODIPINE BESYLATE PO SCH (10:00)
[2019-06-25] MEDS ORDERED: BENAZEPRIL PO SCH (10:00)
[2019-06-25] MEDS ORDERED: LISINOPRIL 40 MG TAB PO SCH (10:00)
--- NOTE | 2019-06-25 12:30 | Discharge Summary ---
Providers - Providers Date of Admission: 06/24/19 18:25 Date of discharge: 06/26/19 Attending physician: SAUD NAPIER 06/24/19 20:10 Consult to Physician [CONS] Routine Comment: Consulting Provider: TEAGAN RAPP Physician Instructions: Reason For Exam: ESRD on HD M/W/F 06/25/19 09:10 Consult to Wound/ET Nurse [CONS] Routine Reason For Exam: wound eval 06/25/19 09:58 Consult to Physician [CONS] Routine Comment: Consulting Provider: BECCA ARAUJO Physician Instructions: Reason For Exam: Ac recommendation Primary care physician: WHITE LEAD GRINDER Hospitalization Condition: Critical Pertinent studies: Upper extremity venous duplex CXR Hospital course: 79-year-old -[place] female who is a current resident at [facility] with history of cancer status post right mastectomy, diabetes, hypertension, HLD, ESRD on HD, dementia,cognitive communication deficit was SSI and CT with complaints of left upper swelling and left extremity DVT. Upon arrival to our facility pt was found to be hyperkalemic with potassium of 6.4. She was given hyperkalemic cocktail and Kayexalate. Will admit and follow up and repeat potassium labs. Discharge diagnosis and Mx: Hyperkalemia -on admission was 6.4 -s/p Hyperkalemic cocktail and Kayexalate given in ED -Continue to monitor electrolytes following HD LUE Extremity DVT -Seen on outside Facity DVT -US LUE pending -Started on Lovenox 1mg/kg - Will continue lovenox on discharge with h/o malignancy and ESRD, pt will require OP f/u with PCP ESRD on HD -M/W/F -Last dialyzed 06/23 -Avoid nephrotoxic agents -Renal dose all meds -Nephrology consulted for HD HTN -Monitor BP -Resumed home hypertensive meds DM -POC BG monitoring -SSI coverage prn -HgbA1C 6.5 Breast CA -s/p Right mastectomy 06/17/19 -Not on chemo as she is not a candidate DVT PPX -On Lovenox Disposition: SNF - Physical Exam Narrative exam: General appearance: Present: No acute distress, awake, alert, oriented x2, [place]e - EENT Eyes: Present: PERRL, EOM intact ENT: hearing intact, no dentition - Neck Neck: Present: supple, normal ROM - Respiratory Respiratory effort: Non-labored Respiratory: Clear throughout - Cardiovascular Heart rate: 107 (bpm) Rhythm: Sinus tachycardia Heart Sounds: Present: S1 & S2. Absent: rub, click - Extremities Extremities: extensive skin color discoloration on b/l LE with + edema, JUDITH edema, Right mastectomy with CHEMA drain - Peripheral Assessment Peripheral Pulses: within normal limits - Abdominal General gastrointestinal: soft, non-tender, normal bowel sounds - Integumentary Integumentary: Present: warm, dry, extensive skin color discoloration on b/l LE - Musculoskeletal Musculoskeletal: Generalized weakness -Neurological Neurological: CN II-XII intact - Psychiatric Psychiatric: cooperative, demented Disposition: DC/[facility]-03 SNF [facility] Time spent for discharge: 34 minutes Core Measure Documentation - Palliative Care Palliative Care/ Comfort Measures: Not Applicable - Core Measures Any of the following diagnoses?: history only Exam - Physical Exam Narrative exam: General appearance: Present: No acute distress, awake, alert, oriented x2, [place] - EENT Eyes: Present: PERRL, EOM intact ENT: hearing intact, no dentition - Neck Neck: Present: supple, normal ROM - Respiratory Respiratory effort: Non-labored Respiratory: Clear throughout - Cardiovascular Heart rate: 107 (bpm) Rhythm: Sinus tachycardia Heart Sounds: Present: S1 & S2. Absent: rub, click - Extremities Extremities: no ischemia, pulses intact, JUDITH edema, Right mastectomy with CHEMA drain - Peripheral Assessment Peripheral Pulses: within normal limits - Abdominal General gastrointestinal: soft, non-tender, normal bowel sounds - Integumentary Integumentary: Present: warm, dry, - Musculoskeletal Musculoskeletal: Generalized weakness -Neurological Neurological: CN II-XII intact - Psychiatric Psychiatric: cooperative, demented - Constitutional Vitals: Temp Pulse Resp BP Pulse Ox 98.0 F 103 H 18 129/53 98 06/25/19 09:45 06/25/19 12:15 06/25/19 09:45 06/25/19 12:15 06/25/19 07:37 Plan Activity: fall precautions Weight Bearing Status: Non-Weight Bearing Diet: renal Special Instructions: restrict fluid intake to (1.2 L per day) Follow up with: PRIMARY CARE, [Primary Care Provider] - 3-5 Days Prescriptions: Enoxaparin 70 mg SUB-Q Q24H #30 syringe
--- NOTE | 2019-06-25 13:56 | Progress Note ---
Assessment and Plan # ESRD: will provide HD today for hyperkalemia. Continue HD // or prn based on labs. - avoid nephrotoxins - daily labs - renal diet - renally dose meds # Anemia: NASH with HD prn, no indication currently # HTN: BP reasonable. UF as tolerated # Hyperkalemia; Acidosis: HD as above # Secondary Hyperparathyroidism: continue home binders Subjective Date of service: 06/25/19 Interval history: This is a 79 year old woman with ESRD who presents with hyperkalemia. Was unable to get dialysis this week. She was found to have an ultrasound showing DVT and was brought for evaluation to ED. Labs showed hyperkalemia. Patient at baseline poor mental status; known to our practice from Georgina [facility]. Cannot provide additional history. Objective - Vital Signs Vital signs: Vital Signs - 12hr 06/25/19 06/25/19 06/25/19 03:06 04:20 07:37 Temperature 98.2 F 98.0 F Pulse Rate 100 H 106 H 98 H Respiratory 18 18 Rate Blood Pressure 158/60 192/64 O2 Sat by Pulse 97 98 Oximetry 06/25/19 06/25/19 06/25/19 09:45 09:50 10:00 Temperature 98.0 F Pulse Rate 106 H 100 H 102 H Respiratory 18 Rate Blood Pressure 148/79 150/78 152/81 O2 Sat by Pulse Oximetry 06/25/19 06/25/19 06/25/19 10:15 10:30 10:45 Temperature Pulse Rate 107 H 105 H 117 H Respiratory Rate Blood Pressure 140/76 136/68 120/70 O2 Sat by Pulse Oximetry 06/25/19 06/25/19 06/25/19 11:00 11:15 11:30 Temperature Pulse Rate 119 H 118 H 118 H Respiratory Rate Blood Pressure 119/64 140/80 140/80 O2 Sat by Pulse Oximetry 06/25/19 06/25/19 06/25/19 11:45 12:00 12:15 Temperature Pulse Rate 101 H 117 H 103 H Respiratory Rate Blood Pressure 126/66 146/76 129/53 O2 Sat by Pulse Oximetry 06/25/19 06/25/19 06/25/19 12:30 12:45 13:00 Temperature Pulse Rate 118 H 119 H 126 H Respiratory Rate Blood Pressure 129/60 114/58 118/58 O2 Sat by Pulse Oximetry 06/25/19 06/25/19 06/25/19 13:15 13:30 13:45 Temperature Pulse Rate 110 H 114 H 116 H Respiratory Rate Blood Pressure 122/67 128/58 115/52 O2 Sat by Pulse Oximetry Seen on HD, Qb 350ml/min via CVC. AVF not being used - General Appearance General appearance: well-developed, appears stated age, chronically ill, frail EENT: ATNC Neck: no JVD Respiratory: Present: Clear to Ascultation Cardiology: regular, S1S2 Gastrointestinal: normoactive bowel sounds Integumentary: no rash Neurologic: no focal deficit, other (baseline dementia) Psychiatric: agitated - Lab 06/25/19 03:40 06/25/19 05:21 Most recent lab results Calcium 9.4 mg/dL (8.4-10.2) 06/25/19 03:40 Phosphorus 4.40 mg/dL (2.5-4.5) 06/24/19 17:26 Medications & Allergies - Medications Allergies/Adverse Reactions: Allergies No Known Allergies Allergy (Unverified 11/24/18 08:06) Home Medications: Home Medications Medication Instructions Recorded Confirmed Last Taken Type AtorvaSTATin [Lipitor] 20 mg PO QHS 02/26/18 06/24/19 06/16/19 History Insulin Regular, Human [Novolin R] 1 dose SQ ACHS PRN #1 vial 03/08/18 06/24/19 06/16/19 Rx Amlodipine Besylate/Benazepril 1 each PO QDAY 06/10/19 06/24/19 06/16/19 History [Lotrel 10-40 mg] Ergocalciferol (Vitamin D2) 50,000 unit PO DAILY 06/10/19 06/24/19 06/16/19 History [Drisdol] Insulin Glargine [Lantus VIAL] 20 unit SUB-Q QHS 06/10/19 06/24/19 06/16/19 History Omeprazole 20 mg PO DAILY 06/10/19 06/24/19 06/16/19 History Vit B Comp No.3/Folic/C/Biotin 1 each PO DAILY 06/10/19 06/24/19 06/16/19 Histor y [Niyah-Jose F Rx Tablet] Clobetasol 0.05% [Temovate] 1 applic TP Q12H tube 06/13/19 06/24/19 06/16/19 Rx Cyproheptadine [Periactin] 4 mg PO TID tablet 06/13/19 06/24/19 06/16/19 Rx Ferrous Sulfate [Feosol 325 MG tab] 325 mg PO BID tablet 06/13/19 06/24/19 06/16/19 Rx Folic Acid/Vit B Comp W-C [Renal 1 cap PO QDAY capsule 06/13/19 06/24/19 06/16/19 Rx Caps] Sevelamer Carbonate [Renvela] 1,600 mg PO TID tablet 06/13/19 06/24/19 06/16/19 Rx carvediloL [Coreg] 6.25 mg PO BID #60 tablet 06/13/19 06/24/19 06/17/19 10:45 Rx ALBUTEROL NEB's [Proventil 0.083% 2.5 mg IH Q3HRT PRN nebu 06/25/19 Unknown Rx NEBS] Enoxaparin 70 mg SUB-Q Q24H #30 syringe 06/25/19 Unknown Rx Active Medications: Generic Name Dose Route Start Last Admin Trade Name Freq PRN Reason Stop Dose Admin Acetaminophen 650 mg 06/24/19 20:01 Tylenol PO Q4H PRN Pain MILD(1-3)/Fever >100.5/LEDEZMA Albuterol 2.5 mg 06/24/19 20:01 Proventil IH Q3HRT PRN Shortness Of Breath Amlodipine Besylate 10 mg 06/25/19 10:00 Amlodipine PO DAILY [facility] Atorvastatin Calcium 20 mg 06/24/19 22:00 06/24/19 22:47 Lipitor PO Not Given QHS DESHAUN Carvedilol 6.25 mg 06/24/19 22:00 06/24/19 22:47 Coreg PO Not Given BID [facility] Dextrose 50 ml 06/24/19 20:05 D50w (25gm) Syringe IV Q30MIN PRN Hypoglycemia Protocol Docusate Sodium 100 mg 06/24/19 22:00 06/24/19 22:47 Colace PO Not Given BID [facility] Enoxaparin Sodium 70 mg 06/24/19 22:00 06/24/19 22:42 Enoxaparin 1 mg/kg (70 mg) 70 mg SUB-Q Administration Q24H [facility] Ergocalciferol 50,000 unit 06/25/19 10:00 Vitamin D2 PO DAILY [facility] Ferrous Sulfate 325 mg 06/24/19 22:00 06/24/19 22:47 Feosol PO Not Given BID [facility] Hydralazine HCl 5 mg 06/25/19 09:15 Apresoline IV Q30MIN PRN Hypertension Sodium Chloride 100 mls @ 999 mls/hr 06/24/19 20:37 Nacl 0.9% IV CHRIS PRN Hypotension Insulin Glargine 20 units 06/25/19 22:00 Lantus SUB-Q QHS [facility] Insulin Human Lispro 0 unit 06/24/19 22:00 06/25/19 08:12 Humalog SUB-Q Not Given ACHS [facility] Protocol Insulin Human Regular units 06/25/19 09:13 Humulin R SUB-Q ACHS PRN Hyperglycemia Protocol Multivit/Ca Carb/B Cmplx/FA/Prenat 1 cap 06/25/19 10:00 Renal Caps PO QDAY [facility] Ondansetron HCl 4 mg 06/24/19 20:01 Zofran IV Q8H PRN Nausea And Vomiting Oxycodone/Acetaminophen 1 tab 06/24/19 20:01 Percocet 5/325 PO Q6H PRN Pain, Moderate (4-6) Sevelamer Carbonate 1,600 mg 06/25/19 14:00 Renvela PO TID [facility] Sodium Chloride 10 ml 06/24/19 22:00 06/24/19 22:47 Sodium Chloride Flush Syringe 10 Ml IV Not Given BID [facility] Sodium Chloride 10 ml 06/24/19 20:01 Sodium Chloride Flush Syringe 10 Ml IV PRN PRN LINE FLUSH
[2019-06-25] MEDS: FERROUS SULFATE 325 MG TAB PO SCH ×2 (14:19→23:23)
[2019-06-25] MEDS: DOCUSATE SODIUM 100 MG CAP PO SCH ×2 (14:19→23:24)
[2019-06-25] MEDS: ERGOCALCIFEROL (VIT D2) 50,000 UNIT CAP PO SCH (14:19)
[2019-06-25] MEDS: FOLIC ACID/VIT B COMP W-C 1 MG (RENAL CAPS) PO SCH (14:19)
[2019-06-25] MEDS: carvediloL 6.25 MG TAB PO SCH ×2 (14:20→23:24)
[2019-06-25] MEDS: amLODIPine 10 MG TAB PO SCH (14:21)
[2019-06-25] MEDS: SEVELAMER CARBONATE 800 MG TAB PO SCH ×2 (14:35→23:24)
[2019-06-25] MEDS ORDERED: INSULIN GLARGINE 100 UNITS/ML SUB-Q SCH (22:00)
[2019-06-25] MEDS: ENOXAPARIN 100 MG/1 ML INJ SUB-Q SCH (23:24)
[2019-06-26 06:48] LABS: BUN/Creatinine Ratio 4; Blood Urea Nitrogen 16 mg/dL (7-17); Calcium 8.9 mg/dL (8.4-10.2); Hemolysis Index 6
[2019-06-26] MEDS: INSULIN REGULAR, HUMAN 100 UNITS/1 ML SUB-Q SCH ×2 (08:44→13:39)
[2019-06-26] MEDS: amLODIPine 10 MG TAB PO SCH (10:00)
--- NOTE | 2019-06-26 11:12 | Progress Note ---
Assessment and Plan Hyperkalemia -on admission was 6.4 -s/p Hyperkalemic cocktail and Kayexalate given in ED -Continue to monitor electrolytes following HD LUE Extremity DVT -Seen on outside Facity DVT -US LUE pending -Started on Lovenox 1mg/kg - Will continue lovenox on discharge with h/o malignancy and ESRD, pt will require OP f/u with PCP ESRD on HD -M/W/F -Last dialyzed 06/23 -Avoid nephrotoxic agents -Renal dose all meds -Nephrology consulted for HD HTN -Monitor BP -Resumed home hypertensive meds DM -POC BG monitoring -SSI coverage prn -HgbA1C 6.5 Breast CA -s/p Right mastectomy 06/17/19 -Not on chemo as she is not a candidate DVT PPX -On Lovenox Disposition: DC/[place]-03 SNF When k level improves - Physical Exam Narrative exam: General appearance: Present: No acute distress, awake, alert, oriented x2, Sw[place] - EENT Eyes: Present: PERRL, EOM intact ENT: hearing intact, no dentition - Neck Neck: Present: supple, normal ROM - Respiratory Respiratory effort: Non-labored Respiratory: Clear throughout - Cardiovascular Heart rate: 107 (bpm) Rhythm: Sinus tachycardia Heart Sounds: Present: S1 & S2. Absent: rub, click - Extremities Extremities: extensive skin color discoloration on b/l LE with + edema, JUDITH edema, Right mastectomy with CHEMA drain - Peripheral Assessment Peripheral Pulses: within normal limits - Abdominal General gastrointestinal: soft, non-tender, normal bowel sounds - Integumentary Integumentary: Present: warm, dry, extensive skin color discoloration on b/l LE - Musculoskeletal Musculoskeletal: Generalized weakness -Neurological Neurological: CN II-XII intact - Psychiatric Psychiatric: cooperative, demented Subjective Date of service: 06/25/19 Interval history: Patient seen and examined k level remained elevated Getting HD at bedside Patient has advance dementia and unaware about any recent event Objective - Constitutional Vitals: Vital Signs - 12hr 06/25/19 06/26/19 06/26/19 23:24 01:30 04:13 Temperature 98.0 F 98.2 F Pulse Rate 62 132 H 117 H Respiratory 18 18 Rate Blood Pressure 125/69 97/54 91/50 O2 Sat by Pulse 99 84 Oximetry 06/26/19 08:33 Temperature 98.2 F Pulse Rate 106 H Respiratory 18 Rate Blood Pressure 104/65 O2 Sat by Pulse 96 Oximetry - Labs CBC & Chem 7: 06/25/19 03:40 06/26/19 06:00 Labs: Abnormal lab results 06/25/19 06/25/19 06/25/19 Range/Units 14:43 16:39 22:01 Creatinine (0.7-1.2) mg/dL POC Glucose 165 H 190 H 190 H (70-105) 06/26/19 06/26/19 06/26/19 Range/Units 06:00 07:48 11:11 Creatinine 3.9 H (0.7-1.2) mg/dL POC Glucose < 40 L 281 H (70-105)
[2019-06-26] MEDS ORDERED: AQUAPHOR OINT (NF) 396 GM TP SCH (11:43)
--- NOTE | 2019-06-26 11:43 | Progress Note ---
Assessment and Plan # ESRD: s/p HD yesterday for hyperkalemia. Continue HD // or prn based on labs. Due tomorrow, no indication for HD today - avoid nephrotoxins - daily labs - renal diet - renally dose meds # Anemia: NASH with HD prn, no indication currently # HTN: BP reasonable. UF as tolerated with HD # Hyperkalemia; Acidosis: HD as above, improved s/p HD # Secondary Hyperparathyroidism: continue home binders Subjective Date of service: 06/26/19 Interval history: No acute events noted overnight. Patient remains at baseline mental status. Objective - Exam Narrative Exam: General appearance: well-developed, appears stated age, chronically ill, frail EENT: ATNC Neck: no JVD Respiratory: Present: Clear to Ascultation Cardiology: regular, S1S2 Gastrointestinal: normoactive bowel sounds Integumentary: no rash Neurologic: no focal deficit, other (baseline dementia) Psychiatric: agitated - Vital Signs Vital signs: Vital Signs - 12hr 06/26/19 06/26/19 06/26/19 01:30 04:13 08:33 Temperature 98.0 F 98.2 F 98.2 F Pulse Rate 132 H 117 H 106 H Respiratory 18 18 18 Rate Blood Pressure 97/54 91/50 104/65 O2 Sat by Pulse 99 84 96 Oximetry - Lab 06/25/19 03:40 06/26/19 06:00 Most recent lab results Calcium 8.9 mg/dL (8.4-10.2) 06/26/19 06:00 Phosphorus 4.40 mg/dL (2.5-4.5) 06/24/19 17:26 Medications & Allergies - Medications Allergies/Adverse Reactions: Allergies No Known Allergies Allergy (Unverified 11/24/18 08:06) Home Medications: Home Medications Medication Instructions Recorded Confirmed Last Taken Type AtorvaSTATin [Lipitor] 20 mg PO QHS 02/26/18 06/24/19 06/16/19 History Insulin Regular, Human [Novolin R] 1 dose SQ ACHS PRN #1 vial 03/08/18 06/24/19 06/16/19 Rx Amlodipine Besylate/Benazepril 1 each PO QDAY 06/10/19 06/24/19 06/16/19 History [Lotrel 10-40 mg] Ergocalciferol (Vitamin D2) 50,000 unit PO DAILY 06/10/19 06/24/19 06/16/19 History [Drisdol] Insulin Glargine [Lantus VIAL] 20 unit SUB-Q QHS 06/10/19 06/24/19 06/16/19 History Omeprazole 20 mg PO DAILY 06/10/19 06/24/19 06/16/19 History Vit B Comp No.3/Folic/C/Biotin 1 each PO DAILY 06/10/19 06/24/19 06/16/19 History [Niyah-Jose F Rx Tablet] Clobetasol 0.05% [Temovate] 1 applic TP Q12H tube 06/13/19 06/24/19 06/16/19 Rx Cyproheptadine [Periactin] 4 mg PO TID tablet 06/13/19 06/24/19 06/16/19 Rx Ferrous Sulfate [Feosol 325 MG tab] 325 mg PO BID tablet 06/13/19 06/24/19 06/16/19 Rx Folic Acid/Vit B Comp W-C [Renal 1 cap PO QDAY capsule 06/13/19 06/24/19 06/16/19 Rx Caps] Sevelamer Carbonate [Renvela] 1,600 mg PO TID tablet 06/13/19 06/24/19 06/16/19 Rx carvediloL [Coreg] 6.25 mg PO BID #60 tablet 06/13/19 06/24/19 06/17/19 10:45 Rx ALBUTEROL NEB's [Proventil 0.083% 2.5 mg IH Q3HRT PRN nebu 06/25/19 Unknown Rx NEBS] Enoxaparin 70 mg SUB-Q Q24H #30 syringe 06/25/19 Unknown Rx Active Medications: Generic Name Dose Route Start Last Admin Trade Name Freq PRN Reason Stop Dose Admin Acetaminophen 650 mg 06/24/19 20:01 Tylenol PO Q4H PRN Pain MILD(1-3)/Fever >100.5/LEDEZMA Albuterol 2.5 mg 06/24/19 20:01 Proventil IH Q3HRT PRN Shortness Of Breath Amlodipine Besylate 10 mg 06/25/19 10:00 06/25/19 14:21 Amlodipine PO 10 mg DAILY DESHAUN Administration Atorvastatin Calcium 20 mg 06/24/19 22:00 06/25/19 23:24 Lipitor PO 20 mg QHS DESHAUN Administration Carvedilol 6.25 mg 06/24/19 22:00 06/25/19 23:24 Coreg PO 6.25 mg BID DESHAUN Administration Dextrose 50 ml 06/24/19 20:05 D50w (25gm) Syringe IV Q30MIN PRN Hypoglycemia Protocol Docusate Sodium 100 mg 06/24/19 22:00 06/25/19 23:24 Colace PO 100 mg BID DESHAUN Administration Enoxaparin Sodium 70 mg 06/26/19 22:00 Enoxaparin 1 mg/kg (70 mg) SUB-Q Q24H [facility] Ergocalciferol 50,000 unit 06/25/19 10:00 06/25/19 14:19 Vitamin D2 PO 50,000 unit DAILY DESHAUN Administration Ferrous Sulfate 325 mg 06/24/19 22:00 06/25/19 23:23 Feosol PO 325 mg BID DESHAUN Administration Hydralazine HCl 5 mg 06/25/19 09:15 Apresoline IV Q30MIN PRN Hypertension Sodium Chloride 100 mls @ 999 mls/hr 06/24/19 20:37 Nacl 0.9% IV CHRIS PRN Hypotension Insulin Glargine 20 units 06/25/19 22:00 06/25/19 23:25 Lantus SUB-Q 20 units QHS [facility] Administration Insulin Human Regular 0 units 06/26/19 08:30 06/26/19 08:44 Humulin R SUB-Q Not Given ACHS [facility] Protocol Multivit/Ca Carb/B Cmplx/FA/Prenat 1 cap 06/25/19 10:00 06/25/19 14:19 Renal Caps PO 1 cap QDAY DESHAUN Administration Ondansetron HCl 4 mg 06/24/19 20:01 Zofran IV Q8H PRN Nausea And Vomiting Oxycodone/Acetaminophen 1 tab 06/24/19 20:01 Percocet 5/325 PO Q6H PRN Pain, Moderate (4-6) Sevelamer Carbonate 1,600 mg 06/25/19 14:00 06/25/19 23:24 Renvela PO 1,600 mg TID DESHAUN Administration Sodium Chloride 10 ml 06/24/19 22:00 06/25/19 23:26 Sodium Chloride Flush Syringe 10 Ml IV 10 ml BID DESHAUN Administration Sodium Chloride 10 ml 06/24/19 20:01 Sodium Chloride Flush Syringe 10 Ml IV PRN PRN LINE FLUSH
[2019-06-26] MEDS: FERROUS SULFATE 325 MG TAB PO SCH (13:40)
[2019-06-26] MEDS: ERGOCALCIFEROL (VIT D2) 50,000 UNIT CAP PO SCH (13:40)
[2019-06-26] MEDS: SEVELAMER CARBONATE 800 MG TAB PO SCH (13:40)
[2019-06-26] MEDS: FOLIC ACID/VIT B COMP W-C 1 MG (RENAL CAPS) PO SCH (13:40)
[2019-06-26] MEDS: DOCUSATE SODIUM 100 MG CAP PO SCH (13:40)
[2019-06-26] MEDS: carvediloL 6.25 MG TAB PO SCH (13:41)
[2019-06-26] MEDS ORDERED: AQUAPHOR OINTMENT TP SCH (14:00)
[2019-06-26 17:30] VITALS: BP 106/65
[2019-06-26] MEDS ORDERED: ENOXAPARIN 80 MG/0.8 ML INJ SUB-Q SCH (22:00)
== END 2019-06-26 18:35 | DRG 299 ==
LOC: ED 16:35 → 4A 18:25 → OBSVTOIN 06-26 11:00
PROVIDERS: ADMIT Internal Medicine; ATTEND Internal Medicine
PROC: 5A1D70Z Performance of Urinary Filtration, Intermittent, Less than 6 Hours Per Day (ICD-10-PCS; principal; 2019-06-25)
DX: I82.A12 Acute embolism and thrombosis of left axillary vein (principal); N18.6 End stage renal disease; E87.2 Acidosis; N25.81 Secondary hyperparathyroidism of renal origin; I12.0 Hypertensive chronic kidney disease with stage 5 chronic kidney disease or end stage renal disease; E87.5 Hyperkalemia; D64.9 Anemia, unspecified; K21.9 Gastro-esophageal reflux disease without esophagitis; E66.9 Obesity, unspecified; M19.90 Unspecified osteoarthritis, unspecified site; E11.22 Type 2 diabetes mellitus with diabetic chronic kidney disease; F03.90 Unspecified dementia, unspecified severity, without behavioral disturbance, psychotic disturbance, mood disturbance, and anxiety; Z90.710 Acquired absence of both cervix and uterus; Z99.2 Dependence on renal dialysis; Z90.11 Acquired absence of right breast and nipple; Z79.4 Long term (current) use of insulin; Z79.899 Other long term (current) drug therapy; Z68.24 Body mass index [BMI] 24.0-24.9, adult
CPT/HCPCS: 36415; 71045; 80048; 80053; 82962; 83036; 84100; 84132; 84550; 85025; 85610; 85730; 93005; 93010; 96374; 96375; G0378; A9270-GY; J1650; J1815

== ENCOUNTER 2019-07-02 12:48 | Emergency (ER) | payer MEDICARE ==
--- NOTE | 2019-07-02 13:57 | Emergency Department Report ---
ED General Adult HPI - General Stated complaint: ABNORMAL LABS BULB FELL OUT Time Seen by Provider: 07/02/19 13:56 Source: patient, family, RN notes reviewed, old records reviewed Mode of arrival: Stretcher - History of Present Illness Initial comments: PT IS 79 YO AA FEMALE WHO COMES TO ER FROM [place]. SHE IS SP MASCECTOMY FOR CA AND HAS A CHEMA DRAIN THAT IS BROKEN. THE BULB IS OFF THE DRAIN. HER SURGEON CALLED AND HAS ASKED WE REPLACE THE CHEMA BULB. I'VE DISCUSSED THIS WITH THE SURGEON, TORSTEN, AND WITH THE FAMILY PCP AT [address] [place] [phone] FAMILY [phone] SURGEON [phone] - Related Data Home Medications Medication Instructions Recorded Confirmed Last Taken AtorvaSTATin [Lipitor] 20 mg PO QHS 02/26/18 06/24/19 06/16/19 Amlodipine Besylate/Benazepril 1 each PO QDAY 06/10/19 06/24/19 06/16/19 [Lotrel 10-40 mg] Ergocalciferol (Vitamin D2) 50,000 unit PO DAILY 06/10/19 06/24/19 06/16/19 [Drisdol] Insulin Glargine [Lantus VIAL] 20 unit SUB-Q QHS 06/10/19 06/24/19 06/16/19 Omeprazole 20 mg PO DAILY 06/10/19 06/24/19 06/16/19 Vit B Comp No.3/Folic/C/Biotin 1 each PO DAILY 06/10/19 06/24/19 06/16/19 [Niyah-Jose F Rx Tablet] Previous Rx's Medication Instructions Recorded Last Taken Type Insulin Regular, Human [Novolin R] 1 dose SQ ACHS PRN #1 vial 03/08/18 06/16/19 Rx Clobetasol 0.05% [Temovate] 1 applic TP Q12H tube 06/13/19 06/16/19 Rx Cyproheptadine [Periactin] 4 mg PO TID tablet 06/13/19 06/16/19 Rx Ferrous Sulfate [Feosol 325 MG tab] 325 mg PO BID tablet 06/13/19 06/16/19 Rx Folic Acid/Vit B Comp W-C [Renal 1 cap PO QDAY capsule 06/13/19 06/16/19 Rx Caps] Sevelamer Carbonate [Renvela] 1,600 mg PO TID tablet 06/13/19 06/16/19 Rx carvediloL [Coreg] 6.25 mg PO BID #60 tablet 06/13/19 06/17/19 10:45 Rx ALBUTEROL NEB's [Proventil 0.083% 2.5 mg IH Q3HRT PRN nebu 06/25/19 Unknown Rx NEBS] Enoxaparin 70 mg SUB-Q Q24H #30 syringe 06/25/19 Unknown Rx Allergies Allergy/AdvReac Type Severity Reaction Status Date / Time No Known Allergies Allergy Unverified 11/24/18 08:06 ED Review of Systems ROS: Stated complaint: ABNORMAL LABS BULB FELL OUT Other details as noted in HPI Comment: Unobtainable due to pts medical conditions ED Past Medical Hx - Past Medical History Previous Medical History?: Yes Hx Hypertension: Yes Hx CVA: No Hx Heart Attack/AMI: No Hx Congestive Heart Failure: No Hx Diabetes: Yes Hx Deep Vein Thrombosis: Yes Hx Pulmonary Embolism: No Hx Liver Disease: No Hx Renal Disease: No Hx Sickle Cell Disease: No Hx Arthritis: Yes Hx Headaches / Migraines: No Hx Seizures: No Hx Kidney Stones: No Hx Psychiatric Treatment: No Hx Asthma: No Hx COPD: No Hx Tuberculosis: No Hx Dementia: Yes Hx HIV: No Additional medical history: Cognitive communication deficit, MRSA, Dysphagia, Falling, Generalized Muscle Weakness, Abnormal Posture, Constipation, Psoriasis - Surgical History Past Surgical History?: Yes Hx Coronary Stent: No Hx Open Heart Surgery: No Hx Pacemaker: No Hx Internal Defibrillator: No Hx Cholecystectomy: No Hx Appendectomy: No Hx Breast Surgery: No Additional Surgical History: Hysterectomy-MASECTOMY - Family History Family history: no significant - Social History Smoking Status: Never Smoker Substance Use Type: None - Medications Home Medications: Home Medications Medication Instructions Recorded Confirmed Last Taken Type AtorvaSTATin [Lipitor] 20 mg PO QHS 02/26/18 06/24/19 06/16/19 History Insulin Regular, Human [Novolin R] 1 dose SQ ACHS PRN #1 vial 03/08/18 06/24/19 06/16/19 Rx Amlodipine Besylate/Benazepril 1 each PO QDAY 06/10/19 06/24/19 06/16/19 History [Lotrel 10-40 mg] Ergocalciferol (Vitamin D2) 50,000 unit PO DAILY 06/10/19 06/24/19 06/16/19 History [Drisdol] Insulin Glargine [Lantus VIAL] 20 unit SUB-Q QHS 06/10/19 06/24/19 06/16/19 History Omeprazole 20 mg PO DAILY 06/10/19 06/24/19 06/16/19 History Vit B Comp No.3/Folic/C/Biotin 1 each PO DAILY 06/10/19 06/24/19 06/16/19 History [Niyah-Jose F Rx Tablet] Clobetasol 0.05% [Temovate] 1 applic TP Q12H tube 06/13/19 06/24/19 06/16/19 Rx Cyproheptadine [Periactin] 4 mg PO TID tablet 06/13/19 06/24/19 06/16/19 Rx Ferrous Sulfate [Feosol 325 MG tab] 325 mg PO BID tablet 06/13/19 06/24/19 06/16/19 Rx Folic Acid/Vit B Comp W-C [Renal 1 cap PO QDAY capsule 06/13/19 06/24/19 06/16/19 Rx Caps] Sevelamer Carbonate [Renvela] 1,600 mg PO TID tablet 06/13/19 06/24/19 06/16/19 Rx carvediloL [Coreg] 6.25 mg PO BID #60 tablet 06/13/19 06/24/19 06/17/19 10:45 Rx ALBUTEROL NEB's [Proventil 0.083% 2.5 mg IH Q3HRT PRN nebu 06/25/19 Unknown Rx NEBS] Enoxaparin 70 mg SUB-Q Q24H #30 syringe 06/25/19 Unknown Rx ED Physical Exam - General General appearance: alert - Head Head exam: Present: normocephalic - Eye Eye exam: Present: normal appearance - ENT ENT exam: Present: mucous membranes moist - Neck Neck exam: Present: normal inspection - Respiratory Respiratory exam: Present: normal lung sounds bilaterally - Cardiovascular Cardiovascular Exam: Present: regular rate - GI/Abdominal GI/Abdominal exam: Present: soft, normal bowel sounds - Back Exam Back exam: Present: normal inspection - Neurological Exam Neurological exam: Present: alert - Skin Skin exam: Present: warm, dry ED Course Vital Signs 07/02/19 07/02/19 07/02/19 13:36 13:45 14:01 Temperature Pulse Rate 98 H 99 H Respiratory 20 18 20 Rate Blood Pressure 137/57 137/57 Blood Pressure [Right] O2 Sat by Pulse 99 98 98 Oximetry 07/02/19 07/02/19 07/02/19 14:15 14:31 14:45 Temperature Pulse Rate 103 H 99 H 98 H Respiratory 23 18 19 Rate Blood Pressure 137/57 137/57 147/62 Blood Pressure [Right] O2 Sat by Pulse 95 97 98 Oximetry 07/02/19 14:58 Temperature 98.6 F Pulse Rate 98 H Respiratory 18 Rate Blood Pressure 137/57 Blood Pressure 137/57 [Right] O2 Sat by Pulse 98 Oximetry ED Medical Decision Making - Medical Decision Making HERE FOR BULB TO CHEMA DRAIN ONLY PER HER SURGEON; WHOM I'VE SPOKE WITH WHEN CHEMA BULB IS REPLACED, SHE CAN BE SENT BACK TO SNF FOR ROUTINE CARE. Vital Signs 07/02/19 07/02/19 07/02/19 13:36 13:45 14:01 Temperature Pulse Rate 98 H 99 H Respiratory 20 18 20 Rate Blood Pressure 137/57 137/57 Blood Pressure [Right] O2 Sat by Pulse 99 98 98 Oximetry 07/02/19 07/02/19 07/02/19 14:15 14:31 14:45 Temperature Pulse Rate 103 H 99 H 98 H Respiratory 23 18 19 Rate Blood Pressure 137/57 137/57 147/62 Blood Pressure [Right] O2 Sat by Pulse 95 97 98 Oximetry 07/02/19 14:58 Temperature 98.6 F Pulse Rate 98 H Respiratory 18 Rate Blood Pressure 137/57 Blood Pressure 137/57 [Right] O2 Sat by Pulse 98 Oximetry - Differential Diagnosis CHEMA MALFUNCTION Critical care attestation.: If time is entered above; I have spent that time in minutes in the direct care of this critically ill patient, excluding procedure time. ED Disposition Clinical Impression: CHEMA drain, broken Disposition: DC-01 TO HOME OR SELFCARE Is pt being admited?: No Does the pt Need Aspirin: No Condition: Stable Additional Instructions: FOLLOW UP WITH SURGEON ELIAS Referrals: SHARDA BRISCOE MD [Primary Care Provider] - 3-5 Days Time of Disposition: 15:42
[2019-07-02 15:00] VITALS: BP 137/57
--- NOTE | 2019-07-02 15:16 | XRay Report ---
CHEST 1 VIEW INDICATION / CLINICAL INFORMATION: COUGH. COMPARISON: 06/24/2019 FINDINGS: SUPPORT DEVICES: Permacath appears unchanged HEART / MEDIASTINUM: Unchanged LUNGS / PLEURA: There is venous congestion. There is mild perihilar edema.. No pneumothorax. ADDITIONAL FINDINGS: No significant additional findings. IMPRESSION: 1. There is venous congestion and mild perihilar edema. Signer Name: Gallito Looney MD Signed: 07/02/2019 3:12 PM Workstation Name: [id number]
== END 2019-07-02 16:08 | disposition home or self-care (01) ==
LOC: ED 12:48
DX: T85.698A Other mechanical complication of other specified internal prosthetic devices, implants and grafts, initial encounter (principal); I10 Essential (primary) hypertension; E11.9 Type 2 diabetes mellitus without complications; Z86.718 Personal history of other venous thrombosis and embolism; M19.90 Unspecified osteoarthritis, unspecified site; F03.90 Unspecified dementia, unspecified severity, without behavioral disturbance, psychotic disturbance, mood disturbance, and anxiety; Z90.710 Acquired absence of both cervix and uterus; Z79.899 Other long term (current) drug therapy; Y84.8 Other medical procedures as the cause of abnormal reaction of the patient, or of later complication, without mention of misadventure at the time of the procedure
CPT/HCPCS: 71045; 99283

== ENCOUNTER 2019-07-02 18:00 | Emergency (ER) | payer MEDICARE ==
--- NOTE | 2019-07-02 18:07 | Event Note ---
ED Screening Note ED Screening Note: CHEMA BULB ATTACHED TO CHEMA TUBING PHOEBE RN AWARE DISPO BACK TO SNF SEE PREVIOUS NOTE
[2019-07-02 18:16] VITALS: BP 126/66
== END 2019-07-02 18:52 | disposition home or self-care (01) ==
LOC: ED 18:00
DX: Z48.03 Encounter for change or removal of drains (principal)
CPT/HCPCS: 99283

== ENCOUNTER 2019-07-25 14:58 | Emergency (ER) | payer MEDICARE ==
[2019-07-25 16:33] LABS: Basophils # (Auto) 0.1 K/mm3 (0.0-0.1); Basophils % (Auto) 0.8 % (0.0-1.8); Eosinophils # (Auto) 0.6 K/mm3 (0.0-0.4); Eosinophils % (Auto) 5.3 % (0.0-4.3); Hematocrit 26.2 % (30.3-42.9); Hemoglobin 8.6 gm/dl (10.1-14.3); Lymphocytes # (Auto) 1.2 K/mm3 (1.2-5.4); Lymphocytes % (Auto) 11.2 % (13.4-35.0); Mean Corpuscular HGB Conc 33 % (30-34); Mean Corpuscular Volume 99 fl (79-97); Monocytes # (Auto) 0.8 K/mm3 (0.0-0.8); Monocytes % (Auto) 7.2 % (0.0-7.3); Platelet Count 301 K/mm3 (140-440); Red Blood Count 2.66 M/mm3 (3.65-5.03); Red Cell Distribution Width 14.7 % (13.2-15.2)
[2019-07-25 16:57] LABS: Calcium 8.7 mg/dL (8.4-10.2)
--- NOTE | 2019-07-25 18:02 | Emergency Department Report ---
- General Chief Complaint: Laceration/Recheck/Suture Stated Complaint: WOUND CARE Time Seen by Provider: 07/25/19 15:49 Source: patient, EMS Mode of arrival: Stretcher Limitations: No Limitations - History of Present Illness Initial Comments: 79-year-old female with history of breast cancer status post resection approximately one month ago presents to ED with leakage of fluid from the surgery site. No fever reported. Pt has hx of dementia. -: unknown Location: chest Context: other (recent surgery) Associated Symptoms: denies: fever Treatments Prior to Arrival: bandage - Related Data Home Medications Medication Instructions Recorded Confirmed Last Taken AtorvaSTATin [Lipitor] 20 mg PO QHS 02/26/18 06/24/19 06/16/19 Amlodipine Besylate/Benazepril 1 each PO QDAY 06/10/19 06/24/19 06/16/19 [Lotrel 10-40 mg] Ergocalciferol (Vitamin D2) 50,000 unit PO DAILY 06/10/19 06/24/19 06/16/19 [Drisdol] Insulin Glargine [Lantus VIAL] 20 unit SUB-Q QHS 06/10/19 06/24/19 06/16/19 Omeprazole 20 mg PO DAILY 06/10/19 06/24/19 06/16/19 Vit B Comp No.3/Folic/C/Biotin 1 each PO DAILY 06/10/19 06/24/19 06/16/19 [Niyah-Jose F Rx Tablet] Previous Rx's Medication Instructions Recorded Last Taken Type Insulin Regular, Human [Novolin R] 1 dose SQ ACHS PRN #1 vial 03/08/18 06/16/19 Rx Clobetasol 0.05% [Temovate] 1 applic TP Q12H tube 06/13/19 06/16/19 Rx Cyproheptadine [Periactin] 4 mg PO TID tablet 06/13/19 06/16/19 Rx Ferrous Sulfate [Feosol 325 MG tab] 325 mg PO BID tablet 06/13/19 06/16/19 Rx Folic Acid/Vit B Comp W-C [Renal 1 cap PO QDAY capsule 06/13/19 06/16/19 Rx Caps] Sevelamer Carbonate [Renvela] 1,600 mg PO TID tablet 06/13/19 06/16/19 Rx carvediloL [Coreg] 6.25 mg PO BID #60 tablet 06/13/19 06/17/19 10:45 Rx ALBUTEROL NEB's [Proventil 0.083% 2.5 mg IH Q3HRT PRN nebu 06/25/19 Unknown Rx NEBS] Enoxaparin 70 mg SUB-Q Q24H #30 syringe 06/25/19 Unknown Rx Clindamycin [Clindamycin CAP] 300 mg PO Q8H #21 cap 07/25/19 Unknown Rx Allergies Allergy/AdvReac Type Severity Reaction Status Date / Time No Known Allergies Allergy Verified 07/02/19 18:12 ED Review of Systems ROS: Stated complaint: WOUND CARE Other details as noted in HPI Comment: Unobtainable due to pts medical conditions (dementia) ED Past Medical Hx - Past Medical History Previous Medical History?: Yes Hx Hypertension: Yes Hx CVA: No Hx Heart Attack/AMI: No Hx Congestive Heart Failure: No Hx Diabetes: Yes Hx Deep Vein Thrombosis: Yes Hx Pulmonary Embolism: No Hx Liver Disease: No Hx Renal Disease: Yes (Right permacath) Hx Sickle Cell Disease: No Hx Arthritis: Yes Hx Headaches / Migraines: No Hx Seizures: No Hx Kidney Stones: No Hx Psychiatric Treatment: No Hx Asthma: No Hx COPD: No Hx Tuberculosis: No Hx Dementia: Yes Hx HIV: No Additional medical history: Cognitive communication deficit, MRSA, Dysphagia, Falling, Generalized Muscle Weakness, Abnormal Posture, Constipation, Psoriasis - Surgical History Past Surgical History?: Yes Hx Coronary Stent: No Hx Open Heart Surgery: No Hx Pacemaker: No Hx Internal Defibrillator: No Hx Cholecystectomy: No Hx Appendectomy: No Hx Breast Surgery: Yes (Right masectomy) Additional Surgical History: Hysterectomy - Social History Smoking Status: Unknown if ever smoked Substance Use Type: None - Medications Home Medications: Home Medications Medication Instructions Recorded Confirmed Last Taken Type AtorvaSTATin [Lipitor] 20 mg PO QHS 02/26/18 06/24/19 06/16/19 History Insulin Regular, Human [Novolin R] 1 dose SQ ACHS PRN #1 vial 03/08/18 06/24/19 06/16/19 Rx Amlodipine Besylate/Benazepril 1 each PO QDAY 06/10/19 06/24/19 06/16/19 History [Lotrel 10-40 mg] Ergocalciferol (Vitamin D2) 50,000 unit PO DAILY 06/10/19 06/24/19 06/16/19 History [Drisdol] Insulin Glargine [Lantus VIAL] 20 unit SUB-Q QHS 06/10/19 06/24/19 06/16/19 History Omeprazole 20 mg PO DAILY 06/10/19 06/24/19 06/16/19 History Vit B Comp No.3/Folic/C/Biotin 1 each PO DAILY 06/10/19 06/24/19 06/16/19 History [Niyah-Jose F Rx Tablet] Clobetasol 0.05% [Temovate] 1 applic TP Q12H tube 06/13/19 06/24/19 06/16/19 Rx Cyproheptadine [Periactin] 4 mg PO TID tablet 06/13/19 06/24/19 06/16/19 Rx Ferrous Sulfate [Feosol 325 MG tab] 325 mg PO BID tablet 06/13/19 06/24/19 06/16/19 Rx Folic Acid/Vit B Comp W-C [Renal 1 cap PO QDAY capsule 06/13/19 06/24/19 06/16/19 Rx Caps] Sevelamer Carbonate [Renvela] 1,600 mg PO TID tablet 06/13/19 06/24/19 06/16/19 Rx carvediloL [Coreg] 6.25 mg PO BID #60 tablet 06/13/19 06/24/19 06/17/19 10:45 Rx ALBUTEROL NEB's [Proventil 0.083% 2.5 mg IH Q3HRT PRN nebu 06/25/19 Unknown Rx NEBS] Enoxaparin 70 mg SUB-Q Q24H #30 syringe 06/25/19 Unknown Rx Clindamycin [Clindamycin CAP] 300 mg PO Q8H #21 cap 07/25/19 Unknown Rx ED Physical Exam - General Limitations: No Limitations General appearance: alert, in no apparent distress - Head Head exam: Present: atraumatic, normocephalic - Eye Eye exam: Present: normal appearance - ENT ENT exam: Present: mucous membranes moist - Neck Neck exam: Present: normal inspection - Respiratory Respiratory exam: Present: normal lung sounds bilaterally. Absent: respiratory distress - Cardiovascular Cardiovascular Exam: Present: regular rate, normal rhythm - GI/Abdominal GI/Abdominal exam: Present: soft. Absent: distended, tenderness - Extremities Exam Extremities exam: Present: other (edema to right upper extremity) - Neurological Exam Neurological exam: Present: alert (at baseline per family), altered - Psychiatric Psychiatric exam: Present: normal affect, normal mood - Skin Skin exam: Present: other (right mastectomy incision with pinpoint opening at the lateral aspect w/ sanguinous drainage oozing from site; right breast nontender; slight erythema and slight induration present) ED Course Vital Signs 07/25/19 07/25/19 07/25/19 15:20 16:10 16:34 Temperature 97.7 F Pulse Rate 99 H 102 H 96 H Respiratory 16 14 16 Rate Blood Pressure 116/60 Blood Pressure 109/60 125/68 [Left] O2 Sat by Pulse 98 99 100 Oximetry 07/25/19 07/25/19 07/25/19 17:15 18:21 19:36 Temperature Pulse Rate 99 H 99 H 106 H Respiratory 14 18 14 Rate Blood Pressure Blood Pressure 130/71 126/64 121/70 [Left] O2 Sat by Pulse 99 98 99 Oximetry - Consultations Consultation #1: 07/25/19 19:46 Spoke w/ Dr Troncoso, pt's breast surgeon. Informed her of labs and CT results. Wants fdc to perform dressing changes BID and place warm compresses TID. Rx for clindamycin and pt to f/u at the [place] office on Saturday, Jul 27. ED Medical Decision Making - Lab Data Result diagrams: 07/25/19 16:24 07/25/19 16:24 - Radiology Data Radiology results: report reviewed, image reviewed - Medical Decision Making Pt from fdc w/ oozing from mastectomy incision. Pt is afebrile, WBCs 11.1. CT shows hematoma. Spoke w/ pt's surgeon who advises dressing changes BID and warm compresses TID. Will also place on clindamycin since wound is open. Pt to f/u in surgeon's office on Saturday, in 2 days. This information was relayed to the fdc by ED RN. - Differential Diagnosis cellulitis, abscess, hematoma Critical care attestation.: If time is entered above; I have spent that time in minutes in the direct care of this critically ill patient, excluding procedure time. ED Disposition Clinical Impression: Hematoma of surgical wound of skin after surgical procedure Disposition: DC-01 TO HOME OR SELFCARE Is pt being admited?: No Condition: Stable Instructions: Acute Wound Care (ED) Additional Instructions: Ms Hurd needs dressing changes twice a day. Ms Hurd needs warm compresses applied to right breast three times a day. Ms Hurd needs to follow up with Dr Troncoso on Saturday, July 27. Please administer antibiotics as prescribed. Prescriptions: Clindamycin [Clindamycin CAP] 300 mg PO Q8H #21 cap Referrals: STELLA TRONCOSO MD [Staff Physician] - 07/27/19 Time of Disposition: 19:52
--- NOTE | 2019-07-25 19:35 | Cat Scan Report ---
CT CHEST WITHOUT CONTRAST INDICATION / CLINICAL INFORMATION: recent mastectomy; drainage from surgical site. TECHNIQUE: Axial CT images were obtained through the chest without contrast. All CT scans at this location are p erformed using CT dose reduction for ALARA by means of automated exposure control. COMPARISON: None available. FINDINGS: HEART: Heart is mildly enlarged. Moderate coronary artery calcifications. THORACIC AORTA: Moderate atherosclerotic calcification without acute abnormality. MEDIASTINUM and AUDRA: No significant abnormality. LUNGS: No acute air space or interstitial disease. PLEURA: Tiny left pleural effusion. No pneumothorax. ADDITIONAL FINDINGS: Right chest wall soft tissue hematoma at the site of mastectomy measuring 3.2 x 9.7 x 7.6 cm. Diffuse thyroid enlargement involving both lobes. UPPER ABDOMEN: Large left upper pole renal cyst measuring 8 cm. Moderate size sliding-type hiatal her robbin. SKELETAL SYSTEM: No significant abnormality. IMPRESSION: 1. Right chest wall subcutaneous soft tissue hematoma at the mastectomy site. Signer Name: Kash Jefferson MD Signed: 07/25/2019 7:30 PM Workstation Name: [id number]
[2019-07-25 22:00] VITALS: BP 128/62
== END 2019-07-25 21:40 | disposition home or self-care (01) ==
LOC: ED 14:58
DX: L76.32 Postprocedural hematoma of skin and subcutaneous tissue following other procedure (principal); I10 Essential (primary) hypertension; E11.9 Type 2 diabetes mellitus without complications; F03.90 Unspecified dementia, unspecified severity, without behavioral disturbance, psychotic disturbance, mood disturbance, and anxiety; Z90.710 Acquired absence of both cervix and uterus; Z79.899 Other long term (current) drug therapy
CPT/HCPCS: 36415; 71250; 80048; 85025

== ENCOUNTER 2019-09-17 13:15 | Observation (INO) | payer MEDICARE ==
--- NOTE | 2019-09-17 15:31 | Emergency Department Report ---
ED General Adult HPI - General Chief complaint: Recheck/Abnormal Lab/Rx Stated complaint: CRITICAL LABS Time Seen by Provider: 09/17/19 15:24 Source: patient, EMS Mode of arrival: Stretcher Limitations: No Limitations - History of Present Illness Initial comments: 79 y.o. female with history of end stage renal disease on dialysis Saturday, Saturday and Saturday and anemia presents with a complaint that she had abnormal labs and was sent to emergency department for evaluation. Patient is nonverbal. Patient has had no recent falls. Patient's last dialysis was Saturday. Patient's last hemoglobin on presentation to the ER was 10. - Related Data Home Medications Medication Instructions Recorded Confirmed Last Taken AtorvaSTATin [Lipitor] 20 mg PO QHS 02/26/18 06/24/19 06/16/19 Amlodipine Besylate/Benazepril 1 each PO QDAY 06/10/19 06/24/19 06/16/19 [Lotrel 10-40 mg] Ergocalciferol (Vitamin D2) 50,000 unit PO DAILY 06/10/19 06/24/19 06/16/19 [Drisdol] Insulin Glargine [Lantus VIAL] 20 unit SUB-Q QHS 06/10/19 06/24/19 06/16/19 Omeprazole 20 mg PO DAILY 06/10/19 06/24/19 06/16/19 Vit B Comp No.3/Folic/C/Biotin 1 each PO DAILY 06/10/19 06/24/19 06/16/19 [Niyah-Jose F Rx Tablet] Previous Rx's Medication Instructions Recorded Last Taken Type Insulin Regular, Human [Novolin R] 1 dose SQ ACHS PRN #1 vial 03/08/18 06/16/19 Rx Clobetasol 0.05% [Temovate] 1 applic TP Q12H tube 06/13/19 06/16/19 Rx Cyproheptadine [Periactin] 4 mg PO TID tablet 06/13/19 06/16/19 Rx Ferrous Sulfate [Feosol 325 MG tab] 325 mg PO BID tablet 06/13/19 06/16/19 Rx Folic Acid/Vit B Comp W-C [Renal 1 cap PO QDAY capsule 06/13/19 06/16/19 Rx Caps] Sevelamer Carbonate [Renvela] 1,600 mg PO TID tablet 06/13/19 06/16/19 Rx carvediloL [Coreg] 6.25 mg PO BID #60 tablet 06/13/19 06/17/19 10:45 Rx ALBUTEROL NEB's [Proventil 0.083% 2.5 mg IH Q3HRT PRN nebu 06/25/19 Unknown Rx NEBS] Enoxaparin 70 mg SUB-Q Q24H #30 syringe 06/25/19 Unknown Rx Clindamycin [Clindamycin CAP] 300 mg PO Q8H #21 cap 07/25/19 Unknown Rx Allergies Allergy/AdvReac Type Severity Reaction Status Date / Time No Known Allergies Allergy Verified 07/02/19 18:12 ED Review of Systems ROS: Stated complaint: CRITICAL LABS Other details as noted in HPI Comment: Unobtainable due to pts medical conditions ED Past Medical Hx - Past Medical History Hx Hypertension: Yes Hx CVA: No Hx Heart Attack/AMI: No Hx Congestive Heart Failure: No Hx Diabetes: Yes Hx Deep Vein Thrombosis: Yes Hx Pulmonary Embolism: No Hx Liver Disease: No Hx Renal Disease: Yes (Right permacath) Hx Sickle Cell Disease: No Hx Arthritis: Yes Hx Headaches / Migraines: No Hx Seizures: No Hx Kidney Stones: No Hx Psychiatric Treatment: No Hx Asthma: No Hx COPD: No Hx Tuberculosis: No Hx Dementia: Yes Hx HIV: No Additional medical history: Cognitive communication deficit, MRSA, Dysphagia, Falling, Generalized Muscle Weakness, Abnormal Posture, Constipation, Psoriasis - Surgical History Hx Coronary Stent: No Hx Open Heart Surgery: No Hx Pacemaker: No Hx Internal Defibrillator: No Hx Cholecystectomy: No Hx Appendectomy: No Hx Breast Surgery: Yes (Right masectomy) Additional Surgical History: Hysterectomy - Social History Smoking Status: Unknown if ever smoked Substance Use Type: None - Medications Home Medications: Home Medications Medication Instructions Recorded Confirmed Last Taken Type AtorvaSTATin [Lipitor] 20 mg PO QHS 02/26/18 06/24/19 06/16/19 History Insulin Regular, Human [Novolin R] 1 dose SQ ACHS PRN #1 vial 03/08/18 06/24/19 06/16/19 Rx Amlodipine Besylate/Benazepril 1 each PO QDAY 06/10/19 06/24/19 06/16/19 History [Lotrel 10-40 mg] Ergocalciferol (Vitamin D2) 50,000 unit PO DAILY 06/10/19 06/24/19 06/16/19 History [Drisdol] Insulin Glargine [Lantus VIAL] 20 unit SUB-Q QHS 06/10/19 06/24/19 06/16/19 History Omeprazole 20 mg PO DAILY 06/10/19 06/24/19 06/16/19 History Vit B Comp No.3/Folic/C/Biotin 1 each PO DAILY 06/10/19 06/24/19 06/16/19 Histo ry [Niyah-Jose F Rx Tablet] Clobetasol 0.05% [Temovate] 1 applic TP Q12H tube 06/13/19 06/24/19 06/16/19 Rx Cyproheptadine [Periactin] 4 mg PO TID tablet 06/13/19 06/24/19 06/16/19 Rx Ferrous Sulfate [Feosol 325 MG tab] 325 mg PO BID tablet 06/13/19 06/24/19 06/16/19 Rx Folic Acid/Vit B Comp W-C [Renal 1 cap PO QDAY capsule 06/13/19 06/24/19 06/16/19 Rx Caps] Sevelamer Carbonate [Renvela] 1,600 mg PO TID tablet 06/13/19 06/24/19 06/16/19 Rx carvediloL [Coreg] 6.25 mg PO BID #60 tablet 06/13/19 06/24/19 06/17/19 10:45 Rx ALBUTEROL NEB's [Proventil 0.083% 2.5 mg IH Q3HRT PRN nebu 06/25/19 Unknown Rx NEBS] Enoxaparin 70 mg SUB-Q Q24H #30 syringe 06/25/19 Unknown Rx Clindamycin [Clindamycin CAP] 300 mg PO Q8H #21 cap 07/25/19 Unknown Rx ED Physical Exam - General Limitations: No Limitations General appearance: other (Nonverbal; dehydrated;) - Head Head exam: Present: atraumatic, normocephalic - Eye Eye exam: Present: normal appearance - ENT ENT exam: Present: mucous membranes moist - Neck Neck exam: Present: normal inspection - Respiratory Respiratory exam: Present: normal lung sounds bilaterally. Absent: respiratory distress - Cardiovascular Cardiovascular Exam: Present: regular rate, normal rhythm, other (Vas-Cath in the left chest wall with no surrounding erythema or exudate). Absent: systolic murmur, diastolic murmur, rubs, gallop - GI/Abdominal GI/Abdominal exam: Present: soft, normal bowel sounds - Rectal Rectal exam: Present: heme (+) stool, other (Brown stool). Absent: black stool, bloody stool - Extremities Exam Extremities exam: Present: normal inspection - Back Exam Back exam: Present: normal inspection - Neurological Exam Neurological exam: Present: other (Patient able to move extremities) - Psychiatric Psychiatric exam: Present: normal affect, normal mood - Skin Skin exam: Present: warm, dry, intact, normal color. Absent: rash ED Course Vital Signs 09/17/19 09/17/19 09/17/19 14:39 14:46 15:00 Pulse Rate 85 89 87 Respiratory 14 14 14 Rate Blood Pressure 120/34 130/41 O2 Sat by Pulse 100 100 Oximetry 09/17/19 09/17/19 09/17/19 15:16 15:30 15:46 Pulse Rate 90 90 95 H Respiratory 13 15 16 Rate Blood Pressure 127/42 132/44 119/37 O2 Sat by Pulse 100 100 100 Oximetry 09/17/19 09/17/19 09/17/19 16:00 16:16 16:30 Pulse Rate 88 101 H 84 Respiratory 14 14 12 Rate Blood Pressure 137/42 136/43 132/34 O2 Sat by Pulse 100 100 98 Oximetry 09/17/19 09/17/19 09/17/19 16:46 17:00 17:16 Pulse Rate 86 90 100 H Respiratory 12 15 16 Rate Blood Pressure 142/41 137/40 126/37 O2 Sat by Pulse 100 100 100 Oximetry 09/17/19 09/17/19 09/17/19 17:31 17:45 18:01 Pulse Rate 99 H 92 H 98 H Respiratory 18 15 16 Rate Blood Pressure 126/37 126/37 126/37 O2 Sat by Pulse 100 100 100 Oximetry 09/17/19 09/17/19 18:15 18:31 Pulse Rate 107 H 88 Respiratory 23 17 Rate Blood Pressure 126/37 126/37 O2 Sat by Pulse 97 99 Oximetry - Central Line Placement Left Femoral Consent Obtained: emergent situation Time Out Performed: Yes Patient Placed on Monitor/Pulse Ox: Yes MD Prep: mask, gown, gloves Central Line Prep: Chlorhexidine scrub Local Anesthesia Used: Lidocaine 1% Amount of Anesthesia Used (mls): 5 Ultrasound Used for Placement: Yes Central Line Lumen Inserted: triple Bloods Obtained for Lab: Yes Central Line Position: good blood return, all ports aspirated, flus, sutured in place with 3-0 Dressing Applied: Tegaderm Patient Tolerated Procedure: well ED Medical Decision Making - Lab Data Result diagrams: 09/17/19 15:45 09/17/19 15:45 - Medical Decision Making Patient case discussed with GI on-call who agreed to see the patient in consultation. Patient to be admitted to the hospitalist service for continued management and treatment. Patient noted to be hypotensive and was given a bolus of 500 cc while here in the emergency department. Patient typed and crossed for a unit as her hemoglobin 6.9. - Differential Diagnosis Dehydration; anemia; electrolyte abnormality Critical care attestation.: If time is entered above; I have spent that time in minutes in the direct care of this critically ill patient, excluding procedure time. ED Disposition Clinical Impression: Anemia, Hypotension, ESRD (end stage renal disease) Disposition: OP ADMIT IP TO THIS HOSP Is pt being admited?: Yes Does the pt Need Aspirin: No Condition: Stable Time of Disposition: 19:13 Print Language: RUSSIAN
[2019-09-17 16:03] LABS: Hematocrit 22.1 % (30.3-42.9); Hemoglobin 6.9 gm/dl (10.1-14.3); Mean Corpuscular HGB Conc 31 % (30-34); Mean Corpuscular Volume 101 fl (79-97); Platelet Count 182 K/mm3 (140-440); Red Blood Count 2.18 M/mm3 (3.65-5.03); Red Cell Distribution Width 19.6 % (13.2-15.2)
[2019-09-17 16:15] LABS: INR 1.04 (0.87-1.13)
[2019-09-17 16:20] LABS: Albumin 3.4 g/dL (3.9-5); BUN/Creatinine Ratio 5; Blood Urea Nitrogen 23 mg/dL (7-17); Calcium 8.5 mg/dL (8.4-10.2); Hemolysis Index 20
[2019-09-17 16:27] LABS: Alanine Aminotransferase < 5 units/L (7-56)
[2019-09-17] MEDS ORDERED: SODIUM CHLORIDE 0.9% 500 ML 500 ML IV ONE ×3 (16:47→23:45)
[2019-09-17] MEDS ORDERED: LIDOCAINE (1%) 10 MG/1 ML VIAL 20 ML MDV ONE (18:10)
[2019-09-17] MEDS ORDERED: SODIUM CHLORIDE 0.9% 500 ML 500 ML ONE (18:53)
[2019-09-17] MEDS ORDERED: ALBUTEROL 2.5 MG/3 ML NEBU IH PRN (18:55)
--- NOTE | 2019-09-17 18:55 | History and Physical Report ---
History of Present Illness Date of examination: 09/17/19 Date of admission: 09/17/19 Chief complaint: Low h/h History of present illness: 79 y.o. AAF with multiple medical problems including recent Rt Breast Mastectomy for triple negative Breast cancer in Jun 2019 ESRD Htn and IDDM sent from pcp for low H/h of 6.9.Her baseline H?H on 07/25/2019 was 8.6/26.2.Was sent for blood transfusion.Also has gen weakness.No SOB. Past Medical History Hypertension: Yes Diabetes: Yes Renal Disease: Yes (Right permacath) Arthritis: Yes Dementia: Yes Additional medical history: Cognitive communication deficit, MRSA, Dysphagia, Falling, Generalized Muscle Weakness, Abnormal Posture, Constipation, Psoriasis Surgical History Breast Surgery: Yes (Right masectomy)---06/2019 Additional Surgical History: Hysterectomy Social History Smoking Status: Unknown if ever smoked Substance Use Type: None Family history Htn Medications Home Medications: Home Medications Medication Instructions Recorded Confirmed Last Taken Type AtorvaSTATin [Lipitor] 20 mg PO QHS 02/26/18 06/24/19 06/16/19 History Insulin Regular, Human [Novolin R] 1 dose SQ ACHS PRN #1 vial 03/08/18 06/24/19 06/16/19 Rx Amlodipine Besylate/Benazepril 1 each PO QDAY 06/10/19 06/24/19 06/16/19 History [Lotrel 10-40 mg] Ergocalciferol (Vitamin D2) 50,000 unit PO DAILY 06/10/19 06/24/19 06/16/19 History [Drisdol] Insulin Glargine [Lantus VIAL] 20 unit SUB-Q QHS 06/10/19 06/24/19 06/16/19 History Omeprazole 20 mg PO DAILY 06/10/19 06/24/19 06/16/19 History Vit B Comp No.3/Folic/C/Biotin 1 each PO DAILY 06/10/19 06/24/19 06/16/19 History [Niyah-Jose F Rx Tablet] Clobetasol 0.05% [Temovate] 1 applic TP Q12H tube 06/13/19 06/24/19 06/16/19 Rx Cyproheptadine [Periactin] 4 mg PO TID tablet 06/13/19 06/24/19 06/16/19 Rx Ferrous Sulfate [Feosol 325 MG tab] 325 mg PO BID tablet 06/13/19 06/24/19 06/16/19 Rx Folic Acid/Vit B Comp W-C [Renal 1 cap PO QDAY capsule 06/13/19 06/24/19 06/16/19 Rx Caps] Sevelamer Carbonate [Renvela] 1,600 mg PO TID tablet 06/13/19 06/24/19 06/16/19 Rx carvediloL [Coreg] 6.25 mg PO BID #60 tablet 06/13/19 06/24/19 06/17/19 10:45 Rx ALBUTEROL NEB's [Proventil 0.083% 2.5 mg IH Q3HRT PRN nebu 06/25/19 Unknown Rx NEBS] Enoxaparin 70 mg SUB-Q Q24H #30 syringe 06/25/19 Unknown Rx Clindamycin [Clindamycin CAP] 300 mg PO Q8H #21 cap 07/25/19 Unknown Rx Review of Systems ROS: Stated complaint: CRITICAL LABS Other details as noted in HPI Comment: Unobtainable due to pts medical conditions Medications and Allergies Allergies Allergy/AdvReac Type Severity Reaction Status Date / Time No Known Allergies Allergy Verified 07/02/19 18:12 Home Medications Medication Instructions Recorded Confirmed Last Taken Type AtorvaSTATin [Lipitor] 20 mg PO QHS 02/26/18 09/17/19 06/16/19 History Amlodipine Besylate/Benazepril 1 each PO QDAY 06/10/19 09/17/19 06/16/19 History [Lotrel 10-40 mg] Ergocalciferol (Vitamin D2) 50,000 unit PO DAILY 06/10/19 09/17/19 06/16/19 History [Drisdol] Insulin Glargine [Lantus VIAL] 30 unit SUB-Q QHS 06/10/19 09/17/19 06/16/19 History Cyproheptadine [Periactin] 4 mg PO TID tablet 06/13/19 09/17/19 06/16/19 Rx Sevelamer Carbonate [Renvela] 1,600 mg PO TID tablet 06/13/19 09/17/19 06/16/19 Rx Enoxaparin 70 mg SUB-Q Q24H #30 syringe 06/25/19 09/17/19 Unknown Rx Benzonatate [Tessalon Perles] 100 mg PO Q8HR PRN 09/17/19 09/17/19 Unknown History Famotidine [Pepcid] 20 mg PO BID 09/17/19 09/17/19 Unknown History Insulin Lispro [Humalog 100 0 units SQ AC 09/17/19 09/17/19 Unknown History UNITS/ML Kwikpen] Pantoprazole [Protonix] 40 mg PO QDAY 09/17/19 09/17/19 Unknown History glipiZIDE [Glucotrol] 5 mg PO BID 09/17/19 09/17/19 Unknown History Exam - Constitutional Vitals: Temp Pulse Resp BP Pulse Ox 88 17 126/37 99 09/17/19 18:31 09/17/19 18:31 09/17/19 18:31 09/17/19 18:31 General appearance: Present: mild distress, well-nourished - EENT Eyes: Present: PERRL ENT: hearing intact, clear oral mucosa - Neck Neck: Present: supple, normal ROM - Respiratory Respiratory effort: normal Respiratory: bilateral: CTA - Cardiovascular Rhythm: regular Heart Sounds: Present: S1 & S2. Absent: rub, click - Extremities Extremities: pulses symmetrical, No edema Peripheral Pulses: within normal limits - Abdominal General gastrointestinal: Present: soft, non-tender, non-distended, normal bowel sounds Female genitourinary: Present: normal - Integumentary Integumentary: Present: clear, warm, dry - Musculoskeletal Musculoskeletal: gait normal, strength equal bilaterally - Psychiatric Psychiatric: appropriate mood/affect, intact judgment & insight - Neurologic Neurologic: CNII-XII intact, moves all extremities Results - Labs CBC & Chem 7: 09/17/19 15:45 09/17/19 15:45 Labs: Laboratory Last Values WBC 8.6 K/mm3 (4.5-11.0) 09/17/19 15:45 RBC 2.18 M/mm3 (3.65-5.03) L 09/17/19 15:45 Hgb 6.9 gm/dl (10.1-14.3) L 09/17/19 15:45 Hct 22.1 % (30.3-42.9) L 09/17/19 15:45 MCV 101 fl (79-97) H 09/17/19 15:45 MCH 32 pg (28-32) 09/17/19 15:45 MCHC 31 % (30-34) 09/17/19 15:45 RDW 19.6 % (13.2-15.2) H 09/17/19 15:45 Plt Count 182 K/mm3 (140-440) 09/17/19 15:45 PT 13.7 Sec. (12.2-14.9) 09/17/19 15:45 INR 1.04 (0.87-1.13) 09/17/19 15:45 APTT 23.0 Sec. (24.2-36.6) L 09/17/19 15:45 Sodium 138 mmol/L (137-145) 09/17/19 15:45 Potassium 4.8 mmol/L (3.6-5.0) 09/17/19 15:45 Chloride 99.3 mmol/L (98-107) 09/17/19 15:45 Carbon Dioxide 23 mmol/L (22-30) 09/17/19 15:45 Anion Gap 21 mmol/L 09/17/19 15:45 BUN 23 mg/dL (7-17) H 09/17/19 15:45 Creatinine 4.3 mg/dL (0.7-1.2) H 09/17/19 15:45 Estimated GFR 12 ml/min 09/17/19 15:45 BUN/Creatinine Ratio 5 % 09/17/19 15:45 Glucose 103 mg/dL (65-100) H 09/17/19 15:45 Calcium 8.5 mg/dL (8.4-10.2) 09/17/19 15:45 Total Bilirubin 0.40 mg/dL (0.1-1.2) 09/17/19 15:45 AST 9 units/L (5-40) 09/17/19 15:45 ALT < 5 units/L (7-56) L 09/17/19 15:45 Alkaline Phosphatase 88 units/L (35-129) 09/17/19 15:45 Total Protein 6.0 g/dL (6.3-8.2) L 09/17/19 15:45 Albumin 3.4 g/dL (3.9-5) L 09/17/19 15:45 Albumin/Globulin Ratio 1.3 % 09/17/19 15:45 Short CBC 09/17/19 Range/Units 15:45 WBC 8.6 (4.5-11.0) K/mm3 Hgb 6.9 L (10.1-14.3) gm/dl Hct 22.1 L (30.3-42.9) % Plt Count 182 (140-440) K/mm3 BMP 09/17/19 15:45 Sodium 138 Potassium 4.8 Chloride 99.3 Carbon Dioxide 23 BUN 23 H Creatinine 4.3 H Glucose 103 H Calcium 8.5 Cardiac Enzymes 09/17/19 Range/Units 19:17 Troponin T 0.185 H* (0.00-0.029) ng/mL Liver Function 09/17/19 Range/Units 15:45 Total Bilirubin 0.40 (0.1-1.2) mg/dL AST 9 (5-40) units/L ALT < 5 L (7-56) units/L Alkaline Phosphatase 88 (35-129) units/L Albumin 3.4 L (3.9-5) g/dL Assessment and Plan Advance Directives: Yes (Full code) VTE prophylaxis?: Chemical Plan of care discussed with patient/family: Yes - Patient Problems (1) Symptomatic anemia Current Visit: Yes Status: Acute Plan to address problem: Transfuse 1 to 2 units of PRBC Multifactorial -ESRD and Breast cancer Admitted in observation status (2) ESRD needing dialysis Current Visit: No Status: Chronic Plan to address problem: COnt HD as per schedule (3) Insulin dependent diabetes mellitus Current Visit: No Status: Chronic Plan to address problem: Cont home insulin and coverage Check A1c (4) Malnutrition Current Visit: No Status: Chronic Qualifiers: Protein-calorie malnutrition severity: mild Plan to address problem: Dietary supplements (5) Hypertension Current Visit: No Status: Chronic Qualifiers: Hypertension type: essential hypertension Qualified Code(s): I10 - Essential (primary) hypertension Plan to address problem: COnt antihypertensives (6) DVT prophylaxis Current Visit: No Status: Acute Plan to address problem: On Heparin and GI prophylaxis
[2019-09-17] MEDS ORDERED: ONDANSETRON 4 MG/2 ML INJ IV PRN (18:57)
[2019-09-17] MEDS ORDERED: ACETAMINOPHEN 325 MG TAB PO PRN (18:57)
[2019-09-17] MEDS ORDERED: oxyCODONE /ACETAMINOPHEN 5-325MG TAB PO PRN (18:57)
[2019-09-17] MEDS ORDERED: HYDROmorphone 1 MG/1 ML INJ IV PRN (18:57)
[2019-09-17] MEDS ORDERED: [UNRECOGNIZED DRUG - REMARK] PO SCH (19:00)
[2019-09-17] MEDS ORDERED: ENOXAPARIN 100 MG/1 ML INJ SUB-Q SCH (19:00)
[2019-09-17] MEDS ORDERED: SEVELAMER CARBONATE 800 MG TAB PO SCH (20:00)
[2019-09-17 20:16] LABS: Chol/HDL Ratio 2.71 %
[2019-09-17] MEDS ORDERED: ENOXAPARIN 100 MG/1 ML INJ SUB-Q ONE (20:38)
[2019-09-17] MEDS ORDERED: INSULIN GLARGINE 100 UNITS/ML SUB-Q SCH (22:00)
[2019-09-17] MEDS ORDERED: HEPARIN 5,000 UNIT/1 ML VIAL SUB-Q SCH (22:00)
[2019-09-17] MEDS: FERROUS SULFATE 325 MG TAB PO SCH (22:56)
[2019-09-17] MEDS: carvediloL 6.25 MG TAB PO SCH (22:57)
[2019-09-17] MEDS: CYPROHEPTADINE 4 MG TAB PO SCH (23:16)
[2019-09-17] MEDS: B COMPLEX W/VITAMIN C TAB PO SCH (23:17)
--- NOTE | 2019-09-18 09:20 | Gastroenterology Consultation ---
History of Present Illness - Reason for Consult Consult date: 09/18/19 GI bleed Requesting physician: WILFREDO MARX - History of Present Illness Patient is a 79 y/o female [facility] resident with PMH of ESRD on HD, DM, HTN, HLD, dementia, congnitive communication deficit, LUE DVT (on lovenox) and breast cancer with undergoing a palliative right mastectomy in June 2019 (deemed not a good candidate for chemotherapy per oncology) who was sent to hospital for low H/H on labs by PCP. GI has been consulted for anemia for evaluation of GI bleed. Stool brown on rectal exam by ER provider but found to be heme positive. Patient resting in bed this am w/o acute distress but unable to provider history with no family at bedside (attempted to call son via phone with no answer). No evidence of abd pain, N/V, hematemesis, melena, or hematochezia. Prior GI history unknown. Past History Past Medical History: other (see HPI) Past Surgical History: mastectomy, Other (AV fistula) Social history: other ([facility] resident). denies: smoking, alcohol abuse Family history: diabetes, hypertension Medications and Allergies Allergies Allergy/AdvReac Type Severity Reaction Status Date / Time No Known Allergies Allergy Verified 07/02/19 18:12 Home Medications Medication Instructions Recorded Confirmed Last Taken Type AtorvaSTATin [Lipitor] 20 mg PO QHS 02/26/18 09/17/19 06/16/19 History Amlodipine Besylate/Benazepril 1 each PO QDAY 06/10/19 09/17/19 06/16/19 History [Lotrel 10-40 mg] Ergocalciferol (Vitamin D2) 50,000 unit PO DAILY 06/10/19 09/17/19 06/16/19 History [Drisdol] Insulin Glargine [Lantus VIAL] 30 unit SUB-Q QHS 06/10/19 09/17/19 06/16/19 History Cyproheptadine [Periactin] 4 mg PO TID tablet 06/13/19 09/17/19 06/16/19 Rx Sevelamer Carbonate [Renvela] 1,600 mg PO TID tablet 06/13/19 09/17/19 06/16/19 Rx Enoxaparin 70 mg SUB-Q Q24H #30 syringe 06/25/19 09/17/19 Unknown Rx Benzonatate [Tessalon Perles] 100 mg PO Q8HR PRN 09/17/19 09/17/19 Unknown History Famotidine [Pepcid] 20 mg PO BID 09/17/19 09/17/19 Unknown History Insulin Lispro [Humalog 100 0 units SQ AC 09/17/19 09/17/19 Unknown History UNITS/ML Kwikpen] Pantoprazole [Protonix] 40 mg PO QDAY 09/17/19 09/17/19 Unknown History glipiZIDE [Glucotrol] 5 mg PO BID 09/17/19 09/17/19 Unknown History Active Meds: Active Medications Acetaminophen (Tylenol) 650 mg PO Q4H PRN PRN Reason: Pain MILD(1-3)/Fever >100.5/LEDEZMA Albuterol (Proventil) 2.5 mg IH Q3HRT PRN PRN Reason: Shortness Of Breath Atorvastatin Calcium (Lipitor) 20 mg PO QHS [facility] Last Admin: 09/17/19 22:56 Dose: 20 mg Documented by: Carvedilol (Coreg) 6.25 mg PO BID [facility] Last Admin: 09/17/19 22:57 Dose: 6.25 mg Documented by: Cyproheptadine HCl (Periactin) 4 mg PO TID [facility] Last Admin: 09/17/19 23:16 Dose: 4 mg Documented by: Enoxaparin Sodium (Enoxaparin) 70 mg SUB-Q Q24HR@1800 [facility] Ferrous Sulfate (Feosol) 325 mg PO BID [facility] Last Admin: 09/17/19 22:56 Dose: 325 mg Documented by: Hydromorphone HCl (Dilaudid) 0.5 mg IV Q3H PRN PRN Reason: Pain , Severe (7-10) Insulin Glargine (Lantus) 20 units SUB-Q QHS [facility] Last Admin: 09/17/19 23:17 Dose: 20 units Documented by: Multivit/Ca Carb/B Cmplx/FA/Prenat (Renal Caps) 1 cap PO QDAY [facility] Ondansetron HCl (Zofran) 4 mg IV Q8H PRN PRN Reason: Nausea And Vomiting Oxycodone/Acetaminophen (Percocet 5/325) 1 tab PO Q6H PRN PRN Reason: Pain, Moderate (4-6) Pantoprazole Sodium (Protonix) 20 mg PO QDAY [facility] Sevelamer Carbonate (Renvela) 1,600 mg PO TIDWM [facility] Sodium Chloride (Sodium Chloride Flush Syringe 10 Ml) 10 ml IV BID [facility] Last Admin: 09/17/19 22:58 Dose: 10 ml Documented by: Sodium Chloride (Sodium Chloride Flush Syringe 10 Ml) 10 ml IV PRN PRN PRN Reason: LINE FLUSH Vitamin B Complex/Vitamin C ([place]bee With C) 1 each PO QDAY [facility] Last Admin: 09/17/19 23:17 Dose: 1 each Documented by: medications reviewed/updated as required Review of Systems - Review of Systems ROS unobtainable: due to mental status Exam - Constitutional Vital Signs: Temp Pulse Resp BP Pulse Ox 98.2 F 95 H 18 139/69 99 09/18/19 08:01 09/18/19 08:01 09/18/19 05:30 09/18/19 08:01 09/18/19 08:01 General appearance: no acute distress - EENT Eyes: PERRL, EOM intact - Respiratory Respiratory effort: normal Respiratory: bilateral: diminished - Cardiovascular Rhythm: regular Extremity abnormal: other (swelling of left arm) - Gastrointestinal General gastrointestinal: Present: soft, non-distended, normal bowel sounds - Neurologic Neurological: disoriented - Labs CBC & Chem 7: 09/18/19 09:00 09/18/19 09:00 Lab Results: Laboratory Results - last 24 hr 09/17/19 09/17/19 09/17/19 15:45 15:45 15:45 WBC 8.6 RBC 2.18 L Hgb 6.9 L Hct 22.1 L MCV 101 H MCH 32 MCHC 31 RDW 19.6 H Plt Count 182 PT 13.7 INR 1.04 APTT 23.0 L Sodium 138 Potassium 4.8 Chloride 99.3 Carbon Dioxide 23 Anion Gap 21 BUN 23 H Creatinine 4.3 H Estimated GFR 12 BUN/Creatinine Ratio 5 Glucose 103 H POC Glucose Hemoglobin A1c Calcium 8.5 Total Bilirubin 0.40 AST 9 ALT < 5 L Alkaline Phosphatase 88 Troponin T Total Protein 6.0 L Albumin 3.4 L Albumin/Globulin Ratio 1.3 Triglycerides Cholesterol LDL Cholesterol Direct HDL Cholesterol Cholesterol/HDL Ratio Blood Type Antibody Screen Crossmatch 09/17/19 09/17/1920 15:45 18:31 19:17 WBC RBC Hgb Hct MCV MCH MCHC RDW Plt Count PT INR APTT Sodium Potassium Chloride Carbon Dioxide Anion Gap BUN Creatinine Estimated GFR BUN/Creatinine Ratio Glucose POC Glucose Hemoglobin A1c 3.6 L Calcium Total Bilirubin AST ALT Alkaline Phosphatase Troponin T 0.185 H* Total Protein Albumin Albumin/Globulin Ratio Triglycerides 125 Cholesterol 125 LDL Cholesterol Direct 62 HDL Cholesterol 46 Cholesterol/HDL Ratio 2.71 Blood Type A POSITIVE Antibody Screen Negative Crossmatch See Detail 09/17/19 22:25 WBC RBC Hgb Hct MCV MCH MCHC RDW Plt Count PT INR APTT Sodium Potassium Chloride Carbon Dioxide Anion Gap BUN Creatinine Estimated GFR BUN/Creatinine Ratio Glucose POC Glucose 106 H Hemoglobin A1c Calcium Total Bilirubin AST ALT Alkaline Phosphatase Troponin T Total Protein Albumin Albumin/Globulin Ratio Triglycerides Cholesterol LDL Cholesterol Direct HDL Cholesterol Cholesterol/HDL Ratio Blood Type Antibody Screen Crossmatch Assessment and Plan 1.anemia -stool brown but heme + per ED provider record -H/H 8.5/25.7-s/p blood transfusion -continue to monitor H/H and transfuse as needed -no active/overt signs of GI bleeding -etiology-likely multifactorial (ESRD, breast cancer, etc.) -no plan for scope at this time unless overt bleeding develops; attempted to call family (son Robbi) with no answer to discuss option of endoscopic evaluation and goals of care-patient with multiple comorbids and likely hospice candidate) -PPI -diet as tolerated -supportive care -further recommendations to follow
[2019-09-18] MEDS: FERROUS SULFATE 325 MG TAB PO SCH ×2 (09:40→12:04)
[2019-09-18] MEDS: carvediloL 6.25 MG TAB PO SCH (09:40)
[2019-09-18] MEDS: CYPROHEPTADINE 4 MG TAB PO SCH (09:40)
[2019-09-18] MEDS: FOLIC ACID/VIT B COMP W-C 1 MG (RENAL CAPS) PO SCH ×2 (09:40→12:01)
[2019-09-18] MEDS: PANTOPRAZOLE 20 MG TAB PO SCH ×2 (09:40→12:03)
[2019-09-18] MEDS: SEVELAMER CARBONATE 800 MG TAB PO SCH ×2 (09:40→12:00)
[2019-09-18] MEDS: B COMPLEX W/VITAMIN C TAB PO SCH (09:40)
[2019-09-18 09:57] LABS: Basophils # (Auto) 0.1 K/mm3 (0.0-0.1); Basophils % (Auto) 1.1 % (0.0-1.8); Eosinophils # (Auto) 0.6 K/mm3 (0.0-0.4); Eosinophils % (Auto) 6.8 % (0.0-4.3); Hematocrit 25.7 % (30.3-42.9); Hemoglobin 8.5 gm/dl (10.1-14.3); Lymphocytes # (Auto) 1.3 K/mm3 (1.2-5.4); Lymphocytes % (Auto) 15.8 % (13.4-35.0); Mean Corpuscular HGB Conc 33 % (30-34); Mean Corpuscular Volume 95 fl (79-97); Monocytes # (Auto) 0.8 K/mm3 (0.0-0.8); Platelet Count 194 K/mm3 (140-440); Red Blood Count 2.72 M/mm3 (3.65-5.03); Red Cell Distribution Width 17.3 % (13.2-15.2)
[2019-09-18] MEDS ORDERED: NON-FORMULARY EACH (Omeprazole [Omeprazole] 20 MG) PO SCH (10:00)
[2019-09-18 10:26] LABS: Calcium 8.5 mg/dL (8.4-10.2)
--- NOTE | 2019-09-18 13:31 | Discharge Summary ---
Providers - Providers Date of Admission: 09/17/19 18:57 Date of discharge: 09/18/19 Attending physician: SHARDA BRISCOE 09/17/19 16:42 Consult to Physician [CONS] Stat Comment: DR FRANCISCO J COATS W/DR LOWE @[id number] Consulting Provider: MAYRA ALICIA Physician Instructions: Reason For Exam: gi bleed 09/18/19 08:59 Physical Therapy Evaluation and Treat [CONS] Routine Comment: Reason For Exam: weakness 09/18/19 13:08 Consult to Wound/ET Nurse [CONS] Routine Reason For Exam: wound eval 09/18/19 13:09 Speech Therapy Evaluation and Treat [CONS] Routine Reason For Exam: aphasia Primary care physician: WELDING TEACHER Hospitalization Condition: Poor Hospital course: Patient 79-year-old female with history of hypertension, diabetes, end-stage renal disease, hyperlipidemia, dementia, left upper extremity DVT on Lovenox. Patient had breast cancer status post mastectomy. Patient was not a candidate for chemotherapy secondary to poor functional status. Mastectomy was palliative at best. Presented with a low H&H. No rectal bleeding. Status post transfusion H&H 8.5 and 25. Patient is asymptomatic now no new concerns. Also attempt to call family to discuss possible GI recommendations. Patient I agree is not a candidate for EGD and more hospice appropriate. Will discuss with the son. Patient can be discharged and follow-up with a H&H in the long-term setting snf facility setting. Continue hemodialysis were doing. Disposition: DC/TX-03 SNF W [facility] CERT - Discharge Diagnoses (1) Anemia Status: Acute (2) ESRD (end stage renal disease) Status: Acute (3) Hypotension Status: Acute (4) Breast cancer Status: Acute (5) End stage renal disease Status: Acute (6) Right breast cancer with T3 tumor, >5 cm in greatest dimension Status: Acute (7) Debility Status: Chronic (8) Dementia Status: Chronic Qualifiers: Dementia behavioral disturbance: without behavioral disturbance Core Measure Documentation - Palliative Care Palliative Care/ Comfort Measures: Not Applicable - Core Measures Any of the following diagnoses?: none Exam - Constitutional Vitals: Temp Pulse Resp BP Pulse Ox 98.2 F 95 H 18 139/69 99 09/18/19 08:01 09/18/19 10:00 09/18/19 05:30 09/18/19 08:09/18/19 10:00 General appearance: Present: no acute distress, well-nourished - EENT Eyes: Present: PERRL ENT: hearing intact, clear oral mucosa - Neck Neck: Present: supple, normal ROM - Respiratory Respiratory effort: normal Respiratory: bilateral: CTA - Cardiovascular Heart Sounds: Present: S1 & S2. Absent: rub, click - Extremities Extremities: pulses symmetrical, No edema Peripheral Pulses: within normal limits - Abdominal General gastrointestinal: Present: soft, non-tender, non-distended, normal bowel sounds Female genitourinary: Present: normal - Integumentary Integumentary: Present: clear, warm, dry - Musculoskeletal Musculoskeletal: gait normal, strength equal bilaterally - Psychiatric Psychiatric: appropriate mood/affect, intact judgment & insight - Neurologic Neurologic: CNII-XII intact, moves all extremities Plan Activity: fall precautions Weight Bearing Status: Touch Down Weight Bearing Diet: renal Follow up with: PRIMARY CARE, [Primary Care Provider] - 3-5 Days
[2019-09-18 14:06] VITALS: BP 156/56
[2019-09-18] MEDS ORDERED: ENOXAPARIN 80 MG/0.8 ML INJ SUB-Q SCH (18:00)
== END 2019-09-18 19:55 ==
LOC: ED 13:15 → 2B-ACE 18:57
PROVIDERS: ADMIT Internal Medicine; ATTEND Internal Medicine
DX: D64.9 Anemia, unspecified (principal); E11.22 Type 2 diabetes mellitus with diabetic chronic kidney disease; I12.0 Hypertensive chronic kidney disease with stage 5 chronic kidney disease or end stage renal disease; N18.6 End stage renal disease; E46 Unspecified protein-calorie malnutrition; M19.90 Unspecified osteoarthritis, unspecified site; F03.90 Unspecified dementia, unspecified severity, without behavioral disturbance, psychotic disturbance, mood disturbance, and anxiety; I95.9 Hypotension, unspecified; Z99.2 Dependence on renal dialysis; Z85.3 Personal history of malignant neoplasm of breast; Z86.718 Personal history of other venous thrombosis and embolism; Z90.710 Acquired absence of both cervix and uterus; Z91.011 Allergy to milk products; Z79.4 Long term (current) use of insulin; Z79.899 Other long term (current) drug therapy
CPT/HCPCS: 36415; 36430; 80053; 80061; 82962; 83036; 84484; 85025; 85027; 85610; 85730; 86850; 86900; 86901; 86920; 92610; 93005; 93010; 96372; 99284; A9270; G0378; J1644; J1650; J7040; P9016; J1815

== ENCOUNTER 2019-10-16 22:16 | Emergency (ER) | payer MEDICARE ==
--- NOTE | 2019-10-16 23:11 | Cat Scan Report ---
CT HEAD WITHOUT CONTRAST INDICATION / CLINICAL INFORMATION: Fall. TECHNIQUE: All CT scans at this location are performed using CT dose reduction for ALARA by means of automated e xposure control. COMPARISON: None available. FINDINGS: HEMORRHAGE: None. EXTRA-AXIAL SPACES: Mildly prominent. VENTRICULAR SYSTEM: Mildly prominent. CEREBRAL PARENCHYMA: Extensive white matter hypodensities likely related to microangiopathy. No acute territorial infarct. MIDLINE SHIFT OR HERNIATION: None. CEREBELLUM / BRAINSTEM: No significant abnormality. ORBITS: Normal as visualized. SOFT TISSUES of HEAD: Left forehead soft tissue hematoma. CALVARIUM: No significant abnormality. PARANASAL SINUSES / MASTOID AIR CELLS: Normal as visualized. ADDITIONAL FINDINGS: None. IMPRESSION: 1. No acute intracranial abnormality. 2. Left forehead soft tissue hematoma. 3. Chronic and age-related findings. Signer Name: Kash Jefferson MD Signed: 10/16/2019 11:06 PM Workstation Name: [id number]
--- NOTE | 2019-10-16 23:14 | Cat Scan Report ---
CT CERVICAL SPINE WITHOUT CONTRAST INDICATION / CLINICAL INFORMATION: fall. TECHNIQUE: Axial CT images were obtained through the cervical spine. Sagittal and coronal reformatted images wer e produced. All CT scans at this location are performed using CT dose reduction for ALARA by means of automated exposure control. COMPARISON: None available. FINDINGS: VERTEBRAE: No significant abnormality. ALIGNMENT: No significant abnormality. DISC SPACES: Mild multilevel discogenic spondylosis. Calcified posterior disc extrusion at C3-4 with spinal canal narrowing. FACET JOINTS: No significant abnormality. CRANIOCERVICAL JUNCTION:No significant abnormality. SPINAL CANAL: Moderate narrowing at C3-4. PARASPINAL SOFT TISSUES: Mildly enlarged and heterogeneous thyroid gland. ADDITIONAL FINDINGS: None. LUNG APICES: No significant abnormality of visualized lungs. IMPRESSION: 1. No acute fracture or subluxation. 2. Calcified posterior disc extrusion at C3-4 with moderate canal narrowing. Signer Name: Kash Jefferson MD Signed: 10/16/2019 11:10 PM Workstation Name: [id number]
--- NOTE | 2019-10-16 23:42 | Emergency Department Report ---
ED Fall HPI - General Chief Complaint: Fall Stated Complaint: FALL/FOREHEAD HEMATOMA Time Seen by Provider: 10/16/19 22:47 Source: EMS Mode of arrival: Stretcher - History of Present Illness Initial Comments: 79-year-old female, history of dementia, presents from [facility] following a witnessed fall. Patient has a hematoma to the forehead. She denies headache. Complaint: fall -: This evening Fall Witnessed: yes, by living facility s Place Fall Occurred: [facility] Loss of Consciousness: none Prolonged Down Time?: no Location: head Severity: mild Context: tripped/slipped Associated Symptoms: denies: headache, neck pain - Related Data Home Medications Medication Instructions Recorded Confirmed Last Taken AtorvaSTATin [Lipitor] 20 mg PO QHS 02/26/18 09/17/19 06/16/19 Amlodipine Besylate/Benazepril 1 each PO QDAY 06/10/19 09/17/19 06/16/19 [Lotrel 10-40 mg] Ergocalciferol (Vitamin D2) 50,000 unit PO DAILY 06/10/19 09/17/19 06/16/19 [Drisdol] Insulin Glargine [Lantus VIAL] 30 unit SUB-Q QHS 06/10/19 09/17/19 06/16/19 Benzonatate [Tessalon Perles] 100 mg PO Q8HR PRN 09/17/19 09/17/19 Unknown Famotidine [Pepcid] 20 mg PO BID 09/17/19 09/17/19 Unknown Insulin Lispro [Humalog 100 0 units SQ AC 09/17/19 09/17/19 Unknown UNITS/ML Kwikpen] Pantoprazole [Protonix TAB] 40 mg PO QDAY 09/17/19 09/17/19 Unknown glipiZIDE [Glucotrol] 5 mg PO BID 09/17/19 09/17/19 Unknown Previous Rx's Medication Instructions Recorded Last Taken Type Cyproheptadine [Periactin] 4 mg PO TID tablet 06/13/19 06/16/19 Rx Sevelamer Carbonate [Renvela] 1,600 mg PO TID tablet 06/13/19 06/16/19 Rx Enoxaparin 70 mg SUB-Q Q24H #30 syringe 06/25/19 Unknown Rx ALBUTEROL NEB's [Proventil 0.083% 2.5 mg IH Q3HRT PRN nebu 09/18/19 Unknown Rx NEBS] Acetaminophen [Acetaminophen TAB] 650 mg PO Q4H PRN tablet 09/18/19 Unknown Rx B Complex W/Vitamin C [Allbee with 1 each PO QDAY tablet 09/18/19 Unknown Rx C] Enoxaparin 70 mg SUB-Q Q24HR@1800 syringe 09/18/19 Unknown Rx Ferrous Sulfate [Feosol 325 MG tab] 325 mg PO BID tablet 09/18/19 Unknown Rx Folic Acid/Vit B Comp W-C [Renal 1 cap PO QDAY capsule 09/18/19 Unknown Rx Caps] Sevelamer Carbonate [Renvela] 1,600 mg PO TIDWM tablet 09/18/19 Unknown Rx carvediloL [Coreg] 6.25 mg PO BID tablet 09/18/19 Unknown Rx Allergies Allergy/AdvReac Type Severity Reaction Status Date / Time No Known Allergies Allergy Verified 07/02/19 18:12 ED Review of Systems ROS: Stated complaint: FALL/FOREHEAD HEMATOMA Other details as noted in HPI Comment: Unobtainable due to pts medical conditions (dementia) Musculoskeletal: other (denies neck pain) Neurological: denies: headache ED Past Medical Hx - Past Medical History Previous Medical History?: Yes Hx Hypertension: Yes Hx CVA: No Hx Heart Attack/AMI: No Hx Congestive Heart Failure: No Hx Diabetes: Yes Hx Deep Vein Thrombosis: Yes Hx Pulmonary Embolism: No Hx Liver Disease: No Hx Renal Disease: Yes (Right permacath) Hx Sickle Cell Disease: No Hx Arthritis: Yes Hx Headaches / Migraines: No Hx Seizures: No Hx Kidney Stones: No Hx Psychiatric Treatment: No Hx Asthma: No Hx COPD: No Hx Tuberculosis: No Hx Dementia: Yes Hx HIV: No Additional medical history: Cognitive communication deficit, MRSA, Dysphagia, Falling, Generalized Muscle Weakness, Abnormal Posture, Constipation, Psoriasis - Surgical History Hx Coronary Stent: No Hx Open Heart Surgery: No Hx Pacemaker: No Hx Internal Defibrillator: No Hx Cholecystectomy: No Hx Appendectomy: No Hx Breast Surgery: Yes (Right masectomy) Additional Surgical History: Hysterectomy - Social History Smoking Status: Never Smoker - Medications Home Medications: Home Medications Medication Instructions Recorded Confirmed Last Taken Type AtorvaSTATin [Lipitor] 20 mg PO QHS 02/26/18 09/17/19 06/16/19 History Amlodipine Besylate/Benazepril 1 each PO QDAY 06/10/19 09/17/19 06/16/19 History [Lotrel 10-40 mg] Ergocalciferol (Vitamin D2) 50,000 unit PO DAILY 06/10/19 09/17/19 06/16/19 History [Drisdol] Insulin Glargine [Lantus VIAL] 30 unit SUB-Q QHS 06/10/19 09/17/19 06/16/19 History Cyproheptadine [Periactin] 4 mg PO TID tablet 06/13/19 09/17/19 06/16/19 Rx Sevelamer Carbonate [Renvela] 1,600 mg PO TID tablet 06/13/19 09/17/19 06/16/19 Rx Enoxaparin 70 mg SUB-Q Q24H #30 syringe 06/25/19 09/17/19 Unknown Rx Benzonatate [Tessalon Perles] 100 mg PO Q8HR PRN 09/17/19 09/17/19 Unknown History Famotidine [Pepcid] 20 mg PO BID 09/17/19 09/17/19 Unknown History Insulin Lispro [Humalog 100 0 units SQ AC 09/17/19 09/17/19 Unknown History UNITS/ML Kwikpen] Pantoprazole [Protonix TAB] 40 mg PO QDAY 09/17/19 09/17/19 Unknown History glipiZIDE [Glucotrol] 5 mg PO BID 09/17/19 09/17/19 Unknown History ALBUTEROL NEB's [Proventil 0.083% 2.5 mg IH Q3HRT PRN nebu 09/18/19 Unknown Rx NEBS] Acetaminophen [Acetaminophen TAB] 650 mg PO Q4H PRN tablet 09/18/19 Unknown Rx B Complex W/Vitamin C [Allbee with 1 each PO QDAY tablet 09/18/19 Unknown Rx C] Enoxaparin 70 mg SUB-Q Q24HR@1800 syringe 09/18/19 Unknown Rx Ferrous Sulfate [Feosol 325 MG tab] 325 mg PO BID tablet 09/18/19 Unknown Rx Folic Acid/Vit B Comp W-C [Renal 1 cap PO QDAY capsule 09/18/19 Unknown Rx Caps] Sevelamer Carbonate [Renvela] 1,600 mg PO TIDWM tablet 09/18/19 Unknown Rx carvediloL [Coreg] 6.25 mg PO BID tablet 09/18/19 Unknown Rx ED Physical Exam - General Limitations: Altered Mental Status General appearance: alert, in no apparent distress - Head Head exam: Present: other (small hematoma to left forehead) - Eye Eye exam: Present: normal appearance - ENT ENT exam: Present: mucous membranes moist - Neck Neck exam: Present: normal inspection. Absent: tenderness - Respiratory Respiratory exam: Present: normal lung sounds bilaterally. Absent: respiratory distress - Cardiovascular Cardiovascular Exam: Present: regular rate, normal rhythm - GI/Abdominal GI/Abdominal exam: Present: soft. Absent: distended, tenderness - Extremities Exam Extremities exam: Present: other (edema to right upper extremity) - Neurological Exam Neurological exam: Present: alert - Psychiatric Psychiatric exam: Present: normal affect, normal mood - Skin Skin exam: Present: warm, dry, intact, normal color ED Course Vital Signs 10/16/19 10/16/19 10/16/19 22:20 22:21 22:30 Temperature 98.1 F Pulse Rate 108 H 102 H 111 H Respiratory 21 18 17 Rate Blood Pressure 158/57 138/55 O2 Sat by Pulse 94 98 95 Oximetry 10/16/19 10/16/19 10/16/19 23:03 23:15 23:31 Temperature Pulse Rate 95 H 90 91 H Respiratory 18 16 19 Rate Blood Pressure 152/51 153/44 O2 Sat by Pulse 100 99 Oximetry 10/16/19 10/17/19 10/17/19 23:45 00:00 00:15 Temperature Pulse Rate 106 H 96 H 99 H Respiratory 18 13 16 Rate Blood Pressure 146/53 150/56 150/56 O2 Sat by Pulse 100 100 Oximetry 10/17/19 00:31 Temperature Pulse Rate 102 H Respiratory 18 Rate Blood Pressure 151/49 O2 Sat by Pulse 100 Oximetry ED Medical Decision Making - Radiology Data Radiology results: report reviewed, image reviewed - Medical Decision Making Patient here in ED status post fall in [facility] sustaining a head injury. Patient is alert, with no complaints. CT head and C-spine are negative for any acute injury. [facility]. Return precautions given. - Differential Diagnosis Contusion, fracture, intracranial injury Critical care attestation.: If time is entered above; I have spent that time in minutes in the direct care of this critically ill patient, excluding procedure time. ED Disposition Clinical Impression: Fall, Closed head injury Disposition: DC-01 TO HOME OR SELFCARE Is pt being admited?: No Condition: Stable Instructions: Minor Head Injury (ED) Referrals: PRIMARY CARE, [Primary Care Provider] - 3-5 Days Time of Disposition: 23:43
[2019-10-17 00:33] VITALS: BP 151/49
== END 2019-10-17 00:57 | disposition home or self-care (01) ==
LOC: ED 22:16
DX: S09.90XA Unspecified injury of head, initial encounter (principal); I10 Essential (primary) hypertension; E11.9 Type 2 diabetes mellitus without complications; M13.88 Other specified arthritis, other site; F03.90 Unspecified dementia, unspecified severity, without behavioral disturbance, psychotic disturbance, mood disturbance, and anxiety; Z90.89 Acquired absence of other organs; Z90.710 Acquired absence of both cervix and uterus; Z79.899 Other long term (current) drug therapy; Z79.4 Long term (current) use of insulin; X58.XXXA Exposure to other specified factors, initial encounter; Y93.89 Activity, other specified; Y92.89 Other specified places as the place of occurrence of the external cause; Y99.8 Other external cause status
CPT/HCPCS: 70450; 72125

== ENCOUNTER 2019-12-18 16:44 | Emergency (ER) | payer MEDICARE ==
--- NOTE | 2019-12-18 17:20 | Emergency Department Report ---
HPI - General Time Seen by Provider: 12/18/19 17:09 - HPI HPI: 79-year-old -Algerian female presents to the emergency department via EMS from [facility] secondary to some anemia with a hemoglobin of 7.2. These labs were drawn on 12/14/2019. Patient has a past medical history that includes Alzheimer's, CVA with left-sided hemiparesis, COPD, hyperlipidemia, per ipheral vascular disease, anemia, end-stage renal disease on hemodialysis, hypertension. The primary care physician is listed as Dr. Teodoro Briscoe. There is no report or complaint of any bleeding. ED Past Medical Hx - Past Medical History Hx Hypertension: Yes Hx CVA: No Hx Heart Attack/AMI: No Hx Congestive Heart Failure: No Hx Diabetes: Yes Hx Deep Vein Thrombosis: Yes Hx Pulmonary Embolism: No Hx Liver Disease: No Hx Renal Disease: Yes (Right permacath) Hx Sickle Cell Disease: No Hx Arthritis: Yes Hx Headaches / Migraines: No Hx Seizures: No Hx Kidney Stones: No Hx Psychiatric Treatment: No Hx Asthma: No Hx COPD: No Hx Tuberculosis: No Hx Dementia: Yes Hx HIV: No Additional medical history: Cognitive communication deficit, MRSA, Dysphagia, Falling, Generalized Muscle Weakness, Abnormal Posture, Constipation, Psoriasis - Surgical History Hx Coronary Stent: No Hx Open Heart Surgery: No Hx Pacemaker: No Hx Internal Defibrillator: No Hx Cholecystectomy: No Hx Appendectomy: No Hx Breast Surgery: Yes (Right masectomy) Additional Surgical History: Hysterectomy - Social History Smoking Status: Never Smoker - Medications Home Medications: Home Medications Medication Instructions Recorded Confirmed Last Taken Type AtorvaSTATin [Lipitor] 20 mg PO QHS 02/26/18 09/17/19 06/16/19 History Amlodipine Besylate/Benazepril 1 each PO QDAY 06/10/19 09/17/19 06/16/19 History [Lotrel 10-40 mg] Ergocalciferol (Vitamin D2) 50,000 unit PO DAILY 06/10/19 09/17/19 06/16/19 History [Drisdol] Insulin Glargine [Lantus VIAL] 30 unit SUB-Q QHS 06/10/19 09/17/19 06/16/19 History Cyproheptadine [Periactin] 4 mg PO TID tablet 12/07/19 03/12/20 12/10/19 Rx Sevelamer Carbonate [Renvela] 1,600 mg PO TID tablet 06/13/19 09/17/19 06/16/19 Rx Enoxaparin 70 mg SUB-Q Q24H #30 syringe 06/25/19 09/17/19 Unknown Rx Benzonatate [Tessalon Perles] 100 mg PO Q8HR PRN 09/17/19 09/17/19 Unknown History Famotidine [Pepcid] 20 mg PO BID 09/17/19 09/17/19 Unknown History Insulin Lispro [Humalog 100 0 units SQ AC 09/17/19 09/17/19 Unknown History UNITS/ML Kwikpen] Pantoprazole [Protonix TAB] 40 mg PO QDAY 09/17/19 09/17/19 Unknown History glipiZIDE [Glucotrol] 5 mg PO BID 09/17/19 09/17/19 Unknown History ALBUTEROL NEB's [Proventil 0.083% 2.5 mg IH Q3HRT PRN nebu 09/18/19 Unknown Rx NEBS] Acetaminophen [Acetaminophen TAB] 650 mg PO Q4H PRN tablet 09/18/19 Unknown Rx B Complex W/Vitamin C [Allbee with 1 each PO QDAY tablet 09/18/19 Unknown Rx C] Enoxaparin 70 mg SUB-Q Q24HR@1800 syringe 09/18/19 Unknown Rx Ferrous Sulfate [Feosol 325 MG tab] 325 mg PO BID tablet 09/18/19 Unknown Rx Folic Acid/Vit B Comp W-C [Renal 1 cap PO QDAY capsule 09/18/19 Unknown Rx Caps] Sevelamer Carbonate [Renvela] 1,600 mg PO TIDWM tablet 09/18/19 Unknown Rx carvediloL [Coreg] 6.25 mg PO BID tablet 09/18/19 Unknown Rx ED Review of Systems ROS: Stated complaint: ABNORMAL LABS Other details as noted in HPI Comment: Unobtainable due to pts medical conditions Physical Exam - Physical Exam Physical Exam: GENERAL: The patient is well-developed well-nourished. HENT: Normocephalic. Atraumatic. Patient has moist mucous membranes. EYES: Extraocular motions are intact. NECK: Supple. Trachea is midline. CHEST/LUNGS: Clear to auscultation. There is no respiratory distress noted. HEART/CARDIOVASCULAR: Regular. There is no tachycardia. ABDOMEN: Abdomen is soft, nontender. Patient has normal bowel sounds. There is no abdominal distention. SKIN: Skin is warm and dry. NEURO: The patient is awake but nonverbal. Chronic left-sided hemiplegia. MUSCULOSKELETAL: There is no evidence of acute injury. ED Medical Decision Making - Lab Data Result diagrams: 12/18/19 17:47 12/18/19 17:47 - Medical Decision Making This patient was sent in from her nursing facility after blood work that had been obtained on 12/14/2019 came back showing a hemoglobin of 7.2. The patient has end-stage renal disease and anemia of chronic end-stage renal disease. The last hemoglobin seen at our facility was 8.6. Her blood was rechecked today and the hemoglobin came back at 7.8. The rest the lab work is unremarkable except for the renal insufficiency consistent with her end-stage renal disease. Vital signs stable throughout her ED course. For these reasons the patient does not appear to require a blood transfusion at this time and can be discharged back to her long term facility. She has been instructed to follow-up with the PCP and return to the ER with any concerns or any acute distress. Critical Care Time: No Critical care attestation.: If time is entered above; I have spent that time in minutes in the direct care of this critically ill patient, excluding procedure time. ED Disposition Clinical Impression: End stage renal disease Anemia Qualifiers: Anemia type: unspecified type Qualified Code(s): D64.9 - Anemia, unspecified Disposition: DC-01 TO HOME OR SELFCARE Is pt being admited?: No Condition: Stable Instructions: Chronic Kidney Disease (ED), Anemia (ED) Additional Instructions: The patient's hemoglobin today is 7.8. Please have the patient follow-up with her primary care physician at your [facility] facility. The patient should return to the emergency department with any signs of gastrointestinal bleeding, worsening of her symptoms, or with any acute distress. Referrals: TEODORO BRISCOE MD [Primary Care Provider] - 2-3 Days Time of Disposition: 18:32
[2019-12-18 18:00] LABS: Basophils # (Auto) 0.1 K/mm3 (0.0-0.1); Basophils % (Auto) 1.2 % (0.0-1.8); Eosinophils # (Auto) 0.2 K/mm3 (0.0-0.4); Eosinophils % (Auto) 3.1 % (0.0-4.3); Hematocrit 24.6 % (30.3-42.9); Hemoglobin 7.8 gm/dl (10.1-14.3); Lymphocytes # (Auto) 1.1 K/mm3 (1.2-5.4); Mean Corpuscular HGB Conc 32 % (30-34); Mean Corpuscular Volume 96 fl (79-97); Monocytes # (Auto) 0.7 K/mm3 (0.0-0.8); Monocytes % (Auto) 8.6 % (0.0-7.3); Platelet Count 264 K/mm3 (140-440); Red Blood Count 2.57 M/mm3 (3.65-5.03); Red Cell Distribution Width 18.9 % (13.2-15.2)
[2019-12-18 18:14] LABS: Albumin 2.6 g/dL (3.9-5); Calcium 8.1 mg/dL (8.4-10.2)
[2019-12-18 18:19] LABS: INR 1.16 (0.87-1.13)
[2019-12-18 18:20] LABS: Partial Thromboplastin Time 29.2 Sec. (24.2-36.6)
[2019-12-18 20:21] VITALS: BP 135/49
== END 2019-12-18 20:50 | disposition home or self-care (01) ==
LOC: ED 16:44
DX: E11.22 Type 2 diabetes mellitus with diabetic chronic kidney disease (principal); I12.0 Hypertensive chronic kidney disease with stage 5 chronic kidney disease or end stage renal disease; N18.6 End stage renal disease; M19.90 Unspecified osteoarthritis, unspecified site; Z90.710 Acquired absence of both cervix and uterus; Z79.4 Long term (current) use of insulin; Z79.899 Other long term (current) drug therapy
CPT/HCPCS: 36415; 80053; 85025; 85610; 85730; 86850; 86900; 86901

== ENCOUNTER 2020-01-07 16:33 | Emergency (ER) | payer MEDICARE ==
--- NOTE | 2020-01-07 17:19 | XRay Report ---
CHEST 1 VIEW INDICATION / CLINICAL INFORMATION: tachycardia. COMPARISON: 07/02/2019 FINDINGS: SUPPORT DEVICES: None. HEART / MEDIASTINUM: Cardiomegaly LUNGS / PLEURA: No significant pulmonary or pleural abnormality. No pneumothorax. ADDITIONAL FINDINGS: No significant additional findings. IMPRESSION: No acute pulmonary or pleural abnormality Signer Name: Viceky Carrington MD FACR Signed: 01/07/2020 5:15 PM Workstation Name: [id number]
--- NOTE | 2020-01-07 17:28 | Emergency Department Report ---
HPI - General Chief Complaint: Arrhythmia/Palpitations Time Seen by Provider: 01/07/20 16:49 - HPI HPI: 79-year-old -[place] female presents to the emergency department via EMS from her dialysis center after she was found to have some tachycardia upon completion of dialysis. Apparently the heart rate was about 118 bpm. She has a past medical history of CVA with left-sided deficits, Alzheimer's, hypertension, peripheral vascular disease, anemia of chronic kidney disease and end-stage renal disease on hemodialysis on Saturday//Saturday. Her primary care physician is listed as Dr. Teodoro Briscoe. Cytotechnologist/Histotechnologist is Dr. Sofia. The patie nt is nonverbal at baseline. ED Past Medical Hx - Past Medical History Previous Medical History?: Yes Hx Hypertension: Yes Hx CVA: No Hx Heart Attack/AMI: No Hx Congestive Heart Failure: No Hx Diabetes: Yes Hx Deep Vein Thrombosis: Yes Hx Pulmonary Embolism: No Hx Liver Disease: No Hx Renal Disease: Yes (lt groin cath.) Hx Sickle Cell Disease: No Hx Arthritis: Yes Hx Headaches / Migraines: No Hx Seizures: No Hx Kidney Stones: No Hx Psychiatric Treatment: No Hx Asthma: No Hx COPD: No Hx Tuberculosis: No Hx Dementia: Yes Hx HIV: No Additional medical history: Cognitive communication deficit, MRSA, Dysphagia, Falling, Generalized Muscle Weakness, Abnormal Posture, Constipation, Psoriasis, dialysis - Surgical History Past Surgical History?: Yes Hx Coronary Stent: No Hx Open Heart Surgery: No Hx Pacemaker: No Hx Internal Defibrillator: No Hx Cholecystectomy: No Hx Appendectomy: No Hx Breast Surgery: Yes (Right masectomy) Additional Surgical History: Hysterectomy - Social History Smoking Status: Never Smoker Substance Use Type: None - Medications Home Medications: Home Medications Medication Instructions Recorded Confirmed Last Taken Type AtorvaSTATin [Lipitor] 20 mg PO QHS 02/26/18 12/22/19 06/16/19 History Amlodipine Besylate/Benazepril 1 each PO QDAY 06/10/19 12/22/19 06/16/19 History [Lotrel 10-40 mg] Ergocalciferol (Vitamin D2) 50,000 unit PO 1XW 06/10/19 12/23/19 06/16/19 History [Drisdol] Insulin Glargine [Lantus VIAL] 30 unit SUB-Q QHS 06/10/19 12/22/1919 History Benzonatate [Tessalon Perles] 100 mg PO Q8HR PRN 09/17/19 12/22/19 Unknown History Insulin Lispro [Humalog 100 0 units SQ AC 09/17/19 12/22/19 Unknown History UNITS/ML Kwikpen] Pantoprazole [Protonix TAB] 40 mg PO QDAY 09/17/19 12/22/19 Unknown History ALBUTEROL NEB's [Proventil 0.083% 2.5 mg IH Q3HRT PRN nebu 09/18/19 12/22/19 Unknown Rx NEBS] Acetaminophen [Acetaminophen TAB] 650 mg PO Q4H PRN tablet 09/18/19 12/22/19 Unknown Rx Ferrous Sulfate [Feosol 325 MG tab] 325 mg PO BID tablet 09/18/19 12/22/19 Un known Rx Folic Acid/Vit B Comp W-C [Renal 1 cap PO QDAY capsule 09/18/19 12/22/19 Unknown Rx Caps] carvediloL [Coreg] 6.25 mg PO BID tablet 09/18/19 12/22/19 Unknown Rx ED Review of Systems ROS: Stated complaint: ELEVATED HEART RATE Other details as noted in HPI Comment: Unobtainable due to pts medical conditions Physical Exam - Physical Exam Vital Signs: Vital Signs 01/07/20 01/07/20 01/07/20 16:36 16:47 16:49 Temperature 98.4 F Pulse Rate 113 H 113 H 109 H Respiratory 21 Rate Blood Pressure 135/39 Blood Pressure [Right] 01/07/20 01/07/20 01/07/20 16:51 16:53 16:55 Temperature Pulse Rate 112 H 108 H 109 H Respiratory 23 21 21 Rate Blood Pressure 135/39 135/39 135/39 Blood Pressure [Right] 01/07/20 01/07/20 16:57 16:58 Temperature Pulse Rate 107 H 113 H Respiratory 19 18 Rate Blood Pressure 135/39 Blood Pressure 135/39 [Right] Physical Exam: GENERAL: The patient is well-developed well-nourished. HENT: Normocephalic. Atraumatic. Patient has moist mucous membranes. EYES: Extraocular motions are intact. NECK: Supple. Trachea is midline. CHEST/LUNGS: Clear to auscultation. There is no respiratory distress noted. HEART/CARDIOVASCULAR: Regular. There is mild tachycardia. ABDOMEN: Abdomen is soft, nontender. Patient has normal bowel sounds. SKIN: Skin is warm and dry. NEURO: The patient is awake but nonverbal. MUSCULOSKELETAL: There is no tenderness or deformity. There is no evidence of acute injury. ED Course Vital Signs 01/07/20 01/07/20 01/07/20 16:36 16:47 16:49 Temperature 98.4 F Pulse Rate 113 H 113 H 109 H Respiratory 21 Rate Blood Pressure 135/39 Blood Pressure [Right] 01/07/20 01/07/20 01/07/20 16:51 16:53 16:55 Temperature Pulse Rate 112 H 108 H 109 H Respiratory 23 21 21 Rate Blood Pressure 135/39 135/39 135/39 Blood Pressure [Right] 01/07/20 01/07/20 16:57 16:58 Temperature Pulse Rate 107 H 113 H Respiratory 19 18 Rate Blood Pressure 135/39 Blood Pressure 135/39 [Right] ED Medical Decision Making - Lab Data Result diagrams: 01/07/20 17:01 01/07/20 17:01 - EKG Data -: EKG Interpreted by Me EKG shows normal: sinus rhythm (PVCs), axis, intervals, QRS complexes (Inferior Q waves), ST-T waves Rate: tachycardia (113 bpm) - EKG Data When compared to previous EKG there are: no significant change Interpretation: unchanged when compared t (09/17/19) - Radiology Data Radiology results: image reviewed interpreted by me: Chest x-ray does not show any acute process. There are no pleural effusions, obvious pneumonia and there is no pneumothorax. - Medical Decision Making This patient was sent in from her dialysis clinic secondary to some tachycardia this all after she completed dialysis. The patient is nonverbal at baseline with chronic left-sided hemiparesis. An EKG was done that does not show any ST elevation MS and appears unchanged from previous. Patient's labs show her end- stage renal disease and anemia of CKD, but otherwise the rest of the labs are unremarkable. Chest x-ray did not show any pneumonia, pleural effusions, pneumothorax, or any other acute process. The patient is often tachycardic duri ng previous visits. She appears safe for discharge back to her nursing facility at this time. Discharge instructions include following up with primary care and returning to the closest emergency department with any worsening of her symptoms or any acute distress. Critical Care Time: No Critical care attestation.: If time is entered above; I have spent that time in minutes in the direct care of this critically ill patient, excluding procedure time. ED Disposition Clinical Impression: ESRD (end stage renal disease) on dialysis, Tachycardia Anemia in chronic kidney disease (CKD) Qualifiers: Chronic kidney disease stage: unspecified stage Qualified Code(s): N18.9 - Chronic kidney disease, unspecified; D63.1 - Anemia in chronic kidney disease Disposition: TO HOME OR SELFCARE Is pt being admited?: No Condition: Stable Instructions: Chronic Kidney Disease (ED), Anemia (ED) Additional Instructions: Please follow-up with your primary care physician in the next few days. Continue with your normal dialysis schedule. Return to the emergency department with any worsening of your symptoms or with any acute distress. Referrals: PRIMARY MD CELESTE [Primary Care Provider] - 2-3 Days TEODORO BRISCOE MD [Staff Physician] - 2-3 Days Time of Disposition: 18:56
[2020-01-07 17:48] LABS: INR 1.07 (0.87-1.13)
[2020-01-07 18:01] LABS: Albumin 2.7 g/dL (3.9-5); Calcium 7.9 mg/dL (8.4-10.2)
[2020-01-07 18:44] LABS: Hemoglobin 7.8 gm/dl (10.1-14.3); Lymphocytes % (Auto) 17.3 % (13.4-35.0); Mean Corpuscular HGB Conc 31 % (30-34); Mean Corpuscular Volume 93 fl (79-97); Monocytes % (Auto) 7.8 % (0.0-7.3); Platelet Count 192 K/mm3 (140-440); Red Blood Count 2.68 M/mm3 (3.65-5.03); Red Cell Distribution Width 18.2 % (13.2-15.2)
[2020-01-07 18:45] LABS: Basophils # (Auto) 0.1 K/mm3 (0.0-0.1); Basophils % (Auto) 1.1 % (0.0-1.8); Eosinophils # (Auto) 0.2 K/mm3 (0.0-0.4); Eosinophils % (Auto) 2.7 % (0.0-4.3); Lymphocytes # (Auto) 1.6 K/mm3 (1.2-5.4); Monocytes # (Auto) 0.7 K/mm3 (0.0-0.8)
[2020-01-07 23:53] VITALS: BP 119/38
== END 2020-01-07 23:52 | disposition home or self-care (01) ==
LOC: ED 16:33
DX: E13.22 Other specified diabetes mellitus with diabetic chronic kidney disease (principal); I12.0 Hypertensive chronic kidney disease with stage 5 chronic kidney disease or end stage renal disease; N18.6 End stage renal disease; M13.88 Other specified arthritis, other site; F03.90 Unspecified dementia, unspecified severity, without behavioral disturbance, psychotic disturbance, mood disturbance, and anxiety; Z90.710 Acquired absence of both cervix and uterus; Z99.2 Dependence on renal dialysis; Z79.4 Long term (current) use of insulin; Z90.89 Acquired absence of other organs; Z79.899 Other long term (current) drug therapy
CPT/HCPCS: 36415; 71045; 80053; 84443; 85025; 85610; 93005

== ENCOUNTER 2020-02-25 19:46 | Emergency (ER) | payer MEDICARE ==
--- NOTE | 2020-02-25 21:13 | Emergency Department Report ---
ED General Adult HPI - General Chief complaint: Altered Mental Status Stated complaint: ams PUI?: No Time Seen by Provider: 02/25/20 20:52 Source: EMS Mode of arrival: Wheelchair Limitations: Altered Mental Status - History of Present Illness Initial comments: Patient is a 79-year-old female that presents emergency room for reevaluation of mental status. Patient is a resident at a local fdc, [facility]. Patient recently discharged from the hospital today. Patient was arrived at the fdc and the fdc staff sent the patient back because they felt she was too altered. According to the patient's discharge summary, the patient is only responsive to painful stimuli and the patient is currently responsive to only painful stimuli. Patient was also discharged from the hospital on hospice back to her fdc. Patient is currently a hospice patient. -: Sudden Severity scale (0 -10): 0 Consistency: constant - Related Data Home Medications Medication Instructions Recorded Confirmed Last Taken AtorvaSTATin [Lipitor] 20 mg PO QHS 02/26/18 02/21/20 06/16/19 Amlodipine Besylate/Benazepril 1 each PO QDAY 06/10/19 02/21/20 06/16/19 [Lotrel 10-40 mg] Ergocalciferol (Vitamin D2) 50,000 unit PO 1XW 06/10/19 02/21/20 06/16/19 [Drisdol] Insulin Glargine [Lantus VIAL] 30 unit SUB-Q QHS 06/10/19 02/21/20 06/16/19 Benzonatate [Tessalon Perles] 100 mg PO Q8HR PRN 09/17/19 02/21/20 Unknown Insulin Lispro [Humalog 100 0 units SQ AC 09/17/19 02/21/20 Unknown UNITS/ML Kwikpen] Pantoprazole [Protonix TAB] 40 mg PO QDAY 09/17/19 02/21/20 Unknown Previous Rx's Medication Instructions Recorded Last Taken Type ALBUTEROL NEB's [Proventil 0.083% 2.5 mg IH Q3HRT PRN nebu 09/18/19 Unknown Rx NEBS] Acetaminophen [Acetaminophen TAB] 650 mg PO Q4H PRN tablet 09/18/19 Unknown Rx Ferrous Sulfate [Feosol 325 MG tab] 325 mg PO BID tablet 09/18/19 Unknown Rx Folic Acid/Vit B Comp W-C [Renal 1 cap PO QDAY capsule 09/18/19 Unknown Rx Caps] carvediloL [Coreg] 6.25 mg PO BID tablet 09/18/19 Unknown Rx Allergies Allergy/AdvReac Type Severity Reaction Status Date / Time No Known Allergies Allergy Verified 07/02/19 18:12 ED Review of Systems ROS: Stated complaint: TACHYCARDIA/MILD HYPOTENSION Other details as noted in HPI Comment: Unobtainable due to pts medical conditions ED Past Medical Hx - Past Medical History Previous Medical History?: Yes Hx Hypertension: Yes Hx CVA: No Hx Heart Attack/AMI: No Hx Congestive Heart Failure: No Hx Diabetes: Yes Hx Deep Vein Thrombosis: Yes Hx Pulmonary Embolism: No Hx Liver Disease: No Hx Renal Disease: Yes (lt groin cath.) Hx Sickle Cell Disease: No Hx Arthritis: Yes Hx Headaches / Migraines: No Hx Seizures: No Hx Kidney Stones: No Hx Psychiatric Treatment: No Hx Asthma: No Hx COPD: No Hx Tuberculosis: No Hx Dementia: Yes Hx HIV: No Additional medical history: Cognitive communication deficit, MRSA, Dysphagia, Falling, Generalized Muscle Weakness, Abnormal Posture, Constipation, Psoriasis, dialysis - Surgical History Past Surgical History?: Yes Hx Coronary Stent: No Hx Open Heart Surgery: No Hx Pacemaker: No Hx Internal Defibrillator: No Hx Cholecystectomy: No Hx Appendectomy: No Hx Breast Surgery: Yes (Right masectomy) Additional Surgical History: Hysterectomy - Family History Family history: no significant - Social History Smoking Status: Never Smoker Substance Use Type: None - Medications Home Medications: Home Medications Medication Instructions Recorded Confirmed Last Taken Type AtorvaSTATin [Lipitor] 20 mg PO QHS 02/26/18 02/21/20 06/16/19 History Amlodipine Besylate/Benazepril 1 each PO QDAY 06/10/19 02/21/20 06/16/19 History [Lotrel 10-40 mg] Ergocalciferol (Vitamin D2) 50,000 unit PO 1XW 06/10/19 02/21/20 06/16/19 History [Drisdol] Insulin Glargine [Lantus VIAL] 30 unit SUB-Q QHS 06/10/19 02/21/20 06/16/19 History Benzonatate [Tessalon Perles] 100 mg PO Q8HR PRN 09/17/19 02/21/20 Unknown History Insulin Lispro [Humalog 100 0 units SQ AC 09/17/19 02/21/20 Unknown History UNITS/ML Kwikpen] Pantoprazole [Protonix TAB] 40 mg PO QDAY 09/17/19 02/21/20 Unknown History ALBUTEROL NEB's [Proventil 0.083% 2.5 mg IH Q3HRT PRN nebu 09/18/19 02/21/20 Unknown Rx NEBS] Acetaminophen [Acetaminophen TAB] 650 mg PO Q4H PRN tablet 09/18/19 02/21/20 Unknown Rx Ferrous Sulfate [Feosol 325 MG tab] 325 mg PO BID tablet 09/18/19 02/21/20 Unknown Rx Folic Acid/Vit B Comp W-C [Renal 1 cap PO QDAY capsule 09/18/19 02/21/20 Unknown Rx Caps] carvediloL [Coreg] 6.25 mg PO BID tablet 09/18/19 02/21/20 Unknown Rx ED Physical Exam - General Limitations: Altered Mental Status General appearance: obtunded - Head Head exam: Present: atraumatic, normocephalic - Eye Eye exam: Present: normal appearance, PERRL Pupils: Present: normal accommodation - ENT ENT exam: Present: mucous membranes moist - Neck Neck exam: Present: normal inspection - Respiratory Respiratory exam: Present: normal lung sounds bilaterally. Absent: respiratory distress - Cardiovascular Cardiovascular Exam: Present: regular rate, normal rhythm. Absent: systolic murmur, diastolic murmur, rubs, gallop - GI/Abdominal GI/Abdominal exam: Present: soft, normal bowel sounds - Extremities Exam Extremities exam: Present: normal inspection - Back Exam Back exam: Present: normal inspection - Neurological Exam Neurological exam: Present: altered - Expanded Neurological Exam Expanded Best Eye Response ([place]): (2) open to pain Best Verbal Response ([place]): (1) no verbal response [place] Total: 3 - Skin Skin exam: Present: warm, dry, intact, normal color. Absent: rash ED Course Vital Signs 02/25/20 20:25 Temperature 98.0 F Pulse Rate 111 H Respiratory 18 Rate Blood Pressure 116/44 [Right] O2 Sat by Pulse 100 Oximetry - Reevaluation(s) Reevaluation #1: Patient's mental status is unchanged. I reviewed the previous hospital notes and discharge summary. Patient was only responsive to painful stimuli. Patient was discharged home on hospice. Patient in my opinion does not require any further inpatient or emergency medical services patient can be discharged back to her fdc. Report will be called by the bedside nurse to the fdc to make them aware. 02/25/20 22:24 - Consultations Consultation #1: I discussed case with the nurse practitioner of Dr. Cain and she agrees with the patient be transferred back to the fdc. She is aware that the patient is on hospice and she is not aware that the nurses sent her back to the emergency room. 02/25/20 22:41 ED Medical Decision Making - Medical Decision Making Patient is a 79-year-old female that presents emergency room for altered mental status. Patient was in the hospital for a long stay and recently discharged back to her fdc. Patient was discharged this evening at 3 PM the patient arrived at the fdc the nursing staff felt the patient was altered and immediately transfer the patient back to the ER. Patient in accordance with the previous notes is at her new baseline. Patient does not require any further emergency medical or inpatient services. Patient does not require any testing in the ER. Patient will be transferred back to the fdc. I discussed this patient's case with the primary team at the fdc and they agreed with that plan of care. Patient will be discharged from the ER back to the fdc on hospice. - Differential Diagnosis Altered mental status, baseline mentation Critical care attestation.: If time is entered above; I have spent that time in minutes in the direct care of this critically ill patient, excluding procedure time. ED Disposition Clinical Impression: Altered mental state Qualifiers: Altered mental status type: unspecified Qualified Code(s): R41.82 - Altered mental status, unspecified Disposition: DC-01 TO HOME OR SELFCARE Is pt being admited?: No Does the pt Need Aspirin: No Condition: Stable Instructions: Altered Mental Status (ED) Additional Instructions: Patient to be discharged from the ER back to the fdc. Patient to follow-up with primary team as soon as possible. Time of Disposition: 22:43
[2020-02-26 04:50] VITALS: BP 109/43
== END 2020-02-26 05:09 | disposition home or self-care (01) ==
LOC: ED 19:46
DX: R41.82 Altered mental status, unspecified (principal); Z90.710 Acquired absence of both cervix and uterus; Z79.899 Other long term (current) drug therapy; Z98.890 Other specified postprocedural states
CPT/HCPCS: 99283